=== PATIENT | female | born 1940 | race Caucasian/White ===

== ENCOUNTER 2018-01-30 12:04 | Emergency (ER) | payer MEDICARE, OTHER, SELFPAY ==
[2018-01-30 12:05] VITALS: BP 153/77; PULSE 90; RESP 16; TEMP 37.2; O2SAT 96; BMI 24.7
--- NOTE | 2018-01-30 12:26 | RAD_ITS ---
STUDY: X-RAY CHEST REASON FOR EXAM: Female, 77 years old. Several week history of shortness of breath. TECHNIQUE: PA and lateral views of the chest. COMPARISON: Comparison is made with prior study dated November 11, 2016. FINDINGS: Hyperinflation. Worsening of the pleural parenchymal changes at the left lung base suggestive of scarring and possible small left pleural effusion. There is mild cardiac enlargement. Normal mediastinum and chrystal. Normal visualized pulmonary arteries. There is atherosclerotic calcification of the aortic arch with tortuosity. There are diffuse degenerative changes of the visualized thoracic spine. Normal visualized ribs, clavicles, and shoulders. There is no demonstrated abnormality of the visualized soft tissue structures of the upper abdomen. RAD/Chest PA and Lateral IMPRESSION: Worsening of the pleural parenchymal changes at the left lung base. Blunting of the right costophrenic angle. Electronically Signed: Tim Solitario MD at 13:29 EDT Tel [phone], Service support ,
[2018-01-30] MEDS: Ipratropium/Albuterol Sulfate 3 ML AMPUL.NEB INHALATION (12:35)
[2018-01-30] MEDS: Albuterol 2.5 MG/3 ML VIAL.NEB. INHALATION ×2 (12:35)
[2018-01-30 12:36] VITALS: PULSE 91; RESP 20
--- NOTE | 2018-01-30 12:52 | ED.DCSUM_ITS ---
- ER Visit Summary Date of Service: 01/30/18 Chief Complaint: Shortness of breath History of Present Illness: The patient is a 77 F reports cough and chest congestion for the past 2-3 weeks. She had a low-grade fever initially in the illness, but none recently. She does report cough with green sputum. She does feel like she is wheezing. She used her nebulizer 4 times last night. Patient states her primary care physician had called her in prednisone. She is finished with this course but does not feel improved. Physical Examination: Blood pressure is 153/77, temperature 99.0, heart rate 90 , respiratory rate 16, pulse ox 96% on room air. Patient is in no acute distress and is speaking full sentences. Head neck examination reveals TMs to be clear bilaterally. She has mild posterior pharyngeal drainage. She has mild bilateral cervical lymphadenopathy. Heart is regular rate and rhythm. Lung sounds with expiratory wheezes and rales. Abdomen is soft nontender. Lower extremity examination reveals no significant calf tenderness or edema. Test Results: CBC reveals a white count of 11.1 with normal differential. Hemoglobin is 10.5. Chemistry studies are normal. Two-view chest x-ray shows worsening pleural parenchymal changes at the left lung base. There is blunting of the right costophrenic angle. Emergency Department Course and Treatment: Patient was given aerosols and IV Solu-Medrol. On repeat evaluation she still has some expiratory wheezes but they are improved. She is now bringing up some sputum. She will continue her Mucinex at home. She be placed back on a prednisone taper and given doxycycline. Treatment Plan: [] Disposition: Discharge Impression: 1. Bronchitis 2. Asthma exacerbation This note was generated with [employer] dictation software. It may contain incorrect words, spelling, and punctuation that were not noted in review of the chart prior to signing ED Disposition - Plan for ED Patient: Chief Complaint: Shortness of Breath Referrals: Umm Rehman MD [Primary Care Provider] -
[2018-01-30] MEDS: 0.9% Normal Saline 1,000 ML 150 ML IV (12:55)
[2018-01-30] MEDS: MethylPREDNISolone 125 MG/2 ML Vial IV (12:55)
[2018-01-30 13:02] LABS: Absolute Lymphocyte Count 1.46 X10^3/ul (0.83-4.51); Absolute Neutrophil Count 8.4 X10^3/uL (2.0-7.7); Basophil# 0.04 X10^3/uL; Basophil% 0.4 % (0-1); Eosinophil# 0.32 X10^3/uL; Eosinophils% 2.9 % (0-5); Hematocrit 35.6 % (37-47); Hemoglobin 10.5 g/dl (12.0-15.0); Lymphocyte # 1.46 X10^3/ul (4.0); Lymphocyte % 13.2 % (19-41); Mean Corp Hgb Conc 29.5 g/gl (32-36); Mean Corpuscular Hgb 22.7 pg (27.0-32.0); Mean Corpuscular Volume 77.1 fL (81-99); Monocyte# 0.85 X10^3/uL; Monocyte% 7.7 % (0-10); Neutrophil # 8.38 X10^3/uL (2.7-7.7); Neutrophil % 75.6 % (47-70); POSITIVE COUNT NO; POSITIVE DIFFERENTIAL NO; POSITIVE MORPHOLOGY NO; Platelet Count 328 K/mm3 (150-450); RBC Distribution Width CV 18.1 % (11.6-14.6); RBC Distribution Width SD 49.3 fl (35.1-43.9); Red Blood Count 4.62 M/mm3 (4.2-5.4); White Blood Count 11.1 K/mm3 (4.4-11.0)
[2018-01-30 13:17] LABS: Anion Gap 7 (5-15); BUN 10 mg/dL (7-18); BUN/Creat Ratio 16.4 RATIO (10-20); Calcium,Total 8.6 mg/dL (8.5-10.1); Chloride 107 mmol/L (98-107); Creatinine, Serum 0.61 mg/dL (0.55-1.02); EST Glomerular Filtration Rate 102 mL/min (>60); Est Glom Filt Rate - Afr Amer 123 mL/min (>60); Estimated Creatinine Clearance 40.21 ml/min; Glucose 78 mg/dL (74-106); Potassium 3.8 mmol/L (3.5-5.1); Sodium Level 142 mmol/L (136-145)
--- NOTE | 2018-01-30 14:18 | ED.DEP ---
ED Disposition - Plan for ED Patient: Disposition: Home or Assisted Living Chief Complaint: Shortness of Breath Instructions: ED Bronchitis Asthmatic Prescriptions: Prednisone 10 mg PO DAILY #63 tablet Doxycycline Monohydrate 100 mg PO BID #20 capsule Referrals: Umm Rehman MD [Primary Care Provider] - 1 Week
[2018-01-30 14:32] VITALS: BP 145/53; PULSE 78; RESP 16; O2SAT 97
[2018-01-30] MEDS: Doxycycline 100 MG CAPSULE PO (14:32)
== END 2018-01-30 14:34 | disposition home or self-care (01) ==
PROVIDERS: Emergency Provider Emergency Medicine; Family Provider Internal Medicine; PCP Internal Medicine
DX: J40 Bronchitis, not specified as acute or chronic (principal); J45.901 Unspecified asthma with (acute) exacerbation; M06.9 Rheumatoid arthritis, unspecified; Z79.899 Other long term (current) drug therapy
CPT/HCPCS: 71046; 80048; 85025; 94640; 96361; 96374; 99284; J7030

== ENCOUNTER → 2018-05-15 16:00 | Outpatient (CLI) | payer MEDICARE, OTHER, SELFPAY | PROVIDERS: Family Provider Internal Medicine; PCP Internal Medicine; Visit Provider Ophthalmology | DX: H10.42 Simple chronic conjunctivitis (principal) | CPT/HCPCS: 87070; 87077; 87186; 87205 ==

== ENCOUNTER → 2018-05-25 09:14 | Outpatient (CLI) | payer MEDICARE, OTHER, SELFPAY | PROVIDERS: Family Provider Internal Medicine; PCP Internal Medicine; Visit Provider Ophthalmology | DX: H10.42 Simple chronic conjunctivitis (principal) | CPT/HCPCS: 87070; 87075; 87077; 87186; 87205 ==

== ENCOUNTER 2018-06-25 15:37 | Emergency (ER) | payer MEDICARE, OTHER, SELFPAY ==
[2018-06-25 15:37] VITALS: BP 152/79; PULSE 95; RESP 20; TEMP 36.8; O2SAT 96; BMI 26.0
[2018-06-25 15:51] VITALS: PULSE 87; RESP 19; O2SAT 94; O2SAT 95
[2018-06-25 15:56] VITALS: PULSE 80; RESP 18
[2018-06-25] MEDS: Ipratropium/Albuterol Sulfate 3 ML AMPUL.NEB INHALATION (15:56)
[2018-06-25] MEDS: predniSONE 20 MG Tablet 40 MG PO (16:02)
--- NOTE | 2018-06-25 16:20 | RAD_ITS ---
STUDY: X-RAY CHEST REASON FOR EXAM: Female, 78 years old. Dyspnea. TECHNIQUE: 2 views COMPARISON: Prior chest radiograph of January 30, 2018. FINDINGS: Generalized hyperexpansion. Stable bilateral chronic apical and bibasilar changes without a substantial new area of consolidation, focal atelectasis or pleural effusion. Normal size heart. Calcified left hilar lymph nodes. Normal visualized pulmonary arteries. There is atherosclerotic calcification of the aortic arch with tortuosity. There are diffuse degenerative changes of the visualized thoracic spine with demineralized osseous structures. There is degenerative osteoarthritis of the bilateral shoulders. There is no demonstrated abnormality of the visualized soft tissue structures of the upper abdomen. RAD/Chest PA and Lateral IMPRESSION: No acute cardiopulmonary findings or changes. Hyperexpansion and stable lung changes. Stigmata of old granulomatous disease. Electronically Signed: Kori Corado MD at 17:15 EDT , Service support ,
[2018-06-25] MEDS: 0.9% Normal Saline 1,000 ML 150 ML IV (16:32)
[2018-06-25 16:38] LABS: Absolute Lymphocyte Count 0.63 X10^3/ul (0.83-4.51); Absolute Neutrophil Count 7.3 X10^3/uL (2.0-7.7); Basophil# 0.02 X10^3/uL; Basophil% 0.2 % (0-1); Eosinophil# 0.23 X10^3/uL; Eosinophils% 2.7 % (0-5); Hematocrit 36.9 % (37-47); Hemoglobin 10.7 g/dl (12.0-15.0); Lymphocyte # 0.63 X10^3/ul (4.0); Lymphocyte % 7.4 % (19-41); Mean Corpuscular Hgb 23.9 pg (27.0-32.0); Mean Corpuscular Volume 82.4 fL (81-99); Mean Platelet Vol. 9.2 fl (6.2-12.0); Monocyte# 0.27 X10^3/uL; Monocyte% 3.2 % (0-10); Neutrophil % 86.4 % (47-70); Platelet Count 348 K/mm3 (150-450); RBC Distribution Width CV 17.1 % (11.6-14.6); RBC Distribution Width SD 51.9 fl (35.1-43.9); Red Blood Count 4.48 M/mm3 (4.2-5.4); White Blood Count 8.5 K/mm3 (4.4-11.0)
[2018-06-25 16:42] LABS: POSITIVE COUNT NO; POSITIVE DIFFERENTIAL NO; POSITIVE MORPHOLOGY NO
[2018-06-25 16:56] LABS: Anion Gap 2 (5-15); BUN 7 mg/dL (7-18); BUN/Creat Ratio 10.2 RATIO (10-20); Calcium,Total 8.6 mg/dL (8.5-10.1); Chloride 108 mmol/L (98-107); Creatinine, Serum 0.68 mg/dL (0.55-1.02); EST Glomerular Filtration Rate 89 mL/min (>60); Est Glom Filt Rate - Afr Amer 107 mL/min (>60); Estimated Creatinine Clearance 39.59 ml/min; Glucose 112 mg/dL (74-106); Potassium 4.6 mmol/L (3.5-5.1); Sodium Level 140 mmol/L (136-145)
[2018-06-25 18:48] LABS: D-Dimer Quantitative (DVT/PE) 0.39 FEU/ug/m (0.27-0.49)
--- NOTE | 2018-06-25 19:14 | ED.DCSUM_ITS ---
- ER Visit Summary Date of Service: 06/25/18 Chief Complaint: [Shortness of breath] History of Present Illness: The patient is a 78 F [presents the emergency department complaint of shortness of breath since yesterday. Patient's had a cough with some yellowish sputum production. Patient complains of some pain in the right lung. Patient said she had to take a Percocet for the pain in her right lung. Patient was seen at urgent care and referred to the emergency department. Patient does have a history of asthma. Patient denies recent travel or surgery. Patient has not had a fever.] Physical Examination: [HEENT-PERRLA, EOMI. Cranial nerves II through XII grossly intact. TMs clear. Mucous membranes moist. No adenopathy. Cardiovascular-regular rate and rhythm without murmur or ectopy Lungs-aeration bilaterally with some faint expiratory wheezes noted bilaterally. No accessory muscle use or retractions. Abdomen-normoactive bowel sounds, soft, nontender, no rebound or rigidity, no peritoneal signs. Extremities-intact ?4, normal range of motion, normal pulses, atraumatic] Test Results: EKG obtained arrival showed a sinus rhythm with a ventricular rate of 85 bpm with no acute ST segment changes. CBC with differential was normal. Chemistries were normal. Troponin was less than 0.015. D-dimer was normal at 0.39. Chest x-ray showed hyperinflation otherwise nothing acute. [] Emergency Department Course and Treatment: [Patient was medicated with a DuoNeb aerosol and was started on prednisone. Patient was treated with doxycycline.] Treatment Plan: Patient to follow-up with her primary care physician in 3-5 days. Patient will be started on doxycycline and prednisone [] Disposition: [Discharged home in stable condition] Impression: [Asthmatic bronchitis] This note was generated with [employer] dictation software. It may contain incorrect words, spelling, and punctuation that were not noted in review of the chart prior to signing ED Disposition - Plan for ED Patient: Chief Complaint: Asthma Referrals: Umm Rehman MD [Primary Care Provider] -
--- NOTE | 2018-06-25 19:14 | ED.DEP ---
ED Disposition - Plan for ED Patient: Chief Complaint: Asthma Instructions: ED Bronchitis Asthmatic Prescriptions: Doxycycline Monohydrate 100 mg PO BID #20 cap Prednisone [Deltasone] 20 mg PO BID #10 tab Referrals: Umm Rehman MD [Primary Care Provider] - 3-5 Days
[2018-06-25 19:20] VITALS: BP 136/79; PULSE 70; RESP 16; O2SAT 96
--- NOTE | 2018-06-26 11:16 | CM.ED ---
ED CALLBACK: Follow-up call placed to patient with no answer. Voicemail left with return contact information.
== END 2018-06-25 19:51 | disposition home or self-care (01) ==
PROVIDERS: Emergency Provider Emergency Medicine; Family Provider Internal Medicine; PCP Internal Medicine
DX: J45.909 Unspecified asthma, uncomplicated (principal); M06.9 Rheumatoid arthritis, unspecified; F32.9 Major depressive disorder, single episode, unspecified; Z79.899 Other long term (current) drug therapy
CPT/HCPCS: 36415; 71046; 80048; 84484; 85025; 85379; 93005; 94640; 96360; 96361; 99284; J7030; A4216

== ENCOUNTER → 2018-12-14 07:16 | Outpatient (CLI) | payer MEDICARE, OTHER, SELFPAY ==
[2018-12-01 09:06] VITALS: BMI 25.8
--- NOTE | 2018-12-14 07:19 | CT_ITS ---
HISTORY: WHEEZING/PRIOR SMOKERHX-ASTHMA,REYNAUDSSURG-BREAST REDUCTION EXAM/TECHNIQUE: CT Chest W/O Contrast: COMPARISON: Chest radiographs 06/25/18. FINDINGS: # of images incl. paperwork: [id number] 3 right-sided pulmonary nodules are evident, images are from series 4: Right middle lobe, subpleural, 5 mm image 82 and 3 mm image 88. Right lower lobe, subpleural, 7 mm, image 71. Otherwise the lungs are significant for scarring in the apices, scarring/atelectasis in the left lung base. No evidence of acute pneumonia or pulmonary edema. No apparent lymphadenopathy. Calcified left hilar lymph nodes are noted. Normal caliber thoracic aorta, normal heart size. Calcified mitral annulus. Moderate hiatal hernia contains a portion of the gastric fundus. Surgical clips are seen in the region of the hiatal hernia compatible with previous surgery. Several incidental hepatic cysts and calcified splenic granulomas are noted. A large heterogenous mass is noted in the left lobe of the thyroid gland, 3.8 x 5.0 x 4.7 cm TRV X APX craniocaudad, heterogenous with small calcifications on the inferomedial aspect, as well as soft tissue and lower attenuation. This deviates the trachea to the right mildly. No acute osseous abnormality. Mild chronic wedging of the T12 vertebral body. CT/Chest without Contrast IMPRESSION: No acute findings. 3 right-sided pulmonary nodules described in detail above. Lung RADS category 3; six-month follow-up pulmonary nodule protocol CT suggested. Large mass in the left lobe of the thyroid gland. Dedicated thyroid workup including ultrasound suggested if not previously performed. Moderate hiatal hernia, other incidental findings as above. Individualized dose optimization techniques were used for this CT. at 0840 Reported and signed by: Darren Yanez MD Electronically Signed: Darren Yanez, at 8:38 EST Tel , Service support ,
--- NOTE | 2018-12-14 07:19 | ECHOCS_ITS ---
Reason For Study: Dyspnea/SOB Procedure This was a 2D Doppler, Color Flow transthoracic echocardiogram. The study was technically difficult. Exam performed in department. Left Ventricle Normal LV size. Left ventricular systolic function is normal. The estimated ejection fraction is 65 %. Stage 1 diastolic dysfunction. No regional wall motion abnormalities noted. Right Ventricle Normal RV size. Normal systolic function. Atria Normal left atrium. Normal right atrium. Mitral Valve There is mild mitral annular calcification. Mild (1+) eccentric mitral valve insufficiency. Tricuspid Valve Normal tricuspid valve. Aortic Valve Trisinus/trileaflet aortic valve. Pulmonic Valve The pulmonic valve is not well visualized. Great Vessels Normal aortic root. The pulmonary artery is normal size. Normal inferior vena cava. Pericardium/Pleural No pericardial effusion. MMode/2D Measurements & Calculations LVIDd: 4.2 cm IVSd: 1.1 cm Ao root diam: 3.9 cm LVIDs: 3.2 cm LVPWd: 1.3 cm LA dimension: 4.1 cm RVDd: 3.1 cm FS: 22.5 % LAV(MOD-bp): 59.4 ml LA A4 area: 19.7 cm2 RA A4 area: 20.5 cm2 LAV(MOD-bp) Indexed: 34.7 ml/m2 LAV(MOD-sp2): 63.4 ml LAV(MOD-sp4): 53.3 ml Time Measurements MV dec time: 0.27 sec Doppler Measurements & Calculations MV E max rajiv: 123.5 cm/sec Lat Peak E' Rajiv: 6.8 cm/sec Med Peak E' Rajiv: 6.1 cm/sec MV A max rajiv: 161.2 cm/sec E/E' lat: 18.2 E/E' med: 20.4 MV E/A: 0.77 MV V2 max: 173.0 cm/sec MV P1/2t max rajiv: 129.6 cm/sec Ao V2 max: 122.5 cm/sec MV max P.0 mmHg MV P1/2t: 105.4 msec Ao max P.0 mmHg MV V2 mean: 89.2 cm/sec MV dec slope: 360.2 cm/sec2 Ao V2 mean: 87.8 cm/sec MV mean P.8 mmHg MVA(P1/2t): 2.1 cm2 Ao mean P.4 mmHg MV V2 VTI: 46.1 cm Ao V2 VTI: 26.5 cm LV V1 max: 97.6 cm/sec PA V2 max: 61.9 cm/sec LV V1 max P.8 mmHg LV V1 mean P.9 mmHg LV V1 mean: 62.4 cm/sec LV V1 VTI: 23.2 cm Interpretation Summary Normal LV size. Left ventricular systolic function is normal. The estimated ejection fraction is 65 %. Stage 1 diastolic dysfunction. Contrast injection was performed. Ordering Physician: Chandu Denson Referring Physician: Chandu Denson Performed By: Jonathan Hyman RCS
== END ==
PROVIDERS: Family Provider Internal Medicine; PCP Internal Medicine; Referring Provider Internal Medicine Critical Care Medicine; Visit Provider Internal Medicine Critical Care Medicine
DX: R06.09 Other forms of dyspnea (principal); M06.9 Rheumatoid arthritis, unspecified
CPT/HCPCS: 71250; 93306; Q9957; A4216; C8929

== ENCOUNTER → 2019-01-08 17:24 | Outpatient (CLI) | payer MEDICARE, OTHER, SELFPAY ==
[2018-12-01 09:06] VITALS: BMI 25.8
--- NOTE | 2019-01-08 09:00 | THYROID_PTH ---
PATIENT: MIKA LUZ LOC: [facility] U#:[id number] AGE/SX: 85/F ROOM: RE01/08/[address]: Dr. Lyudmila Suarez MD : [id number] BED: DIS: SPEC #: [id number] RECD: 01/08/19 17:07 STATUS: NICOLE MAXIMO #: [id number] ETHAN: 01/08/19 09:[address]: Lyudmila Suarez DEPT: SURGICAL PATHOLOGY RECD BY: Jamie Navarro ENTERED: 01/11/19 14:42 SP TYPE: THYROID OTHR DR: Dr. 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 SJ:justice 01/12/19 COMMENT Correlation with clinical, radiologic findings and appropriate follow up are necessary. MICROSCOPIC DESCRIPTION Slides are reviewed. GROSS DESCRIPTION Received is one container labeled with the patient's name and not further designated. The specimen consists of multiple fragments of rush soft tissue that in aggregate measure 0.5 x 0.1 x <0.1 cm. The specimen is totally submitted in one cassette. Cytospin and cell block are also prepared from remaining fluid. / SJ:justice 01/11/19 TC:5 CPT: 19238, 58255
== END ==
PROVIDERS: Family Provider Internal Medicine; PCP Internal Medicine; Referring Provider Surgery; Visit Provider Surgery
DX: E04.2 Nontoxic multinodular goiter (principal)
CPT/HCPCS: 88108; 88305

== ENCOUNTER 2019-01-18 15:33 | Inpatient (IN) | payer MEDICARE, OTHER, SELFPAY ==
[2018-12-01 09:06] VITALS: BMI 25.8
[2019-01-18] VITALS (10 sets, daily range): BP systolic 112–176; BP diastolic 37–97; PULSE 52–158; RESP 13–26; TEMP 36.9–39; O2SAT 94–99; BMI 25.7; BMI 25.3
--- NOTE | 2019-01-18 16:00 | EKG12_ITS ---
Test Reason : SOB FEVER Blood Pressure : / mmHG Vent. Rate : 116 BPM Atrial Rate : 116 BPM P-R Int : 132 ms QRS Dur : 080 ms QT Int : 356 ms P-R-T Axes : -21 079 029 degrees QTc Int : 494 ms Sinus tachycardia with Premature atrial complexes Low voltage QRS ST & T wave abnormality, consider anterior ischemia Abnormal ECG Confirmed by JOSÉ LUIS MOY ([id number]), telegraph editor LEYLA RICHMOND ([id number]) on 01/22/2019 1:34:58 PM Referred By: Hansel Torres Confirmed By:JOSÉ LUIS MOY
--- NOTE | 2019-01-18 16:08 | RAD_ITS ---
STUDY: X-RAY CHEST REASON FOR EXAM: Female, 78 years old. Fever. Weakness. TECHNIQUE: Single AP portable view of the chest. COMPARISON: June 25, 2018. CT of the chest, December 14, 2018. FINDINGS: Telemetry wires overlie the chest. Lungs are mildly hyperexpanded. There is no new mass or infiltrate. There is mild chronic interstitial coarsening. There is no demonstrated pleural abnormality. Normal size heart. Normal mediastinum. There are calcifications in the left hilum. Normal visualized pulmonary arteries. There is atherosclerotic calcification of the aortic arch with tortuosity. The thoracic spine is obscured by the mediastinum. There is degenerative osteoarthritis of the bilateral shoulders. There is no demonstrated abnormality of the visualized soft tissue structures of the upper abdomen. RAD/Chest 1 View (Portable) IMPRESSION: No acute cardiopulmonary disease or interval change. Electronically Signed: Jr Douglass DO at 17:18 EST Tel [phone], Service support ,
[2019-01-18] MEDS: Acetaminophen 500 MG Tablet 1000 MG PO (16:11)
[2019-01-18] MEDS: 0.9% Normal Saline 1,000 ML 250 ML IV (16:12)
[2019-01-18 16:29] LABS: Mucous, Urine 0 SEEN /hpf (<or=2+)
[2019-01-18 16:39] LABS: Color, Urine Yellow (Yellow); Glucose, Dipstick Normal (Normal); Ketone-Dipstick 50 mg/dl (Negative); Leukocyte Esterase-Dipstick 500 /ul (Negative); Nitrite-Dipstick Positive (Negative); Occult Blood-Urine 150 /ul (Negative); Protein-Dipstick 100 mg/dl (Negative); Urine Bilirubin Dipstick Negative (Negative); Urine Clarity Cloudy (Clear); Urine Urobilinogen Normal (Normal)
[2019-01-18 16:42] LABS: International Normalized Ratio 1.2; Prothrombin Time (Protime)PT. 15.2 SECONDS (11.7-14.9)
[2019-01-18 16:43] LABS: Absolute Lymphocyte Count 0.51 X10^3/ul (0.83-4.51); Absolute Neutrophil Count 12.8 X10^3/uL (2.0-7.7); Basophil# 0.01 X10^3/uL; Basophil% 0.1 % (0-1); Eosinophil# 0.01 X10^3/uL; Eosinophils% 0.1 % (0-5); Hematocrit 37.6 % (37-47); Hemoglobin 10.9 g/dl (12.0-15.0); Lymphocyte # 0.51 X10^3/ul (4.0); Lymphocyte % 3.5 % (19-41); Mean Corpuscular Hgb 22.6 pg (27.0-32.0); Mean Corpuscular Volume 77.8 fL (81-99); Mean Platelet Vol. 8.8 fl (6.2-12.0); Monocyte# 1.08 X10^3/uL; Monocyte% 7.5 % (0-10); Neutrophil # 12.82 X10^3/uL (2.7-7.7); Neutrophil % 88.6 % (47-70); Partial Thromboplast Time 29.3 Seconds (24.1-36.2); Platelet Count 404 K/mm3 (150-450); RBC Distribution Width CV 16.8 % (11.6-14.6); RBC Distribution Width SD 47.9 fl (35.1-43.9); Red Blood Count 4.83 M/mm3 (4.2-5.4); White Blood Count 14.5 K/mm3 (4.4-11.0)
[2019-01-18 16:45] LABS: Differential Indicated SCAN CRITERIA MET; POSITIVE COUNT NO; POSITIVE DIFFERENTIAL YES; POSITIVE MORPHOLOGY NO
[2019-01-18 16:49] LABS: Lactic Acid 1.6 mmol/L (0.4-2.0)
[2019-01-18 16:52] LABS: ALB/GLOB Ratio 0.7 RATIO (0.9-2.4); AST(SGOT) 18 U/L (15-37); Alanine Aminotransfer ALT/SGPT 16 U/L (13-56); Albumin, Serum 3.1 g/dL (3.2-5.0); Alkaline Phosphatase 95 U/L (45-117); Anion Gap 13 (5-15); BUN 12 mg/dL (7-18); BUN/Creat Ratio 14.3 RATIO (10-20); Calcium,Total 8.4 mg/dL (8.5-10.1); Chloride 102 mmol/L (98-107); Creatinine, Serum 0.84 mg/dL (0.55-1.02); EST Glomerular Filtration Rate 70 mL/min (>60); Est Glom Filt Rate - Afr Amer 85 mL/min (>60); Estimated Creatinine Clearance 47.13 ml/min; Globulin 4.2 g/dL (2.2-4.2); Glucose 124 mg/dL (74-106); Protein, Total 7.3 g/dL (6.4-8.2); Sodium Level 138 mmol/L (136-145)
[2019-01-18 17:03] LABS: White Blood Cells >100 SEEN /hpf (0-5)
[2019-01-18] MEDS: levoFLOXacin IV 750 MG/150 ML BAG 100 MG IV (17:03)
[2019-01-18 17:04] LABS: Bacteria 4+ /hpf (None Seen); Red Blood Cells-Urine 10-25 SEEN /hpf (0-5); Squamous Epithelial Cells - UA 0-5 SEEN /hpf (5-10)
[2019-01-18 17:08] LABS: Differential Comment SCANNED
--- NOTE | 2019-01-18 18:27 | HP.PCM_ITS ---
Problem List (1) Sepsis Status: Acute Qualifiers: Sepsis type: sepsis due to unspecified organism Qualified Code(s): A41.9 - Sepsis, unspecified organism (2) Pyelonephritis Status: Acute History of Present Illness Date of Admission: 01/18/19 Chief Complaint: chills. malaise. The patient is a 78 year old F who has been having chills and since the third. Today, patient was getting into her bed, patient has an elevated bed so requires using stool but the stool went out from underneath her and patient fell on the ground. Patient was weak but denied any loss of consciousness nor hitting her head. Family is concerned and brought the patient to the emergency room. In the emergency room, patient was found to be septic, with a fever of 38.3, tachycardia with a heart rate of 104 and tachypnea with respiratory rate of 26. Additionally, patient was also found to have a white count of 14.5. Urinalysis was positive for urinary tract infection and patient did have CVA tenderness. It was reported to me by the emergency room physician that the patient was having chest pain but patient adamantly denies any chest pain today or yesterday to me. [] Past Medical History Past Medical History (Chronic Problems): Chronic Problems (Last Reviewed 12/01/18 @ 09:06 by Jyoti Flores) Dyspnea (Chronic) Rheumatoid arthritis (Chronic) Chronic pain (Chronic) Depression (Chronic) Asthma (Chronic) Medical History: Medical History (Last Updated 01/18/19 @ 18:26 by Hansel Torres DO) Rheumatoid arthritis (Chronic) M06.9 Chronic pain (Chronic) G89.29 Depression (Chronic) F32.9 Asthma (Chronic) J45.909 Thyroid nodule E04.1 Calculus of kidney N20.0 Diaphragmatic hernia K44.9 Lichen planus L43.9 Diverticulosis of colon (without mention of hemorrhage) K57.30 GERD (gastroesophageal reflux disease) K21.9 Osteopenia M85.80 Allergies aspirin Allergy (Verified 01/18/19 15:34) Shortness of breath cephalexin monohydrate [From Keflex] Allergy (Verified 01/18/19 15:34) Hives hydrocodone bitartrate [From Vicodin] Allergy (Verified 01/18/19 15:34) Rash NSAIDS (Non-Steroidal Anti-Inflamma Allergy (Verified 01/18/19 15:34) Shortness of breath Home Medications: Ambulatory Orders Medication Instructions Recorded Cyclobenzaprine [Flexeril] 10 mg PO BID PRN 11/24/13 Fluticasone/Salmeterol [Advair 1 puff IH DAILY 11/24/13 250/50 Mcg Diskus] Montelukast [Singulair] 10 mg PO DAILY 11/24/13 Albuterol Sulfate [Ventolin Hfa] 2 puff INHALATION 4X/DAY PRN PRN 01/30/18 Pregabalin [Lyrica] 75 mg PO QHS 01/30/18 Albuterol Aerosols [Ventolin 2.5 mg INHALATION Q6H PRN PRN 06/25/18 Aerosols] Hydroxyzine HCl 1 tab PO QHS 01/18/19 Surgical History: Surgical History (Last Reviewed 01/18/19 @ 18:25 by Hansel Torres DO) H/O bilateral breast reduction surgery Z98.890 H/O colonoscopy Z98.890 H/O laparoscopy Z98.890 esophagogast H/O: hysterectomy Z90.710 vaginal History of appendectomy Z90.49 History of incisional hernia repair Z98.890, Z87.19 History of partial colectomy Z90.49 excision large bowel P Ignacio Silvana Fundoplication Right ear drum surgery age 32 Psychiatric History: No pertinent psych hx Lives: With Family Smoking Status: Former smoker Tobacco Use: Non-smoker Alcohol: None Drugs: None - *Family History Maternal Family History: Family History (Last Reviewed 01/18/19 @ 18:26 by Hansel Torres DO) Mother Breast cancer Diabetes Osteoporosis Father CVA (cerebral vascular accident) Hypertension Review of Systems Constitutional: Reports: Chills, Fever, Malaise, Weakness. Denies: Anorexia Eyes: Denies: Blurred vision, Double vision HEENT: Denies: Head Aches, Sinus Congestion, Sinus Drainage Cardiovascular: Denies: Chest Pain, Edema Respiratory: Denies: Cough, Shortness of breath at rest, Sputum production Gastrointestinal: Denies: Abdominal Pain, Nausea, Vomiting Genitourinary: Reports: Dysuria. Denies: Incontinence Musculoskeletal: Reports: Joint Pain. Denies: Joint Tenderness Skin: Denies: Rash, Wounds Neurological: Denies: Balance problems, Blurred vision, Double vision, Change in Speech Psychiatric: Denies: Anxiety, Depression Endocrine: Denies: Change in Body Habitus, Heat/ Cold Intolerance Hematologic/ Lymphatic: Denies: Easy Bruising, Easy Bleeding, Hx of blood clot Comment: A 10 point review of systems were negative except as mentioned in the history of present illness and the other review of systems. VTE Information - Inpt Only VTE Present on Admission: No VTE Mechan Device Prophylaxis: None VTE Pharm Prophylaxis ordered?: Yes Patient Problems: Active and Suspected Problems (Last Reviewed 12/01/18 @ 09:06 by Jyoti Flores) Sepsis (Acute) Pyelonephritis (Acute) - Physical Exam General: Alert, Cooperative, No apparent distress HEENT: Atraumatic, Normocephalic Oral: Moist Mucosa, No Gingival or Mucosal Lesions/ Ulcerations Neck: No Nodes, - - Thyromegaly. Lungs: Clear to auscultation, Normal air movement, No rhonchi Cardiovascular: Regular rate, Regular Rhythm, Normal S1, Normal S2, No murmurs Abdomen: Bowel Sounds Present, Soft, Non Tender, Non-Distended, - - Right CVA tenderness Extremities: No edema, No Calf Tenderness Skin: No rashes, No breakdown Musculoskeletal: No Tenderness to Palpation of Joints or Extremities, No Muscle Wasting Neurological: Neuro grossly intact, Sensory exam intact to light touch and pain Psych/Mental Status: Normal Affect, Appropriate Vital Signs Temp Pulse Resp BP Pulse Ox 38.2 C H 104 H 18 131/97 H 99 01/18/19 18:00 01/18/19 18:00 01/18/19 18:00 01/18/19 17:00 01/18/19 18:00 Oxygen Flow Rate (L/min) 2 Oxygen Delivery Method Nasal Cannula Weight: 65.771 kg Body Mass Index (BMI) 25.7 Laboratory Tests Past 24 Hrs 01/18/19 01/18/19 01/18/19 15:45 15:45 15:45 WBC 14.5 H RBC 4.83 Hgb 10.9 L Hct 37.6 MCV 77.8 L MCH 22.6 L MCHC 29.0 L RDW 16.8 H RDW Differential 47.9 H Plt Count 404 MPV 8.8 Immature Gran % (Auto) 0.200 Neut % (Auto) 88.6 H Lymph % (Auto) 3.5 L [place] % (Auto) 7.5 Eos % (Auto) 0.1 Baso % (Auto) 0.1 Absolute Neuts (auto) 12.8 H Absolute Lymphs (auto) 0.51 L Total Counted Not Reportable Differential Comment SCANNED PT 15.2 H INR 1.2 APTT 29.3 Sodium 138 Potassium 4.0 Chloride 102 Carbon Dioxide 23.0 Anion Gap 13 BUN 12 Creatinine 0.84 Estim Creat Clear Calc 47.13 Est GFR (MDRD) Af Amer 85 Est GFR (MDRD) Non-Af 70 BUN/Creatinine Ratio 14.3 Glucose 124 H Lactic Acid Calcium 8.4 L Total Bilirubin 0.30 AST 18 ALT 16 Alkaline Phosphatase 95 Troponin I < 0.015 Total Protein 7.3 Albumin 3.1 L Globulin 4.2 Albumin/Globulin Ratio 0.7 L Urine Color Urine Clarity Urine pH Ur Specific [place] Urine Protein Urine Glucose (UA) Urine Ketones Urine Occult Blood Urine Nitrite Urine Bilirubin Urine Urobilinogen Ur Leukocyte Esterase Urine RBC Urine WBC Ur Squamous Epith Cells Urine Bacteria Urine Mucus 01/18/19 01/18/19 15:50 16:20 WBC RBC Hgb Hct MCV MCH MCHC RDW RDW Differential Plt Count MPV Immature Gran % (Auto) Neut % (Auto) Lymph % (Auto) [place] % (Auto) Eos % (Auto) Baso % (Auto) Absolute Neuts (auto) Absolute Lymphs (auto) Total Counted Differential Comment PT INR APTT Sodium Potassium Chloride Carbon Dioxide Anion Gap BUN Creatinine Estim Creat Clear Calc Est GFR (MDRD) Af Amer Est GFR (MDRD) Non-Af BUN/Creatinine Ratio Glucose Lactic Acid 1.6 Calcium Total Bilirubin AST ALT Alkaline Phosphatase Troponin I Total Protein Albumin Globulin Albumin/Globulin Ratio Urine Color Yellow Urine Clarity Cloudy Urine pH 6.0 Ur Specific [place] 1.020 Urine Protein 100 H Urine Glucose (UA) Normal Urine Ketones 50 H Urine Occult Blood 150 H Urine Nitrite Positive H Urine Bilirubin Negative Urine Urobilinogen Normal Ur Leukocyte Esterase 500 H Urine RBC 10-25 SEEN Urine WBC >100 SEEN Ur Squamous Epith Cells 0-5 SEEN Urine Bacteria 4+ Urine Mucus 0 SEEN EKG reviewed and shows sinus tachycardia with incomplete right bundle branch block and ST depressions in the lateral leads. Is essentially unchanged with exception of sinus tachycardia, from an EKG from June 25, 2018. Assessment/Plan All Active Problems (Last Reviewed 12/01/18 @ 09:06 by Jyoti Flores) Sepsis (Acute) Pyelonephritis (Acute) 1. Sepsis: Present on arrival. Secondary to suspected pyelonephritis. Met 4 of 4 SIRS criteria. Lactic acid was normal. Follow-up urine and blood cultures. 2. Suspected right-sided pyelonephritis: Received Levaquin in the emergency room. We will continue with Levaquin on the floor. Follow-up urine culture. Check an ultrasound to evaluate for any perinephric abscess. 3. Thyroid nodule. 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 Patient is to follow-up with the [facility] for possible partial thyroid resection. 4. DVT prophylaxis with low molecular weight heparin Case discussed with the patient's family at bedside. Code Visit Inpatient E&M: 26248 Init Hosp L2
--- NOTE | 2019-01-18 18:50 | US_ITS ---
STUDY: RENAL ULTRASOUND - COMPLETE REASON FOR EXAM: Female, 78 years old. Pyelonephritis and right flank pain. TECHNIQUE: Ultrasound evaluation of the kidneys was performed with real-time and static perla-scale imaging. COMPARISON: CTA of the chest, December 14, 2017. FINDINGS: RIGHT KIDNEY: Normal location of the right kidney, which is normal in size. The right kidney measures 10.7 cm. There is a normal cortex of the right kidney. The renal cortex measures 1. cm. There is a complicated cystic area in the lower pole with coarse peripheral calcifications measuring 2.8 x 2.4 x 3.2 cm. There are no right renal calculi. There is no right hydronephrosis. DISTAL RIGHT URETER: There is non-visualization of the distal right ureter. There is no demonstrated right ureterovesical junction calculus. There is no demonstrated right ureteral jet. LEFT KIDNEY: Normal location of the left kidney, which is normal in size. The left kidney measures 10.2 cm. There is a normal cortex of the left kidney. The renal cortex measures 1.5 cm. There are multiple echogenic foci within the cortex without shadowing which may be vascular or represent small calcifications. There are no left renal calculi. There is no left hydronephrosis. DISTAL LEFT URETER: There is non-visualization of the distal left ureter. There is no demonstrated left ureterovesical junction calculus. There is no demonstrated left ureteral jet. BLADDER: The distended urinary bladder has a volume of 90 ml. There is a normal wall thickness of the distended urinary bladder. There is no demonstrated mass within the urinary bladder. There are no demonstrated bladder calculi. US/Kidney and Bladder IMPRESSION: 1. Right appears to be a complex cystic area in the lower pole of the right kidney with associated calcifications. The lower pole of the right kidney is not included on the CTA. 2. Echogenic foci throughout the left kidney thought to be vascular. No renal calculi are seen in the visualized left kidney on the CTA of the chest. Electronically Signed: Jr Douglass DO at 22:04 EST Tel [phone], Service support ,
--- NOTE | 2019-01-18 19:17 | ED.DCSUM_ITS ---
- ER Visit Summary Date of Service: 01/18/19 Chief Complaint: Fever and dysuria History of Present Illness: The patient is a [address] Rehman. She reports that she has fever that began yesterday. She reports that she has dysuria and frequency that began approximately 10 days ago. She has been naus eated. Is not vomited. No abdominal pain. She does complain of generalized weakness. Patient reports that she had an episode of chest pain earlier today while she was at rest. It lasted approximately 1 hour. It is a substernal pressure/tightness. It was increased with movement of her torso. Is decreased with remaining still. She was nauseated with this. She did not vomit. She was short of breath and diaphoretic with it. States it was 6 out of 10 at worst and she is pain-free currently. Physical Examination: Vitals: 102.2, 152/77, 119, 19, 95% room air which is not hypoxic. General: Well-nourished and well-developed. Head: Normocephalic atraumatic. Neck: Supple, no lymphadenopathy. No JVD. Nontender. Cardiovascular: Tachycardic regular rhythm. No murmurs. Respiratory: No respiratory distress. Clear to auscultation bilaterally. Abdominal: Soft, nontender, nondistended, normal bowel sounds. No guarding, rebound, or peritoneal signs. Back: Mild CVA tenderness bilaterally. Extremities: Nontender, no edema. Skin: Normal color, no rash. Neurologic: Alert and oriented ?3. Cranial nerves II through XII are intact. Normal strength and sensation. Psych: Normal affect. Test Results: EKG is sinus tach at [address] changes. She has ST depression in leads V2 to V5 and T wave inversions in leads I and aVL. Troponin is negative. UA is infected. LFTs are marked for an albumin of 3.1. INR is 1.2. PTT is 29.3. Lactic acid is 1.6. CBC is more for a white count of 14.5 with a hemoglobin of 10.9. She has 89 segmented neutrophils and 4 lymphs lites. Chest x-ray shows chronic changes. Chem-7 is marked for a glucose of 124 and calcium 8.4. Emergency Department Course and Treatment: Patient was given a liter normal saline. She was given Tylenol for fever. She was given Levaquin IV as she is allergic to cephalosporins. Treatment Plan: Patient was discussed with Dr. Torres. She will be admitted the hospital for further relation and treatment. Disposition: Admitted in improved condition. Impression: 1. Sepsis. 2. Pyelonephritis. 3. Chest pain. 4. OUSMANE score of 2. This note was generated with [employer] dictation software. It may contain incorrect words, spelling, and punctuation that were not noted in review of the chart prior to signing ED Disposition - Plan for ED Patient: Disposition: Acute Care Hospital [facility] [facility]
[2019-01-18] MEDS: oxyCODONE 5 MG Tablet PO (20:02)
[2019-01-18] MEDS: 0.9% NaCl Peripheral Flush Adult/Peds IV (20:06)
[2019-01-18] MEDS: 0.9% Normal Saline 1,000 ML 150 ML IV (20:06)
[2019-01-18] MEDS: Pregabalin 75 MG Capsule PO (22:48)
[2019-01-18] MEDS: hydrOXYzine PAM 25 MG Capsule PO (22:48)
[2019-01-19] VITALS (17 sets, daily range): BP systolic 99–121; BP diastolic 44–52; PULSE 73–173; RESP 16–23; TEMP 37–39.2; O2SAT 94–98
[2019-01-19] MEDS: oxyCODONE 5 MG Tablet PO ×3 (04:47→17:25)
[2019-01-19] MEDS: Acetaminophen 325 MG Tablet 650 MG PO ×3 (04:47→17:56)
[2019-01-19 06:32] LABS: Anion Gap 9 (5-15); BUN 12 mg/dL (7-18); BUN/Creat Ratio 17.1 RATIO (10-20); Calcium,Total 7.6 mg/dL (8.5-10.1); Chloride 105 mmol/L (98-107); EST Glomerular Filtration Rate 86 mL/min (>60); Est Glom Filt Rate - Afr Amer 104 mL/min (>60); Estimated Creatinine Clearance 39.59 ml/min; Glucose 112 mg/dL (74-106); Potassium 3.7 mmol/L (3.5-5.1); Sodium Level 137 mmol/L (136-145)
[2019-01-19 06:33] LABS: Absolute Lymphocyte Count 0.68 X10^3/ul (0.83-4.51); Absolute Neutrophil Count 13.5 X10^3/uL (2.0-7.7); Basophil# 0.01 X10^3/uL; Basophil% 0.1 % (0-1); Eosinophil# 0.01 X10^3/uL; Eosinophils% 0.1 % (0-5); Hemoglobin 9.6 g/dl (12.0-15.0); Lymphocyte # 0.68 X10^3/ul (4.0); Lymphocyte % 4.2 % (19-41); Mean Corp Hgb Conc 29.1 g/gl (32-36); Mean Corpuscular Hgb 22.7 pg (27.0-32.0); Mean Corpuscular Volume 78.2 fL (81-99); Mean Platelet Vol. 8.7 fl (6.2-12.0); Monocyte# 2.03 X10^3/uL; Monocyte% 12.4 % (0-10); Neutrophil # 13.52 X10^3/uL (2.7-7.7); Neutrophil % 82.8 % (47-70); Platelet Count 351 K/mm3 (150-450); RBC Distribution Width CV 16.9 % (11.6-14.6); RBC Distribution Width SD 47.2 fl (35.1-43.9); Red Blood Count 4.22 M/mm3 (4.2-5.4); White Blood Count 16.3 K/mm3 (4.4-11.0)
[2019-01-19 06:39] LABS: Differential Indicated SCAN CRITERIA MET; POSITIVE COUNT NO; POSITIVE DIFFERENTIAL YES; POSITIVE MORPHOLOGY YES
[2019-01-19] MEDS: Albuterol 2.5 MG/3 ML VIAL.NEB. INHALATION ×3 (07:11→19:37)
[2019-01-19] MEDS: Budesonide Respules 0.5 MG/2 ML AMPUL.NEB. INHALATION ×2 (07:11→19:37)
[2019-01-19] MEDS: levoFLOXacin IV 750 MG/150 ML BAG 100 MG IV (10:01)
[2019-01-19] MEDS: Enoxaparin 40 MG/0.4 ML Syringe SC (10:01)
[2019-01-19] MEDS: 0.9% NaCl Peripheral Flush Adult/Peds IV (10:01)
[2019-01-19 10:33] LABS: Pathologist Review Reviewed
--- NOTE | 2019-01-19 13:44 | CASEMGMT ---
SANJAY GARCIA assessment: Face to Face with patient for initial transition planning/care coordination assessment. SANJAY GARCIA introduced self and role at [facility], pt voices understanding and consents to assessment at this time. Pt is lying in bed in no distress at this time. Pt is A/Ox4 at this time and answers all questions appropriately at this time. Care providers, pharmacy, and demographics verified. PCP: Ori Specialists: Erick, surg-pt states has been recently dx with a thyroid mass and is supposed to have appt with [facility] surgeon for possible resection. Preferred Pharmacy: [facility] Insurance: [facility] A/B, [employer] Prescription Benefit: Yes Living Will/HPOA: Pt states has LW/HPOA but they are not currently on file at [facility] and pt is aware at this time. LNOK: Jarett Ascencio, Living Arrangements: Pt states lives on main level of 2 story home with and states no concerns at home at this time. Transportation: Pt states drives self and states no transportation concerns at this time. DME/HHC: Pt states does not currently have any DME and states no need for any at this time. Pt states no hx of SNF or HHC in the past. Pt states no concerns with going home at time of discharge. Pt states is retired. Pt states does not smoke or drink ETOH. Pt states no further concerns/needs at this time. CM to follow for any further discharge planning/needs. Advised pt to ask for CM if any further questions/concerns/needs arise, voices understanding. Plan: [place] SANJAY GARCIA
--- NOTE | 2019-01-19 17:54 | PCM.PROGNOTE ---
Patient Problems: Active and Suspected Problems (Last Updated 01/18/19 @ 18:26 by Hansel Torres DO) Sepsis (Acute) Pyelonephritis (Acute) Subjective: Patient was seen and examined today, her white blood cell count nikolas a little bit this morning at 16.3, patient states she feels better, T-max today was 102.5 at fourth 20 5 AM this morning. Urine culture is positive for E. coli. - Physical Exam General: Alert, Oriented x3, Cooperative, No apparent distress, Well developed, Well nourished HEENT: Atraumatic, PERRLA, EOMI, Normocephalic Oral: Moist Mucosa Neck: Supple, No Nuchal Rigidity, Trachea Midline, Thyroid Normal Size and Texture Lungs: Clear to auscultation, Normal air movement, No rhonchi, No wheeze, No rales Cardiovascular: Regular rate, Regular Rhythm, Normal S1, Normal S2, No murmurs, No Ectopic Activity, PMI Normal, No rub noted, No Gallop Abdomen: Bowel Sounds Present, Soft, Non Tender, Non-Distended, No hernias noted Extremities: No clubbing, No cyanosis, No edema, Capillary Refill Less than 3 Seconds Skin: No rashes, No breakdown Musculoskeletal: No Tenderness to Palpation of Joints or Extremities Neurological: Cranial nerves II-XII grossly intact, Neuro grossly intact, Muscle tone normal, Sensory exam intact to light touch and pain Psych/Mental Status: Normal Affect, Appropriate, Alert and oriented to time, place, person, mood and affect Vital Signs Temp Pulse Resp BP Pulse Ox 98.6 F 73 16 102/47 L 98 01/19/19 14:34 01/19/19 14:59 01/19/19 14:34 01/19/19 14:34 01/19/19 14:34 Oxygen Flow Rate (L/min) 2 Oxygen Delivery Method Room Air Weight: 64.9 kg Body Mass Index (BMI) 25.3 Intake and Output for Last 24 Hours 01/17/19 01/18/19 01/19/19 23:59 23:59 23:59 Intake Total 743 / 743 1480 / 1480 Balance 743 / 743 1480 / 1480 Microbiology Past 72 Hours 01/18/19 16:20 Urine Culture - Preliminary Urine Catheter - Catheter Presumptive E. coli Laboratory Tests Past 24 Hrs 0301/19/19 01/19/19 05:45 05:45 05:45 WBC 16.3 H RBC 4.22 Hgb 9.6 L Hct 33.0 L MCV 78.2 L MCH 22.7 L MCHC 29.1 L RDW 16.9 H RDW Differential 47.2 H Plt Count 351 MPV 8.7 Immature Gran % (Auto) 0.400 Neut % (Auto) 82.8 H Lymph % (Auto) 4.2 L Centre % (Auto) 12.4 H Eos % (Auto) 0.1 Baso % (Auto) 0.1 Absolute Neuts (auto) 13.5 H Absolute Lymphs (auto) 0.68 L Total Counted Not Reportable Differential Comment Diff Path Review Reviewed Sodium 137 Potassium 3.7 Chloride 105 Carbon Dioxide 23.0 Anion Gap 9 BUN 12 Creatinine 0.70 Estim Creat Clear Calc 39.59 Est GFR (MDRD) Af Amer 104 Est GFR (MDRD) Non-Af 86 BUN/Creatinine Ratio 17.1 Glucose 112 H Calcium 7.6 L Magnesium 2.0 Medical Necessity - Tobacco Use Smoking Status: Former smoker Tobacco Use: Cigarettes Assessment/Plan All Active Problems (Last Updated 01/18/19 @ 18:26 by Hansel Torres DO) Sepsis (Acute) Pyelonephritis (Acute) 1 acute sepsis secondary to acute pyelonephritis from E. coli-continue current antibiotic coverage, await sensitivity, patient is in taking oral fluid and so I do not think there is a reason to place her on IV fluid. #2 acute pyelonephritis from E. coli-continue antibiotic coverage #3 chronic asthma Code Visit Inpatient E&M: 25014 Subs Hosp L2
[2019-01-19] MEDS: BENZOCAINE/MENTHOL 1 LOZENGE MUCOUS MEM (17:56)
[2019-01-19] MEDS: hydrOXYzine PAM 25 MG Capsule PO (22:41)
[2019-01-19] MEDS: Pregabalin 75 MG Capsule PO (22:43)
[2019-01-19] MEDS: Magnesium Hydroxide 30 ML UDC PO (22:54)
[2019-01-20] VITALS (15 sets, daily range): BP systolic 108–141; BP diastolic 50–57; PULSE 78–103; RESP 16–18; TEMP 37.1–39; O2SAT 91–98
[2019-01-20] MEDS: oxyCODONE 5 MG Tablet PO ×2 (03:03→13:43)
[2019-01-20] MEDS: Acetaminophen 325 MG Tablet 650 MG PO ×3 (03:04→21:40)
[2019-01-20] MEDS: Albuterol 2.5 MG/3 ML VIAL.NEB. INHALATION ×3 (07:12→18:47)
[2019-01-20] MEDS: Budesonide Respules 0.5 MG/2 ML AMPUL.NEB. INHALATION ×2 (07:12→18:47)
[2019-01-20] MEDS: Enoxaparin 40 MG/0.4 ML Syringe SC (09:11)
[2019-01-20] MEDS: Smz/Tmp Ds Tablet 1 TABLET PO (09:11)
[2019-01-20 09:17] LABS: Absolute Lymphocyte Count 0.78 X10^3/ul (0.83-4.51); Basophil# 0.01 X10^3/uL; Basophil% 0.1 % (0-1); Eosinophil# 0.04 X10^3/uL; Eosinophils% 0.3 % (0-5); Hematocrit 34.2 % (37-47); Lymphocyte # 0.78 X10^3/ul (4.0); Lymphocyte % 6.1 % (19-41); Mean Corp Hgb Conc 29.2 g/gl (32-36); Mean Corpuscular Hgb 22.8 pg (27.0-32.0); Mean Corpuscular Volume 77.9 fL (81-99); Mean Platelet Vol. 8.6 fl (6.2-12.0); Monocyte# 0.96 X10^3/uL; Monocyte% 7.5 % (0-10); Neutrophil # 10.96 X10^3/uL (2.7-7.7); Neutrophil % 85.8 % (47-70); Platelet Count 236 K/mm3 (150-450); RBC Distribution Width CV 16.8 % (11.6-14.6); RBC Distribution Width SD 47.7 fl (35.1-43.9); Red Blood Count 4.39 M/mm3 (4.2-5.4); White Blood Count 12.8 K/mm3 (4.4-11.0)
[2019-01-20 09:18] LABS: POSITIVE COUNT NO; POSITIVE DIFFERENTIAL NO; POSITIVE MORPHOLOGY NO
[2019-01-20] MEDS: AMOXICILLIN 500 MG CAPSULE PO (16:12)
--- NOTE | 2019-01-20 19:41 | PN_ITS ---
Patient Problems: Active and Suspected Problems (Last Updated 01/18/19 @ 18:26 by Hansel Torres DO) Sepsis (Acute) Pyelonephritis (Acute) Subjective: Patient was seen and examined today, sensitivities resulted on her urine culture revealed that the E. coli was not sensitive to Levaquin. Patient was placed on Bactrim this morning, I talked with her briefly about trying a dose of amoxicillin, she states she has been on amoxicillin before and had not had allergic reaction with it. This afternoon I placed her on an oral dose of amoxicillin, she had no reaction, I have elected to start her on Unasyn later on tonight. If she tolerates a Unasyn, I feel she could go home on Augmentin tomorrow. Patient's white blood cell count was still slightly elevated today, she spiked a temp early this morning of 102. - Physical Exam General: Alert, Oriented x3, Cooperative, No apparent distress, Well developed HEENT: Atraumatic, PERRLA, EOMI, Normocephalic Oral: Moist Mucosa Neck: Supple, No Nuchal Rigidity, Trachea Midline Lungs: Clear to auscultation, Normal air movement, No rhonchi, No wheeze, No rales Cardiovascular: Regular rate, Regular Rhythm, Normal S1, Normal S2, No murmurs, No Ectopic Activity, PMI Normal, No rub noted, No Gallop Abdomen: Bowel Sounds Present, Soft, Non Tender, Non-Distended Extremities: No clubbing, No cyanosis, No edema, Capillary Refill Less than 3 Seconds Skin: No rashes, No breakdown Musculoskeletal: No Tenderness to Palpation of Joints or Extremities Neurological: Cranial nerves II-XII grossly intact, Sensory exam intact to light touch and pain, Coordination normal Psych/Mental Status: Normal Affect, Appropriate, Alert and oriented to time, place, person, mood and affect Vital Signs Temp Pulse Resp BP Pulse Ox 98.8 F 99 16 110/50 L 97 01/20/19 16:12 01/20/19 15:00 01/20/19 14:30 01/20/19 14:30 01/20/19 14:30 Oxygen Flow Rate (L/min) 2 Oxygen Delivery Method Room Air Weight: 64.9 kg Body Mass Index (BMI) 25.3 Intake and Output for Last 24 Hours 01/18/19 01/19/19 01/20/19 23:59 23:59 23:59 Intake Total 743 / 743 1580 / 1580 740 / 740 Balance 743 / 743 1580 / 1580 740 / 740 Microbiology Past 72 Hours 01/18/19 16:20 Urine Culture - Final Urine Catheter - Catheter Presumptive E. coli Laboratory Tests Past 24 Hrs 01/20/19 09:05 WBC 12.8 H RBC 4.39 Hgb 10.0 L Hct 34.2 L MCV 77.9 L MCH 22.8 L MCHC 29.2 L RDW 16.8 H RDW Differential 47.7 H Plt Count 236 MPV 8.6 Immature Gran % (Auto) 0.200 Neut % (Auto) 85.8 H Lymph % (Auto) 6.1 L [place] % (Auto) 7.5 Eos % (Auto) 0.3 Baso % (Auto) 0.1 Absolute Neuts (auto) 11.0 H Absolute Lymphs (auto) 0.78 L Total Counted Not Reportable Medical Necessity - Tobacco Use Smoking Status: Former smoker Tobacco Use: Cigarettes Assessment/Plan All Active Problems (Last Updated 01/18/19 @ 18:26 by aHnsel Torres DO) Sepsis (Acute) Pyelonephritis (Acute) 1 acute sepsis secondary to acute pyelonephritis from E. coli-patient will be transitioned late tonight or early tomorrow morning to Unasyn, she did not have a reaction from oral amoxicillin today. Patient's Bactrim will be stopped #2 acute pyelonephritis from E. coli #3 chronic asthma Code Visit Inpatient E&M: 80574 Subs Hosp L2
[2019-01-20] MEDS: Pregabalin 75 MG Capsule PO (21:38)
[2019-01-20] MEDS: hydrOXYzine PAM 25 MG Capsule PO (21:39)
[2019-01-20] MEDS: Magnesium Hydroxide 30 ML UDC PO (21:51)
[2019-01-21] VITALS (9 sets, daily range): BP systolic 106–132; BP diastolic 39–65; PULSE 79–97; RESP 16–18; TEMP 37–37.8; O2SAT 94–98
[2019-01-21] MEDS: 0.9% NaCl Peripheral Flush Adult/Peds IV ×4 (00:04→05:45)
[2019-01-21] MEDS: Budesonide Respules 0.5 MG/2 ML AMPUL.NEB. INHALATION (07:11)
[2019-01-21] MEDS: Albuterol 2.5 MG/3 ML VIAL.NEB. INHALATION (07:11)
[2019-01-21] MEDS: Enoxaparin 40 MG/0.4 ML Syringe SC (08:38)
[2019-01-21] MEDS: oxyCODONE 5 MG Tablet PO (08:38)
--- NOTE | 2019-01-21 11:41 | PCM.DC ---
- Discharge Diagnoses Current Active Problems: Current Active and Chronic Problems (Last Updated 01/18/19 @ 18:26 by Hansel Torres DO) Sepsis (Acute) Pyelonephritis (Acute) You will use the following diet at home:: No restrictions Your food should be the consistency of: Regular Your liquids should be the consistency of: Regular/Thin Discharge Activity: Return to Normal Activity Weight Bearing Status: Full weight bearing Allergies/Adverse Reactions: Allergies aspirin Allergy (Verified 01/18/19 15:34) Shortness of breath cephalexin monohydrate [From Keflex] Allergy (Verified 01/18/19 15:34) Hives hydrocodone bitartrate [From Vicodin] Allergy (Verified 01/18/19 15:34) Rash NSAIDS (Non-Steroidal Anti-Inflamma Allergy (Verified 01/18/19 15:34) Shortness of breath Medications to take at Discharge Cyclobenzaprine [Flexeril] 10 mg PO TID PRN 11/24/13 Fluticasone/Salmeterol [Advair 250/50 Mcg Diskus] 1 puff IH DAILY 11/24/13 Albuterol Sulfate [Ventolin Hfa] 2 puff INHALATION 4X/DAY PRN PRN 01/30/18 Pregabalin [Lyrica] 75 mg PO QHS 01/30/18 Albuterol Aerosols [Ventolin Aerosols] 2.5 mg INHALATION Q6H PRN PRN 06/25/18 Ferrous Sulfate 325 mg PO DAILY 01/18/19 Hydroxyzine HCl 1 tab PO QHS PRN 01/18/19 Oxycodone HCl/Acetaminophen [Percocet 10-325 mg Tablet] 1 tablet PO Q8H PRN PRN 01/18/19 Amoxicillin/Potassium Clav [Augmentin 875-125 Tablet] 1 each PO BIDCM #11 tablet 01/21/19 The following prescriptions were given: Amoxicillin/Potassium Clav [Augmentin 875-125 Tablet] 1 each PO BIDCM #11 tablet Primary Care Physician: Umm Rehman MD [Primary Care Provider] - Test Results: Test results from this visit will be discussed in further detail at your follow-up appointment, if applicable.
--- NOTE | 2019-01-22 14:18 | CASEMGMT ---
RN RADHA DC Phone Call DC DATE: 01/21/2019 DC DISPOSITION: Home LACE/STRATA: 09/19 Intro role of CM to patient via phone. Pt states she is doing well and does not have questions re: dc instructions, prescriptions or her follow up. No care improvement suggestions given. Zana WALKERN RN ACM
--- NOTE | 2019-01-24 10:25 | PCM.DC.SUM ---
Discharge Date and Diagnosis Date of Admission: 01/18/19 Date of Discharge: 01/21/19 - Primary Discharge Diagnosis #1 acute sepsis secondary to acute pyelonephritis from E. coli #2 acute pyelonephritis from E. coli #3 chronic asthma - Secondary Discharge Diagnosis Chronic Problems (Last Updated 01/18/19 @ 18:26 by Hansel Torres DO) Dyspnea (Chronic) Rheumatoid arthritis (Chronic) Chronic pain (Chronic) Depression (Chronic) Asthma (Chronic) Hospital Course and Treatment Operations: None Procedures: None Summary of Care Provided: The patient is a 78 year old F seen in the emergency room at [facility] with chief complaint of chills and malaise. Workup in the ER indicated the patient to be septic, she had a white blood cell count of 14.5, urinalysis positive for UTI. Patient was admitted to PCU, she was placed on IV Levaquin, urine cultures revealed E. coli which was not sensitive to Levaquin, patient was changed briefly to oral Bactrim, she had an allergy to cephalexin and the patient consented to administration of penicillin, I gave her oral penicillin and there was no reaction so I briefly placed her on IV Unasyn which she had no reaction to. On 01/21/19, patient was seen and examined felt to be in stable condition for discharge home Physical exam: On examination she appeared in good health and spirits. Vital signs as documented. Skin warm and dry and without overt rashes. Neck without JVD. Lungs clear. Heart exam notable for regular rhythm, normal sounds and absence of murmurs, rubs or gallops. Abdomen unremarkable and without evidence of organomegaly, masses, or abdominal aortic enlargement. Extremities nonedematous. Neuro: Cranial nerves II through XII are grossly intact, no focal motor deficits were noted, sensation to light touch and pinprick is intact. Psych: Patient is alert and oriented x3, she does not appear anxious or depressed On 01/21/19, patient was seen and examined and discharged home in stable condition - Physical Exam Vital Signs Temp Pulse Resp BP Pulse Ox 98.6 F 97 16 107/39 L 97 01/21/19 13:21 01/21/19 13:21 01/21/19 13:21 01/21/19 13:21 01/21/19 13:21 Oxygen Flow Rate (L/min) 2 Oxygen Delivery Method Room Air Weight: 64.9 kg Body Mass Index (BMI) 25.3 Microbiology Past 72 Hours 01/18/19 15:45 Blood Culture - Final Blood Culture (Wb) - Anticubital Right No growth in 5 days. 01/18/19 15:50 Blood Culture - Final Blood Culture (Wb) - Anticubital Left No growth in 5 days. Discharge Activity: Return to Normal Activity Weight Bearing Status: Full weight bearing Home Medications: Medications to take at Discharge Cyclobenzaprine [Flexeril] 10 mg PO TID PRN 11/24/13 Fluticasone/Salmeterol [Advair 250/50 Mcg Diskus] 1 puff IH DAILY 11/24/13 Albuterol Sulfate [Ventolin Hfa] 2 puff INHALATION 4X/DAY PRN PRN 01/30/18 Pregabalin [Lyrica] 75 mg PO QHS 01/30/18 Albuterol Aerosols [Ventolin Aerosols] 2.5 mg INHALATION Q6H PRN PRN 06/25/18 Ferrous Sulfate 325 mg PO DAILY 01/18/19 Hydroxyzine HCl 1 tab PO QHS PRN 01/18/19 Oxycodone HCl/Acetaminophen [Percocet 10-325 mg Tablet] 1 tablet PO Q8H PRN PRN 01/18/19 Amoxicillin/Potassium Clav [Augmentin 875-125 Tablet] 1 each PO BIDCM #11 tablet 01/21/19 Following Prescrptions Were Given to Patient: Amoxicillin/Potassium Clav [Augmentin 875-125 Tablet] 1 each PO BIDCM #11 tablet Primary Care Physician: Umm Rehman MD [Primary Care Provider] - Disposition: Home Minutes spent on discharge:: 32 Patient Condition:: Stable Medical Necessity - Tobacco Use Smoking Status: Former smoker Tobacco Use: Cigarettes Meaningful Use Info Meaningful Use Diagnoses (Choose all that apply): None applicable Code Visit Inpatient E&M: 14820 Disch Hosp
== END 2019-01-21 13:26 | disposition home or self-care (01) | DRG 872 ==
LOC: ED 18:23 → PCU 01-19 06:32
PROVIDERS: Student in an Organized Health Care Education/Training Program; Emergency Provider Emergency Medicine; Family Provider Internal Medicine; PCP Internal Medicine; Visit Provider Internal Medicine
DX: A41.51 Sepsis due to Escherichia coli [E. coli] (principal); N10 Acute pyelonephritis; B96.20 Unspecified Escherichia coli [E. coli] as the cause of diseases classified elsewhere; J45.909 Unspecified asthma, uncomplicated; M06.9 Rheumatoid arthritis, unspecified; K21.9 Gastro-esophageal reflux disease without esophagitis; F32.9 Major depressive disorder, single episode, unspecified; D34 Benign neoplasm of thyroid gland; G89.29 Other chronic pain; Z79.899 Other long term (current) drug therapy; Z87.891 Personal history of nicotine dependence; Z79.891 Long term (current) use of opiate analgesic
CPT/HCPCS: 36415; 71045; 76770; 80048; 80053; 81001; 83605; 83735; 84484; 85025; 85610; 85730; 87040; 87086; 87088; 87186; 93005; 94640; 99285; J7030; J7040; A4216; J0295

== ENCOUNTER → 2019-05-12 | Outpatient (CLI) | payer MEDICARE, OTHER, SELFPAY ==
[2018-12-01 09:06] VITALS: BMI 25.8
[2019-02-11 11:09] VITALS: BMI 25.8
[2019-05-12 12:57] VITALS: PULSE 100; PULSE 102; PULSE 105; PULSE 82; PULSE 88; PULSE 93; PULSE 97; O2SAT 93; O2SAT 95; O2SAT 96; O2SAT 97; O2SAT 98; O2SAT 99
--- NOTE | 2019-05-12 14:38 | PCM.PSN.6M ---
PSN 6 Minute Walk Test - 6 Minute Walk Test 6 Minute Walk Test: 6 Minute Walk Test PSN:6-Minute Walk Test Start: 05/12/19 12:56 Freq: Status: Active Protocol: [id number].6MINW Document 05/12/19 12:57 CONNOR (Rec: 05/12/19 13:00 CONNOR [id number]) 6 Minute Walk Test Date Performed 05/12/19 Time Performed 12:30 Height 5 ft 3 in Weight: 67.261 kg Weight in Pounds 148.[address]: Chandu Denson Assistive device used: None Pre-test Oxygen Delivery Method Room Air Pulse Ox (%) 98 Pulse Rate (60-100 beats/min) 82 Dyspnea Crystal Scale (0-10) 0 Exertion Crystal Scale (6-20) 6 1st minute Oxygen Delivery Method Room Air Pulse Ox (%) 93 Pulse Rate (60-100 beats/min) 93 2nd minute Oxygen Delivery Method Room Air Pulse Ox (%) 99 Pulse Rate (60-100 beats/min) 100 3rd minute Oxygen Delivery Method Room Air Pulse Ox (%) 98 Pulse Rate (60-100 beats/min) 97 4th minute Oxygen Delivery Method Room Air Pulse Ox (%) 95 Pulse Rate (60-100 beats/min) 105 H 5th minute Oxygen Delivery Method Room Air Pulse Ox (%) 96 Pulse Rate (60-100 beats/min) 105 H 6th minute Oxygen Delivery Method Room Air Pulse Ox (%) 97 Pulse Rate (60-100 beats/min) 102 H Dyspnea Crystal Scale (0-10) 3 Exertion Crystal Scale (6-20) 13 Post-test Oxygen Delivery Method Room Air Pulse Ox (%) 96 Pulse Rate (60-100 beats/min) 88 Full Laps Walked 15 Partial Lap, Number of Tiles Walked 40 Total Distance Walked (ft) 925 - Interpretation Interpretation: The patient was able to ambulate 925 feet over the course of 6 minutes on room air with no assistive devices or breaks. The patient experienced no significant desaturation, but did have some tachycardia consistent with deconditioning. - Recommendations Recommendations: No supplemental oxygen is indicated at this time.
== END | disposition home or self-care (01) ==
LOC: PSN 12:16
PROVIDERS: Family Provider Internal Medicine; PCP Internal Medicine; Referring Provider Internal Medicine Critical Care Medicine; Visit Provider Internal Medicine Critical Care Medicine
DX: M06.9 Rheumatoid arthritis, unspecified (principal); R06.09 Other forms of dyspnea
CPT/HCPCS: 94618

== ENCOUNTER → 2019-06-10 | Outpatient (CLI) | payer MEDICARE, OTHER, SELFPAY ==
[2018-12-01 09:06] VITALS: BMI 25.8
[2019-02-11 11:09] VITALS: BMI 25.8
--- NOTE | 2019-06-10 15:06 | PFTCOMP ---
COMPLETE PULMONARY FUNCTION TEST INTERPRETATION Brief HPI: Patient is a 79 year old female, currently under the care of myself, who presents to [facility] for complete pulmonary function tests secondary to diagnosis of dyspnea. Respiratory therapist reports good effort and reproducible results. Interpretation: Forced expiration spirometry shows a moderate large airways obstructive ventilatory defect with an FEV1 of 61% predicted. There is a significant bronchodilator response in FVC by strict ATS criteria. Spirograms are of good quality and plateau slowly, indicating slowly emptying areas of the lungs. The respiratory flow volume loop shows decreased expiratory flow rates at all lung volumes consistent with airway obstruction. Lung volumes by body plethysmography show an elevated total lung capacity at 5.68 L, 125% predicted. FRC and RV are elevated out of proportion. Lung volume measurements are consistent with hyperinflation and air-trapping. Diffusion capacity by carbon monoxide is decreased at 52% predicted. The airway resistance is elevated. No previous pulmonary function tests were available for review. Impression: Partially reversible moderate large airways obstructive ventilatory defect with a symmetric reduction diffusing capacity, resulting in air trapping with hyperinflation, and a pattern consistent with COPD.
== END | disposition home or self-care (01) ==
LOC: PSN 07:43
PROVIDERS: Family Provider Internal Medicine; PCP Internal Medicine; Referring Provider Internal Medicine Critical Care Medicine; Visit Provider Internal Medicine Critical Care Medicine
DX: J45.909 Unspecified asthma, uncomplicated (principal)
CPT/HCPCS: 94060; 94726; 94729

== ENCOUNTER 2019-10-28 12:01 | Emergency (ER) | payer MEDICARE, OTHER, SELFPAY ==
[2019-07-13 13:00] VITALS: BMI 26.4
[2019-10-28 12:03] VITALS: BP 154/69; PULSE 70; RESP 18; TEMP 36.4; BMI 26.5
--- NOTE | 2019-10-28 12:34 | VDLE_ITS ---
Reason For Study: Pain Procedure LEFT Exam performed portable in ED. GSV is normal. A preliminary report was called and/or faxed CFV is compressible, spontaneous, phasic, to Susie. competent, and demonstrates normal augmentation. FV is compressible, spontaneous, phasic, competent and demonstrates normal augmentation. POP V is compressible, spontaneous, phasic, competent and demonstrates normal augmentation. T/P Trunk is compressible. PTV is compressible. LT PerV is compressible. Nonvascualrized structure noted in the left popliteal space measuring approximently 1.04 x 0.68 x 2.02 cm. Interpretation Summary Deep veins of the left lower extremity are patent and compressible segmentally. There is no evidence of left lower extremity deep vein thrombosis. Valvular competence appears intact within the proximal deep venous system on the left . The left great saphenous vein appears patent and compressible segmentally. A non-vascular, hypoechoic structure is noted in the left popliteal space, measuring 1.04 cm x 0.68 cm x 2.02 cm. This probably represents a popliteal cyst. Clinical correlation is advised. Ordering Physician: Sendy Rihcards Referring Physician: Umm Rehman Performed By: Minerva Combs RVT
--- NOTE | 2019-10-28 13:04 | ED.DCSUM_ITS ---
History of Present Illness Chief Complaint: Lower Extremity Injury Informant: Patient Onset: Days - 3 Context: Gradual Onset Timing: Continuous Quality of Pain: Aching Narrative: Patient is a 79-year-old female with history of chronic pain, on Percocet, secondary to arthritis presenting with atraumatic left knee pain. Patient states for the past 3 days she has had pain in her left knee. There is at the medial aspect of her knee as well as behind her knee. She notes has a history of a Ireland's cyst and states this feels slightly similar. She also has pain over her proximal calf. She denies any injuries or new activities. She denies any associated numbness or tingling. Denies any fever, rash or swelling of the knee. She denies any other complaints at this time. Past Medical History - Allergies and Home Meds Allergies/Adverse Reactions: Allergies aspirin Allergy (Verified 10/28/19 12:02) Shortness of breath cephalexin monohydrate [From Keflex] Allergy (Verified 10/28/19 12:02) Hives hydrocodone bitartrate [From Vicodin] Allergy (Verified 10/28/19 12:02) Rash NSAIDS (Non-Steroidal Anti-Inflamma Allergy (Verified 10/28/19 12:02) Shortness of breath Primary Care Physician: Umm Rehman MD [Primary Care Provider] - Past Medical History: - - Depression, rheumatoid arthritis, chronic pain, GERD Surgical History: noncontributory Smoking Status: Former smoker Review of Systems General: Denies: Chills, Fever, Sweats Eyes: Denies: Visual changes - bilaterally, Diplopia ENT: Denies: Rhinorrhea, Sore throat Cardiovascular: Denies: Chest pain, Palpitations Respiratory: Denies: Dyspnea, Cough, Dyspnea on exertion Gastrointestinal: Denies: Abdominal pain, Nausea, Vomiting, Diarrhea, Melena, Hematochezia Genitourinary: Denies: Dysuria, Hematuria, Frequency Musculoskeletal: Reports: Arthralgias, Extremity Pain - Left knee. Denies: Back pain Skin: Denies: Rash, Wounds Neurological: Denies: Headache, Weakness, Numbness Physical Exam Vital Signs/Narrative: Vital Signs Temp Pulse Resp BP 10/28/19 12:03 97.6 F L 70 18 154/69 H Inital Vital Signs reviewed: Yes - Extremity Exam Left Femur: Negative for: Deformity, Limited ROM Left Knee: Limited ROM - Mildly limited range of motion of flexion and extension secondary to pain, - - Extensor mechanism is intact, no associated joint effusion, tenderness palpation of the posterior knee. Negative for: Edema Left Tib Fib: - - Mild tenderness palpation of the proximal calf with no palpable cord. Negative for: Deformity, Edema General: Well nourished, Well developed Head: Normocephalic, Atraumatic Eyes: Perrl, EOMI ENT: No Trauma, Moist Mucous Membranes Neck: Nontender, Full ROM Cardiovascular: Regular rate, Regular rhythm, No murmurs, - - 2+ popliteal and DP pulses Respiratory: No distress, CTA bilaterally, Chest nontender Abdomen: Soft, Nontender, Nondistended, No masses Back: Nontender Skin: Normal color, No rash Neurological: Alert, Oriented x3, Cranial nerves II-XII grossly intact, Normal Strength, Normal Sensation Psychological: Normal affect Diagnostic/Tx/Re-eval Venous duplex of the left lower extremity shows no DVT but there is a small cystlike structure in the popliteal fossa consistent with a Ireland's cyst - Medical Decision Making Patient evaluated for atraumatic left knee pain. She has no obvious deformity. She does have some tenderness of the proximal calf with palpation with no associated edema or erythema. She does not have any warmth or effusion of the knee itself. Duplex is ordered to rule out DVT. This is negative. It does show a small Ireland's cyst. Likely this is the cause of her pain. It is possib le with patient history of rheumatoid arthritis she also has some arthritic pain. Patient cannot take NSAIDs because of allergies. She is already on Percocet. She is counseled that I cannot prescribe her any further pain medication. She is given an Damon wrap for comfort and as well is instructed to use ice and icy hot for her knee. Patient is counseled on signs and symptoms requiring return to the emergency room. Patient verbalizes agreement and understand this plan. Patient discharged home in stable and improved condition. ED Disposition - Plan for ED Patient: Disposition: Home or Assisted Living Diagnosis: Left knee pain, Ireland's cyst of knee Instructions: KNEE PAIN, Uncertain Cause, Ireland's Cyst Referrals: Umm Rehman MD [Primary Care Provider] - Additional Instructions: An Damon wrap was applied to your knee for comfort. You could also try [id number] creams such as icy hot or BenGay to see if this helps with your pain. Ultrasound did not show DVT but it did show a small Ireland's cyst. This might be causing her pain. It is also possible that you have arthritis in your knee that is causing her pain. Follow-up with your primary care doctor.
== END 2019-10-28 13:39 | disposition home or self-care (01) ==
PROVIDERS: Emergency Provider Emergency Medicine; Family Provider Internal Medicine; PCP Internal Medicine
DX: M71.22 Synovial cyst of popliteal space [Baker], left knee (principal); M25.562 Pain in left knee; M79.662 Pain in left lower leg; G89.29 Other chronic pain; M06.9 Rheumatoid arthritis, unspecified; K21.9 Gastro-esophageal reflux disease without esophagitis; Z79.899 Other long term (current) drug therapy; Z79.891 Long term (current) use of opiate analgesic; Z88.6 Allergy status to analgesic agent; Z88.5 Allergy status to narcotic agent; Z88.1 Allergy status to other antibiotic agents; Z87.891 Personal history of nicotine dependence
CPT/HCPCS: 93971; 99282

== ENCOUNTER → 2020-06-08 14:39 | Outpatient (CLI) | payer MEDICARE, OTHER, SELFPAY ==
--- NOTE | 2020-06-08 14:41 | US_ITS ---
STUDY: RENAL ULTRASOUND - COMPLETE REASON FOR EXAM: Female, 80 years old. Flank pain and fever TECHNIQUE: Ultrasound evaluation of the kidneys was performed with real-time and static perla-scale imaging. COMPARISON: 01/18/2019 FINDINGS: RIGHT KIDNEY: Normal location of the right kidney, which is normal in size. The right kidney measures 8.9 x 4.5 x 4.2 cm. There is a normal cortex of the right kidney. The renal cortex measures 1.0 cm. There is no right renal mass or cyst. There are no right renal calculi. There is no right hydronephrosis. DISTAL RIGHT URETER: There is non-visualization of the distal right ureter. There is no demonstrated right ureterovesical junction calculus. There is a visualized right ureteral jet. LEFT KIDNEY: Normal location of the left kidney, which is normal in size. The left kidney measures 10.4 x 5.2 x 5.0 cm. There is a normal cortex of the left kidney. The renal cortex measures 1.1 cm. There is no left renal mass or cyst. There are no left renal calculi. There is no left hydronephrosis. DISTAL LEFT URETER: There is non-visualization of the distal left ureter. There is no demonstrated left ureterovesical junction calculus. There is a visualized left ureteral jet. AORTA: There is no elongation or tortuosity of the abdominal aorta. I.V.C.: The IVC is patent. BLADDER: The bladder is incompletely distended. Incidental note is made of a hepatic cyst measuring 2.3 cm, and multiple gallstones US/Kidney and Bladder IMPRESSION: Sonographically normal kidneys Bladder is incompletely distended but sonographically unremarkable Simple hepatic cyst needs no specific follow-up Cholelithiasis Electronically Signed: Vicente Herman MD at 8:19 EDT , Service support ,
== END ==
PROVIDERS: PCP Internal Medicine; Referring Provider Urology; Visit Provider Urology
DX: N39.0 Urinary tract infection, site not specified (principal)
CPT/HCPCS: 76770

== ENCOUNTER → 2021-03-27 12:30 | Outpatient (CLI) | payer MEDICARE, OTHER, SELFPAY ==
[2021-03-08 13:48] VITALS: BMI 24.4
[2021-03-27 13:39] VITALS: PULSE 78; PULSE 84; PULSE 86; PULSE 92; PULSE 93; PULSE 96; O2SAT 86; O2SAT 90; O2SAT 91; O2SAT 92; O2SAT 93; O2SAT 94
--- NOTE | 2021-03-27 14:55 | PCM.PSN.6M ---
PSN 6 Minute Walk Test 6 Minute Walk Test 6 Minute Walk Test: 6 Minute Walk Test PSN:6-Minute Walk Test Start: 03/27/21 13:39 Freq: Status: Active Protocol: RESP.6MINW Document 03/27/21 13:39 [facility] (Rec: 03/27/21 13:59 [facility]LY [facility], [facility]1983 [id number]) 6 Minute Walk Test Date Performed 03/27/21 Time Performed 12:30 Height 5 ft 3.5 in Weight: 62.596 kg Weight in Pounds 138.[address]: Chandu Denson Assistive device used: None Pre-test Oxygen Delivery Method Room Air Pulse Ox (%) 91 Pulse Rate (60-100 beats/min) 78 Dyspnea Crystal Scale (0-10) 0 1st minute Oxygen Delivery Method Room Air Pulse Ox (%) 90 Pulse Rate (60-100 beats/min) 86 Dyspnea Crystal Scale (0-10) 0 Number of Rests Taken 0 2nd minute Oxygen Delivery Method Room Air Pulse Ox (%) 86 Pulse Rate (60-100 beats/min) 96 Dyspnea Crystal Scale (0-10) 0 Number of Rests Taken 1 3rd minute Oxygen Flow Rate (L/min) (L/min) 2 Oxygen Delivery Method Nasal Cannula Pulse Ox (%) 93 Pulse Rate (60-100 beats/min) 92 Dyspnea Crystal Scale (0-10) 0 Number of Rests Taken 0 4th minute Oxygen Flow Rate (L/min) (L/min) 2 Oxygen Delivery Method Nasal Cannula Pulse Ox (%) 94 Pulse Rate (60-100 beats/min) 93 Dyspnea Crystal Scale (0-10) 0 Number of Rests Taken 0 5th minute Oxygen Flow Rate (L/min) (L/min) 2 Oxygen Delivery Method Nasal Cannula Pulse Ox (%) 94 Pulse Rate (60-100 beats/min) 92 Dyspnea Crystal Scale (0-10) 0 Number of Rests Taken 0 6th minute Oxygen Flow Rate (L/min) (L/min) 2 Oxygen Delivery Method Nasal Cannula Pulse Ox (%) 93 Pulse Rate (60-100 beats/min) 93 Dyspnea Crystal Scale (0-10) 0 Number of Rests Taken 0 Post-test Oxygen Delivery Method Room Air Pulse Ox (%) 92 Pulse Rate (60-100 beats/min) 84 Dyspnea Crystal Scale (0-10) 0 Full Laps Walked 10 Partial Lap, Number of Tiles Walked 23 Total Distance Walked (ft) 613 Interpretation Interpretation: The patient was noted to be 91% on room air at rest. The patient did desaturate to 86% in the second minute and required 2 L nasal cannula to improve saturations of 93%. The patient was then able to finish ambulation. In total, the patient was able to travel 613 feet over the course of 6 minutes with the assistance of 1 break. These findings are consistent with a respiratory limitation exercise tolerance. Recommendations Recommendations: Patient requires no supplemental oxygen at rest, but should be using 2 L nasal cannula with any exertion.
== END ==
PROVIDERS: PCP Internal Medicine; Referring Provider Internal Medicine Critical Care Medicine; Visit Provider Internal Medicine Critical Care Medicine
DX: J44.9 Chronic obstructive pulmonary disease, unspecified (principal)
CPT/HCPCS: 94618

== ENCOUNTER → 2021-05-09 08:29 | Outpatient (CLI) | payer MEDICARE, OTHER, SELFPAY ==
[2021-03-08 13:48] VITALS: BMI 24.4
--- NOTE | 2021-05-09 10:05 | PFTCOMP ---
COMPLETE PULMONARY FUNCTION TEST INTERPRETATION Brief HPI: Patient is a 81 year old female, currently under the care of myself, who presents to [facility] for complete pulmonary function tests secondary to diagnosis of asthma. Respiratory therapist reports good effort and reproducible results. Interpretation: Forced expiration spirometry shows a mild large airways obstructive ventilatory defect with an FEV1 of 94% predicted. There is a significant bronchodilator response in FVC by strict ATS criteria. Spirograms are of good quality and plateau slowly, indicating slowly emptying areas of the lungs. The respiratory flow volume loop shows decreased expiratory flow rates at high lung volumes consistent with small airways obstruction. Lung volumes by body plethysmography show a normal total lung capacity at 4.73 L, 104% predicted. All other lung volumes are within normal limits. Diffusion capacity by carbon monoxide is normal at 79% predicted. The airway resistance is slightly elevated. Compared to previous pulmonary function tests from 06/10/2019, there is been a significant improvement in all measured values. Impression: Partially reversible mild large airways obstructive ventilatory defect with significant improvements compared to 2019.
== END ==
PROVIDERS: PCP Internal Medicine; Referring Provider Internal Medicine Critical Care Medicine; Visit Provider Internal Medicine Critical Care Medicine
DX: J44.9 Chronic obstructive pulmonary disease, unspecified (principal)
CPT/HCPCS: 94060; 94726; 94729

== ENCOUNTER 2021-07-20 14:06 | Emergency (ER) | payer MEDICARE, OTHER, SELFPAY ==
[2021-07-20 14:07] VITALS: BP 137/66; PULSE 81; RESP 20; TEMP 36.2; BMI 24.7
--- NOTE | 2021-07-20 14:56 | RAD_ITS ---
History: Pain Left wrist 3 views: Findings: No acute fracture or subluxation. Prominent osteoarthritic changes of the first CMC joint. Degenerative change also noted to involve the navicular multangular joint. Triangular cartilage calcification. IMPRESSION: No acute abnormality. Osteoarthritis. at 1548 Reported and signed by: Nathan Martines MD Electronically Signed: Nathan Martines MD at 15:47 EDT Tel , Service support , RAD/Wrist min 3 Views
--- NOTE | 2021-07-20 14:56 | EX.ED.UPPERE ---
HPI History of Present Illness Chief Complaint: Upper Extremity Injury Detail of Chief Complaint: Left wrist pain and swelling x3 days Narrative Narrative: Patient presents to the ER with complaint of pain and swelling in her left wrist. Patient denies any trauma. Patient has history of arthritis for which she takes Percocet half a tablet daily. She denies any fevers or recent illness. She does not have history of gout or pseudogout. Patient states that at times she will have some numbness and tingling in her fingers as well. Patient denies any chest pain or shortness of breath. [facility] Medical History (Updated 07/20/21 @ 16:[address] Bob Reynolds, DO) Asthma Calculus of kidney Chronic pain Depression Diaphragmatic hernia Diverticulosis of colon (without mention of hemorrhage) GERD (gastroesophageal reflux disease) History of thyroid cancer Lichen planus Osteopenia Rheumatoid arthritis Thyroid nodule Home Medications albuterol sulfate 2.5 mg INHALATION Q6H PRN PRN 06/25/18 [History Last Taken 01/08/19] oxycodone-acetaminophen 1 tab PO BID PRN 01/18/19 [History Last Taken 01/18/19] albuterol sulfate 90 mcg/actuation aerosol inhaler 2 puff INHALATION 4X/DAY PRN PRN #18 g 09/06/20 [Rx Last Taken Unknown] fluticasone furoate 200 mcg-vilanterol 25 mcg/dose inhalation powder 1 inh INHALATION DAILY #60 ea 09/06/20 [Rx Last Taken Unknown] cholecalciferol (vitamin D3) 50 mcg (2,000 unit) capsule 50 mcg PO DAILY 03/08/21 [History Last Taken Unknown] levothyroxine 112 mcg tablet 112 mcg PO DAILY 03/08/21 [History Last Taken Unknown] methocarbamol [Robaxin] 750 mg PO TID 07/20/21 [History Last Taken Unknown] oxycodone-acetaminophen 1 tab PO Q6H PRN PRN 3 Days #12 tablet 07/20/21 [Rx Last Taken Unknown] prednisone 20 mg PO BID #7 tab 07/20/21 [Rx Last Taken Unknown] pregabalin 25 mg PO BID 07/20/21 [History Last Taken Unknown] trimethoprim [Trimpex] 100 mg PO DAILY 07/20/21 [History Last Taken Unknown] Allergy/AdvReac Type Severity Reaction Status Date / Time aspirin Allergy Shortness Verified 07/20/21 15:25 of breath cephalexin monohydrate Allergy Hives Verified 07/20/21 15:25 [From Keflex] hydrocodone bitartrate Allergy Rash Verified 07/20/21 15:25 [From Vicodin] NSAIDS (Non-Steroidal Allergy Shortness Verified 07/20/21 15:25 Anti-Inflamma of breath Family History Mother Breast cancer Diabetes Osteoporosis Father CVA (cerebral vascular accident) Hypertension Surgical History H/O bilateral breast reduction surgery H/O colonoscopy H/O laparoscopy H/O: hysterectomy History of appendectomy History of incisional hernia repair History of partial colectomy History of thyroidectomy, total P Ignacio Silvana Fundoplication Right ear drum surgery Social History (Updated 03/08/21 @ 14:[address] Chandu Denson MD) Smoking Status: Former smoker quit date: 05/12/75 pack-years: 5 alcohol intake: current alcohol intake frequency: holidays/special occasions only substance use type: does not use ROS ROS ED Constitutional Constitutional ED: Reports systems reviewed and no addt'l complaints, except as documented; Denies body ache(s), change in weight or chills Eyes Eyes: Denies acute decrease in peripheral vision, change in vision, double vision or loss of vision ENT ENT ED: Reports none; Denies ear pain, lip swelling, loss taste/smell, neck pain, otalgia or sore throat Cardiovascular Cardiovascular: Reports none; Denies abdominal pain, chest pain with activity, leg edema, lightheadedness, palpitations, rapid heart rate or syncope Respiratory/Chest Respiratory/Chest: Reports none; Denies change in mental status, dry cough, dyspnea, hemoptysis, shortness of breath at rest or shortness of breath with exertion Gastrointestinal Gastrointestinal: Reports none; Denies abdominal pain, change in stool character, diarrhea, hematemesis, hematochezia, melena, rectal bleeding or vomiting Genitourinary Genitourinary ED: Reports none; Denies abdominal discomfort, anuria, dysuria, genital pain or polyuria Musculoskeletal Musculoskeletal: Reports none and other Details: Left wrist pain ; Denies arthralgias, back pain, difficulty walking, extremity pain, muscle weakness or myalgias Integumentary Reports none; Denies abscess or rash Neurologic Neurologic: Reports none; Denies abnormal gait, confusion, focal weakness, frequent falls, headache(s), loss of vision, numbness, paresthesias, radicular pain, vertigo or weakness Psychiatric Psychiatric: Reports systems reviewed and no addt'l complaints, except as documented and none; Denies behavioral changes, confusion, difficulty concentrating, hallucinations, suicidal ideation, tactile hallucinations or visual hallucinations Endocrine Endocrinology: Denies none, cold intolerance, excessive sweating, fatigue or heat intolerance Hematologic/Lymphatic Hematologic/Lymphatic: Reports none; Denies anemia, easy bleeding or easy bruising Allergic/Immunologic Allergic/Immunologic ED: Denies as per HPI, none, lip swelling, mouth swelling, throat swelling, tongue swelling or hives EXAM Physical Exam Const Vital Signs: 07/20/21 14:07 Temperature 97.1 F L Temperature Source Temporal Pulse Rate 81 Respiratory Rate 20 H Blood Pressure 137/66 H Blood Pressure Mean 89 Positive well nourished and well developed General Appearance ED: well developed and NAD HEENT Reports TM's clear and moist mucous membranes normocephalic and atraumatic; Negative for trauma or tenderness Tympanic Membrane ED: Yes TM's clear Eyes PERRL and EOMs intact bilaterally General Eye ED: Negative for pale conjunctiva or scleral icterus Neck no lymphadenopathy, supple and no JVD General: Negative for tenderness Chest Wall inspection of chest normal and palpation of chest normal Chest: Negative for tenderness Resp normal respiratory effort and clear to auscultation bilaterally Effort and Inspection: Negative for respiratory distress or pain with movement Auscultation: Negative for rhonchi, wheezes or diminished lung sounds Cardio regular rate, regular rhythm, S1 normal heart sound, S2 normal heart sound and no murmurs Peripheral Pulses: pulses 2+ throughout GI normal to inspection, nondistended, normoactive bowel sounds, soft to palpation, non-tender, non-distended and no masses Back/Spine no CVA tenderness and no thoracic nor lumbar tenderness Extremity Extremity Narrative: Evaluation of the left wrist reveals ulnar deviation of the digits as well as the wrist. There is no significant soft tissue swelling noted of the wrist. Patient has diffuse tenderness over the wrist. No erythema or warmth noted. She is neurovascular intact distally. No pain at the elbow. She has normal range of motion of all digits. General Extremety ED: Negative for edema General Extremity: Negative for edema Neuro oriented x3, CN's II-XII intact bilaterally, no sensory deficits noted and gait normal Sensorium / Orientation: awake, alert, oriented to person, oriented to place and oriented to time Motor Exam: strength 5/5 throughout and strength abnormal Psych mental status grossly normal Skin no rashes or lesions noted and no wounds MDM MDM MDM Narrative Medical decision making narrative: X-rays of the wrist showed osteoarthritis otherwise nothing significant. I suspect patient may be having a flareup of her arthritis. Patient will be treated with prednisone for 4 days. Patient will be given a prescription for few Percocet. She will be given a wrist plan. Patient to follow-up with her primary care physician within next 5 to 7 days. Discharge Plan Triage Chief Complaint: Upper Extremity Injury ED Provider: Bob Reynolds Dx/Rx/DC Orders Clinical Impression: Acute wrist pain, Arthritis Instructions: ED Pain, Acute, Uncertain Cause, Osteoarthritis Prescriptions: New oxycodone-acetaminophen [oxycodone-acetaminophen] 1 TABLET tablet 1 tab PO Q6H PRN PRN (Reason: Pain) 3 Days Qty: 12 RF: 0 prednisone 20 mg tablet 20 mg PO BID Qty: 7 RF: 0 No Action albuterol sulfate 90 mcg/actuation HFA aerosol inhaler 2 puff Inhalation 4X/DAY PRN PRN (Reason: Bronchodialation) Qty: 18 RF: 6 Breo Ellipta 200-25 mcg/dose blister with device 1 inh INHALATION DAILY Qty: 60 RF: 11 levothyroxine [Levoxyl] 112 mcg tablet 112 mcg PO DAILY RF: 0 cholecalciferol (vitamin D3) 50 mcg (2,000 unit) capsule 50 mcg PO DAILY RF: 0 albuterol sulfate 2.5 MG/3 ML solution for nebulization 2.5 mg Inhalation Q6H PRN PRN (Reason: COPD) RF: 0 oxycodone-acetaminophen 1 EACH tablet 1 tab PO BID PRN (Reason: Pain) RF: 0 trimethoprim [Trimpex] 100 mg Tablet 100 mg PO DAILY RF: 0 methocarbamol [Robaxin] 750 mg Tablet 750 mg PO TID RF: 0 pregabalin 25 mg capsule 25 mg PO BID RF: 0 Primary Care Provider: Umm Rehman Referrals: Umm Rehman MD [Primary Care Provider] - 3-5 Days Disposition Disposition: Home, Self Care
[2021-07-20] MEDS: predniSONE 20 MG Tablet 40 MG PO (16:36)
[2021-07-20 16:43] VITALS: BP 128/78; PULSE 80; RESP 16; O2SAT 95
== END 2021-07-20 16:43 | disposition home or self-care (01) ==
PROVIDERS: Emergency Provider Emergency Medicine; PCP Internal Medicine
DX: M19.032 Primary osteoarthritis, left wrist (principal); J45.909 Unspecified asthma, uncomplicated; F32.9 Major depressive disorder, single episode, unspecified; K21.9 Gastro-esophageal reflux disease without esophagitis; M06.9 Rheumatoid arthritis, unspecified; E04.1 Nontoxic single thyroid nodule; Z79.51 Long term (current) use of inhaled steroids; Z79.899 Other long term (current) drug therapy; Z87.891 Personal history of nicotine dependence
CPT/HCPCS: 73110; 99283

== ENCOUNTER → 2021-10-18 | Outpatient (CLI) | payer MEDICARE, OTHER, SELFPAY | END | disposition home or self-care (01) | LOC: LABSPEC 13:48 | PROVIDERS: PCP Internal Medicine; Referring Provider Urology; Visit Provider Urology | DX: R19.7 Diarrhea, unspecified (principal) | CPT/HCPCS: 87493 ==

== ENCOUNTER 2022-04-22 10:43 | Emergency (ER) | payer MEDICARE, SELFPAY ==
[2022-04-22 10:45] VITALS: BP 152/78; PULSE 91; RESP 18; TEMP 37.4; O2SAT 100; BMI 23.5
[2022-04-22 11:35] VITALS: BP 152/78; PULSE 91; RESP 18; TEMP 37.4; O2SAT 100
--- NOTE | 2022-04-22 11:42 | EKG12_ITS ---
Test Reason : Blood Pressure : / mmHG Vent. Rate : 067 BPM Atrial Rate : 067 BPM P-R Int : 160 ms QRS Dur : 118 ms QT Int : 452 ms P-R-T Axes : -20 027 011 degrees QTc Int : 477 ms Normal sinus rhythm Right bundle branch block Abnormal ECG Confirmed by ANTHONY SANCHEZ, YARITZA ([id number]), photo editor LEROY PERALTA ([id number]) on 04/23/2022 1:43:45 PM Referred By: MAGDALENA Confirmed By:YARITZA CRUZ MD
--- NOTE | 2022-04-22 11:43 | ED.VIS.GI ---
HPI HPI - GI History of Present Illness Chief Complaint: Abd Pain Informant: patient and family Abdominal Pain/Flank Pain Onset: Month(s) (1-2) Timing: Intermittent and Lasts (Several hours at a time) Quality: Burning Location: Epigastric (From top of sternum/manubrium down to her navel) Current Severity: Mild Maximum Severity: Moderate Worsened by: Nothing Relieved by: Antacids (Mylanta) Nausea/Vomiting/Emesis GI Symptom: Negative for Nausea and Vomiting Diarrhea/Melena/Hematochezia GI Symptom: Positive for Diarrhea; Negative for Melena and Hematochezia Onset: Weeks (2) Stool Quality: Positive for Loose; Negative for Black and BRB per rectum Narrative Narrative: Patient has been having upper abdominal and chest burning for 2 months. PCP prescribed Protonix which she has been taking for about 1 month. It is not making any difference. Family member brings her in here because she had blood work a month ago, they have been unable to get the results of it yet, have not followed up with PCP yet because it was not yet scheduled, and she is drinking too much Maalox/Mylanta. Patient states that every time she takes Mylanta the pain resolves and her chest and abdomen but it only last for about 3 hours. She has been able to eat and drink. She drinks no alcohol. The pain does not radiate into her back. She has had a remote hysterectomy and partial colectomy for diverticulitis, no other abdominal surgeries that he can think of. [facility] Medical History (Updated 04/22/22 @ 14:[address] Christofer Nieves MD) Asthma Calculus of kidney Chronic pain Depression Diaphragmatic hernia Diverticulosis of colon (without mention of hemorrhage) GERD (gastroesophageal reflux disease) History of thyroid cancer Lichen planus Osteopenia Rheumatoid arthritis Thyroid nodule Home Medications albuterol sulfate 2.5 mg INHALATION Q6H PRN PRN 06/25/18 [History Last Taken 01/08/19] oxycodone-acetaminophen 1 tab PO BID PRN 01/18/19 [History Last Taken 01/18/19] cholecalciferol (vitamin D3) 50 mcg (2,000 unit) capsule 50 mcg PO DAILY 03/08/21 [History Last Taken Unknown] levothyroxine 112 mcg tablet 112 mcg PO DAILY 03/08/21 [History Last Taken Unknown] methocarbamol [Robaxin] 750 mg PO TID 07/20/21 [History Last Taken Unknown] oxycodone-acetaminophen 1 tab PO Q6H PRN PRN 3 Days #12 tablet 07/20/21 [Rx Last Taken Unknown] prednisone 20 mg PO BID #7 tab 07/20/21 [Rx Last Taken Unknown] pregabalin 25 mg PO BID 07/20/21 [History Last Taken Unknown] trimethoprim [Trimpex] 100 mg PO DAILY 07/20/21 [History Last Taken Unknown] albuterol sulfate 90 mcg/actuation aerosol inhaler 2 puff INHALATION 4X/DAY PRN PRN #18 g 03/04/22 [Rx Last Taken Unknown] fluticasone furoate 200 mcg-vilanterol 25 mcg/dose inhalation powder 1 inh INHALATION DAILY #3 ea 03/04/22 [Rx Last Taken Unknown] dicyclomine 10 mg PO TID PRN #20 capsule 04/22/22 [Rx Last Taken Unknown] sucralfate [Carafate] 1 g PO .qid #40 tab 04/22/22 [Rx Last Taken Unknown] Allergy/AdvReac Type Severity Reaction Status Date / Time aspirin Allergy Shortness Verified 04/22/22 10:44 of breath cephalexin monohydrate Allergy Hives Verified 04/22/22 10:44 [From Keflex] hydrocodone bitartrate Allergy Rash Verified 04/22/22 10:44 [From Vicodin] NSAIDS (Non-Steroidal Allergy Shortness Verified 04/22/22 10:44 Anti-Inflamma of breath Family History Mother Breast cancer Diabetes Osteoporosis Father CVA (cerebral vascular accident) Hypertension Surgical History H/O bilateral breast reduction surgery H/O colonoscopy H/O laparoscopy H/O: hysterectomy History of appendectomy History of incisional hernia repair History of partial colectomy History of thyroidectomy, total P Ignacio Silvana Fundoplication Right ear drum surgery Social History Smoking Status: Former smoker quit date: 05/12/75 pack-years: 5 alcohol intake: current alcohol intake frequency: holidays/special occasions only substance use type: does not use ROS ROS ED Constitutional Constitutional ED: Denies chills or fever(s) Eyes Eyes: Denies change in vision or diplopia ENT ENT ED: Denies rhinorrhea or sore throat Cardiovascular Cardiovascular: Reports chest pain; Denies palpitations Respiratory/Chest Respiratory/Chest: Denies cough or dyspnea Gastrointestinal Gastrointestinal: Reports abdominal pain and diarrhea; Denies hematochezia, melena, nausea or vomiting Genitourinary Genitourinary ED: Denies dysuria or hematuria Musculoskeletal Musculoskeletal: Denies back pain or neck pain Integumentary Denies abscess or rash Neurologic Neurologic: Denies headache(s), paresthesias or weakness Psychiatric Psychiatric: Denies anxiety or suicidal thoughts EXAM Physical Exam Const Vital Signs: 04/22/22 10:45 04/22/22 11:35 04/22/22 12:10 Temperature 99.3 F H 99.3 F H 99.3 F H Temperature Source Temporal Temporal Temporal Pulse Rate 91 91 91 Respiratory Rate 18 18 18 Blood Pressure 152/78 H 152/78 H 152/78 H Blood Pressure Mean 102 102 102 Pulse Ox 100 100 100 Oxygen Delivery Method Room Air Room Air Room Air Positive well nourished and well developed General Appearance ED: well developed and NAD HEENT Reports moist mucous membranes normocephalic and atraumatic Eyes PERRL and EOMs intact bilaterally Neck full ROM and supple Resp normal respiratory effort and clear to auscultation bilaterally Cardio regular rate, regular rhythm and no murmurs GI non-distended GI Narrative: Tender epigastrium only. No guarding or rebound. Negative Mccarthy. Auscultation: normoactive bowel sounds Palpation: soft Back/Spine no CVA tenderness General Back: other FROM Extremity normal to inspection General Extremety ED: Negative for edema, pulses abnormal or tenderness General Extremity: Negative for edema or pulses abnormal Neuro oriented x3, CN's II-XII intact bilaterally and no sensory deficits noted Sensorium / Orientation: awake and alert Motor Exam: strength 5/5 throughout Skin no rashes or lesions noted and no wounds MDM MDM MDM Narrative Medical decision making narrative: Labs are all normal including liver enzymes and lipase. I did a gallbladder ultrasound given her age and recurrent pain, it actually shows multiple gallstones but no signs of acute cholecystitis, and actually I do not think she is having biliary colic or symptoms from these, but we discussed signs and symptoms of acute cholecystitis and reasons to return to the ER, and to follow-up with her doctor regarding this for monitoring. With regards to her symptoms, I gave her simethicone, Bentyl, and Carafate. Her symptoms resolved. Her cardiac work-up is negative. We will discharge her home on prn dicyclomine, Carafate 4 times a day, and to continue the Protonix that she follows up with her doctor soon as she can. My expectation is that she would be referred for EGD given that she has been on the Protonix for 1 month and has had no improvement; symptoms sound upper GI in nature. Lab Data Attestation: I reviewed the patient's lab results. Labs: Laboratory Results - last 24 hr 04/22/22 04/22/22 12:05 12:05 WBC 5.5 RBC 4.70 Hgb 10.4 L Hct 37.4 MCV 79.6 L MCH 22.1 L MCHC 27.8 L RDW Std Deviation 50.7 H RDW Coeff of Alex 17.4 H Plt Count 385 MPV 9.2 Immature Gran % (Auto) 0.400 Neut % (Auto) 78.8 H Lymph % (Auto) 10.6 L Bureau % (Auto) 7.9 Eos % (Auto) 1.8 Baso % (Auto) 0.5 Absolute Neuts (auto) 4.3 Absolute Lymphs (auto) 0.58 L Nucleated RBC % 0 Differential Comment Platelet Estimate ADEQUATE RBC Morphology NORM C+C Sodium 140 Potassium 3.8 Chloride 108 H Carbon Dioxide 27.0 Anion Gap 5 BUN 11 Creatinine 0.58 Estim Creat Clear Calc 37.12 Est GFR (MDRD) Af Amer 127 Est GFR (MDRD) Non-Af 105 BUN/Creatinine Ratio 18.8 Glucose 104 Calcium 8.9 Total Bilirubin 0.30 AST 11 L ALT 14 Alkaline Phosphatase 58 Troponin I High Sens < 3 L Total Protein 6.9 Albumin 3.6 Globulin 3.3 Albumin/Globulin Ratio 1.1 Lipase 50 L Radiography Diagnostic Testing: Clinical Impression(s) from Imaging Studies Gallbladder Ultrasound 04/22/22 11:46 IMPRESSION: Multiple gallstones. Hepatic cysts. Small cysts seen in the right kidney. Electronically Signed: Tim Solitario MD at 13:29 EDT , Discharge Plan Triage Chief Complaint: Abd Pain Other Complaint: Nausea/Vomiting/Diarrhea ED Provider: Christofer Nieves Dx/Rx/DC Orders Clinical Impression: Chest pain due to GERD, Epigastric abdominal pain, Cholelithiasis Instructions: Treating Gallstones, ED Epigastric Pain Uncertain Cause Prescriptions: New dicyclomine 10 MG capsule 10 mg PO TID PRN (Reason: abdominal discomfort) Qty: 20 RF: 0 sucralfate [Carafate] 1 gram tablet 1 g PO .qid Qty: 40 RF: 0 No Action levothyroxine [Levoxyl] 112 mcg tablet 112 mcg PO DAILY RF: 0 cholecalciferol (vitamin D3) 50 mcg (2,000 unit) capsule 50 mcg PO DAILY RF: 0 Breo Ellipta 200-25 mcg/dose blister with device 1 inh INHALATION DAILY Qty: 3 RF: 3 albuterol sulfate 90 mcg/actuation HFA aerosol inhaler 2 puff Inhalation 4X/DAY PRN PRN (Reason: Bronchodialation) Qty: 18 RF: 6 albuterol sulfate 2.5 MG/3 ML solution for nebulization 2.5 mg Inhalation Q6H PRN PRN (Reason: COPD) RF: 0 oxycodone-acetaminophen 1 EACH tablet 1 tab PO BID PRN (Reason: Pain) RF: 0 trimethoprim [Trimpex] 100 mg Tablet 100 mg PO DAILY RF: 0 methocarbamol [Robaxin] 750 mg Tablet 750 mg PO TID RF: 0 pregabalin 25 mg capsule 25 mg PO BID RF: 0 oxycodone-acetaminophen [oxycodone-acetaminophen] 1 TABLET tablet 1 tab PO Q6H PRN PRN (Reason: Pain) 3 Days Qty: 12 RF: 0 prednisone 20 mg tablet 20 mg PO BID Qty: 7 RF: 0 Primary Care Provider: Umm Rehman Referrals: Umm Rehman MD [Primary Care Provider] - 5-7 Days Disposition Disposition: Home, Self Care
--- NOTE | 2022-04-22 11:46 | US_ITS ---
STUDY: ABDOMINAL ULTRASOUND - RIGHT UPPER QUADRANT REASON FOR VISIT: Female, 82 years old MIDLINE/UMBILICUS ABDOMEN PAIN TECHNIQUE: Ultrasound evaluation of the right upper quadrant was performed with real-time and static artis-scale imaging. TECHNICAL QUALITY: Limited. Examination limited by bowel gas. COMPARISON: None. FINDINGS: Liver: The liver measures 14.6 cm. There is normal echogenicity of the liver. The bile ducts are within normal limits. There is hepatic color flow. The direction of portal flow is hepatopetal. 2 cysts are seen in the right lobe of the liver. The largest cyst measures 2.5 cm x 3 cm x 2.3 cm. There is evidence of a 0.9 cm x 0.8 cm x 0.7 cm cyst in the left lobe. Gallbladder: Normal distended gallbladder. The gallbladder wall measures 2.2 mm. There is a negative sonographic Mccarthy''s sign. There is no pericholecystic fluid. There are multiple echogenic structures within the gallbladder, consistent with multiple gallstones. Common Bile Duct (C.B.D.): The common bile duct measures 6.7 mm. Pancreas: Normal size of the head, body and tail of the pancreas. There is normal echogenicity of the pancreas. There is no demonstrated pancreatic mass or cyst. Right Kidney: Normal size of the right kidney. The right kidney measures 9.9 cm x 5.1 cm x 4.1 cm. Normal renal cortex. The right cortex measures 1.1 cm. Subcentimeter cysts are seen in the lower pole. There is no right hydronephrosis. US/Gallbladder IMPRESSION: Multiple gallstones. Hepatic cysts. Small cysts seen in the right kidney. Electronically Signed: Tim Solitario MD at 13:29 EDT ,
[2022-04-22] MEDS: Dicyclomine 10 MG Capsule PO (12:00)
[2022-04-22 12:10] VITALS: BP 152/78; PULSE 91; RESP 18; TEMP 37.4; O2SAT 100
[2022-04-22 12:29] LABS: Absolute Lymphocyte Count 0.58 X10^3/uL (0.83-4.51); Absolute Neutrophil Count 4.3 X10^3/uL (2.0-7.7); Basophil# 0.03 X10^3/uL; Basophil% 0.5 % (0-1); Eosinophils% 1.8 % (0-5); Hematocrit 37.4 % (37-47); Hemoglobin 10.4 g/dL (12.0-15.0); Lymphocyte # 0.58 X10^3/ul (0.83-4.51); Lymphocyte % 10.6 % (19-41); Mean Corp Hgb Conc 27.8 g/dL (32-36); Mean Corpuscular Hgb 22.1 pg (27.0-32.0); Mean Corpuscular Volume 79.6 fL (81-99); Mean Platelet Vol. 9.2 fl (6.2-12.0); Monocyte# 0.43 X10^3/uL; Monocyte% 7.9 % (0-10); NRBC Flagged by Analyzer 0 % (0-5); Neutrophil # 4.31 X10^3/uL (2.7-7.7); Neutrophil % 78.8 % (47-70); POSITIVE DIFFERENTIAL YES; Platelet Count 385 K/mm3 (150-450); RBC Distribution Width CV 17.4 % (11.6-14.6); RBC Distribution Width SD 50.7 fl (35.1-43.9); White Blood Count 5.5 K/mm3 (4.4-11.0)
[2022-04-22 12:33] LABS: Differential Indicated SCAN CRITERIA MET
[2022-04-22 12:48] LABS: ALB/GLOB Ratio 1.1 RATIO (0.9-2.4); AST(SGOT) 11 U/L (15-37); Alanine Aminotransfer ALT/SGPT 14 U/L (13-56); Albumin, Serum 3.6 g/dL (3.2-5.0); Alkaline Phosphatase 58 U/L (45-117); Anion Gap 5 (5-15); BUN 11 mg/dL (7-18); BUN/Creat Ratio 18.8 RATIO (10-20); Calcium,Total 8.9 mg/dL (8.5-10.1); Chloride 108 mmol/L (98-107); Creatinine, Serum 0.58 mg/dL (0.55-1.02); EST Glomerular Filtration Rate 105 mL/min (>60); Est Glom Filt Rate - Afr Amer 127 mL/min (>60); Estimated Creatinine Clearance 37.12 ml/min; Globulin 3.3 g/dL (2.2-4.2); Glucose 104 mg/dL (74-106); Lipase 50 U/L (73-393); Potassium 3.8 mmol/L (3.5-5.1); Protein, Total 6.9 g/dL (6.4-8.2); Sodium Level 140 mmol/L (136-145); Troponin-I HS < 3 pg/mL (3.0-54.0)
[2022-04-22] MEDS: Sucralfate 1 GM Tablet PO (12:59)
[2022-04-22 13:06] LABS: Platelet Estimate ADEQUATE (ADEQ); Red Cell Morphology NORM C+C NORMAL (NORM C&C)
== END 2022-04-22 14:36 | disposition home or self-care (01) ==
PROVIDERS: Emergency Provider Emergency Medicine; PCP Internal Medicine; Visit Provider Emergency Medicine
DX: K21.9 Gastro-esophageal reflux disease without esophagitis (principal); R07.9 Chest pain, unspecified; K80.20 Calculus of gallbladder without cholecystitis without obstruction; R19.7 Diarrhea, unspecified; Z87.19 Personal history of other diseases of the digestive system; Z87.891 Personal history of nicotine dependence
CPT/HCPCS: 76705; 80053; 83690; 84484; 85025; 93005; 99284; A4216

== ENCOUNTER 2023-06-02 10:57 | Outpatient (CLI) | payer MEDICARE, SELFPAY | END 2023-06-02 23:59 | disposition home or self-care (01) | LOC: MTLAB 10:59 → LAB 11:16 | PROVIDERS: PCP Internal Medicine; Referring Provider Ophthalmology; Visit Provider Ophthalmology | DX: M35.00 Sjogren syndrome, unspecified (principal) | CPT/HCPCS: 36415 ==

== ENCOUNTER 2023-12-26 19:48 | Emergency (ER) | payer MEDICARE, SELFPAY ==
[2023-12-26 19:49] VITALS: BP 169/75; PULSE 72; RESP 18; TEMP 36.7; O2SAT 98; BMI 23.7
[2023-12-26 20:19] LABS: Bacteria 0 SEEN /hpf (None Seen); Mucous, Urine 0 SEEN /hpf (<or=2+); Red Blood Cells-Urine 0 SEEN /hpf (0-5)
[2023-12-26 20:30] LABS: Color, Urine Yellow (Yellow); Glucose, Dipstick Normal (Normal); Ketone-Dipstick Negative (Negative); Leukocyte Esterase-Dipstick 100 /ul (Negative); Nitrite-Dipstick Negative (Negative); Occult Blood-Urine 25 /ul (Negative); Protein-Dipstick 15 mg/dl (Negative); Urine Bilirubin Dipstick Negative (Negative); Urine Clarity Clear (Clear); Urine Urobilinogen Normal (Normal)
[2023-12-26 20:41] LABS: Squamous Epithelial Cells - UA 5-10 SEEN /hpf (5-10); White Blood Cells 5-10 SEEN /hpf (0-5)
--- NOTE | 2023-12-26 20:41 | EDS_ITS ---
<Statement entered by Apurva Monk MD - 12/26/23 23:57> I have personally performed a face to face assessment of the patient and have reviewed the SAI Note. Patient presents with family secondary to increased confusion. She reported has history of frequent UTIs and takes a dose of Keflex nightly for prophylaxis. Given her recent increased confusion a urine was dropped at Dr. Addison's office earlier this week, but family states they have not gotten results. Patient also presents with right eye injury. It is believed that she scratched her eye while placing eyedrops in her eye. Patient lying in bed no acute distress. Nontoxic-appearing. Head and neck examination reveals mild right eye injection. Pupils equal and reactive. Extraocular movements intact. No periorbital swelling or edema. Heart is regular rate and rhythm. Lung sounds are clear. Abdomen is soft and nontender. Neuro exam reveals no focal deficits. Lab work is largely unremarkable. Urinalysis does show 100 leukocyte esterase with 5-10 white cells. She does, however, have 5-10 epithelial cells. Given her history of frequent UTIs, this to be sent for culture and she will be treated with 3 days of Bactrim. Eye pain improved with tetracaine drops. She is given ophthalmic ointment to help with corneal abrasion. Family at bedside is comfortable with discharge to home and they will follow her closely. Return instructions are given. HPI History of Present Illness Chief Complaint: Complaint Narrative Narrative: 83-year-old female was brought in by her [id number] for a week of increased confusion. She gets frequent UTIs and is on 1 Keflex pill at night pro phylactically. She gave a urine sample to Dr. Yumiko Rivera's office earlier this week but never got the results. She has baseline memory issues but has been trying to wander out of the house at night and today after putting drops in her eye it was red and irritated and she said it was caused by someone smearing feces on her face which the [id number] knows is not true. She has some type of eye condition where sh puts drops in 3 times a day and always squints. She lives at home with her elderly but family is close by and helps with her medications. She ambulates without assistance. She has had no recent fever or illness. No falls. PFSH PFSH Medical History (Updated 12/26/23 @ 21:42 by OLE Song) Asthma Calculus of kidney Chronic pain Depression Diaphragmatic hernia Diverticulosis of colon (without mention of hemorrhage) GERD (gastroesophageal reflux disease) History of thyroid cancer Lichen planus Osteopenia Rheumatoid arthritis Thyroid nodule Home Medications albuterol sulfate 2.5 mg/3 mL (0.083 %) solution for nebulization 2.5 mg inhalation Q6H PRN PRN COPD 06/25/18 [History Last Taken 01/08/19] cholecalciferol (vitamin D3) 50 mcg (2,000 unit) capsule 50 mcg PO DAILY 03/08/21 [History Last Taken Unknown] levothyroxine 112 mcg tablet (Levoxyl) 112 mcg PO DAILY 03/08/21 [History Last Taken Unknown] methocarbamol 750 mg tablet 750 mg PO TID 07/20/21 [History Last Taken Unknown] dicyclomine 10 mg capsule 10 mg PO TID PRN abdominal discomfort #20 CAPSULES 04/22/22 [Rx Last Taken Unknown] sucralfate 1 gram tablet (Carafate) 1 g PO .qid #40 tabs 04/22/22 [Rx Last Taken Unknown] nitrofurantoin monohydrate/macrocrystals 100 mg capsule 100 mg PO BID 06/13/22 [History Last Taken Unknown] sulfamethoxazole 800 mg-trimethoprim 160 mg tablet 1 tab PO DAILY 06/13/22 [History Last Taken Unknown] albuterol sulfate 90 mcg/actuation aerosol inhaler 2 puff inhalation 4X/DAY PRN PRN Bronchodialation #18 grams 07/01/23 [Rx Last Taken Unknown] fluticasone furoate 200 mcg-vilanterol 25 mcg/dose inhalation powder (Breo Ellipta) 1 inh inhalation DAILY #3 ea 07/01/23 [Rx Last Taken Unknown] erythromycin 5 mg/gram (0.5 %) eye ointment 1 applic RIGHT EYE Q6H 5 days #3.5 grams 12/26/23 [Rx Last Taken Unknown] sulfamethoxazole 800 mg-trimethoprim 160 mg tablet (Bactrim DS) 1 tab PO BID 7 days #14 tabs 12/26/23 [Rx Last Taken Unknown] Allergy/AdvReac Type Severity Reaction Status Date / Time aspirin Allergy Shortness Verified 12/26/23 19:52 of breath cephalexin monohydrate Allergy Hives Verified 12/26/23 19:52 [From Keflex] hydrocodone bitartrate Allergy Rash Verified 12/26/23 19:52 [From Vicodin] NSAIDS (Non-Steroidal Allergy Shortness Verified 12/26/23 19:52 Anti-Inflamma of breath Family History Mother Breast cancer Diabetes Osteoporosis Father CVA (cerebral vascular accident) Hypertension Surgical History H/O bilateral breast reduction surgery H/O colonoscopy H/O laparoscopy H/O: hysterectomy History of appendectomy History of incisional hernia repair History of partial colectomy History of thyroidectomy, total P Ignacio Silvana Fundoplication Right ear drum surgery Social History Smoking Status: Former smoker quit date: 05/12/75 pack-years: 5 alcohol intake: current alcohol intake frequency: holidays/special occasions only substance use type: does not use ROS ROS ED ROS Narrative Constitutional: Negative for fever, chills, malaise. CVS: Negative for chest pain, syncope. Respiratory: Negative for shortness of breath, cough. GI: Negative for abdominal pain, nausea, vomiting. : Negative for dysuria. Neuro: Negative for headache. EXAM Physical Exam Narrative Exam Narrative: CONST: Patient sitting in no acute distress. EYES: Squinting both eyes. After tetracaine drops open slightly more. PERRL, E TOREY without pain. Right eye very mildly injected. Normal lids lashes and lacrimal apparatus. NECK: Normal inspection. RESP: No respiratory distress, CTAB. CVS: Regular rate and rhythm, no murmur, no gallop. ABD: Soft and nontender, no guarding or rebound, nondistended. SKIN: Color normal, no rash, warm, dry, intact. EXTREMITIES: Normal appearance, no pedal edema. NEURO: Alert to self, place, and age. States year is 1922. Follows commands, face symmetric, moving all extremities. PSYCH: Normal affect. Const Vital Signs: 12/26/23 19:49 Temperature 98.0 F Temperature Source Temporal Pulse Rate 72 Respiratory Rate 18 Blood Pressure 169/75 H Blood Pressure Mean 106 Pulse Ox 98 Oxygen Delivery Method Room Air MDM MDM MDM Narrative Medical decision making narrative: History gathered from: Patient and daughter in law Patient has baseline memory issues but has been more confused this week. History of frequent UTIs on prophylactic Keflex once at night. She appears well and nontoxic. Vital signs stable. She is alert and oriented x 3 which is baseline and has no focal or logical deficits. She does states she injured her right eye by someone smearing feces on it. . [id number] indicates she was putting her eyes drops and jabbed her eye. She is squinting which her veerdjar-jn-lvg states she always does. After tetracaine drops she would slightly open her eyes more. Right eye is very mildly injected. Pupils equal and reactive, EOMI, no pain with movement. I will prescribe erythromycin ointment for her eye. Regarding the rest of her workup, CBC and BMP are unremarkable. UA shows leukocyte Estrace and 5-10 WBCs but is contaminated and nitrate and bacteria negative. It was sent for culture. Since she has history of frequent UTIs I elected to treat with Bactrim with first dose given here. I offered admission due to concern for altered mental status but patient wants to go home and her [id number] is comfortable with this. She lives nearby and helps administer her medications. She will return if any symptoms worsen and was discharged in stable condition. Differential: UTI, sepsis, electrolyte abnormality Lab Data Labs: Laboratory Results - last 24 hr 12/26/23 12/26/23 20:03 20:50 WBC 6.9 RBC 4.52 Hgb 12.8 Hct 41.5 MCV 91.8 MCH 28.3 MCHC 30.8 L RDW Std Deviation 54.5 H RDW Coeff of Alex 15.9 H Plt Count 290 MPV 9.4 Immature Gran % (Auto) 0.100 Neut % (Auto) 71.6 H Lymph % (Auto) 14.0 L Spink % (Auto) 8.3 Eos % (Auto) 5.3 H Baso % (Auto) 0.7 Absolute Neuts (auto) 4.9 Absolute Lymphs (auto) 0.96 Nucleated RBC % 0 Sodium 143 Potassium 3.7 Chloride 108 H Carbon Dioxide 30.0 Anion Gap 5 BUN 13 Creatinine 0.71 Estim Creat Clear Calc 47.63 Est GFR (MDRD) Af Amer 101 Est GFR (MDRD) Non-Af 83 BUN/Creatinine Ratio 18.2 Glucose 110 H Calcium 8.6 Urine Color Yellow Urine Clarity Clear Urine pH 6.0 Ur Specific Fults 1.020 Urine Protein 15 H Urine Glucose (UA) Normal Urine Ketones Negative Urine Occult Blood 25 H Urine Nitrite Negative Urine Bilirubin Negative Urine Urobilinogen Normal Ur Leukocyte Esterase 100 H Urine RBC 0 SEEN Urine WBC 5-10 SEEN Ur Squamous Epith Cells 5-10 SEEN Urine Bacteria 0 SEEN Urine Mucus 0 SEEN Discharge Plan Triage Chief Complaint: Complaint ED Midlevel Provider: Blanca Hardy ED Provider: Apurva Monk Dx/Rx/DC Orders Clinical Impression: Acute UTI, Acute alteration in mental status, Abrasion of right eye Instructions: UTIs Understanding Prescriptions: New sulfamethoxazole-trimethoprim [Bactrim DS] 800-160 mg tablet 1 tab PO BID 7 Days Qty: 14 0RF erythromycin 5 mg/gram (0.5 %) ointment 1 applic RIGHT EYE Q6H 5 Days Qty: 3.5 0RF No Action levothyroxine [Levoxyl] 112 mcg tablet 112 mcg PO DAILY cholecalciferol (vitamin D3) 50 mcg (2,000 unit) capsule 50 mcg PO DAILY nitrofurantoin monohyd/m-cryst 100 mg capsule 100 mg PO BID sulfamethoxazole-trimethoprim 800-160 mg tablet 1 tab PO DAILY albuterol sulfate 2.5 MG/3 ML solution for nebulization 2.5 mg Inhalation Q6H PRN PRN (Reason: COPD) methocarbamol [Robaxin] 750 mg Tablet 750 mg PO TID dicyclomine 10 MG capsule 10 mg PO TID PRN (Reason: abdominal discomfort) Qty: 20 0RF sucralfate [Carafate] 1 gram tablet 1 g PO .qid Qty: 40 0RF albuterol sulfate 90 mcg/actuation HFA aerosol inhaler 2 puff Inhalation 4X/DAY PRN PRN (Reason: Bronchodialation) Qty: 18 6RF Breo Ellipta 200-25 mcg/dose blister with device 1 inh INHALATION DAILY Qty: 3 3RF Primary Care Provider: Umm Rehman Referrals: Umm Rehman MD [Primary Care Provider] - Activity Restrictions/Additional Instructions: She was prescribed Bactrim for UTI. Please follow-up with her urologist. If symptoms worsen return to the ER. Disposition Disposition: Home, Self Care
[2023-12-26 20:59] LABS: Absolute Lymphocyte Count 0.96 X10^3/uL (0.83-4.51); Absolute Neutrophil Count 4.9 X10^3/uL (2.0-7.7); Basophil# 0.05 X10^3/uL; Basophil% 0.7 % (0-1); Eosinophil# 0.36 X10^3/uL; Eosinophils% 5.3 % (0-5); Hematocrit 41.5 % (37-47); Hemoglobin 12.8 g/dL (12.0-15.0); Lymphocyte # 0.96 X10^3/ul (0.83-4.51); Mean Corp Hgb Conc 30.8 g/dL (32-36); Mean Corpuscular Hgb 28.3 pg (27.0-32.0); Mean Corpuscular Volume 91.8 fL (81-99); Mean Platelet Vol. 9.4 fl (6.2-12.0); Monocyte# 0.57 X10^3/uL; Monocyte% 8.3 % (0-10); NRBC Flagged by Analyzer 0 % (0-5); Neutrophil % 71.6 % (47-70); Platelet Count 290 K/mm3 (150-450); RBC Distribution Width CV 15.9 % (11.6-14.6); RBC Distribution Width SD 54.5 fl (35.1-43.9); Red Blood Count 4.52 M/mm3 (4.2-5.4); White Blood Count 6.9 K/mm3 (4.4-11.0)
--- NOTE | 2023-12-26 21:03 | RAD_ITS ---
INDICATION: weakness EXAMINATION/TECHNIQUE: X-RAY - portable upright AP chest x-ray COMPARISON: 01/18/2019 FINDINGS: LINES/DEVICES: None. LUNGS: No consolidation or vascular congestion. Decreased blunting left costophrenic angle. MEDIASTINUM AND CARDIOVASCULAR STRUCTURES: Cardiac silhouette stable within upper normal limits. BONES AND SOFT TISSUES: No acute changes. RAD/Chest 1 View (Portable) IMPRESSION: No acute consolidative process. Decreasing chronic blunting left costophrenic angle. Electronically Signed: Antione Amaya MD at 21:56 EST ,
[2023-12-26 21:14] LABS: Anion Gap 5 (5-15); BUN 13 mg/dL (7-18); BUN/Creat Ratio 18.2 RATIO (10-20); Calcium,Total 8.6 mg/dL (8.5-10.1); Chloride 108 mmol/L (98-107); Creatinine, Serum 0.71 mg/dL (0.55-1.02); EST Glomerular Filtration Rate 83 mL/min (>60); Est Glom Filt Rate - Afr Amer 101 mL/min (>60); Estimated Creatinine Clearance 47.63 ml/min; Glucose 110 mg/dL (74-106); Potassium 3.7 mmol/L (3.5-5.1); Sodium Level 143 mmol/L (136-145)
[2023-12-26] MEDS: Tetracaine 0.5% Ophthalmic Bottle 1 DRP RIGHT EYE (21:15)
--- OUTSIDE RECORDS SUMMARY | 2023-12-26 21:42 | XMS RPT_ITS | CCD ---
Author Name Unknown Address [address] [place] [address] Organization [facility] Care Team Providers Care Oyster Unloader Name Role Phone Ori SANCHEZ, Nell Primary Care Provider Erick SANCHEZ, Lyudmila Gordon Unavailable Vanessa Garza MD Unavailable Ebonie Addison Unavailable GANTA, NELL Primary Care Unavailable DENZEL, DORINA Attending Unavailable GANTA, NELL Primary Care Unavailable GANTA, NELL Referring Unavailable GANTA, NELL Primary Care Unavailable AMINTA LUNA Referring Unavailable GANTA, NELL Primary Care Unavailable GANTA, NELL Primary Care Unavailable UVALDO RIVERO Attending Unavailable GANTA, NELL Primary Care Unavailable MARISSA LYNN Attending Unavailable GANTA, NELL Primary Care Unavailable Ori SANCHEZ, Nell Primary Care Provider Erick SANCHEZ, Lyudmila Gordon Unavailable Vanessa Garza MD Unavailable Ebonie Addison Unavailable Allergies Allergy Classification Reported Allergen(s) Allergy Type Date of Onset Reaction(s) Facility (20 sources) Aspirin; Translations: [ASPIRIN] Drug Allergy 9 Shortness of Breath [facility] (20 sources) Cephalexin; Translations: [CEPHALEXIN] Drug Allergy 5 [facility] Work Phone: (20 sources) Ciprofloxacin; Translations: [CIPROFLOXACIN] Drug Allergy 7 GI Upset [facility] Work Phone: (20 sources) HYDROcodone; Translations: [HYDROCODONE BITARTRATE] Drug Allergy 9 [facility] (20 sources) Ibuprofen; Translations: [IBUPROFEN] Drug Allergy 5 [facility] Work Phone: (20 sources) Latex; Translations: [LATEX] Drug Allergy 9 [facility] (20 sources) Naproxen; Translations: [NAPROXEN] Drug Allergy 4 [facility] (20 sources) Pneumococcal vaccine; Translations: [PNEUMOCOCCAL VACCINE] Drug Allergy 3 Swelling [facility] (13 sources) Salicylic Acid; Translations: [SALICYLATES] Drug Allergy 5 Shortness of Breath [facility] Work Phone: (20 sources) Rubber; Translations: [RUBBER] Propensity to adverse reactions 7 [facility] (7 sources) Non-steroidal anti-inflammator y agent; Translations: [NSAIDS (NON-STEROIDAL ANTI-INFLAMMATOR Y DRUG)] Drug Allergy 9 Shortness of Breath [facility] (20 sources) Non-steroidal anti-inflammator y agent Drug Allergy 9 Shortness of Breath [facility] (20 sources) Salicylate product Propensity to adverse reactions 5 Shortness of Breath [facility] Work Phone: (20 sources) Salicylic Acid; Translations: [SALICYLIC ACID] Drug Allergy 5 Unknown [facility] Medications Current Medications Medication Drug Class(es) Dates Sig (Normalized) Sig (Original) acetaminophen 325 mg / oxyCODONE hydrochloride 10 mg oral tablet (20 sources) Opioid Agonist Start: 12-04-2023 End: 12-31-2023 take 1 tablet by mouth twice daily as needed for pain oxyCODONE-acetami nophen (PERCOCET 10) 10-325 mg tablet Indications: Chronic pain syndrome Take 1 tablet by mouth two times a day as needed for pain for up to 7 days. 14 tablet 0 12/24/2023 12/31/2023 Active Completed/Discontinued Medications Medication Drug Class(es) Dates Sig (Normalized) Sig (Original) [id number] 200 actuat albuterol 0.09 mg/actuat metered dose inhaler (20 sources) beta2-Adrenergic Agonist Start: 02-26-2021 take 2 puff(s) by inhalation every four hours as needed for wheezing albuterol HFA (VENTOLIN HFA) 90 mcg/actuation inhaler Indications: Moderate persistent asthma without complication Inhale 2 Puffs as instructed every 4 hours as needed for Wheezing/Shortness of Breath. 18 g 1 02/26/2021 Active Problems Active Problems Problem Classification Problem Date Documented Date Episodic/Chronic Asthma (20 sources) Asthma; Translations: [Unspecified asthma, uncomplicated] Onset: 05-12-2006 08-22-2016 Chronic Calculus of urinary tract (20 sources) Kidney stone; Translations: [Calculus of kidney] 10-20-2007 Episodic Cancer of thyroid (20 sources) Malignant tumor of thyroid gland; Translations: [Malignant neoplasm of thyroid gland] Onset: 04-08-2019 06-25-2019 Chronic Chronic obstructive pulmonary disease and bronchiectasis (20 sources) Asthma-chronic obstructive pulmonary disease overlap syndrome; Translations: [Chronic obstructive pulmonary disease, unspecified] Onset: 11-26-2022 11-26-2022 Chronic Complications of surgical procedures or medical care (20 sources) Menopausal symptom; Translations: [Symptomatic postprocedural ovarian failure] Onset: 04-19-2019 10-18-2007 Chronic Deficiency and other anemia (3 sources) Anemia; Translations: [Anemia, unspecified] Episodic Deficiency and other anemia (1 source) Iron deficiency anemia; Translations: [Iron deficiency anemia, unspecified] Episodic Deficiency and other anemia (1 source) Iron deficiency anemia, unspecified; Translations: [Iron deficiency anemia, unspecified iron deficiency anemia type] Onset: 11-27-2023 Episodic Diabetes mellitus without complication (1 source) Increased glucose level; Translations: [Other abnormal glucose] Episodic Disorders of lipid metabolism (20 sources) Hyperlipidemia; Translations: [Hyperlipidemia, unspecified] Onset: 11-27-2023 10-20-2007 Chronic Diverticulosis and diverticulitis (20 sources) Diverticulosis of colon; Translations: [Diverticulosis of large intestine without perforation or abscess without bleeding] 10-20-2007 Chronic Esophageal disorders (20 sources) Gastroesophageal reflux disease; Translations: [Gastro-esophageal reflux disease without esophagitis] 01-29-2008 Chronic Genitourinary symptoms and ill-defined conditions (2 sources) Increased frequency of urination; Translations: [Frequency of micturition] Episodic Impulse control disorders, NEC (1 source) Carphologia; 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 Mood disorders (20 sources) Depressive disorder; Translations: [Depressive disorder] Onset: 11-26-2022 11-26-2022 Chronic Nutritional deficiencies (20 sources) Vitamin D deficiency; Translations: [Vitamin D deficiency, unspecified] 10-23-2007 Chronic Nutritional deficiencies (1 source) Cobalamin deficiency; Translations: [Deficiency of other specified B group vitamins] Episodic Osteoarthritis (20 sources) Degenerative joint disease of shoulder region; Translations: [Primary osteoarthritis, unspecified shoulder] Onset: 11-21-2015 11-26-2022 Chronic Other bone disease and musculoskeletal deformities (6 sources) Disorder of skeletal system; Translations: [Disorder of bone, unspecified] 07-25-2017 Episodic Other circulatory disease (20 sources) Raynaud's disease; Translations: [Raynaud's syndrome without gangrene] Onset: 03-26-2016 11-26-2022 Chronic Other eye disorders (1 source) Other specified disorders of eye and adnexa; Translations: [Eye irritation] Onset: 11-27-2023 Episodic Other inflammatory condition of skin (20 sources) Parapsoriasis; Translations: [Parapsoriasis, unspecified] Onset: 10-10-2008 10-10-2008 Chronic Other inflammatory condition of skin (20 sources) Psoriasis; Translations: [Psoriasis, unspecified] Onset: 12-27-2015 11-26-2022 Chronic Other inflammatory condition of skin (20 sources) Lichen planus; Translations: [Lichen planus, unspecified] 10-20-2007 Episodic Other nervous system disorders (20 sources) Chronic pain syndrome; Translations: [Chronic pain syndrome] Onset: 03-26-2016 Chronic Other nervous system disorders (20 sources) Chronic pain; Translations: [Other chronic pain] Onset: 11-26-2022 11-26-2022 Chronic Other nervous system disorders (1 source) Other chronic pain; Translations: [Other chronic pain] Onset: 11-26-2022 Chronic Other nervous system disorders (1 source) Chronic pain syndrome; Translations: [Chronic pain syndrome] Onset: 10-02-2022 Chronic Other skin disorders (20 sources) Localized scleroderma; Translations: [Localized scleroderma [morphea]] Onset: 03-23-2007 03-23-2007 Chronic Residual codes; unclassified (6 sources) Family history of breast cancer; Translations: [Family history of malignant neoplasm of breast] 10-18-2007 Episodic Residual codes; unclassified (1 source) Memory impairment; Translations: [Other amnesia] Episodic Residual codes; unclassified (1 source) Hallucinations; Translations: [Hallucinations, unspecified] Episodic Residual codes; unclassified (1 source) Hallucinations, unspecified; Translations: [Hallucinations] Onset: 11-27-2023 Episodic Residual codes; unclassified (1 source) Other amnesia; Translations: [Memory change] Onset: 11-27-2023 Episodic Respiratory failure; insufficiency; arrest (adult) (20 sources) Chronic hypoxemic respiratory failure; Translations: [Chronic respiratory failure with hypoxia] Onset: 11-26-2022 11-26-2022 Chronic Rheumatoid arthritis and related disease (20 sources) Bilateral rheumatoid arthritis of hands; Translations: [Rheumatoid arthritis, unspecified] Onset: 03-21-2016 03-21-2016 Chronic Schizophrenia and other psychotic disorders (1 source) Psychotic disorder; Translations: [Unspecified psychosis not due to a substance or known physiological condition] Chronic Screening and history of mental health and substance abuse codes (20 sources) Tobacco use and exposure - finding; Translations: [Personal history of nicotine dependence] 10-18-2007 Episodic Spondylosis; intervertebral disc disorders; other back problems (20 sources) Degeneration of cervical intervertebral disc; Translations: [Other cervical disc degeneration, unspecified cervical region] Onset: 10-27-2014 Chronic Thyroid disorders (20 sources) Hypothyroidism; Translations: [Hypothyroidism, unspecified] Onset: 04-19-2022 04-19-2022 Chronic Unclassified (1 source) Dementia with other behavioral disturbance, unspecified dementia severity, unspecified dementia type (HCC); Translations: [Dementia with other behavioral disturbance, unspecified dementia severity, unspecified dementia type (HCC)] Onset: 11-27-2023 Unclassified (1 source) Asthma-chronic obstructive pulmonary disease overlap syndrome; Translations: [Asthma-chronic obstructive pulmonary disease overlap syndrome] Onset: 11-26-2022 Past or Other Problems Problem Classification Problem Date Documented Date Episodic/Chronic Abdominal hernia (20 sources) Hiatal hernia; Translations: [Diaphragmatic hernia without obstruction or gangrene] Onset: 01-15-2010 01-15-2010 Episodic Abdominal pain (20 sources) Epigastric pain; Translations: [Epigastric pain] Onset: 11-26-2022 11-26-2022 Episodic Allergic reactions (6 sources) Contact dermatitis; Translations: [Unspecified contact dermatitis due to other agents] Onset: 03-23-2007 03-23-2007 Episodic Biliary tract disease (20 sources) Biliary calculus; Translations: [Calculus of gallbladder without cholecystitis without obstruction] Onset: 11-26-2022 11-26-2022 Episodic Esophageal disorders (6 sources) Esophagitis; Translations: [Esophagitis] Onset: 01-15-2010 01-15-2010 Episodic Gastritis and duodenitis (12 sources) Gastritis; Translations: [Gastritis, unspecified, without bleeding] Onset: 01-15-2010 01-15-2010 Episodic Malaise and fatigue (20 sources) Malaise and fatigue; Translations: [Other malaise] Onset: 04-19-2022 Episodic Neoplasms of unspecified nature or uncertain behavior (20 sources) Neoplasm of uncertain behavior of skin; Translations: [Neoplasm of uncertain behavior of skin] Onset: 12-12-2008 12-12-2008 Episodic Nonmalignant breast conditions (20 sources) Hypertrophy of breast; Translations: [Hypertrophy of breast] Onset: 12-14-2007 12-14-2007 Episodic Nonspecific chest pain (20 sources) Chest pain; Translations: [Chest pain, unspecified] Onset: 11-26-2022 11-26-2022 Episodic Other acquired deformities (20 sources) Spondylolysis of cervical spine; Translations: [Spondylolysis, cervical region] Onset: 10-02-2022 Episodic Other aftercare (20 sources) Patient encounter status; Translations: [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] Onset: 11-27-2016 Episodic Other aftercare (15 sources) Long-term current use of opiate analgesic drug; Translations: [correction (current) use of opiate analgesic] Onset: 11-27-2016 08-29-2023 Episodic Other aftercare (1 source) correction (current) use of opiate analgesic; Translations: [correction (current) use of opiate analgesic] Onset: 09-04-2023 Episodic Other aftercare (1 source) Other residential (current) drug therapy; Translations: [High risk medication use] Onset: 04-28-2023 Episodic Other connective tissue disease (20 sources) Myofascial pain syndrome; Translations: [Myalgia, other site] Onset: 10-02-2022 Episodic Other connective tissue disease (20 sources) Synovial cyst of knee; Translations: [Synovial cyst of popliteal space [[place]], unspecified knee] Onset: 11-26-2022 11-26-2022 Episodic Other connective tissue disease (20 sources) Fibromyositis; Translations: [Fibromyalgia] Onset: 11-21-2015 11-26-2022 Episodic Other connective tissue disease (1 source) Myalgia, other site; Translations: [Myofascial pain syndrome] Onset: 10-02-2022 Episodic Other inflammatory condition of skin (20 sources) Lichen; Translations: [Lichen simplex chronicus] Onset: 06-17-2007 10-18-2007 Episodic Other inflammatory condition of skin (6 sources) Erythema; Translations: [Erythematous condition, unspecified] Onset: 12-12-2008 12-12-2008 Episodic Other injuries and conditions due to external causes (1 source) Unspecified injury of left wrist, hand and finger(s), initial encounter; Translations: [Wrist injury, left, initial encounter] Onset: 02-10-2023 Episodic Other lower respiratory disease (20 sources) Dyspnea; Translations: [Shortness of breath] Onset: 02-11-2019 11-26-2022 Episodic Other non-traumatic joint disorders (20 sources) Pain in unspecified knee; Translations: [Pain in joint, lower leg] Onset: 11-26-2022 11-26-2022 Episodic Other non-traumatic joint disorders (20 sources) Pain in right hip joint; Translations: [Pain in right hip] Onset: 08-08-2020 11-26-2022 Episodic Other non-traumatic joint disorders (20 sources) Pain in wrist; Translations: [Pain in unspecified wrist] Onset: 11-26-2022 11-26-2022 Episodic Other non-traumatic joint disorders (1 source) Pain in left wrist; Translations: [Pain in left wrist] Onset: 04-28-2023 Episodic Other skin disorders (20 sources) Disorder of sebaceous gland; Translations: [Other specified follicular disorders] Onset: 03-23-2007 03-23-2007 Episodic Other skin disorders (20 sources) Scar conditions and fibrosis of skin; Translations: [Scar conditions and fibrosis of skin] Onset: 07-22-2008 07-22-2008 Episodic Other skin disorders (6 sources) Eruption; Translations: [Rash and other nonspecific skin eruption] Onset: 10-10-2008 10-10-2008 Episodic Septicemia (except in labor) (11 sources) Sepsis; Translations: [Sepsis, unspecified organism] Onset: 11-26-2022 11-26-2022 Episodic Spondylosis; intervertebral disc disorders; other back problems (20 sources) Neck pain; Translations: [Cervicalgia] Onset: 10-27-2014 Episodic Thyroid disorders (20 sources) Mass of thyroid gland; Translations: [Other specified disorders of thyroid] Onset: 01-28-2019 11-26-2022 Episodic Urinary tract infections (20 sources) Pyelonephritis; Translations: [Tubulo-interstitial nephritis, not specified as acute or chronic] Onset: 11-26-2022 11-26-2022 Episodic Viral infection (20 sources) Postherpetic neuralgia; Translations: [Other postherpetic nervous system involvement] Onset: 11-21-2015 11-26-2022 Episodic Results Test Name Value Interpretation Reference Range Facil ity Vital Signs Date Time Vital Sign Value Performing Clinician Johnny jain 12-15-2022 11:43-0500 Body temperature 98.49 [degF] Brendan Urena APRN.EMPLOYEE HEALTH NURSE Work Phone: [facility] 12-15-2022 11:43-0500 Body weight 62.78 kg Brendan Urena APRN.EMPLOYEE HEALTH NURSE Work Phone: [facility] 12-15-2022 11:43-0500 Diastolic blood pressure 80 mm[Hg] Brendan Urena APRN.EMPLOYEE HEALTH NURSE Work Phone: [facility] 12-15-2022 11:43-0500 Heart rate 75 /min Brendan Urena APRN.EMPLOYEE HEALTH NURSE Work Phone: [facility] 12-15-2022 11:43-0500 Respiratory rate 21 /min Brendan Urena APRN.EMPLOYEE HEALTH NURSE Work Phone: [facility] 12-15-2022 11:43-0500 SaO2% (BldA) [Mass fraction] 98 % Brendan Ayanna COMMUNITY MENTAL HEALTH WORKER.EMPLOYEE HEALTH NURSE Work Phone: [facility] 12-15-2022 11:43-0500 Systolic blood pressure 132 mm[Hg] Brendan Urena COMMUNITY MENTAL HEALTH WORKER.EMPLOYEE HEALTH NURSE Work Phone: [facility] 11-26-2022 10:26-0500 Body height 161.5 cm Sandor Haley DO Work Phone: [facility] 11-26-2022 10:26-0500 Body weight 60.33 kg Sandor Haley DO Work Phone: [facility] 11-26-2022 10:26-0500 Diastolic blood pressure 65 mm[Hg] Sandor Haley DO Work Phone: [facility] 11-26-2022 10:26-0500 Heart rate 78 /min Sandor Haley DO Work Phone: [facility] 11-26-2022 10:26-0500 Respiratory rate 19 /min Sandor Haley DO Work Phone: [facility] 11-26-2022 10:26-0500 SaO2% (BldA) [Mass fraction] 97 % Sandor Haley DO Work Phone: [facility] 11-26-2022 10:26-0500 Systolic blood pressure 126 mm[Hg] Darrylbrennon Haley DO Work Phone: [facility] 10-29-2022 12:03-0500 Body height 157.5 cm Nell Sims MD Work Phone: [facility] 10-29-2022 12:03-0500 Body temperature 98.71 [degF] Nell Sims MD Work Phone: [facility] 10-29-2022 12:03-0500 Body weight 60.78 kg Nell Sims MD Work Phone: [facility] 10-29-2022 12:03-0500 Diastolic blood pressure 52 mm[Hg] Nell Sims MD Work Phone: [facility] 10-29-2022 12:03-0500 Heart rate 74 /min Nell Sims MD Work Phone: [facility] 10-29-2022 12:03-0500 Respiratory rate 12 /min Nell Sims MD Work Phone: [facility] 10-29-2022 12:03-0500 SaO2% (BldA) [Mass fraction] 99 % Nell Sims MD Work Phone: [facility] 10-29-2022 12:03-0500 Systolic blood pressure 104 mm[Hg] Nell Sims MD Work Phone: [facility] 08-02-2022 12:18-0400 Body height 157.5 cm Nell Sims MD Work Phone: [facility] 08-02-2022 12:18-0400 Body temperature 99.1 [degF] Nell Sims MD Work Phone: [facility] 08-02-2022 12:18-0400 Body weight 60.78 kg Nell Sims MD Work Phone: [facility] 08-02-2022 12:18-0400 Diastolic blood pressure 60 mm[Hg] Nell Sims MD Work Phone: [facility] 08-02-2022 12:18-0400 Heart rate 68 /min Nell Sims MD Work Phone: [facility] 08-02-2022 12:18-0400 Respiratory rate 12 /min Nell Sims MD Work Phone: [facility] 08-02-2022 12:18-0400 SaO2% (BldA) [Mass fraction] 97 % Nell Sims MD Work Phone: [facility] 08-02-2022 12:18-0400 Systolic blood pressure 128 mm[Hg] Nell Sims MD Work Phone: [facility] 05-12-2022 13:47-0400 Body temperature 97 [degF] Dasha Athy PA-C Work Phone: [facility] 05-12-2022 13:47-0400 Body weight 59.88 kg Dasha Athy PA-C Work Phone: [facility] 05-12-2022 13:47-0400 Diastolic blood pressure 72 mm[Hg] Dasha Athy PA-C Work Phone: [facility] 05-12-2022 13:47-0400 Heart rate 84 /min Dasha Athy PA-C Work Phone: [facility] 05-12-2022 13:47-0400 Respiratory rate 16 /min Dasha Athy PA-C Work Phone: [facility] 05-12-2022 13:47-0400 SaO2% (BldA) [Mass fraction] 97 % Dasha Athy PA-C Work Phone: [facility] 05-12-2022 13:47-0400 Systolic blood pressure 124 mm[Hg] Dasha Athy PA-C Work Phone: [facility] 04-29-2022 16:01-0400 Body height 157.5 cm Nell Sims MD Work Phone: [facility] 04-29-2022 16:01-0400 Body temperature 98.1 [degF] Nell Sims MD Work Phone: [facility] 04-29-2022 16:01-0400 Body weight 58.06 kg Nell Sims MD Work Phone: [facility] 04-29-2022 16:01-0400 Diastolic blood pressure 56 mm[Hg] Nell Sims MD Work Phone: [facility] 04-29-2022 16:01-0400 Heart rate 82 /min Nell Sims MD Work Phone: [facility] 04-29-2022 16:01-0400 Respiratory rate 12 /min Nell Sims MD Work Phone: [facility] 04-29-2022 16:01-0400 SaO2% (BldA) [Mass fraction] 98 % Nell Sims MD Work Phone: [facility] 04-29-2022 16:01-0400 Systolic blood pressure 110 mm[Hg] Nell Sims MD Work Phone: [facility] 04-19-2022 09:30-0400 Body height 157.5 cm Vanessa Garza MD Work Phone: [facility] 04-19-2022 09:30-0400 Body weight 60.06 kg Vanessa Garza MD Work Phone: [facility] 04-19-2022 09:30-0400 Diastolic blood pressure 80 mm[Hg] Vanessa Garza MD Work Phone: [facility] 04-19-2022 09:30-0400 Heart rate 63 /min Vanessa Garza MD Work Phone: [facility] 04-19-2022 09:30-0400 SaO2% (BldA) [Mass fraction] 99 % Vanessa Garza MD Work Phone: [facility] 04-19-2022 09:30-0400 Systolic blood pressure 150 mm[Hg] Vanessa Garza MD Work Phone: [facility] 03-28-2022 14:34-0400 Body height 156.8 cm Respiratory Wstr Work Phone: [facility] 03-28-2022 14:34-0400 Body weight 61.24 kg Respiratory Wstr Work Phone: [facility] 03-28-2022 14:34-0400 Heart rate 85 /min Respiratory Wstr Work Phone: [facility] 03-28-2022 14:34-0400 Respiratory rate 10 /min Respiratory Wstr Work Phone: [facility] 03-28-2022 14:34-0400 SaO2% (BldA) [Mass fraction] 99 % Respiratory Wstr Work Phone: [facility] 03-07-2022 12:56-0400 Body temperature 97.39 [degF] Dorina Older COMMUNITY MENTAL HEALTH WORKER.EMPLOYEE HEALTH NURSE Work Phone: [facility] 03-07-2022 12:56-0400 Body weight 62.14 kg COMMUNITY MENTAL HEALTH WORKER.EMPLOYEE HEALTH NURSE Work Phone: [facility] 03-07-2022 12:56-0400 Diastolic blood pressure 68 mm[Hg] COMMUNITY MENTAL HEALTH WORKER.EMPLOYEE HEALTH NURSE Work Phone: [facility] 03-07-2022 12:56-0400 Heart rate 68 /min COMMUNITY MENTAL HEALTH WORKER.EMPLOYEE HEALTH NURSE Work Phone: [facility] 03-07-2022 12:56-0400 Respiratory rate 12 /min COMMUNITY MENTAL HEALTH WORKER.EMPLOYEE HEALTH NURSE Work Phone: [facility] 03-07-2022 12:56-0400 SaO2% (BldA) [Mass fraction] 98 % COMMUNITY MENTAL HEALTH WORKER.EMPLOYEE HEALTH NURSE Work Phone: [facility] 03-07-2022 12:56-0400 Systolic blood pressure 108 mm[Hg] COMMUNITY MENTAL HEALTH WORKER.EMPLOYEE HEALTH NURSE Work Phone: [facility] Encounters Encounter Date Encounter Type Care Provider Facility Start: 12-24-2023 Refill Uvaldo Rivero COMMUNITY MENTAL HEALTH WORKER.EMPLOYEE HEALTH NURSE Work Phone: Pain Management Procedures Date Procedure Procedure Detail Performing Clinician Start: 12-15-2022 Urnls dip stick/tabl et rgnt auto w/o microscopy Ana Zaman COMMUNITY MENTAL HEALTH WORKER.EMPLOYEE HEALTH NURSE Work Phone: Start: 05-12-2022 Urnls dip stick/tabl et rgnt auto w/o microscopy Dasha Aragon PA-C Work Phone: Start: 04-29-2022 Adult depression scr eening assessment Nell Sims MD Work Phone: Start: 03-28-2022 Plethysmography lung volumes w/wo airway resist Nell Sims MD Work Phone: Start: 03-07-2022 Urnls dip stick/tabl et rgnt auto w/o microscopy Dorina Older COMMUNITY MENTAL HEALTH WORKER.EMPLOYEE HEALTH NURSE Work Phone: Start: 08-19-2019 Adult depression scr eening assessment Dorina Older COMMUNITY MENTAL HEALTH WORKER.EMPLOYEE HEALTH NURSE Work Phone: Start: 04-19-2019 History of thyroidectomy S/P thyroid ectomy Dorina Older COMMUNITY MENTAL HEALTH WORKER.EMPLOYEE HEALTH NURSE Work Phone: History of thyroidectomy S/P thyroidectom y Vanessa Garza MD Work Phone: History of thyroidectomy S/P thyroidectom y Dorina Older COMMUNITY MENTAL HEALTH WORKER.EMPLOYEE HEALTH NURSE Work Phone: Plan of Treatment Date Care Activity Detail Author Start: 08-02-2025 DIABETES SCREEN DIABETES SCREEN [facility] Start: 08-02-2025 Diabetes Screening Diabetes Screenin g [facility] Start: 03-25-2025 DIABETES SCREEN DIABETES SCREEN [facility] Start: 11-27-2024 Covid-19 Vaccine ( season) Covid-19 Vaccine () [facility] Immunizations Immunization Date Immunization Notes Care Provider Gary alvarez 08-26-2018 influenza virus vacc ine, unspecified formulation Marissa Aguilarfield COMMUNITY MENTAL HEALTH WORKER.CASINO CASHIER Work Phone: [facility] 09-17-2016 influenza, high dose seasonal, preservative-free Dorina Older COMMUNITY MENTAL HEALTH WORKER.[facility] Work Phone: [facility] Work Phone: 10-05-2013 pneumococcal polysaccharide vaccine, 23 valent Dorina Older COMMUNITY MENTAL HEALTH WORKER.[facility] Work Phone: [facility] 08-09-2013 influenza virus vacc ine, unspecified formulation Dorina Older COMMUNITY MENTAL HEALTH WORKER.EMPLOYEE HEALTH NURSE Work Phone: [facility] Work Phone: 09-13-2011 influenza virus vacc ine, unspecified formulation Dorina Older COMMUNITY MENTAL HEALTH WORKER.EMPLOYEE HEALTH NURSE Work Phone: [facility] Work Phone: 08-24-2008 influenza virus vacc ine, unspecified formulation Dorina Older COMMUNITY MENTAL HEALTH WORKER.EMPLOYEE HEALTH NURSE Work Phone: [facility] Work Phone: 10-20-2007 tetanus and diphther ia toxoids, adsorbed, preservative free, for adult use (2 Lf of tetanus toxoid and 2 Lf of diphtheria toxoid) Dorina Older COMMUNITY MENTAL HEALTH WORKER.EMPLOYEE HEALTH NURSE Work Phone: [facility] Work Phone: 09-21-2007 pneumococcal polysaccharide vaccine, 23 valent Dorina Older COMMUNITY MENTAL HEALTH WORKER.EMPLOYEE HEALTH NURSE Work Phone: [facility] Work Phone: 08-28-2006 influenza virus vacc ine, unspecified formulation Dorina Older COMMUNITY MENTAL HEALTH WORKER.EMPLOYEE HEALTH NURSE Work Phone: [facility] 10-01-2005 influenza virus vacc ine, unspecified formulation Dorina Older COMMUNITY MENTAL HEALTH WORKER.EMPLOYEE HEALTH NURSE Work Phone: [facility] Work Phone: 09-17-2002 pneumococcal polysaccharide vaccine, 23 valent Dorina Older COMMUNITY MENTAL HEALTH WORKER.EMPLOYEE HEALTH NURSE Work Phone: [facility] Work Phone: 09-17-1997 pneumococcal polysaccharide vaccine, 23 valent Dorina Older COMMUNITY MENTAL HEALTH WORKER.EMPLOYEE HEALTH NURSE Work Phone: [facility] Work Phone: Payers Date Payer Category Payer Medicare HUMANA MEDICARE HUMANA GOLD PLUS [id number] 2023-Present [phone] [address] [address] [place] [address] O [id number] 2023 Private Health Insurance [id number] 2022 Unknown ANTHEM BLUE CROS S AND BLUE SHIELD ANTHEM MEDIBLUE O [id number] 2022-Present [phone] [id number] [place] [address] O [id number] 2022 Unknown ANTHEM BLUE CROS S AND BLUE SHIELD ANTHEM MEDIBLUE HMO [id number] 2022-Present [phone] [address] [place] [address] O [id number] 2022 Unknown [id number] 2021 Medicare [id number] Social History Date Type Detail Facility Start: 08-02-2022 End: 11-26-2022 Tobacco smoking status NHIS Ex-smoker [facility] Work Phone: End: 05-12-1975 History of tobacco use Current smoker [facility] End: 05-12-1975 History of tobacco use Cigarette Smoker [facility] Start: 03-07-2022 End: 11-29-2023 Alcohol intake Current non-drinker of alcohol (finding) [facility] Start: 1940 Sex Assigned At Not on file C [facility] Start: 02-25-2022 End: 08-01-2022 Exposure to SARS-CoV-2 (event) Not sure [facility] Start: 08-02-2022 End: 11-30-2022 Cigarettes smoked current (pack per day) - Reported 0.5 [facility] Work Phone: Start: 08-02-2022 End: 11-26-2022 Tobacco use and exposure Smokeless tobacco non-user [facility] Work Phone: Start: 08-02-2022 Tobacco Comment 1972 [facility] Start: 11-30-2022 End: 04-28-2023 Tobacco use panel [facility] Work Phone: Adult Depression Screening Assessment 0 [facility] Work Phone: NEGATED: Highlighted rowStart: NINF History of tobacco use Passive smoker [facility] Medical Equipment Procedure Code Equipment Code Equipment Origin al Text Equipment Identifier Dates [employer] - [id number] Start: 03-19-2010 Clinical Notes 03-26-2019 to 12-24-2023 Telephone Encounter - Pratima Morin RN - 12/24/2023 3:10 PM ESTTelephone Encounter - Reyna Weber MA - 10/31/2023 4:51 PM ESTTelephone Encounter - Blanca Forrester RN - 10/22/2023 9:55 AM EST Note Date & Type Note Facility 12-24-2023 Miscellaneous Notes Patient Comment: I am scheduled next December 30 for a video visit. My daughter is going to be here to make sure I am connected. Could you possibly phone in a five day supply until then. Thanks documented in this encounter [facility] 11-27-2023 Note HNO ID: [id number] Author: DORINA LEW APRN.EMPLOYEE HEALTH NURSE Service: ? Author Type: Nurse Practitioner Type: Progress Notes Filed: 11/27/2023 15:57 Note Text: CC: Patient presents with: Medicare Wellness Exam: Annual medicare wellness HPI Mika Ascencio is a 83 year old female who presents today for routine follow up. Patient lives with . With eye issues is unable to clean, cook, or do other house work. Is able to dress herself and perform self care. No safety concerns at this time. Reports having a decreased appetite with all the eye concerns. Does eat 3 meals a day but has lost 5 pounds in the last year without trying. Daughter confirms patient has dementia with regular confusion. Has noticed she will sometimes see things that aren't there. Symptoms get much worse with UTIs. No previous brain or carotid imaging. Hypothyroidism: Has not been taking her 1/2 tablet on Sundays but does take on an empty stomach. Denies any abnormal change in energy Recurrent UTIs: Sees Dr. Addison. Just finished an antibiotic. No concerns at this time. Has been has seeing [facility] for red puffy light sensitive eyes for the past year. Needs to make a follow up appointment. Asthma: Using Breo as ordered. Rarely needs albuterol. Denies cough wheezing, shortness of breath, or night time symptoms. Has switched from liquid iron to over the counter option. REVIEW OF SYSTEMS General: no fevers, no chills, no night sweats, no recurrent infections, no change in appetite, no change in energy, and no significant changes in weight Respiratory: no cough, no wheezing, no shortness of breath, no hemoptysis Cardiovascular: no chest pain, no chest pressure, no palpitations, and no swelling Neurologic: No headache, weakness, syncope. PAST MEDICAL HISTORY Diagnosis Date Asthma Backache, unspecified Calculus of kidney on T Diaphragmatic hernia 03/19/2010 Vianey Fundoplication Diverticulosis of colon (without mention of hemorrhage) Esophageal reflux Esophageal reflux remote EGD Family history of malignant neoplasm of breast mother Grade I diastolic dysfunction 12/14/2018 noted on Echo Hypothyroidism Lichen planus sees dermatology in [place] et A 06/2007 RIGHT LABIA, BIOPSY - LICHEN SCLEROSIS first bx in 05/22. OSTEOPENIA 10/2007 [facility] T-SCORE -1.8 Other and unspecified hyperlipidemia 10/2007 292 Personal history of tobacco use, presenting hazards to health Personal history of urinary (tract) infection 08/2007 PMH - PAST MEDICAL HISTORY OF . Solid hepatic masses consistent with a hemangioma. Rheumatoid arthritis(714.0) Symptomatic states associated with artificial menopause Thyroid cancer (HCC) Unspecified asthma, with exacerbation occ prednisone use Unspecified vitamin D deficiency 10/2007 25.5 PAST SURGICAL HISTORY Procedure Laterality Date APPENDECTOMY COLECTOMY PARTIAL W/ANASTOMOSIS Excision, large bowel COLONOSCOPY FLX DX W/COLLJ SPEC WHEN PFRMD 1996 Colonoscopy COLONOSCOPY FLX DX W/COLLJ SPEC WHEN PFRMD 05/22/11 ESOPHAGOGASTRODUODENOSCOPY TRANSORAL DIAGNOSTIC 01/15/2010 EGD LAPS SURG ESOPG/GSTR FUNDOPLASTY 5-3-10 P Ignacio Vianey FUndoplication PAST SURGICAL HISTORY OF right ear drum surgery age 32 REDUCTION OF LARGE BREAST 01/2008 bilaterally RPR 1ST INCAL/VNT HERNIA INCARCERATED 05/23/11 [address] [facility] [address] Reynolds TOTAL THYROID LOBECTOMY UNI W/WO ISTHMUSECTOMY Left 03/26/2019 Dr. Rodriguez UNLIS LAPS PX HRNAP HERNIORRHAPHY HERNIOTOMY VAGINAL HYSTERECTOMY UTERUS 250 GM/< mid ovaries are intact ALLERGIES Asa [Salicylates], Aspirin, Cipro [Ciprofloxacin], Hydrocodone Bitartrate, Keflex [Cephalexin], Latex, Motrin [Ibuprofen], Naproxen, Nsaids (Non-Steroidal Anti-Inflammatory Drug), Pneumococcal Vaccine, Rubber, and Salicylic Acid MEDICATIONS oxyCODONE-acetaminophen (PERCOCET 10) 10-325 mg tablet Take 1 tablet by mouth two times a day as needed for pain for up to 30 days. Do not start before October 31, 2023. methocarbamol (ROBAXIN-750) 750 mg tablet Take 1 tablet by mouth three times a day as needed. levothyroxine (LEVOXYL) 112 mcg tablet Take 1 tablet daily except take 1/2 tablet on Friday and Friday. pantoprazole DR (PROTONIX) 40 mg tablet Take 1 tablet by mouth daily before breakfast. Take on empty stomach, 1/2 hr before meal. erythromycin (ROMYCIN) 5 mg/gram (0.5 %) ophthalmic ointment instill in both eyes DIRECTED twice a day BREO ELLIPTA 200-25 mcg/dose inhaler 1 Inhalation once daily. ferrous sulfate 220 mg (44 mg iron)/5 mL elixir Take 5 mL by mouth once daily. albuterol HFA (VENTOLIN HFA) 90 mcg/actuation inhaler Inhale 2 Puffs as instructed every 4 hours as needed for Wheezing/Shortness of Breath. MAGNESIUM GLUCONATE ORAL Take 1 tablet by mouth once daily. OTC PRODUCT PROBIOTIC Take one(1) tablet daily. UNSURE OF DOSE cholecalciferol(VITAMIN D 1,000 UNIT CAP) Take 2 po daily = 2,000 FAMILY H (more content not included)... [facility] 10-31-2023 Miscellaneous Notes Items addressed in this encounter: Health Maintenance Review Able to close encounter. Reyna Weber MA October 31, 2023 4:51 PM 4:51 PM documented in this encounter [facility] 10-27-2023 Miscellaneous Notes Patient phones requesting refills as follows: Requested Prescriptions Pending Prescriptions Disp Refills methocarbamol (ROBAXIN-750) 750 mg tablet 90 tablet 1 Sig: Take 1 tablet by mouth three times a day as needed. Last UDS: last uds 11/26/22----consistent ernst Summary Report Date Value Ref Range Status 10/21/2023 FINAL Final Comment: ==== Opiate Class, MS, Ur RFX Oxycodone Class, MS, Ur RFX Acetaminophen, MS, Ur RFX ToxAssure Flex 23, Ur ==== Test Result Flag Units Drug Present Oxycodone 1767 ng/mg creat Oxymorphone 2295 ng/mg creat Noroxycodone 2471 ng/mg creat Noroxymorphone 766 ng/mg creat Sources of oxycodone are scheduled prescription medications. Oxymorphone, noroxycodone, and noroxymorphone are expected metabolites of oxycodone. Oxymorphone is also available as a scheduled prescription medication. Acetaminophen PRESENT ==== Test Result Flag Units Ref Range Creatinine 83 mg/dL >=20 ==== Declared Medications: Medication list was not provided. ==== For clinical consultation, please call . ==== @FLOW([id number])@ Lab Results Component Value Date SUMM FINAL 10/21/2023 Summary Report (Summary) Date Value Ref Range Status 11/26/2022 FINAL Final Comment: ==== TOXASSURE COMP DRUG ANALYSIS,UR ==== Test Result Flag Units Drug Present Oxymorphone 685 ng/mg creat Noroxycodone 521 ng/mg creat Noroxymorphone 282 ng/mg creat Oxymorphone, noroxycodone and noroxymorphone are expected metabolites of oxycodone. Noroxymorphone is an expected metabolite of oxymorphone. Sources of oxycodone and/or oxymorphone include scheduled prescription medications. Methocarbamol PRESENT Acetaminophen PRESENT ==== Test Result Flag Units Ref Range Creatinine 39 mg/dL >=20 ==== Declared Medications: Medication list was not provided. ==== For clinical consultation, please call . ==== Last Opioid agreement effective date: 11/26/2022 Please review and advise. Apurva Pike RN documented in this encounter [facility] 10-22-2023 Miscellaneous Notes 10/21 pt submitted uds Blanca Forrester RN October 22, 2023 9:55 AM Please try again. Thanks Pt called back and notified of the UDS, pt states that she will be here tomorrow. Please advise. Iza Patrick RN October 16, 2023 1:08 PM Attempted to call the pt for UDS, message left to call the office back to discuss. Please advise. Iza Patrick RN October 16, 2023 10:59 AM Please try again. Thanks LMOM for pt to call the office back. My Chart message also sent. Pratima Morin RN October 14, 2023 9:02 AM Please call the patient for a UDS. Order entered. Thanks documented in this encounter [facility] 10-17-2023 Miscellaneous Notes Summary: LVM about appt cancellation Items addressed in this encounter: MyChart Encounter Able to close encounter. Ting Gusman MA October 17, 2023 10:18 AM 10:18 AM documented in this encounter [facility] 10-14-2023 Note Patient Outreach (IN TMMN) MIKA ASCENCIO ([id number]) 1940 F CHT Date Time Provider Department 10/14/23 NELL SIMS During your visit today, we recorded the following information about you: Allergies As of Date: 10/14/2023 Noted Allergy Reaction ASA (SALICYLATES) 08/24/2005 12 - Shortness of Breath Comments: Gets very wheezey, like asthma attack. ASPIRIN 01/18/2019 12 - Shortness of Breath Comments: wheezing CIPRO (CIPROFLOXACIN) 06/17/2007 8 - GI Upset Comments: levaquin tolerated 12/2011 HYDROCODONE BITARTRATE 01/18/2019 2 - Rash KEFLEX (CEPHALEXIN) 08/24/2005 LATEX 03/25/2019 2 - Rash MOTRIN (IBUPROFEN) 08/24/2005 NAPROXEN 10/19/2014 16 - Unknown NSAIDS (NON-STEROIDAL ANTI-INFLAM*10/28/2019 12 - Shortness of Breath PNEUMOCOCCAL VACCINE 10/06/2013 7 - Swelling Comments: Redness/inflammation at injection site RUBBER 06/08/2007 Comments: Discoloration of skin SALICYLIC ACID 08/24/2005 16 - Unknown Date Reviewed: 09/30/2023 Reviewed by: Uvaldo Rivero APRN.EMPLOYEE HEALTH NURSE - Fully Assessed Visit Diagnosis:Hypothyroidism [E03.9] Order(s):TSH BLD [SQTS] Order #: [id number] FUTURE Prescriptions as of 10/17/2023 - levothyroxine (LEVOXYL) 112 mcg tablet Take 1 tablet daily except take 1/2 tablet on Friday and Friday. - oxyCODONE-acetaminophen (PERCOCET 10) 10-325 mg tablet Take 1 tablet by mouth two times a day as needed for pain for up to 30 days. Do not start before October 01, 2023. - methocarbamol (ROBAXIN-750) 750 mg tablet Take 1 tablet by mouth three times daily as needed. - pantoprazole DR (PROTONIX) 40 mg tablet Take 1 tablet by mouth daily before breakfast. Take on empty stomach, 1/2 hr before meal. - erythromycin (ROMYCIN) 5 mg/gram (0.5 %) ophthalmic ointment instill in both eyes DIRECTED twice a day - BREO ELLIPTA 200-25 mcg/dose inhaler 1 Inhalation once daily. - ferrous sulfate 220 mg (44 mg iron)/5 mL elixir Take 5 mL by mouth once daily. - albuterol HFA (VENTOLIN HFA) 90 mcg/actuation inhaler Inhale 2 Puffs as instructed every 4 hours as needed for Wheezing/Shortness of Breath. - MAGNESIUM GLUCONATE ORAL Take 1 tablet by mouth once daily. - OTC PRODUCT PROBIOTIC Take one(1) tablet daily. UNSURE OF DOSE - cholecalciferol(VITAMIN D 1,000 UNIT CAP) Take 2 po daily = 2,000 Problem List As Of Date 10/14/2023 Noted Resolved Asthma [J45.909] 05/12/2006 04/04/2022 OPEN WOUND SITE NOS [T14.8XXA] 06/06/2006 10/20/2007 Acute Bronchitis [J20.9] 09/17/2006 07/25/2010 DERMATITIS NOS [L25.9] 03/23/2007 10/20/2007 Unspecified Pruritic Disorder [L29.9] 03/23/2007 07/25/2010 Contact dermatitis and other eczema due to othe*03/23/2007 04/04/2022 Superficial Injury NEC [T07.XXXA] 03/23/2007 07/25/2010 LICHEN SCLEROSIS///CIRCUMSCRIBE SCLERODERMA [L9*03/23/2007 XEROSIS///SEBACEOUS GLAND DIS NEC [L73.8] 03/23/2007 SYMPTOMATIC ARTIFIC MENOPAUSE STATES [E89.41] Family history of malignant neoplasm of breast * 04/04/2022 PERS HX TOBACCO USE [Z87.891] LS et A [L28.0] 06/17/2007 CALCULUS OF KIDNEY [N20.0] Disorder of bone and cartilage [M89.9, M94.9] 04/04/2022 DIVERTICULOSIS OF COLON W/O BLEED [K57.30] LICHEN PLANUS [L43.9] HYPERLIPIDEMIA NEC/NOS [E78.5] Vitamin D deficiency [E55.9] HYPERTROPHY OF BREAST [N62] 12/14/2007 ESOPHAGEAL REFLUX [K21.9] SCAR AND FIBROSIS OF SKIN [L90.5] 07/22/2008 Contact Dermatitis and Other Eczema, due to Uns*07/22/2008 07/25/2010 RASH///NONSPECIF SKIN ERUPT NEC [R21] 10/10/2008 04/04/2022 PARAPSORIASIS [L41.9] 10/10/2008 UNCERTAIN BEHAV NEOPL SKIN [D48.5] 12/12/2008 Unspecified erythematous condition [L53.9] 12/12/2008 04/04/2022 Painful Respiration [R07.1] 01/27/2009 07/25/2010 Esophagitis [K20.90] 01/15/2010 04/04/2022 Unspecified gastritis and gastroduodenitis with*01/15/2010 04/04/2022 Hiatal Hernia [K44.9] 01/15/2010 Acute gastritis without mention of hemorrhage [*01/15/2010 04/04/2022 Rheumatoid arthritis(714.0) ([facility]) [M06.9] 03/21/2016 Incisional hernia [K43.2] 05/17/2011 Degeneration of cervical intervertebral disc [M*10/27/2014 Cervicalgia [M54.2] 10/27/2014 Rheumatoid arthritis involving both hands ([facility])*03/21/2016 Moderate persistent asthma without complication*03/21/2016 Thyroid mass [E07.9] 03/26/2019 03/27/2019 Thyroid cancer (HCC) [C73] 04/08/2019 S/P thyroidectomy [E89.0] 04/19/2019 Hypothyroidism [E03.9] 04/19/2022 Malaise and fatigue [R53.81, R53.83] 04/19/2022 Chronic pain syndrome [G89.4] 10/02/2022 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 [facility] 10-08-2023 Miscellaneous Notes Spoke with pt and yearly physical scheduled. Adriana Lee LPN Needs yearly appointment prior to further refills. Thank you Dorina Lew APRN.ALEXX Patient has been identified by name and date of : No Patient phones for refill(s): Requested Prescriptions Pending Prescriptions Disp Refills levothyroxine (LEVOXYL) 112 mcg tablet 90 tablet 3 Sig: Take 1 tablet daily except take 1/2 tablet on Friday and Friday. Date of last office visit in primary care: 10/29/2022 Date of next office visit in primary care: Visit date not found Last 2 Encounter Wt Readings: Date: Wt: 02/10/2023 63.2 kg (139 lb 6.4 oz) 12/15/2022 62.8 kg (138 lb 6.4 oz) Previous labs/tests for medication: Thyroid: TSH Date Value 10/29/2022 0.503 mIU/L 07/10/2021 0.615 uU/mL Please advise. Thank you. Lilo Bautista. documented in this encounter [facility] 10-08-2023 Miscellaneous Notes Patient last visit with PCP 10/29/22 Follow up appointment scheduled none Willa Holguin Ma documented in this encounter [facility] 09-30-2023 Note HNO ID: [id number] Author: Uvaldo Rivero APRN.EMPLOYEE HEALTH NURSE Service: ? Author Type: Nurse Practitioner Type: Progress Notes Filed: 09/30/2023 3:01 PM Note Text: This video visit was performed via [employer] Video Visit. Patient consented to receive health care services via virtual visit for this encounter Provider Location: Non[facility] Facility Patient Location: Patient Home or Place of Residence Risks, benefits, and limitations of receiving care virtually were discussed with the patient. The patient expressed understanding and is willing to proceed. Chief Complaint: Pain ___ History of Present Illness: Mika Ascencio is a 83 year old year old female being seen at [facility] for a evaluation and/or management of her chronic pain. The patient was last seen on 04/28/23. She states that since the last visit symptoms have been stable. Her medical history has not changed and she denies any hospital stays or ER visits. Pain level:3/10 Describes pain in left wrist as constant ache without radiation of pain Denies numbness in hands Describes pain in lower back as intermittent to constant ache Denies radiation of pain or numbness/tingling in feet Reports pain worse with using hands, walking, standing Reports pain better with medication, heat The patient is currently prescribed percocet and robaxin from our office. The last dose was taken today. The medications are partially effective. PDMP website checked and validated. OAR[place] report reviewed and is consistent with the patients medical history and medication intake. Last Opioid agreement effective date: 11/26/2022 Last UDS: Reviewed - No inconsistencies noted. last uds 11/26/22----consistent ernst No results found for: SUMM Summary Report (Summary) Date Value Ref Range Status 11/26/2022 FINAL Final Comment: ==== TOXASSURE COMP DRUG ANALYSIS,UR ==== Test Result Flag Units Drug Present Oxymorphone 685 ng/mg creat Noroxycodone 521 ng/mg creat Noroxymorphone 282 ng/mg creat Oxymorphone, noroxycodone and noroxymorphone are expected metabolites of oxycodone. Noroxymorphone is an expected metabolite of oxymorphone. Sources of oxycodone and/or oxymorphone include scheduled prescription medications. Methocarbamol PRESENT Acetaminophen PRESENT ==== Test Result Flag Units Ref Range Creatinine 39 mg/dL >=20 ==== Declared Medications: Medication list was not provided. ==== For clinical consultation, please call . ==== Chronic Pain Functional Assessment Tools Pain Disability Index: Pain Disability Index 11/26/2022 09/25/2023 Family/Home Responsibilities 9 7 Recreation 9 8 Social Activity 9 6 Occupation 9 6 Sexual Behavior 9 0 No disability Self Care 9 6 Life Support Activity 9 0 No disability PDI Score 63 33 Pain Enjoyment of Life and General Activity Scale (0-10): PEG: A Three-Item Scale Assessing Pain Intensity and Interference What number best describes your pain on average in the past week?: 5 (09/25/2023 8:51 PM) What number best describes how, during the past week, pain has interfered with your enjoyment of life?: 5 (09/25/2023 8:51 PM) What number best describes how, during the past week, pain has interfered with your general activity?: 5 (09/25/2023 8:51 PM) REVIEW OF SYSTEMS: GENERAL: No weight loss or fevers RESPIRATORY: Negative for cough CARDIOVASCULAR: Negative for chest pain GI: No nausea, vomiting, or diarrhea. MUSCULOSKELETAL: joint pain or swelling, back pain, and muscle pain PAST MEDICAL HISTORY Diagnosis Date Asthma Backache, unspecified Calculus of kidney on T Diaphragmatic hernia 03/19/2010 Vianey Fundoplication Diverticulosis of colon (without mention of hemorrhage) Esophageal reflux Esophageal reflux remote EGD Family history of malignant neoplasm of breast mother Grade I diastolic dysfunction 12/14/2018 noted on Echo Hypothyroidism Lichen planus sees dermatology in [place] LS et A 06/2007 RIGHT LABIA, BIOPSY - LICHEN SCLEROSIS first bx in 05/22. OSTEOPENIA 10/2007 [facility] T-SCORE -1.8 Other and unspecified hyperlipidemia 10/2007 292 Personal history of tobacco use, presenting hazards to health Personal history of urinary (tract) infection 08/2007 PMH - PAST MEDICAL HISTORY OF . Solid hepatic masses consistent with a hemangioma. Rheumatoid arthritis(714.0) Symptomat (more content not included)... [facility] 09-30-2023 Miscellaneous Notes Summary: Follow up appt Items addressed in this encounter: Health Maintenance Review Able to close encounter. Ting Gusman MA September 30, 2023 3:09 PM 3:09 PM documented in this encounter [facility] 09-30-2023 History of Presen t illness Narrative This video visit was performed via [employer] Video Visit. Patient consented to receive health care services via virtual visit for this encounter Provider Location: Non-[facility] Patient Location: Patient Home or Place of Residence Risks, benefits, and limitations of receiving care virtually were discussed with the patient. The patient expressed understanding and is willing to proceed. Chief Complaint: Pain ___ History of Present Illness: Mika Ascencio is a 83 year old year old female being seen at [facility] for a evaluation and/or management of her chronic pain. The patient was last seen on 04/28/23. She states that since the last visit symptoms have been stable. Her medical history has not changed and she denies any hospital stays or ER visits. Pain level:10 Describes pain in left wrist as constant ache without radiation of pain Denies numbness in hands Describes pain in lower back as intermittent to constant ache Denies radiation of pain or numbness/tingling in feet Reports pain worse with using hands, walking, standing Reports pain better with medication, heat The patient is currently prescribed percocet and robaxin from our office. The last dose was taken today. The medications are partially effective. PDMP website checked and validated. OARRS report reviewed and is consistent with the patients medical history and medication intake. Last Opioid agreement effective date: 11/26/2022 Last UDS: Reviewed - No inconsistencies noted. last uds 11/26/22----consistent ernst No results found for: SUMM Summary Report (Summary) Date Value Ref Range Status 11/26/2022 FINAL Final Comment: ==== TOXASSURE COMP DRUG ANALYSIS,UR ==== Test Result Flag Units Drug Present Oxymorphone 685 ng/mg creat Noroxycodone 521 ng/mg creat Noroxymorphone 282 ng/mg creat Oxymorphone, noroxycodone and noroxymorphone are expected metabolites of oxycodone. Noroxymorphone is an expected metabolite of oxymorphone. Sources of oxycodone and/or oxymorphone include scheduled prescription medications. Methocarbamol PRESENT Acetaminophen PRESENT ==== Test Result Flag Units Ref Range Creatinine 39 mg/dL >=20 ==== Declared Medications: Medication list was not provided. ==== For clinical consultation, please call . ==== Chronic Pain Functional Assessment Tools Pain Disability Index: Pain Disability Index 11/26/2022 09/25/2023 Family/Home Responsibilities 9 7 Recreation 9 8 Social Activity 9 6 Occupation 9 6 Sexual Behavior 9 0 No disability Self Care 9 6 Life Support Activity 9 0 No disability PDI Score 63 33 Pain Enjoyment of Life and General Activity Scale (0-10): PEG: A Three-Item Scale Assessing Pain Intensity and Interference What number best describes your pain on average in the past week?: 5 (09/25/2023 8:51 PM) What number best describes how, during the past week, pain has interfered with your enjoyment of life?: 5 (09/25/2023 8:51 PM) What number best describes how, during the past week, pain has interfered with your general activity?: 5 (09/25/2023 8:51 PM) REVIEW OF SYSTEMS: GENERAL: No weight loss or fevers RESPIRATORY: Negative for cough CARDIOVASCULAR: Negative for chest pain GI: No nausea, vomiting, or diarrhea. MUSCULOSKELETAL: joint pain or swelling, back pain, and muscle pain PAST MEDICAL HISTORY Diagnosis Date Asthma Backache, unspecified Calculus of kidney on T Diaphragmatic hernia 03/19/2010 Vianey Fundoplication Diverticulosis of colon (without mention of hemorrhage) Esophageal reflux Esophageal reflux remote EGD Family history of malignant neoplasm of breast mother Grade I diastolic dysfunction 12/14/2018 noted on Echo Hypothyroidism Lichen planus sees dermatology in [place] LS et A 06/2007 RIGHT LABIA, BIOPSY - LICHEN SCLEROSIS first bx in 05/22. OSTEOPENIA 10/2007 [facility] T-SCORE -1.8 Other and unspecified hyperlipidemia 10/2007 292 Personal history of tobacco use, presenting hazards to health Personal history of urinary (tract) infection 08/2007 PMH - PAST MEDICAL HISTORY OF . Solid hepatic masses consistent with a hemangioma. Rheumatoid arthritis(714.0) Symptomatic states associated with artificial menopause Thyroid cancer (HCC) Unspecified asthma, with exacerbation occ prednisone use Unspecified vitamin D deficiency 10/2007 25.5 PAST SURGICAL HISTORY Procedure Laterality Date APPENDECTOMY COLECTOMY PARTIAL W/ANASTOMOSIS Excision, large bowel COLONOSCOPY FLX DX W/COLLJ SPEC WHEN PFRMD 1996 Colonoscopy COLONOSCOPY FLX DX W/COLLJ SPEC WHEN PFRMD 05/22/11 ESOPHAGOGASTRODUODENOSCOPY TRANSORAL DIAGNOSTIC 01/15/2010 EGD LAPS SURG ESOPG/GSTR FUNDOPLASTY 5-3-10 P Ignacio Vianey FUndoplication PAST SURGICAL HISTORY OF right ear drum surgery age 32 REDUCTION OF LARGE BREAST 01/2008 bilaterally RPR 1ST INCAL/VNT HERNIA INCARCERATED 05/23/11 2 defects WCAniket Reynolds TOTAL THYROID LOBECTOMY UNI W/WO ISTHMUSECTOMY Left 03/26/2019 Dr. Rodriguez UNLIS LAPS PX HRNAP HERNIORRHAPHY HERNIOTOMY VAGINAL HYSTERECTOMY UTERUS 250 GM/< mid 1989' ovaries are intact FAMILY HISTORY Problem Relation Age of Onset Breast Cancer Mother diagnosed at age 55 still living Diabetes Mother Osteoporosis Mother Stroke Father AT AGE 59 Hypertension Father Cancer Sister lung No Known Problems Brother No Known Problems Maternal Grandmother No Known Problems Maternal Grandfather No Known Problems Paternal Grandmother No Known Problems Paternal Grandfather No Known Problems Son COPD Son other (overdose) Son at age 50 Social History Tobacco Use Smoking status: Former Packs/day: 0.50 Years: 10.00 Additional pack years: 0.00 Total pack years: 5.00 Types: Cigarettes Quit date: 05/12/1975 Years since quittin.4 Passive exposure: Never Smokeless tobacco: Never Tobacco comments: 1974 Vaping Use Vaping Use: Never used Substance Use Topics Alcohol use: No Drug use: No Allergies: Asa [Salicylates] Shortness of Breath Comment:Gets very wheezey, like asthma attack. Aspirin Shortness of Breath Comment:wheezing Cipro [Ciprofloxaci* GI Upset Comment:levaquin tolerated 12/2011 Hydrocodone Bitartr* Rash Keflex [Cephalexin] Latex Rash Motrin [Ibuprofen] Naproxen Unknown Nsaids (Non-Steroid* Shortness of Breath Pneumococcal Vaccine Swelling Comment:Redness/inflammation at injection site Rubber Comment:Discoloration of skin Salicylic Acid Unknown Current Outpatient Medications Medication Sig oxyCODONE-acetaminophen (PERCOCET 10) 10-325 mg tablet Take 1 tablet by mouth two times a day as needed for pain for up to 30 days. methocarbamol (ROBAXIN-750) 750 mg tablet Take 1 tablet by mouth three times daily as needed. pantoprazole DR (PROTONIX) 40 mg tablet Take 1 tablet by mouth daily before breakfast. Take on empty stomach, 1/2 hr before meal. levothyroxine (LEVOXYL) 112 mcg tablet Take 1 tablet daily except take 1/2 tablet on Friday and Friday. erythromycin (ROMYCIN) 5 mg/gram (0.5 %) ophthalmic ointment instill in both eyes DIRECTED twice a day BREO ELLIPTA 200-25 mcg/dose inhaler 1 Inhalation once daily. ferrous sulfate 220 mg (44 mg iron)/5 mL elixir Take 5 mL by mouth once daily. albuterol HFA (VENTOLIN HFA) 90 mcg/actuation inhaler Inhale 2 Puffs as instructed every 4 hours as needed for Wheezing/Shortness of Breath. MAGNESIUM GLUCONATE ORAL Take 1 tablet by mouth once daily. OTC PRODUCT PROBIOTIC Take one(1) tablet daily. UNSURE OF DOSE cholecalciferol(VITAMIN D 1,000 UNIT CAP) Take 2 po daily = 2,000 No current facility-administered medications for this visit. PHYSICAL EXAMINATION: VIDEO EXAM: (performed via video enabled technology) GENERAL: alert and appropriate, in no distress and well-hydrated, well nourished HEAD: normocephalic, no abnormality or lesion noted RESPIRATORY: breathing non-labored NEUROLOGIC: no obvious deficit ASSESSMENT: Patient is stable. Chronic pain is persistent. Medications are helping Mika Ascencio to have an improved quality of life. Patient compliance with Opioid Contract: patient is compliant Encounter Diagnosis ICD-10-CM 1. Other chronic pain G89.29 2. intermediate frame tender (current) use of opiate analgesic Z79.891 3. Degeneration of cervical intervertebral disc M50.30 4. DDD (degenerative disc disease), lumbar M51.36 5. Myofascial pain syndrome [M79.18 (ICD-10-CM)] M79.18 PLAN: The patient understands the goal of our treatment is a reduction in pain and/or an improved level of functioning with activities of daily living. If at any time the patient does not feel the medications are helping them to achieve these goals, the medications may be discontinued. The patient reports a reduction in pain and/or an improved level of functioning with activities of daily living, denies any significant adverse effects, is compliant with the pain management agreement and there are no signs of medication misuse, abuse or diversion; therefore, the medications will be continued. Continue robaxin Continue percocet one tab po two times a day as needed. Keep active as possible Encouraged to trial using a walker to stand more erect Patient declined having mental health assessment from Teresa Mark CNP psych Keep active as possible Encouraged to call office if desires to have PT to help with use of walker Follow up in 1 month Uvaldo Rivero APRN.CNP documented in this encounter [facility] 09-30-2023 Instructions Uvaldo Rivero APRN.ALEXX - 09/30/2023 1:10 PM EST Continue robaxin Continue percocet one tab po two times a day as needed. Keep active as possible Encouraged to trial using a walker to stand more erect Patient declined having mental health assessment from Teresa Mark CNP psych Keep active as possible Encouraged to call office if desires to have PT to help with use of walker Follow up in 1 month documented in this encounter [facility] 09-24-2023 Miscellaneous Notes Summary: UDS update Items addressed in this encounter: Health Maintenance Review Able to close encounter. Ting Gusman MA September 24, 2023 7:34 AM 7:34 AM documented in this encounter [facility] 09-04-2023 Miscellaneous Notes Summary: no show letter sent Items addressed in this encounter: MyChart Encounter Able to close encounter. Ting Gusman MA September 04, 2023 3:46 PM 3:46 PM documented in this encounter [facility] 09-04-2023 Miscellaneous Notes Summary: Virtual Visit Pre Check In Items addressed in this encounter: Virtual Visit Pre Check In Able to close encounter.Items addressed in this encounter: MyChart Encounter Able to close encounter. Ting Gusman MA September 04, 2023 6:24 AM 6:24 AM Ting Gusman MA September 04, 2023 6:24 AM 6:24 AM documented in this encounter [facility] 08-31-2023 Miscellaneous Notes The following approved medication requests have been transmitted electronically. Requested Prescriptions Pending Prescriptions Disp Refills oxyCODONE-acetaminophen (PERCOCET 10) 10-325 mg tablet 60 tablet 0 Sig: Take 1 tablet by mouth two times a day as needed for pain for up to 30 days. Sandor Haley DO LM with both numbers listed for pt to call the office back. Pratima Morin RN August 29, 2023 3:15 PM UDS is needed before a refill will be given Patient phones requesting refills as follows: Requested Prescriptions Pending Prescriptions Disp Refills oxyCODONE-acetaminophen (PERCOCET 10) 10-325 mg tablet 60 tablet 0 Sig: Take 1 tablet by mouth two times a day as needed for pain for up to 30 days. Last UDS: No results found for: SUMM @FLOW([id number])@ No results found for: SUMM Summary Report (Summary) Date Value Ref Range Status 11/26/2022 FINAL Final Comment: ==== TOXASSURE COMP DRUG ANALYSIS,UR ==== Test Result Flag Units Drug Present Oxymorphone 685 ng/mg creat Noroxycodone 521 ng/mg creat Noroxymorphone 282 ng/mg creat Oxymorphone, noroxycodone and noroxymorphone are expected metabolites of oxycodone. Noroxymorphone is an expected metabolite of oxymorphone. Sources of oxycodone and/or oxymorphone include scheduled prescription medications. Methocarbamol PRESENT Acetaminophen PRESENT ==== Test Result Flag Units Ref Range Creatinine 39 mg/dL >=20 ==== Declared Medications: Medication list was not provided. ==== For clinical consultation, please call . ==== Please review and advise. Pratima Morin RN documented in this encounter [facility] 07-29-2023 Miscellaneous Notes Left a message, returning call to reschedule appt. documented in this encounter [facility] 07-29-2023 Miscellaneous Notes Patient phones requesting refills as follows: Requested Prescriptions Pending Prescriptions Disp Refills oxyCODONE-acetaminophen (PERCOCET 10) 10-325 mg tablet 60 tablet 0 Sig: Take 1 tablet by mouth twice daily as needed for pain for up to 30 days. methocarbamol (ROBAXIN-750) 750 mg tablet 90 tablet 1 Sig: Take 1 tablet by mouth three times daily as needed. Last UDS: No results found for: SUMM @FLOW([id number])@ No results found for: SUMM Summary Report (Summary) Date Value Ref Range Status 11/26/2022 FINAL Final Comment: ==== TOXASSURE COMP DRUG ANALYSIS,UR ==== Test Result Flag Units Drug Present Oxymorphone 685 ng/mg creat Noroxycodone 521 ng/mg creat Noroxymorphone 282 ng/mg creat Oxymorphone, noroxycodone and noroxymorphone are expected metabolites of oxycodone. Noroxymorphone is an expected metabolite of oxymorphone. Sources of oxycodone and/or oxymorphone include scheduled prescription medications. Methocarbamol PRESENT Acetaminophen PRESENT ==== Test Result Flag Units Ref Range Creatinine 39 mg/dL >=20 ==== Declared Medications: Medication list was not provided. ==== For clinical consultation, please call . ==== Please review and advise. 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 N/A Reason for Outreach HCC or suspected condition Payer: Payor: [employer] / Plan: DARRYL [employer] HMO / Product Type: HMO / Care Gap Reviewed:: Annual Wellness visit Reminder: Reminder note to check Health Maintenance for items below Health Maintenance items due: SPIROMETRY Never done SHINGRIX VACCINE(1 of 2) Never done DTAP,TDAP,TD(1 - Tdap) due on 10/21/2007 PNEUMOCOCCAL: 65+(2 - PCV) due on 10/05/2014 COVID-19 VACCINE(3 - Pfizer series) due on 05/03/2021 ADVANCE DIRECTIVE DISCUSSION Never done Navigation Signature: Kristy Ruiz MA July 10, 2023 10:51 AM Allergies As of Date: 07/10/2023 Noted Allergy Reaction ASA (SALICYLATES) 08/24/2005 12 - Shortness of Breath Comments: Gets very wheezey, like asthma attack. ASPIRIN 01/18/2019 12 - Shortness of Breath Comments: wheezing CIPRO (CIPROFLOXACIN) 06/17/2007 8 - GI Upset Comments: levaquin tolerated 12/2011 HYDROCODONE BITARTRATE 01/18/2019 2 - Rash KEFLEX (CEPHALEXIN) 08/24/2005 LATEX 03/25/2019 2 - Rash MOTRIN (IBUPROFEN) 08/24/2005 NAPROXEN 10/19/2014 16 - Unknown NSAIDS (NON-STEROIDAL ANTI-INFLAM*10/28/2019 12 - Shortness of Breath PNEUMOCOCCAL VACCINE 10/06/2013 7 - Swelling Comments: Redness/inflammation at injection site RUBBER 06/08/2007 Comments: Discoloration of skin SALICYLIC ACID 08/24/2005 16 - Unknown Date Reviewed: 04/28/2023 Reviewed by: Marissa Lynn APRN.CASINO CASHIER - Fully Assessed Reason for Visit: Population Health Navigation Outreach [3910] Cmt: Darryl [facility] Prescriptions as of 07/10/2023 - oxyCODONE-acetaminophen (PERCOCET 10) 10-325 mg tablet Take 1 tablet by mouth twice daily as needed for pain for up to 30 days. Do not start before June 27, 2023. - methocarbamol (ROBAXIN-750) 750 mg tablet Take 1 tablet by mouth three times daily as needed. - pantoprazole DR (PROTONIX) 40 mg tablet Take 1 tablet by mouth daily before breakfast. Take on empty stomach, 1/2 hr before meal. - ciprofloxacin-dexAMETHasone (CIPRODEX) 0.3-0.1 % otic suspension PLACE 5 (FIVE) DROPS INTO AFFECTED EAR TWICE DAILY - levothyroxine (LEVOXYL) 112 mcg tablet Take 1 tablet daily except take 1/2 tablet on Friday and Friday. - erythromycin (ROMYCIN) 5 mg/gram (0.5 %) ophthalmic ointment instill in both eyes DIRECTED twice a day - BREO ELLIPTA 200-25 mcg/dose inhaler 1 Inhalation once daily. - ferrous sulfate 220 mg (44 mg iron)/5 mL elixir Take 5 mL by mouth once daily. - albuterol HFA (VENTOLIN HFA) 90 mcg/actuation inhaler Inhale 2 Puffs as instructed every 4 hours as needed for Wheezing/Shortness of Breath. - MAGNESIUM GLUCONATE ORAL Take 1 tablet by mouth once daily. - OTC PRODUCT PROBIOTIC Take one(1) tablet daily. UNSURE OF DOSE - cholecalciferol(VITAMIN D 1,000 UNIT CAP) Take 2 po daily = 2,000 Problem List As Of Date 07/10/2023 Noted Resolved Asthma [J45.909] 05/12/2006 04/04/2022 OPEN WOUND SITE NOS [T14.8XXA] 06/06/2006 10/20/2007 Acute Bronchitis [J20.9] 09/17/2006 07/25/2010 DERMATITIS NOS [L25.9] 03/23/2007 10/20/2007 Unspecified Pruritic Disorder [L29.9] 03/23/2007 07/25/2010 Contact dermatitis and other eczema due to othe*03/23/2007 04/04/2022 Superficial Injury NEC [T07.XXXA] 03/23/2007 07/25/2010 LICHEN SCLEROSIS///CIRCUMSCRIBE SCLERODERMA [L9*03/23/2007 XEROSIS///SEBACEOUS GLAND DIS NEC [L73.8] 03/23/2007 SYMPTOMATIC ARTIFIC MENOPAUSE STATES [E89.41] Family history of malignant neoplasm of breast * 04/04/2022 PERS HX TOBACCO USE [Z87.891] LS et A [L28.0] 06/17/2007 CALCULUS OF KIDNEY [N20.0] Disorder of bone and cartilage [M89.9, M94.9] 04/04/2022 DIVERTICULOSIS OF COLON W/O BLEED [K57.30] LICHEN PLANUS [L43.9] HYPERLIPIDEMIA NEC/NOS [E78.5] Vitamin D deficiency [E55.9] HYPERTROPHY OF BREAST [N62] 12/14/2007 ESOPHAGEAL REFLUX [K21.9] SCAR AND FIBROSIS OF SKIN [L90.5] 07/22/2008 Contact Dermatitis and Other Eczema, due to Uns*07/22/2008 07/25/2010 RASH///NONSPECIF SKIN ERUPT NEC [R21] 10/10/2008 04/04/2022 PARAPSORIAS (more content not included)... [facility] 07-10-2023 Note HNO ID: [id number] Author: Kristy Ruiz MA Service: ? 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 N/A Reason for Outreach HCC or suspected condition Payer: Payor: D[employer]YL [employer] / Plan: [employer]YL [employer] HMO / Product Type: HMO / Care Gap Reviewed:: Annual Wellness visit Reminder: Reminder note to check Health Maintenance for items below Health Maintenance items due: SPIROMETRY Never done SHINGRIX VACCINE(1 of 2) Never done DTAP,TDAP,TD(1 - Tdap) due on 10/21/2007 PNEUMOCOCCAL: 65+(2 - PCV) due on 10/05/2014 COVID-19 VACCINE(3 - Pfizer series) due on 05/03/2021 ADVANCE DIRECTIVE DISCUSSION Never done Navigation Signature: Kristy Ruiz MA July 10, 2023 10:51 AM [facility] 07-10-2023 History of Presen t illness Narrative POPULATION HEALTH NAVIGATION OUTREACH Action/FYI July 10, 2023 [place] [facility] Diagnosis with HCC gap left: 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 N/A Reason for Outreach HCC or suspected condition Payer: Payor: [employer] / Plan: [employer] HMO / Product Type: HMO / Care Gap Reviewed:: Annual Wellness visit Reminder: Reminder note to check Health Maintenance for items below Health Maintenance items due: SPIROMETRY Never done SHINGRIX VACCINE(1 of 2) Never done DTAP,TDAP,TD(1 - Tdap) due on 10/21/2007 PNEUMOCOCCAL: 65+(2 - PCV) due on 10/05/2014 COVID-19 VACCINE(3 - Pfizer series) due on 05/03/2021 ADVANCE DIRECTIVE DISCUSSION Never done Navigation Signature: Kristy Ruiz MA July 10, 2023 10:51 AM documented in this encounter [facility] 07-01-2023 Miscellaneous Notes Items addressed in this encounter: Prior Authorization Per insurance on Pa hub , Percocet does not require Pa at this time. Able to close encounter. Nirmala Baron MA July 01, 2023 6:55 AM 6:55 AM documented in this encounter [facility] 06-26-2023 Miscellaneous Notes The following approved medication requests have been transmitted electronically. Requested Prescriptions Signed Prescriptions Disp Refills oxyCODONE-acetaminophen (PERCOCET 10) 10-325 mg tablet 60 tablet 0 Sig: Take 1 tablet by mouth twice daily as needed for pain for up to 30 days. Do not start before June 27, 2023. Authorizing Provider: MARISSA LYNN APRN.CASINO CASHIER Patient phones requesting refills as follows: Requested Prescriptions Pending Prescriptions Disp Refills oxyCODONE-acetaminophen (PERCOCET 10) 10-325 mg tablet 60 tablet 0 Sig: Take 1 tablet by mouth twice daily as needed for pain for up to 30 days. Last UDS: No results found for: SUMM @FLOW([id number])@ No results found for: SUMM Summary Report (Summary) Date Value Ref Range Status 11/26/2022 FINAL Final Comment: ==== TOXASSURE COMP DRUG ANALYSIS,UR ==== Test Result Flag Units Drug Present Oxymorphone 685 ng/mg creat Noroxycodone 521 ng/mg creat Noroxymorphone 282 ng/mg creat Oxymorphone, noroxycodone and noroxymorphone are expected metabolites of oxycodone. Noroxymorphone is an expected metabolite of oxymorphone. Sources of oxycodone and/or oxymorphone include scheduled prescription medications. Methocarbamol PRESENT Acetaminophen PRESENT ==== Test Result Flag Units Ref Range Creatinine 39 mg/dL >=20 ==== Declared Medications: Medication list was not provided. ==== For clinical consultation, please call . ==== Please review and advise. 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 N/A Reason for Outreach HCC or suspected condition Payer: Payor: [employer]YL [employer] / Plan: [employer] HMO / Product Type: HMO / Care Gap Reviewed:: Annual Wellness visit Reminder: Reminder note to check Health Maintenance for items below Health Maintenance items due: SPIROMETRY Never done SHINGRIX VACCINE(1 of 2) Never done DTAP,TDAP,TD(1 - Tdap) due on 10/21/2007 PNEUMOCOCCAL: 65+(2 - PCV) due on 10/05/2014 COVID-19 VACCINE(3 - Booster for Pfizer series) due on 05/03/2021 ADVANCE DIRECTIVE DISCUSSION Never done Navigation Signature: Kristy Ruiz MA May 06, 2023 8:11 AM Allergies As of Date: 05/06/2023 Noted Allergy Reaction ASA (SALICYLATES) 08/24/2005 12 - Shortness of Breath Comments: Gets very wheezey, like asthma attack. ASPIRIN 01/18/2019 12 - Shortness of Breath Comments: wheezing CIPRO (CIPROFLOXACIN) 06/17/2007 8 - GI Upset Comments: levaquin tolerated 12/2011 HYDROCODONE BITARTRATE 01/18/2019 2 - Rash KEFLEX (CEPHALEXIN) 08/24/2005 LATEX 03/25/2019 2 - Rash MOTRIN (IBUPROFEN) 08/24/2005 NAPROXEN 10/19/2014 16 - Unknown NSAIDS (NON-STEROIDAL ANTI-INFLAM*10/28/2019 12 - Shortness of Breath PNEUMOCOCCAL VACCINE 10/06/2013 7 - Swelling Comments: Redness/inflammation at injection site RUBBER 06/08/2007 Comments: Discoloration of skin SALICYLIC ACID 08/24/2005 16 - Unknown Date Reviewed: 04/28/2023 Reviewed by: Marissa Lynn APRN.CASINO CASHIER - Fully Assessed Reason for Visit: Population Health Navigation Outreach [3910] Cmt: Darryl [facility] Prescriptions as of 05/06/2023 - oxyCODONE-acetaminophen (PERCOCET 10) 10-325 mg tablet Take 1 tablet by mouth twice daily as needed for pain for up to 30 days. - methocarbamol (ROBAXIN-750) 750 mg tablet Take 1 tablet by mouth three times daily as needed. - pantoprazole DR (PROTONIX) 40 mg tablet Take 1 tablet by mouth daily before breakfast. Take on empty stomach, 1/2 hr before meal. - ciprofloxacin-dexAMETHasone (CIPRODEX) 0.3-0.1 % otic suspension PLACE 5 (FIVE) DROPS INTO AFFECTED EAR TWICE DAILY - levothyroxine (LEVOXYL) 112 mcg tablet Take 1 tablet daily except take 1/2 tablet on Friday and Friday. - erythromycin (ROMYCIN) 5 mg/gram (0.5 %) ophthalmic ointment instill in both eyes DIRECTED twice a day - BREO ELLIPTA 200-25 mcg/dose inhaler 1 Inhalation once daily. - ferrous sulfate 220 mg (44 mg iron)/5 mL elixir Take 5 mL by mouth once daily. - albuterol HFA (VENTOLIN HFA) 90 mcg/actuation inhaler Inhale 2 Puffs as instructed every 4 hours as needed for Wheezing/Shortness of Breath. - MAGNESIUM GLUCONATE ORAL Take 1 tablet by mouth once daily. - OTC PRODUCT PROBIOTIC Take one(1) tablet daily. UNSURE OF DOSE - cholecalciferol(VITAMIN D 1,000 UNIT CAP) Take 2 po daily = 2,000 Problem List As Of Date 05/06/2023 Noted Resolved Asthma [J45.909] 05/12/2006 04/04/2022 OPEN WOUND SITE NOS [T14.8XXA] 06/06/2006 10/20/2007 Acute Bronchitis [J20.9] 09/17/2006 07/25/2010 DERMATITIS NOS [L25.9] 03/23/2007 10/20/2007 Unspecified Pruritic Disorder [L29.9] 03/23/2007 07/25/2010 Contact dermatitis and other eczema due to othe*03/23/2007 04/04/2022 Superficial Injury NEC [T07.XXXA] 03/23/2007 07/25/2010 LICHEN SCLEROSIS///CIRCUMSCRIBE SCLERODERMA [L9*03/23/2007 XEROSIS///SEBACEOUS GLAND DIS NEC [L73.8] 03/23/2007 SYMPTOMATIC ARTIFIC MENOPAUSE STATES [E89.41] Family history of malignant neoplasm of breast * 04/04/2022 PERS HX TOBACCO USE [Z87.891] LS et A [L28.0] 06/17/2007 CALCULUS OF KIDNEY [N20.0] Disorder of bone and cartilage [M89.9, M94.9] 04/04/2022 DIVERTICULOSIS OF COLON W/O BLEED [K57.30] LICHEN PLANUS [L43.9] HYPERLIPIDEMIA NEC/NOS [E78.5] Vitamin D deficiency [E55.9] HYPERTROPHY OF BREAST [N62] 12/14/2007 ESOPHAGEAL REFLUX [K21.9] SCAR AND FIBROSIS OF SKIN [L90.5] 07/22/2008 Contact Dermatitis and Other Eczema, due to Uns*07/22/2008 07/25/2010 RASH///NONSPECIF SKIN ERUPT NEC [R21] 10/10/2008 04/04/2022 PARAPSORIASIS [L41.9] (more content not included)... [facility] 05-06-2023 Note HNO ID: [id number] Author: Kristy Ruiz MA Service: ? 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 N/A Reason for Outreach HCC or suspected condition Payer: Payor: DARRYL BLUE CROSS AND BLUE SHIELD / Plan: DARRYL VALENZUELA HMO / Product Type: HMO / Care Gap Reviewed:: Annual Wellness visit Reminder: Reminder note to check Health Maintenance for items below Health Maintenance items due: SPIROMETRY Never done SHINGRIX VACCINE(1 of 2) Never done DTAP,TDAP,TD(1 - Tdap) due on 10/21/2007 PNEUMOCOCCAL: 65+(2 - PCV) due on 10/05/2014 COVID-19 VACCINE(3 - Booster for Pfizer series) due on 05/03/2021 ADVANCE DIRECTIVE DISCUSSION Never done Navigation Signature: Kristy Ruiz MA May 06, 2023 8:11 AM [facility] 05-06-2023 History of Presen t illness Narrative POPULATION HEALTH NAVIGATION OUTREACH Action/I May 06, 2023 [place] HCC Diagnosis with HCC gap left: J44.9 - 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 N/A Reason for Outreach HCC or suspected condition Payer: Payor: DARRYL Gr[employer]per [facility] [employer] [facility] / Plan: DARRYL VALENZUELA HMO / Product Type: HMO / Care Gap Reviewed:: Annual Wellness visit Reminder: Reminder note to check Health Maintenance for items below Health Maintenance items due: SPIROMETRY Never done SHINGRIX VACCINE(1 of 2) Never done DTAP,TDAP,TD(1 - Tdap) due on 10/21/2007 PNEUMOCOCCAL: 65+(2 - PCV) due on 10/05/2014 COVID-19 VACCINE(3 - Booster for Pfizer series) due on 05/03/2021 ADVANCE DIRECTIVE DISCUSSION Never done Navigation Signature: Kristy Ruiz MA May 06, 2023 8:11 AM documented in this encounter [facility] 04-28-2023 Note HNO ID: [id number] Author: Marissa Lynn APRN.CASINO CASHIER Service: ? Author Type: Clinical Nurse Specialist Type: Progress Notes Filed: 04/28/2023 4:00 PM Note Text: SUBJECTIVE: Mika Ascencio presents to [facility] for a follow-up appointment for left wrist and back pain Last seen by Dr Haley on 11/26/22 with following plan of care: Continue Percocet. (mmeq=45.00) Continue robaxin Continue Dulcolax, stool softeners, and probiotics for OIC symptoms. Obtain UDS Referral to [facility] For mental health assessment and treatment for depression. Follow-up in 1 month with READING PROFESSOR Patient was encouraged to participate in more social activities. Pain level:3-04/26 Daughter states patient was seen at [place] [facility] after she fell and fractured left wrist Denies hospitalizations since last office visit Reports pain worse with using hands, walking, standing Reports pain better with medication, heat Describes pain in left wrist as constant ache without radiation of pain Denies numbness in hands Describes pain in lower back as intermittent to constant ache Denies radiation of pain or numbness/tingling in feet Denies DM REVIEW OF SYSTEMS: GENERAL: No weight loss, malaise or fevers. HEENT: Negative for frequent or significant headaches. RESPIRATORY: Negative for cough Positive for shortness of breath.at times. Hx asthma CARDIOVASCULAR: Negative for chest pain, leg swelling or palpitations. GI: Negative for abdominal discomfort, blood in stools or black stools or change in bowel habits. :denies issues Past Medical History: PAST MEDICAL HISTORY Diagnosis Date Asthma Backache, unspecified Calculus of kidney on T Diaphragmatic hernia 03/19/2010 Vianey Fundoplication Diverticulosis of colon (without mention of hemorrhage) Esophageal reflux Esophageal reflux remote EGD Family history of malignant neoplasm of breast mother Grade I diastolic dysfunction 12/14/2018 noted on Echo Hypothyroidism Lichen planus sees dermatology in [place] LS et A 06/2007 RIGHT LABIA, BIOPSY - LICHEN SCLEROSIS first bx in 05/22. OSTEOPENIA 10/2007 [facility] T-SCORE -1.8 Other and unspecified hyperlipidemia 10/2007 292 Personal history of tobacco use, presenting hazards to health Personal history of urinary (tract) infection 08/2007 PMH - PAST MEDICAL HISTORY OF . Solid hepatic masses consistent with a hemangioma. Rheumatoid arthritis(714.0) Symptomatic states associated with artificial menopause Thyroid cancer (HCC) Unspecified asthma, with exacerbation occ prednisone use Unspecified vitamin D deficiency 10/2007 25.5 Past Surgical History: PAST SURGICAL HISTORY Procedure Laterality Date APPENDECTOMY COLECTOMY PARTIAL W/ANASTOMOSIS Excision, large bowel COLONOSCOPY FLX DX W/COLLJ SPEC WHEN PFRMD 1996 Colonoscopy COLONOSCOPY FLX DX W/COLLJ SPEC WHEN PFRMD 05/22/11 ESOPHAGOGASTRODUODENOSCOPY TRANSORAL DIAGNOSTIC 01/15/2010 EGD LAPS SURG ESOPG/GSTR FUNDOPLASTY -3-10 P Ignacio Vianey FUndoplication PAST SURGICAL HISTORY OF right ear drum surgery age 32 REDUCTION OF LARGE BREAST 01/2008 bilaterally RPR 1ST INCAL/VNT HERNIA INCARCERATED 05/23/11 [address] defects [facility] [address] Reynolds TOTAL THYROID LOBECTOMY UNI W/WO ISTHMUSECTOMY Left 03/26/2019 Dr. Rodriguez UNLIS LAPS PX HRNAP HERNIORRHAPHY HERNIOTOMY VAGINAL HYSTERECTOMY UTERUS 250 GM/< mid 1989' ovaries are intact Family History: FAMILY HISTORY Problem Relation Age of Onset Breast Cancer Mother diagnosed at age 55 still living Diabetes Mother Osteoporosis Mother Stroke Father AT AGE 59 Hypertension Father Cancer Sister lung No Known Problems Brother No Known Problems Maternal Grandmother No Known Problems Maternal Grandfather No Known Problems Paternal Grandmother No Known Problems Paternal Grandfather No Known Problems Son COPD Son other (overdose) Son at age 50 Social History: Social History Tobacco Use Smoking status: Former Packs/day: 0.50 Years: 10.00 Pack years: 5.00 Types: Cigarettes Quit date: 05/12/1975 Years since quittin.9 Passive exposure: Never Smokeless tobacco: Never Tobacco comments: 1974 Vaping Use Vaping Use: Never used Substance Use Topics Alcohol use: No Drug use: No OBJECTIVE: BP 128/59 Pulse 78 PHYSICAL EXAMINATION: General appearance: Well appearing, in no acute distress, alert. Psych: Mood and affect appropriate. Skin: Skin color, texture, turgor normal, no rashes or lesions. Pulm: no conversational shortness of breath or cough GI: Abdomen soft and non-tender. Musculoskeletal: Cervical range of motion is mildly restricted in all planes There is mild tenderness upon palpation of the cervical spine. Spurling's sign positive on left. Negative on right. There are muscle spasms or trigger points noted in the paraspinal musculature/trapezius. Muscle strength of the upper e (more content not included)... [facility] 03-19-2023 Miscellaneous Notes I called patient to remind of appointment,no answer so I left message and advised patient to call [place] office. Reyna Weber MA March 19, 2023 9:38 AM documented in this encounter [facility] 03-15-2023 Miscellaneous Notes The following approved medication requests have been transmitted electronically. Requested Prescriptions Pending Prescriptions Disp Refills oxyCODONE-acetaminophen (PERCOCET 10) 10-325 mg tablet 90 tablet 0 Sig: Take 1 tablet by mouth every 8 hours as needed for pain for up to 30 days. Sandor Haley DO Patient phones requesting refills as follows: Requested Prescriptions Pending Prescriptions Disp Refills oxyCODONE-acetaminophen (PERCOCET 10) 10-325 mg tablet 90 tablet 0 Sig: Take 1 tablet by mouth every 8 hours as needed for pain for up to 30 days. Last UDS: No results found for: SUMM @FLOW([id number])@ No results found for: SUMM Summary Report (Summary) Date Value Ref Range Status 11/26/2022 FINAL Final Comment: ==== TOXASSURE COMP DRUG ANALYSIS,UR ==== Test Result Flag Units Drug Present Oxymorphone 685 ng/mg creat Noroxycodone 521 ng/mg creat Noroxymorphone 282 ng/mg creat Oxymorphone, noroxycodone and noroxymorphone are expected metabolites of oxycodone. Noroxymorphone is an expected metabolite of oxymorphone. Sources of oxycodone and/or oxymorphone include scheduled prescription medications. Methocarbamol PRESENT Acetaminophen PRESENT ==== Test Result Flag Units Ref Range Creatinine 39 mg/dL >=20 ==== Declared Medications: Medication list was not provided. ==== For clinical consultation, please call . ==== Please review and advise. Blanca Forrester RN documented in this encounter [facility] 03-10-2023 Miscellaneous Notes POPULATION HEALTH NAVIGATION OUTREACH Action/FYI 1st call-LVM and Mychart message for patient regarding ORTHO consult. Patient Identified by Name and : NO Outreach Outcome/Action Unable to reach patient: Left message MyChart message sent Did you use a PCP flex slot to schedule this appointment? N/A Reason for Outreach Care Gap or Scheduling/Wellness visits Payer: Payor: DARRYL BLUE CROSS AND BLUE SHIELD / Plan: DARRYL IDAKELLIE HMO / Product Type: HMO / Care Gap Reviewed:: Specialty Scheduling Reminder: Reminder note to check Health Maintenance for items below Health Maintenance items due: SPIROMETRY Never done SHINGRIX VACCINE(1 of 2) Never done DTAP,TDAP,TD(1 - Tdap) due on 10/21/2007 PNEUMOCOCCAL: 65+(2 - PCV) due on 10/05/2014 COVID-19 VACCINE(3 - Booster for Pfizer series) due on 05/03/2021 ADVANCE DIRECTIVE DISCUSSION Never done Navigation Signature: Renee Barton March 10, 2023 3:38 PM documented in this encounter [facility] 02-11-2023 Miscellaneous Notes Spoke with patient. Reports wrist is sore, but improved with splint. Denies numbness/tingling, coldness, color changes in fingers. Has an appointment scheduled with [facility] on Friday02/14/23. Reviewed red flags and when to seek care sooner. Aminta Luna PA-C documented in this encounter [facility] 02-10-2023 Note HNO ID: [id number] Author: RT Alexis(R) Service: Nuclear Medicine Author Type: Technologist Type: Progress Notes Filed: 02/10/2023 12:45 PM Note Text: Radiology Service Progress Note PATIENT NAME: Mika Ascencio DATE OF SERVICE: February 10, 2023 TIME: 12:30 PM PATIENT IDENTITY VERIFICATION COMPLETED USING TWO (2) IDENTIFIERS: Name and Date of confirmed by patient verbally. FALL SCREENING: Has the patient had 2 falls in the last year or 1 fall with injury or currently using an Ambulatory Assistive Device (Walker, Cane, Wheelchair, Crutches, etc.)? Yes, Patient High Risk for Falls What interventions were put in place to prevent falls during this visit? Offered Assistance with Transfers/Clothing and Instructed Patient to Remain Seated (Not on Exam Table) Until Exam PATIENT GENDER DATA: Female. status: : No status: NO. PATIENT RELEVANT IMPLANT DATA REVIEWED: Not Applicable RADIOLOGY DEPARTMENT: General X-ray: Exam(s) Completed: Upper Extremity X-Ray(s): Wrist, left PERIPHERAL IV DATA: Not applicable SIGNED BY: RT Alexis(R) February 10, 2023 12:30 PM [facility] 02-10-2023 Note HNO ID: [id number] Author: Aminta Luna PA-C Service: ? Author Type: Physician Clinical Specialist Type: Progress Notes Filed: 02/10/2023 2:30 PM Note Text: 02/10/2023 Patient presents with: Wrist/forearm Injury: Left wrist pain from fall x 1 day SUBJECTIVE: This is a 83 year old that is here today for Complaint(s) of left wrist injury x last night. Tripped on a step on the pathway into the house and landed on her wrist. No significant swelling or bruising. Wrist pain was keeping her awake last night. She reports fingers feel slightly numb, no tingling. She does have sensation in fingers. Tried icing last evening. Took 1 of her prescribed percocet which seem to help with pain. PAST MEDICAL HISTORY Diagnosis Date Asthma Backache, unspecified Calculus of kidney on T Diaphragmatic hernia 03/19/2010 Vianey Fundoplication Diverticulosis of colon (without mention of hemorrhage) Esophageal reflux Esophageal reflux remote EGD Family history of malignant neoplasm of breast mother Grade I diastolic dysfunction 12/14/2018 noted on Echo Hypothyroidism Lichen planus sees dermatology in [place] et A 06/2007 RIGHT LABIA, BIOPSY - LICHEN SCLEROSIS first bx in 05/22. OSTEOPENIA 10/2007 [facility] T-SCORE -1.8 Other and unspecified hyperlipidemia 10/2007 292 Personal history of tobacco use, presenting hazards to health Personal history of urinary (tract) infection 08/2007 PMH - PAST MEDICAL HISTORY OF . Solid hepatic masses consistent with a hemangioma. Rheumatoid arthritis(714.0) Symptomatic states associated with artificial menopause Thyroid cancer (HCC) Unspecified asthma, with exacerbation occ prednisone use Unspecified vitamin D deficiency 10/2007 25.5 ALLERGIES Asa [Salicylates], Aspirin, Cipro [Ciprofloxacin], Hydrocodone Bitartrate, Keflex [Cephalexin], Latex, Motrin [Ibuprofen], Naproxen, Nsaids (Non-Steroidal Anti-Inflammatory Drug), Pneumococcal Vaccine, Rubber, and Salicylic Acid MEDICATIONS Current Outpatient Medications Medication Sig pantoprazole DR (PROTONIX) 40 mg tablet Take 1 tablet by mouth daily before breakfast. Take on empty stomach, 1/2 hr before meal. levothyroxine (LEVOXYL) 112 mcg tablet Take 1 tablet daily except take 1/2 tablet on Friday and Friday. erythromycin (ROMYCIN) 5 mg/gram (0.5 %) ophthalmic ointment instill in both eyes DIRECTED twice a day BREO ELLIPTA 200-25 mcg/dose inhaler 1 Inhalation once daily. ferrous sulfate 220 mg (44 mg iron)/5 mL elixir Take 5 mL by mouth once daily. albuterol HFA (VENTOLIN HFA) 90 mcg/actuation inhaler Inhale 2 Puffs as instructed every 4 hours as needed for Wheezing/Shortness of Breath. MAGNESIUM GLUCONATE ORAL Take 1 tablet by mouth once daily. OTC PRODUCT PROBIOTIC Take one(1) tablet daily. UNSURE OF DOSE cholecalciferol(VITAMIN D 1,000 UNIT CAP) Take 2 po daily = 2,000 oxyCODONE-acetaminophen (PERCOCET 10) 10-325 mg tablet Take 1 tablet by mouth every 8 hours as needed for pain for up to 30 days. (Patient not taking: Reported on 02/10/2023) ciprofloxacin-dexAMETHasone (CIPRODEX) 0.3-0.1 % otic suspension PLACE 5 (FIVE) DROPS INTO AFFECTED EAR TWICE DAILY (Patient not taking: Reported on 02/10/2023) No current facility-administered medications for this visit. SOCIAL HISTORY Social History Tobacco Use Smoking status: Former Packs/day: 0.50 Years: 10.00 Pack years: 5.00 Types: Cigarettes Quit date: 05/12/1975 Years since quittin.7 Passive exposure: Never Smokeless tobacco: Never Tobacco comments: 1974 Vaping Use Vaping Use: Never used Substance Use Topics Alcohol use: No Drug use: No REVIEW OF SYSTEMS See HPI OBJECTIVE: BP 124/74 Pulse 74 Temp 36.9 ?C (98.4 ?F) Resp 20 Wt 63.2 kg (139 lb 6.4 oz) SpO2 98% BMI 24.23 kg/m? APPEARANCE Well appearing, alert, in no acute distress, well-hydrated, well nourished. EXTREMITIES right wrist normal, No deformities, No skin discoloration, No edema, and Normal pulses bilaterally. Left wrist with limited ROM, normal passive with pain elicited. + TTP over distal radius and ulna. + mild snuffbox TTP. No TTP over metacarpals, phalanges. + mild edema noted over left wrist. No erythema or warmth. Good capillary refill. Sensation grossly intact RUPESH and distal to injury. Normal ROM of elbow without pain, no TTP. No edema, erythema. Normal radial pulses RUPESH. Sugar tong splint applied with sling, neurovascular status intact post splint placement. ASSESSMENT/PLAN: 1. Wrist injury, left, initial encounter - ICD9: 959.3, ICD10: S69.92XA (primary diagnosis) Distal radius fracture with questionable distal ulnar fracture. Patient prefers to stay in [place]-contacted [facility] as no appointment available through [facility] [place]. Face sheet and order faxed to office. They will contact patient to schedule. Advised patient to contact our office if they have not scheduled with t (more content not included)... [facility] 02-02-2023 Miscellaneous Notes The following approved medication requests have been transmitted electronically. Requested Prescriptions Pending Prescriptions Disp Refills oxyCODONE-acetaminophen (PERCOCET 10) 10-325 mg tablet 90 tablet 0 Sig: Take 1 tablet by mouth every 8 hours as needed for pain for up to 30 days. Sandor Haley DO Pt called the office back and notified. Call transferred to soa engineer. Please advise on RF. Pratima Morin RN January 31, 2023 3:12 PM Pt lm for refill of percocet, last ov was Nov 2022, she was to be seen 12/25 rescheduled d/t conflict and rescheduled for 01/01 then no showed, I called pt to get her to scheduling to reschedule, pt did not answer the phone, please advise refill Blanca Forrester RN January 31, 2023 2:51 PM documented in this encounter [facility] 01-06-2023 Miscellaneous Notes Patient has been identified by name and date of : No Patient phones for refill(s): Requested Prescriptions Pending Prescriptions Disp Refills pantoprazole DR (PROTONIX) 40 mg tablet 30 tablet 5 Sig: Take 1 tablet by mouth daily before breakfast. Take on empty stomach, 1/2 hr before meal. Date of last office visit in primary care: 10/29/2022 Last 2 Encounter Wt Readings: Date: Wt: 12/15/2022 62.8 kg (138 lb 6.4 oz) 11/26/2022 60.3 kg (133 lb) Previous labs/tests for medication: Not applicable Please advise. Thank you. Lilo Mcleod LPN Patient has been identified by name and date of : Yes Requested Prescriptions Pending Prescriptions Disp Refills pantoprazole DR (PROTONIX) 40 mg tablet 30 tablet 5 Sig: Take 1 tablet by mouth daily before breakfast. Take on empty stomach, 1/2 hr before meal. RX INSTRUCTIONS: Patient aware RX will be sent to pharmacy. No need to notify patient. 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 [facility] with any questions or concerns. Leelee Lau RN December 26, 2022 3:53 PM The following approved medication requests have been transmitted electronically. Requested Prescriptions Pending Prescriptions Disp Refills oxyCODONE-acetaminophen (PERCOCET 10) 10-325 mg tablet 90 tablet 0 Sig: Take 1 tablet by mouth every 8 hours as needed for pain for up to 30 days. Do not start before December 31, 2022. Sandor Haley DO Patient phones requesting refills as follows: Requested Prescriptions Pending Prescriptions Disp Refills oxyCODONE-acetaminophen (PERCOCET 10) 10-325 mg tablet 90 tablet 0 Sig: Take 1 tablet by mouth every 8 hours as needed for pain for up to 30 days. Last UDS: No results found for: SUMM @FLOW([id number])@ No results found for: SUMM Summary Report (Summary) Date Value Ref Range Status 11/26/2022 FINAL Final Comment: ==== TOXASSURE COMP DRUG ANALYSIS,UR ==== Test Result Flag Units Drug Present Oxymorphone 685 ng/mg creat Noroxycodone 521 ng/mg creat Noroxymorphone 282 ng/mg creat Oxymorphone, noroxycodone and noroxymorphone are expected metabolites of oxycodone. Noroxymorphone is an expected metabolite of oxymorphone. Sources of oxycodone and/or oxymorphone include scheduled prescription medications. Methocarbamol PRESENT Acetaminophen PRESENT ==== Test Result Flag Units Ref Range Creatinine 39 mg/dL >=20 ==== Declared Medications: Medication list was not provided. ==== For clinical consultation, please call . ==== Please review and advise. Leelee Lau RN documented in this encounter [facility] 12-17-2022 Miscellaneous Notes Patient notified and verbalized understanding of instructions given.Lolita Kerns LPN Phone call to patient, no answer, left message. Urine culture shows bacterial growth that will not likely respond to the antibiotic she was prescribed. I sent a new prescription to her pharmacy. She can stop the macrobid and start the Bactrim. Nataly De Jesus APRN.EMPLOYEE HEALTH NURSE documented in this encounter [facility] 12-15-2022 Note HNO ID: [id number] Author: Brendan Urena APRN.EMPLOYEE HEALTH NURSE Service: ? Author Type: Nurse Practitioner Type: Progress Notes Filed: 12/15/2022 12:19 PM Note Text: Subjective HPI Nontoxic-appearing female presents urgent care accompanied by significant other. Chief complaint possible UTI. Patient states having lower back pain dysuria and frequency and urgency. History of UTIs in the past this feels similar. Has not used any OTC medications. Denies any significant pain currently. Denies any fever body aches chills nausea vomiting abdominal pain. Denies any urological abnormalities vaginal discharge or itching. Past medical history prescription medication use allergies reviewed .Patient presents with: Urinary Problem: Painful urination, lower back pain x 2 days PAST MEDICAL HISTORY Diagnosis Date Asthma Backache, unspecified Calculus of kidney on T Diaphragmatic hernia 03/19/2010 Vianey Fundoplication Diverticulosis of colon (without mention of hemorrhage) Esophageal reflux Esophageal reflux remote EGD Family history of malignant neoplasm of breast mother Grade I diastolic dysfunction 12/14/2018 noted on Echo Hypothyroidism Lichen planus sees dermatology in [place] et A 06/2007 RIGHT LABIA, BIOPSY - LICHEN SCLEROSIS first bx in 05/22. OSTEOPENIA 10/2007 [facility] T-SCORE -1.8 Other and unspecified hyperlipidemia 10/2007 292 Personal history of tobacco use, presenting hazards to health Personal history of urinary (tract) infection 08/2007 PMH - PAST MEDICAL HISTORY OF . Solid hepatic masses consistent with a hemangioma. Rheumatoid arthritis(714.0) Symptomatic states associated with artificial menopause Thyroid cancer (HCC) Unspecified asthma, with exacerbation occ prednisone use Unspecified vitamin D deficiency 10/2007 25.5 PAST SURGICAL HISTORY Procedure Laterality Date APPENDECTOMY COLECTOMY PARTIAL W/ANASTOMOSIS Excision, large bowel COLONOSCOPY FLX DX W/COLLJ SPEC WHEN PFRMD 1996 Colonoscopy COLONOSCOPY FLX DX W/COLLJ SPEC WHEN PFRMD 05/22/11 ESOPHAGOGASTRODUODENOSCOPY TRANSORAL DIAGNOSTIC 01/15/2010 EGD LAPS SURG ESOPG/GSTR FUNDOPLASTY 5-3-10 P Ignacio Vianey FUndoplication PAST SURGICAL HISTORY OF right ear drum surgery age 32 REDUCTION OF LARGE BREAST 01/2008 bilaterally RPR 1ST INCAL/VNT HERNIA INCARCERATED 05/23/11 2 defects [facility] [address]. Reynolds TOTAL THYROID LOBECTOMY UNI W/WO ISTHMUSECTOMY Left 03/26/2019 Dr. Michael LEHMAN LAPS PX HRNAP HERNIORRHAPHY HERNIOTOMY VAGINAL HYSTERECTOMY UTERUS 250 GM/< mid 1989's ovaries are intact ALLERGIES Asa [Salicylates], Aspirin, Cipro [Ciprofloxacin], Hydrocodone Bitartrate, Keflex [Cephalexin], Latex, Motrin [Ibuprofen], Naproxen, Nsaids (Non-Steroidal Anti-Inflammatory Drug), Pneumococcal Vaccine, Rubber, and Salicylic Acid MEDICATIONS oxyCODONE-acetaminophen (PERCOCET 10) 10-325 mg tablet Take 1 tablet by mouth every 8 hours as needed for pain for up to 30 days. Do not start before December 01, 2022. methocarbamol (ROBAXIN) 750 mg tablet Take 1 tablet by mouth three times daily as needed. ciprofloxacin-dexAMETHasone (CIPRODEX) 0.3-0.1 % otic suspension PLACE 5 (FIVE) DROPS INTO AFFECTED EAR TWICE DAILY levothyroxine (LEVOXYL) 112 mcg tablet Take 1 tablet daily except take 1/2 tablet on Friday and Friday. erythromycin (ROMYCIN) 5 mg/gram (0.5 %) ophthalmic ointment instill in both eyes DIRECTED twice a day BREO ELLIPTA 200-25 mcg/dose inhaler 1 Inhalation once daily. pantoprazole DR (PROTONIX) 40 mg tablet Take 1 tablet by mouth daily before breakfast. Take on empty stomach, 1/2 hr before meal. ferrous sulfate 220 mg (44 mg iron)/5 mL elixir Take 5 mL by mouth once daily. albuterol HFA (VENTOLIN HFA) 90 mcg/actuation inhaler Inhale 2 Puffs as instructed every 4 hours as needed for Wheezing/Shortness of Breath. MAGNESIUM GLUCONATE ORAL Take 1 tablet by mouth once daily. OTC PRODUCT PROBIOTIC Take one(1) tablet daily. UNSURE OF DOSE cholecalciferol(VITAMIN D 1,000 UNIT CAP) Take 2 po daily = 2,000 FAMILY HISTORY Problem Relation Age of Onset Breast Cancer Mother diagnosed at age 55 still living Diabetes Mother Osteoporosis Mother Stroke Father AT AGE 59 Hypertension Father Cancer Sister lung No Known Problems Brother No Known Problems Maternal Grandmother No Known Problems Maternal Grandfather No Known Problems Paternal Grandmother No Known Problems Paternal Grandfather No Known Problems Son COPD Son other (overdose) Son at age 50 Social History Tobacco Use Smoking status: Former Packs/day: 0.50 Years: 10.00 Pack years: 5.00 Types: Cigarettes Quit date: 05/12/1975 Years since quittin.6 Passive exposure: Never Smokeless tobacco: Never Tobacco comments: 1974 Vaping Use Vaping Use: Never used Substance Use Topics Alcohol use: No Drug use: No BP 132/80 Pulse 75 Temp 36.9 ?C (98.5 ?F (more content not included)... [facility] 12-15-2022 Instructions Brendan Urena APRN.[facility] - 12/15/2022 11:58 AM EST URINARY TRACT INFECTION GENERAL INFORMATION: A urinary tract infection (UTI) is an infection of the bladder or kidneys. A bladder infection, called cystitis, is the more common type. If the infection travels up to the kidneys, it is called pyelonephritis. This can be more serious. UTIs are a common problem in women. Having sexual relations can leave a woman more susceptible to developing a UTI, but it is not sexually transmitted like gonorrhea. Some women have a problem with recurrent UTIs. INSTRUCTIONS: 1. Your doctor prescribed an antibiotic to treat the UTI. Take exactly as directed. Be sure to take all the medication prescribed, even if your symptoms disappear. If you stop treatment early, the infection may not be fully treated and the symptoms could come back again. 2. Get plenty of rest. You may take acetaminophen for fever and aches. 3. Drink 6 to 8 glasses of fluids, especially water, every day. This helps wash out germs from your urinary tract. Cranberry juice or other sources of vitamin C are also good for you. 4. Urinate often, as soon as you feel the urge. Empty your bladder completely. Urinate before and after you have sex. 5. Always wipe from front to back after going to the bathroom. This pushes germs away from your bladder, rather than towards it. 6. Showers are better than baths, and you should wash the genital area daily. Avoid bubble bath or bath oils if you do take a bath. 7. Wear underwear and pantyhose with a cotton crotch. CONTACT YOUR DOCTOR: 1. You have a temperature over 102F (38.8C) after 48 hours on medication. 2. You notice blood in your urine. 3. Your symptoms don't improve in 2 days. 4. You develop nausea, vomiting, diarrhea, or a rash. 5. You develop new or unexplained symptoms. These may be related to the medication you are taking. 6. Your symptoms return after you finish treatment. RETURN TO THE EMERGENCY DEPARTMENT IF: You develop vomiting and can't keep your medication or fluids down. documented in this encounter [facility] 12-15-2022 History of Presen t illness Narrative Subjective HPI Nontoxic-appearing female presents urgent care accompanied by significant other. Chief complaint possible UTI. Patient states having lower back pain dysuria and frequency and urgency. History of UTIs in the past this feels similar. Has not used any OTC medications. Denies any significant pain currently. Denies any fever body aches chills nausea vomiting abdominal pain. Denies any urological abnormalities vaginal discharge or itching. Past medical history prescription medication use allergies reviewed .Patient presents with: Urinary Problem: Painful urination, lower back pain x 2 days PAST MEDICAL HISTORY Diagnosis Date Asthma Backache, unspecified Calculus of kidney on T Diaphragmatic hernia 03/19/2010 Vianey Fundoplication Diverticulosis of colon (without mention of hemorrhage) Esophageal reflux Esophageal reflux remote EGD Family history of malignant neoplasm of breast mother Grade I diastolic dysfunction 12/14/2018 noted on Echo Hypothyroidism Lichen planus sees dermatology in [place] et A 06/2007 RIGHT LABIA, BIOPSY - LICHEN SCLEROSIS first bx in 05/22. OSTEOPENIA 10/2007 [facility] T-SCORE -1.8 Other and unspecified hyperlipidemia 10/2007 292 Personal history of tobacco use, presenting hazards to health Personal history of urinary (tract) infection 08/2007 PMH - PAST MEDICAL HISTORY OF . Solid hepatic masses consistent with a hemangioma. Rheumatoid arthritis(714.0) Symptomatic states associated with artificial menopause Thyroid cancer (HCC) Unspecified asthma, with exacerbation occ prednisone use Unspecified vitamin D deficiency 10/2007 25.5 PAST SURGICAL HISTORY Procedure Laterality Date APPENDECTOMY COLECTOMY PARTIAL W/ANASTOMOSIS Excision, large bowel COLONOSCOPY FLX DX W/COLLJ SPEC WHEN PFRMD 1996 Colonoscopy COLONOSCOPY FLX DX W/COLLJ SPEC WHEN PFRMD 05/22/11 ESOPHAGOGASTRODUODENOSCOPY TRANSORAL DIAGNOSTIC 01/15/2010 EGD LAPS SURG ESOPG/GSTR FUNDOPLASTY 5-3-10 P Ignacio Vianey FUndoplication PAST SURGICAL HISTORY OF right ear drum surgery age 32 REDUCTION OF LARGE BREAST 01/2008 bilaterally RPR 1ST INCAL/VNT HERNIA INCARCERATED 05/23/11 2 defects [facility] [address]. Reynolds TOTAL THYROID LOBECTOMY UNI W/WO ISTHMUSECTOMY Left 03/26/2019 Dr. Rodriguez UNLIS LAPS PX HRNAP HERNIORRHAPHY HERNIOTOMY VAGINAL HYSTERECTOMY UTERUS 250 GM/< mid ovaries are intact ALLERGIES Asa [Salicylates], Aspirin, Cipro [Ciprofloxacin], Hydrocodone Bitartrate, Keflex [Cephalexin], Latex, Motrin [Ibuprofen], Naproxen, Nsaids (Non-Steroidal Anti-Inflammatory Drug), Pneumococcal Vaccine, Rubber, and Salicylic Acid MEDICATIONS oxyCODONE-acetaminophen (PERCOCET 10) 10-325 mg tablet Take 1 tablet by mouth every 8 hours as needed for pain for up to 30 days. Do not start before December 01, 2022. methocarbamol (ROBAXIN) 750 mg tablet Take 1 tablet by mouth three times daily as needed. ciprofloxacin-dexAMETHasone (CIPRODEX) 0.3-0.1 % otic suspension PLACE 5 (FIVE) DROPS INTO AFFECTED EAR TWICE DAILY levothyroxine (LEVOXYL) 112 mcg tablet Take 1 tablet daily except take 1/2 tablet on Friday and Friday. erythromycin (ROMYCIN) 5 mg/gram (0.5 %) ophthalmic ointment instill in both eyes DIRECTED twice a day BREO ELLIPTA 200-25 mcg/dose inhaler 1 Inhalation once daily. pantoprazole DR (PROTONIX) 40 mg tablet Take 1 tablet by mouth daily before breakfast. Take on empty stomach, 1/2 hr before meal. ferrous sulfate 220 mg (44 mg iron)/5 mL elixir Take 5 mL by mouth once daily. albuterol HFA (VENTOLIN HFA) 90 mcg/actuation inhaler Inhale 2 Puffs as instructed every 4 hours as needed for Wheezing/Shortness of Breath. MAGNESIUM GLUCONATE ORAL Take 1 tablet by mouth once daily. OTC PRODUCT PROBIOTIC Take one(1) tablet daily. UNSURE OF DOSE cholecalciferol(VITAMIN D 1,000 UNIT CAP) Take 2 po daily = 2,000 FAMILY HISTORY Problem Relation Age of Onset Breast Cancer Mother diagnosed at age 55 still living Diabetes Mother Osteoporosis Mother Stroke Father AT AGE 59 Hypertension Father Cancer Sister lung No Known Problems Brother No Known Problems Maternal Grandmother No Known Problems Maternal Grandfather No Known Problems Paternal Grandmother No Known Problems Paternal Grandfather No Known Problems Son COPD Son other (overdose) Son at age 50 Social History Tobacco Use Smoking status: Former Packs/day: 0.50 Years: 10.00 Pack years: 5.00 Types: Cigarettes Quit date: 05/12/1975 Years since quittin.6 Passive exposure: Never Smokeless tobacco: Never Tobacco comments: 1974 Vaping Use Vaping Use: Never used Substance Use Topics Alcohol use: No Drug use: No BP 132/80 Pulse 75 Temp 36.9 C (98.5 F) Resp 21 Wt 62.8 kg (138 lb 6.4 oz) SpO2 98% BMI 24.06 kg/m Review of Systems Constitutional: Negative for chills, fever and malaise/fatigue. HENT: Negative for congestion, ear discharge, ear pain, sinus pain and sore throat. Eyes: Negative for blurred vision, pain, discharge and redness. Respiratory: Negative for cough, hemoptysis, sputum production, shortness of breath, wheezing and stridor. Cardiovascular: Negative for chest pain. Gastrointestinal: Negative for abdominal pain, diarrhea, nausea and vomiting. Genitourinary: Positive for dysuria, frequency and urgency. Negative for flank pain and hematuria. Musculoskeletal: Negative for myalgias. Skin: Negative for itching and rash. Neurological: Negative for dizziness and headaches. Objective Physical Exam Constitutional: General: She is not in acute distress. Appearance: She is not diaphoretic. HENT: Head: Normocephalic. Mouth/Throat: Mouth: Mucous membranes are moist. Pharynx: Oropharynx is clear. No oropharyngeal exudate or posterior oropharyngeal erythema. Eyes: Conjunctiva/sclera: Conjunctivae normal. Pupils: Pupils are equal, round, and reactive to light. Cardiovascular: Rate and Rhythm: Normal rate and regular rhythm. Heart sounds: Normal heart sounds. Pulmonary: Effort: Pulmonary effort is normal. No tachypnea, accessory muscle usage or respiratory distress. Breath sounds: Normal breath sounds. No stridor. No wheezing, rhonchi or rales. Abdominal: General: There is no distension. Palpations: Abdomen is soft. Tenderness: There is no abdominal tenderness. There is no right CVA tenderness, left CVA tenderness, guarding or rebound. Musculoskeletal: Cervical back: Normal range of motion and neck supple. No rigidity or tenderness. Lymphadenopathy: Cervical: No cervical adenopathy. Skin: General: Skin is warm and dry. Neurological: Mental Status: She is alert and oriented to person, place, and time. ASSESSMENT/PLAN: 1. Low back pain without sciatica, unspecified back pain laterality, unspecified chronicity - ICD9: 724.2, ICD10: M54.50 - UA DIP, URINE (POC) - URINE CULTURE Urine positive for leukocytes nitrites and blood. Will be placed on Macrobid. Creatinine clearance 64. Previous urine cultures reviewed. Sensitive to Macrobid. Positive for E. coli. Red flags prompt reevaluation discussed. Patient was educated on supportive therapies. Patient will follow up with primary care provider as needed. Patient was instructed to immediately proceed to emergency room for any new, worsening, or symptoms lasting longer than anticipated. The patient's clinical presentation is otherwise unremarkable at this time. Based on exam and clinical finding, the patient is stable for discharge. Plan of care was discussed with patient. Patient verbalizes understanding and agrees to plan of care. This note was generated using [facility] software. It may contain errors in wording, punctuation, or spelling. Brendan Urena APRN.[facility] documented in this encounter [facility] documented as of this encounter (statuses as of 05/06/2023) [facility] History of Past illness Narrative* Problem Noted Date Diagnosed Date Resolved Date Sepsis 11/26/2022 04/25/2023 Thyroid mass 03/26/2019 03/27/2019 Esophagitis 01/15/2010 04/04/2022 Unspecified gastritis and ga stroduodenitis without mention of hemorrhage 01/15/2010 04/04/2022 Acute gastritis without mention of hemorrhage 01/16/20 10 04/04/2022 Painful respiration 01/27/2009 07/25/20 10 Unspecified erythematous condition 12/12/2008 04/04/2022 RASH///NONSPECIF SKIN ERUPT NEC 10/10/2008 04/04/2022 Contact dermatitis and other eczema, due to unspecified cause 07/22/2008 07/25/2010 Contact dermatitis and other eczema, due to unspecified cause 03/23/2007 10/20/2007 Unspecified pruritic disorder 03/23/2007 07/25/2010 Contact dermatitis and other eczema due to other specified agent 03/23/2007 04/04/2022 Other and unspecified superf icial injury of other, multiple, and unspecified sites, without mention of infection 03/23/2007 07/25/2010 Acute bronchitis 09/17/2006 07/25/2010 Open wound(s) (multiple) of unspecified site(s), without mention of complication 06/06/2006 10/20/2007 Asthma 05/12/2006 04/04/2022 Family history of malignant neoplasm of breast 04/04/2022 Disorder of bone and cartilage 04/04/2022 Last Assessment & Plan: Needs A bone density, will order for it to recheck her osteopenia as she had osteo in the past Rheumatoid arthritis(714.0) 03/21/2016 documented as of this encounter (statuses as of 06/27/2023) [facility] History of Past illness Narrative* Problem Noted Date Diagnosed Date Resolved Date Sepsis 11/26/2022 04/25/2023 Thyroid mass 03/26/2019 03/27/2019 Esophagitis 01/15/2010 04/04/2022 Unspecified gastritis and ga stroduodenitis without mention of hemorrhage 01/15/2010 04/04/2022 Acute gastritis without mention of hemorrhage 01/16/20 10 04/04/2022 Painful respiration 01/27/2009 07/25/20 10 Unspecified erythematous condition 12/12/2008 04/04/2022 RASH///NONSPECIF SKIN ERUPT NEC 10/10/2008 04/04/2022 Contact dermatitis and other eczema, due to unspecified cause 07/22/2008 07/25/2010 Contact dermatitis and other eczema, due to unspecified cause 03/23/2007 10/20/2007 Unspecified pruritic disorder 03/23/2007 07/25/2010 Contact dermatitis and other eczema due to other specified agent 03/23/2007 04/04/2022 Other and unspecified superf icial injury of other, multiple, and unspecified sites, without mention of infection 03/23/2007 07/25/2010 Acute bronchitis 09/17/2006 07/25/2010 Open wound(s) (multiple) of unspecified site(s), without mention of complication 06/06/2006 10/20/2007 Asthma 05/12/2006 04/04/2022 Family history of malignant neoplasm of breast 04/04/2022 Disorder of bone and cartilage 04/04/2022 Last Assessment & Plan: Needs A bone density, will order for it to recheck her osteopenia as she had osteo in the past Rheumatoid arthritis(714.0) 03/21/2016 documented as of this encounter (statuses as of 07/01/2023) [facility] History of Past illness Narrative* Problem Noted Date Diagnosed Date Resolved Date Sepsis 11/26/2022 04/25/2023 Thyroid mass 03/26/2019 03/27/2019 Esophagitis 01/15/2010 04/04/2022 Unspecified gastritis and ga stroduodenitis without mention of hemorrhage 01/15/2010 04/04/2022 Acute gastritis without mention of hemorrhage 01/16/20 10 04/04/2022 Painful respiration 01/27/2009 07/25/20 10 Unspecified erythematous condition 12/12/2008 04/04/2022 RASH///NONSPECIF SKIN ERUPT NEC 10/10/2008 04/04/2022 Contact dermatitis and other eczema, due to unspecified cause 07/22/2008 07/25/2010 Contact dermatitis and other eczema, due to unspecified cause 03/23/2007 10/20/2007 Unspecified pruritic disorder 03/23/2007 07/25/2010 Contact dermatitis and other eczema due to other specified agent 03/23/2007 04/04/2022 Other and unspecified superf icial injury of other, multiple, and unspecified sites, without mention of infection 03/23/2007 07/25/2010 Acute bronchitis 09/17/2006 07/25/2010 Open wound(s) (multiple) of unspecified site(s), without mention of complication 06/06/2006 10/20/2007 Asthma 05/12/2006 04/04/2022 Family history of malignant neoplasm of breast 04/04/2022 Disorder of bone and cartilage 04/04/2022 Last Assessment & Plan: Needs A bone density, will order for it to recheck her osteopenia as she had osteo in the past Rheumatoid arthritis(714.0) 03/21/2016 documented as of this encounter (statuses as of 07/10/2023) [facility] History of Past illness Narrative* Problem Noted Date Diagnosed Date Resolved Date Sepsis 11/26/2022 04/25/2023 Thyroid mass 03/26/2019 03/27/2019 Esophagitis 01/15/2010 04/04/2022 Unspecified gastritis and ga stroduodenitis without mention of hemorrhage 01/15/2010 04/04/2022 Acute gastritis without mention of hemorrhage 01/16/20 10 04/04/2022 Painful respiration 01/27/2009 07/25/20 10 Unspecified erythematous condition 12/12/2008 04/04/2022 RASH///NONSPECIF SKIN ERUPT NEC 10/10/2008 04/04/2022 Contact dermatitis and other eczema, due to unspecified cause 07/22/2008 07/25/2010 Contact dermatitis and other eczema, due to unspecified cause 03/23/2007 10/20/2007 Unspecified pruritic disorder 03/23/2007 07/25/2010 Contact dermatitis and other eczema due to other specified agent 03/23/2007 04/04/2022 Other and unspecified superf icial injury of other, multiple, and unspecified sites, without mention of infection 03/23/2007 07/25/2010 Acute bronchitis 09/17/2006 07/25/2010 Open wound(s) (multiple) of unspecified site(s), without mention of complication 06/06/2006 10/20/2007 Asthma 05/12/2006 04/04/2022 Family history of malignant neoplasm of breast 04/04/2022 Disorder of bone and cartilage 04/04/2022 Last Assessment & Plan: Needs A bone density, will order for it to recheck her osteopenia as she had osteo in the past Rheumatoid arthritis(714.0) 03/21/2016 documented as of this encounter (statuses as of 07/30/2023) [facility] of Past illness Narrative* Problem Noted Date Diagnosed Date Resolved Date Sepsis 11/26/2022 04/25/2023 Thyroid mass 03/26/2019 03/27/2019 Esophagitis 01/15/2010 04/04/2022 Unspecified gastritis and ga stroduodenitis without mention of hemorrhage 01/15/2010 04/04/2022 Acute gastritis without mention of hemorrhage 01/16/20 10 04/04/2022 Painful respiration 01/27/2009 07/25/20 10 Unspecified erythematous condition 12/12/2008 04/04/2022 RASH///NONSPECIF SKIN ERUPT NEC 10/10/2008 04/04/2022 Contact dermatitis and other eczema, due to unspecified cause 07/22/2008 07/25/2010 Contact dermatitis and other eczema, due to unspecified cause 03/23/2007 10/20/2007 Unspecified pruritic disorder 03/23/2007 07/25/2010 Contact dermatitis and other eczema due to other specified agent 03/23/2007 04/04/2022 Other and unspecified superf icial injury of other, multiple, and unspecified sites, without mention of infection 03/23/2007 07/25/2010 Acute bronchitis 09/17/2006 07/25/2010 Open wound(s) (multiple) of unspecified site(s), without mention of complication 06/06/2006 10/20/2007 Asthma 05/12/2006 04/04/2022 Family history of malignant neoplasm of breast 04/04/2022 Disorder of bone and cartilage 04/04/2022 Last Assessment & Plan: Needs A bone density, will order for it to recheck her osteopenia as she had osteo in the past Rheumatoid arthritis(714.0) 03/21/2016 documented as of this encounter (statuses as of 07/30/2023) [facility] of Past illness Narrative* Problem Noted Date Diagnosed Date Resolved Date Sepsis 11/26/2022 04/25/2023 Thyroid mass 03/26/2019 03/27/2019 Esophagitis 01/15/2010 04/04/2022 Unspecified gastritis and ga stroduodenitis without mention of hemorrhage 01/15/2010 04/04/2022 Acute gastritis without mention of hemorrhage 01/16/20 10 04/04/2022 Painful respiration 01/27/2009 07/25/20 10 Unspecified erythematous condition 12/12/2008 04/04/2022 RASH///NONSPECIF SKIN ERUPT NEC 10/10/2008 04/04/2022 Contact dermatitis and other eczema, due to unspecified cause 07/22/2008 07/25/2010 Contact dermatitis and other eczema, due to unspecified cause 03/23/2007 10/20/2007 Unspecified pruritic disorder 03/23/2007 07/25/2010 Contact dermatitis and other eczema due to other specified agent 03/23/2007 04/04/2022 Other and unspecified superf icial injury of other, multiple, and unspecified sites, without mention of infection 03/23/2007 07/25/2010 Acute bronchitis 09/17/2006 07/25/2010 Open wound(s) (multiple) of unspecified site(s), without mention of complication 06/06/2006 10/20/2007 Asthma 05/12/2006 04/04/2022 Family history of malignant neoplasm of breast 04/04/2022 Disorder of bone and cartilage 04/04/2022 Last Assessment & Plan: Needs A bone density, will order for it to recheck her osteopenia as she had osteo in the past Rheumatoid arthritis(714.0) 03/21/2016 documented as of this encounter (statuses as of 09/01/2023) [facility] of Past illness Narrative* Problem Noted Date Diagnosed Date Resolved Date Sepsis 11/26/2022 04/25/2023 Thyroid mass 03/26/2019 03/27/2019 Esophagitis 01/15/2010 04/04/2022 Unspecified gastritis and ga stroduodenitis without mention of hemorrhage 01/15/2010 04/04/2022 Acute gastritis without mention of hemorrhage 01/16/20 10 04/04/2022 Painful respiration 01/27/2009 07/25/20 10 Unspecified erythematous condition 12/12/2008 04/04/2022 RASH///NONSPECIF SKIN ERUPT NEC 10/10/2008 04/04/2022 Contact dermatitis and other eczema, due to unspecified cause 07/22/2008 07/25/2010 Contact dermatitis and other eczema, due to unspecified cause 03/23/2007 10/20/2007 Unspecified pruritic disorder 03/23/2007 07/25/2010 Contact dermatitis and other eczema due to other specified agent 03/23/2007 04/04/2022 Other and unspecified superf icial injury of other, multiple, and unspecified sites, without mention of infection 03/23/2007 07/25/2010 Acute bronchitis 09/17/2006 07/25/2010 Open wound(s) (multiple) of unspecified site(s), without mention of complication 06/06/2006 10/20/2007 Asthma 05/12/2006 04/04/2022 Family history of malignant neoplasm of breast 04/04/2022 Disorder of bone and cartilage 04/04/2022 Last Assessment & Plan: Needs A bone density, will order for it to recheck her osteopenia as she had osteo in the past Rheumatoid arthritis(714.0) 03/21/2016 documented as of this encounter (statuses as of 09/04/2023) [facility] History of Past illness Narrative* Problem Noted Date Diagnosed Date Resolved Date Sepsis 11/26/2022 04/25/2023 Thyroid mass 03/26/2019 03/27/2019 Esophagitis 01/15/2010 04/04/2022 Unspecified gastritis and ga stroduodenitis without mention of hemorrhage 01/15/2010 04/04/2022 Acute gastritis without mention of hemorrhage 01/16/20 10 04/04/2022 Painful respiration 01/27/2009 07/25/20 10 Unspecified erythematous condition 12/12/2008 04/04/2022 RASH///NONSPECIF SKIN ERUPT NEC 10/10/2008 04/04/2022 Contact dermatitis and other eczema, due to unspecified cause 07/22/2008 07/25/2010 Contact dermatitis and other eczema, due to unspecified cause 03/23/2007 10/20/2007 Unspecified pruritic disorder 03/23/2007 07/25/2010 Contact dermatitis and other eczema due to other specified agent 03/23/2007 04/04/2022 Other and unspecified superf icial injury of other, multiple, and unspecified sites, without mention of infection 03/23/2007 07/25/2010 Acute bronchitis 09/17/2006 07/25/2010 Open wound(s) (multiple) of unspecified site(s), without mention of complication 06/06/2006 10/20/2007 Asthma 05/12/2006 04/04/2022 Family history of malignant neoplasm of breast 04/04/2022 Disorder of bone and cartilage 04/04/2022 Last Assessment & Plan: Needs A bone density, will order for it to recheck her osteopenia as she had osteo in the past Rheumatoid arthritis(714.0) 03/21/2016 documented as of this encounter (statuses as of 09/04/2023) [facility] History of Past illness Narrative* Problem Noted Date Diagnosed Date Resolved Date Sepsis 11/26/2022 04/25/2023 Thyroid mass 03/26/2019 03/27/2019 Esophagitis 01/15/2010 04/04/2022 Unspecified gastritis and ga stroduodenitis without mention of hemorrhage 01/15/2010 04/04/2022 Acute gastritis without mention of hemorrhage 01/16/20 10 04/04/2022 Painful respiration 01/27/2009 07/25/20 10 Unspecified erythematous condition 12/12/2008 04/04/2022 RASH///NONSPECIF SKIN ERUPT NEC 10/10/2008 04/04/2022 Contact dermatitis and other eczema, due to unspecified cause 07/22/2008 07/25/2010 Contact dermatitis and other eczema, due to unspecified cause 03/23/2007 10/20/2007 Unspecified pruritic disorder 03/23/2007 07/25/2010 Contact dermatitis and other eczema due to other specified agent 03/23/2007 04/04/2022 Other and unspecified superf icial injury of other, multiple, and unspecified sites, without mention of infection 03/23/2007 07/25/2010 Acute bronchitis 09/17/2006 07/25/2010 Open wound(s) (multiple) of unspecified site(s), without mention of complication 06/06/2006 10/20/2007 Asthma 05/12/2006 04/04/2022 Family history of malignant neoplasm of breast 04/04/2022 Disorder of bone and cartilage 04/04/2022 Last Assessment & Plan: Needs A bone density, will order for it to recheck her osteopenia as she had osteo in the past Rheumatoid arthritis(714.0) 03/21/2016 documented as of this encounter (statuses as of 09/24/2023) [facility] History of Past illness Narrative* Problem Noted Date Diagnosed Date Resolved Date Sepsis 11/26/2022 04/25/2023 Thyroid mass 03/26/2019 03/27/2019 Esophagitis 01/15/2010 04/04/2022 Unspecified gastritis and ga stroduodenitis without mention of hemorrhage 01/15/2010 04/04/2022 Acute gastritis without mention of hemorrhage 01/16/20 10 04/04/2022 Painful respiration 01/27/2009 07/25/20 10 Unspecified erythematous condition 12/12/2008 04/04/2022 RASH///NONSPECIF SKIN ERUPT NEC 10/10/2008 04/04/2022 Contact dermatitis and other eczema, due to unspecified cause 07/22/2008 07/25/2010 Contact dermatitis and other eczema, due to unspecified cause 03/23/2007 10/20/2007 Unspecified pruritic disorder 03/23/2007 07/25/2010 Contact dermatitis and other eczema due to other specified agent 03/23/2007 04/04/2022 Other and unspecified superf icial injury of other, multiple, and unspecified sites, without mention of infection 03/23/2007 07/25/2010 Acute bronchitis 09/17/2006 07/25/2010 Open wound(s) (multiple) of unspecified site(s), without mention of complication 06/06/2006 10/20/2007 Asthma 05/12/2006 04/04/2022 Family history of malignant neoplasm of breast 04/04/2022 Disorder of bone and cartilage 04/04/2022 Last Assessment & Plan: Needs A bone density, will order for it to recheck her osteopenia as she had osteo in the past Rheumatoid arthritis(714.0) 03/21/2016 documented as of this encounter (statuses as of 10/01/2023) [facility] History of Past illness Narrative* Problem Noted Date Diagnosed Date Resolved Date Sepsis 11/26/2022 04/25/2023 Thyroid mass 03/26/2019 03/27/2019 Esophagitis 01/15/2010 04/04/2022 Unspecified gastritis and ga stroduodenitis without mention of hemorrhage 01/15/2010 04/04/2022 Acute gastritis without mention of hemorrhage 01/16/2004/04/2022 Painful respiration 01/27/2009 07/25/20 Unspecified erythematous condition 12/12/2008 04/04/2022 RASH///NONSPECIF SKIN ERUPT NEC 10/10/2008 04/04/2022 Contact dermatitis and other eczema, due to unspecified cause 07/22/2008 07/25/2010 Contact dermatitis and other eczema, due to unspecified cause 03/23/2007 10/20/2007 Unspecified pruritic disorder 03/23/2007 07/25/2010 Contact dermatitis and other eczema due to other specified agent 03/23/2007 04/04/2022 Other and unspecified superf icial injury of other, multiple, and unspecified sites, without mention of infection 03/23/2007 07/25/2010 Acute bronchitis 09/17/2006 07/25/2010 Open wound(s) (multiple) of unspecified site(s), without mention of complication 06/06/2006 10/20/2007 Asthma 05/12/2006 04/04/2022 Family history of malignant neoplasm of breast 04/04/2022 Disorder of bone and cartilage 04/04/2022 Last Assessment & Plan: Needs A bone density, will order for it to recheck her osteopenia as she had osteo in the past Rheumatoid arthritis(714.0) 03/21/2016 documented as of this encounter (statuses as of 10/01/2023) [facility] History of Past illness Narrative* Problem Noted Date Diagnosed Date Resolved Date Sepsis 11/26/2022 04/25/2023 Thyroid mass 03/26/2019 03/27/2019 Esophagitis 01/15/2010 04/04/2022 Unspecified gastritis and ga stroduodenitis without mention of hemorrhage 01/15/2010 04/04/2022 Acute gastritis without mention of hemorrhage 01/16/20 10 04/04/2022 Painful respiration 01/27/2009 07/25/20 10 Unspecified erythematous condition 12/12/2008 04/04/2022 RASH///NONSPECIF SKIN ERUPT NEC 10/10/2008 04/04/2022 Contact dermatitis and other eczema, due to unspecified cause 07/22/2008 07/25/2010 Contact dermatitis and other eczema, due to unspecified cause 03/23/2007 10/20/2007 Unspecified pruritic disorder 03/23/2007 07/25/2010 Contact dermatitis and other eczema due to other specified agent 03/23/2007 04/04/2022 Other and unspecified superf icial injury of other, multiple, and unspecified sites, without mention of infection 03/23/2007 07/25/2010 Acute bronchitis 09/17/2006 07/25/2010 Open wound(s) (multiple) of unspecified site(s), without mention of complication 06/06/2006 10/20/2007 Asthma 05/12/2006 04/04/2022 Family history of malignant neoplasm of breast 04/04/2022 Disorder of bone and cartilage 04/04/2022 Last Assessment & Plan: Needs A bone density, will order for it to recheck her osteopenia as she had osteo in the past Rheumatoid arthritis(714.0) 03/21/2016 documented as of this encounter (statuses as of 10/08/2023) [facility] of Past illness Narrative* Problem Noted Date Diagnosed Date Resolved Date Sepsis 11/26/2022 04/25/2023 Thyroid mass 03/26/2019 03/27/2019 Esophagitis 01/15/2010 04/04/2022 Unspecified gastritis and ga stroduodenitis without mention of hemorrhage 01/15/2010 04/04/2022 Acute gastritis without mention of hemorrhage 01/16/20 10 04/04/2022 Painful respiration 01/27/2009 07/25/20 10 Unspecified erythematous condition 12/12/2008 04/04/2022 RASH///NONSPECIF SKIN ERUPT NEC 10/10/2008 04/04/2022 Contact dermatitis and other eczema, due to unspecified cause 07/22/2008 07/25/2010 Contact dermatitis and other eczema, due to unspecified cause 03/23/2007 10/20/2007 Unspecified pruritic disorder 03/23/2007 07/25/2010 Contact dermatitis and other eczema due to other specified agent 03/23/2007 04/04/2022 Other and unspecified superf icial injury of other, multiple, and unspecified sites, without mention of infection 03/23/2007 07/25/2010 Acute bronchitis 09/17/2006 07/25/2010 Open wound(s) (multiple) of unspecified site(s), without mention of complication 06/06/2006 10/20/2007 Asthma 05/12/2006 04/04/2022 Family history of malignant neoplasm of breast 04/04/2022 Disorder of bone and cartilage 04/04/2022 Last Assessment & Plan: Needs A bone density, will order for it to recheck her osteopenia as she had osteo in the past Rheumatoid arthritis(714.0) 03/21/2016 documented as of this encounter (statuses as of 10/08/2023) [facility] of Past illness Narrative* Problem Noted Date Diagnosed Date Resolved Date Sepsis 11/26/2022 04/25/2023 Thyroid mass 03/26/2019 03/27/2019 Esophagitis 01/15/2010 04/04/2022 Unspecified gastritis and ga stroduodenitis without mention of hemorrhage 01/15/2010 04/04/2022 Acute gastritis without mention of hemorrhage 01/16/20 10 04/04/2022 Painful respiration 01/27/2009 07/25/20 10 Unspecified erythematous condition 12/12/2008 04/04/2022 RASH///NONSPECIF SKIN ERUPT NEC 10/10/2008 04/04/2022 Contact dermatitis and other eczema, due to unspecified cause 07/22/2008 07/25/2010 Contact dermatitis and other eczema, due to unspecified cause 03/23/2007 10/20/2007 Unspecified pruritic disorder 03/23/2007 07/25/2010 Contact dermatitis and other eczema due to other specified agent 03/23/2007 04/04/2022 Other and unspecified superf icial injury of other, multiple, and unspecified sites, without mention of infection 03/23/2007 07/25/2010 Acute bronchitis 09/17/2006 07/25/2010 Open wound(s) (multiple) of unspecified site(s), without mention of complication 06/06/2006 10/20/2007 Asthma 05/12/2006 04/04/2022 Family history of malignant neoplasm of breast 04/04/2022 Disorder of bone and cartilage 04/04/2022 Last Assessment & Plan: Needs A bone density, will order for it to recheck her osteopenia as she had osteo in the past Rheumatoid arthritis(714.0) 03/21/2016 documented as of this encounter (statuses as of 10/17/2023) [facility] of Past illness Narrative* Problem Noted Date Diagnosed Date Resolved Date Sepsis 11/26/2022 04/25/2023 Thyroid mass 03/26/2019 03/27/2019 Esophagitis 01/15/2010 04/04/2022 Unspecified gastritis and ga stroduodenitis without mention of hemorrhage 01/15/2010 04/04/2022 Acute gastritis without mention of hemorrhage 01/16/20 10 04/04/2022 Painful respiration 01/27/2009 07/25/20 10 Unspecified erythematous condition 12/12/2008 04/04/2022 RASH///NONSPECIF SKIN ERUPT NEC 10/10/2008 04/04/2022 Contact dermatitis and other eczema, due to unspecified cause 07/22/2008 07/25/2010 Contact dermatitis and other eczema, due to unspecified cause 03/23/2007 10/20/2007 Unspecified pruritic disorder 03/23/2007 07/25/2010 Contact dermatitis and other eczema due to other specified agent 03/23/2007 04/04/2022 Other and unspecified superf icial injury of other, multiple, and unspecified sites, without mention of infection 03/23/2007 07/25/2010 Acute bronchitis 09/17/2006 07/25/2010 Open wound(s) (multiple) of unspecified site(s), without mention of complication 06/06/2006 10/20/2007 Asthma 05/12/2006 04/04/2022 Family history of malignant neoplasm of breast 04/04/2022 Disorder of bone and cartilage 04/04/2022 Last Assessment & Plan: Needs A bone density, will order for it to recheck her osteopenia as she had osteo in the past Rheumatoid arthritis(714.0) 03/21/2016 documented as of this encounter (statuses as of 10/17/2023) [facility] of Past illness Narrative* Problem Noted Date Diagnosed Date Resolved Date Sepsis 11/26/2022 04/25/2023 Thyroid mass 03/26/2019 03/27/2019 Esophagitis 01/15/2010 04/04/2022 Unspecified gastritis and ga stroduodenitis without mention of hemorrhage 01/15/2010 04/04/2022 Acute gastritis without mention of hemorrhage 01/16/20 10 04/04/2022 Painful respiration 01/27/2009 07/25/20 10 Unspecified erythematous condition 12/12/2008 04/04/2022 RASH///NONSPECIF SKIN ERUPT NEC 10/10/2008 04/04/2022 Contact dermatitis and other eczema, due to unspecified cause 07/22/2008 07/25/2010 Contact dermatitis and other eczema, due to unspecified cause 03/23/2007 10/20/2007 Unspecified pruritic disorder 03/23/2007 07/25/2010 Contact dermatitis and other eczema due to other specified agent 03/23/2007 04/04/2022 Other and unspecified superf icial injury of other, multiple, and unspecified sites, without mention of infection 03/23/2007 07/25/2010 Acute bronchitis 09/17/2006 07/25/2010 Open wound(s) (multiple) of unspecified site(s), without mention of complication 06/06/2006 10/20/2007 Asthma 05/12/2006 04/04/2022 Family history of malignant neoplasm of breast 04/04/2022 Disorder of bone and cartilage 04/04/2022 Last Assessment & Plan: Needs A bone density, will order for it to recheck her osteopenia as she had osteo in the past Rheumatoid arthritis(714.0) 03/21/2016 documented as of this encounter (statuses as of 10/22/2023) [facility] of Past illness Narrative* Problem Noted Date Diagnosed Date Resolved Date Sepsis 11/26/2022 04/25/2023 Thyroid mass 03/26/2019 03/27/2019 Esophagitis 01/15/2010 04/04/2022 Unspecified gastritis and ga stroduodenitis without mention of hemorrhage 01/15/2010 04/04/2022 Acute gastritis without mention of hemorrhage 01/16/20 10 04/04/2022 Painful respiration 01/27/2009 07/25/20 10 Unspecified erythematous condition 12/12/2008 04/04/2022 RASH///NONSPECIF SKIN ERUPT NEC 10/10/2008 04/04/2022 Contact dermatitis and other eczema, due to unspecified cause 07/22/2008 07/25/2010 Contact dermatitis and other eczema, due to unspecified cause 03/23/2007 10/20/2007 Unspecified pruritic disorder 03/23/2007 07/25/2010 Contact dermatitis and other eczema due to other specified agent 03/23/2007 04/04/2022 Other and unspecified superf icial injury of other, multiple, and unspecified sites, without mention of infection 03/23/2007 07/25/2010 Acute bronchitis 09/17/2006 07/25/2010 Open wound(s) (multiple) of unspecified site(s), without mention of complication 06/06/2006 10/20/2007 Asthma 05/12/2006 04/04/2022 Family history of malignant neoplasm of breast 04/04/2022 Disorder of bone and cartilage 04/04/2022 Last Assessment & Plan: Needs A bone density, will order for it to recheck her osteopenia as she had osteo in the past Rheumatoid arthritis(714.0) 03/21/2016 documented as of this encounter (statuses as of 10/28/2023) [facility] of Past illness Narrative* Problem Noted Date Diagnosed Date Resolved Date Sepsis 11/26/2022 04/25/2023 Thyroid mass 03/26/2019 03/27/2019 Esophagitis 01/15/2010 04/04/2022 Unspecified gastritis and ga stroduodenitis without mention of hemorrhage 01/15/2010 04/04/2022 Acute gastritis without mention of hemorrhage 01/16/20 10 04/04/2022 Painful respiration 01/27/2009 07/25/20 10 Unspecified erythematous condition 12/12/2008 04/04/2022 RASH///NONSPECIF SKIN ERUPT NEC 10/10/2008 04/04/2022 Contact dermatitis and other eczema, due to unspecified cause 07/22/2008 07/25/2010 Contact dermatitis and other eczema, due to unspecified cause 03/23/2007 10/20/2007 Unspecified pruritic disorder 03/23/2007 07/25/2010 Contact dermatitis and other eczema due to other specified agent 03/23/2007 04/04/2022 Other and unspecified superf icial injury of other, multiple, and unspecified sites, without mention of infection 03/23/2007 07/25/2010 Acute bronchitis 09/17/2006 07/25/2010 Open wound(s) (multiple) of unspecified site(s), without mention of complication 06/06/2006 10/20/2007 Asthma 05/12/2006 04/04/2022 Family history of malignant neoplasm of breast 04/04/2022 Disorder of bone and cartilage 04/04/2022 Last Assessment & Plan: Needs A bone density, will order for it to recheck her osteopenia as she had osteo in the past Rheumatoid arthritis(714.0) 03/21/2016 documented as of this encounter (statuses as of 11/01/2023) [facility] of Past illness Narrative* Problem Noted Date Diagnosed Date Resolved Date Sepsis 11/26/2022 04/25/2023 Thyroid mass 03/26/2019 03/27/2019 Esophagitis 01/15/2010 04/04/2022 Unspecified gastritis and ga stroduodenitis without mention of hemorrhage 01/15/2010 04/04/2022 Acute gastritis without mention of hemorrhage 01/16/20 10 04/04/2022 Painful respiration 01/27/2009 07/25/20 10 Unspecified erythematous condition 12/12/2008 04/04/2022 RASH///NONSPECIF SKIN ERUPT NEC 10/10/2008 04/04/2022 Contact dermatitis and other eczema, due to unspecified cause 07/22/2008 07/25/2010 Contact dermatitis and other eczema, due to unspecified cause 03/23/2007 10/20/2007 Unspecified pruritic disorder 03/23/2007 07/25/2010 Contact dermatitis and other eczema due to other specified agent 03/23/2007 04/04/2022 Other and unspecified superf icial injury of other, multiple, and unspecified sites, without mention of infection 03/23/2007 07/25/2010 Acute bronchitis 09/17/2006 07/25/2010 Open wound(s) (multiple) of unspecified site(s), without mention of complication 06/06/2006 10/20/2007 Asthma 05/12/2006 04/04/2022 Family history of malignant neoplasm of breast 04/04/2022 Disorder of bone and cartilage 04/04/2022 Last Assessment & Plan: Needs A bone density, will order for it to recheck her osteopenia as she had osteo in the past Rheumatoid arthritis(714.0) 03/21/2016 documented as of this encounter (statuses as of 12/25/2023) [facility] Inst[facility]* Patient Instructions* Sandor Haley DO - 11/26/2022 10:29 AM EST Continue Percocet. (mmeq=45.00) Continue robaxin Continue Dulcolax, stool softeners, and probiotics for OIC symptoms. Obtain UDS Referral to [facility] For mental health assessment and treatment for depression. Follow-up in 1 month with READING PROFESSOR Patient was encouraged to participate in more social activities. [facility] History of Present illness Narrative* Sandor Haley DO - 11/26/2022 10:26 AM ESTSummary: Pain Management Follow Up DATE: November 26, 2022 Chief Complaint: low back pain History of Present Illness: Mika Ascencio [facility] a 82 year [facility]. She was last seen on 10/02/22 and the plan of care was as follows: Continue Percocet. (mmeq=45.00) Continue robaxin Continue Dulcolax, stool softeners, and probiotics for OIC symptoms. Follow-up in 1 month (next appt is with Marissa-in the office then Dr. Haley-last seen on 04/09/21) She is doing well today. Most of her pain is located on the right side of her lower back. Her daughter notes she has little motivation and seems depressed. Mika is not interested in any form of counseling at this time. She is willing to accept a referral to [facility] For a mental health evaluation. She denies any new medical diagnoses, emergency room visits, or recent hospitalizations. She doesnot make eye contact during questioning today. She appears to be very withdrawn during the evaluation. VAS: 4/10 Chief complaint: low back pain Location: low back pain Timing: constant Severity: moderate Quality: aching Radiation: denies Numbness: denies Burning: denies Tingling: denies Weakness: denies Falls:denies Alleviating Factors: rest and meds uses heat Aggravating Factors: physical activity The pt denies any bowel or bladder dysfunction. The patient is currently prescribed Percocet and Robaxin from our office. The last dose of percocetwas taken last night at bedtime. The medications are effective. The pt reports constipation relieved by dulcolax, stool softeners, fish oil and a probiotic. The pt denies nausea, vomiting drowsiness,weight gain, weight loss,dizziness,and fatigue. The [facility] report has been reviewed and is consistent with the pts medical history and medication intake. Last Urine Drug Screen (UDS):03/21/22. The UDS has been reviewed and is consistent with medications prescribed. REVIEW OF SYSTEMS GENERAL: No weight loss, malaise or fevers HEENT: Negative for frequent or significant headaches, No changes in hearing or vision, no nose bleeds or other nasal problems RESPIRATORY: Negative for cough, hemoptysis, wheezing, COPD, dyspnea or shortness of breath CARDIOVASCULAR: Negative for chest pain, leg swelling, hypertension, CHF or palpitations GI: No nausea, vomiting, or diarrhea MUSCULOSKELETAL: positive back pain PAST MEDICAL HISTORY Diagnosis Date Asthma Backache, unspecified Calculus of kidney on T Diaphragmatic hernia 03/19/2010 Vianey Fundoplication Diverticulosis of colon (without mention of hemorrhage) Esophageal reflux Esophageal reflux remote EGD Family history of malignant neoplasm of breast mother Grade I diastolic dysfunction 12/14/2018 noted on Echo Hypothyroidism Lichen planus sees dermatology in [place] et A 06/2007 RIGHT LABIA, BIOPSY - LICHEN SCLEROSIS first bx in 05/22. OSTEOPENIA 10/2007 [facility] T-SCORE -1.8 Other and unspecified hyperlipidemia 10/2007 292 Personal history of tobacco use, presenting hazards to health Personal history of urinary (tract) infection 08/2007 [facility] - PAST MEDICAL HISTORY OF . Solid hepatic masses consistent with a hemangioma. Rheumatoid arthritis(714.0) Symptomatic states associated with artificial menopause Thyroid cancer (HCC) Unspecified asthma, with exacerbation occ prednisone use Unspecified vitamin D deficiency 10/2007 25.5 PAST SURGICAL HISTORY Procedure Laterality Date APPENDECTOMY COLECTOMY PARTIAL W/ANASTOMOSIS Excision, large bowel COLONOSCOPY FLX DX W/COLLJ SPEC WHEN PFRMD 1996 Colonoscopy COLONOSCOPY FLX DX W/COLLJ SPEC WHEN PFRMD 05/22/11 ESOPHAGOGASTRODUODENOSCOPY TRANSORAL DIAGNOSTIC 01/15/2010 EGD LAPS SURG ESOPG/GSTR FUNDOPLASTY 5-3-10 P Ignacio Vianey FUndoplication PAST SURGICAL HISTORY OF right ear drum surgery age 32 REDUCTION OF LARGE BREAST 01/2008 bilaterally RPR 1ST INCAL/VNT HERNIA INCARCERATED 05/23/11 2 defects [facility] Dr. Reynolds TOTAL THYROID LOBECTOMY UNI W/WO ISTHMUSECTOMY Left 03/26/2019 Dr. Michael RENE LAPS PX HRNAP HERNIORRHAPHY HERNIOTOMY VAGINAL HYSTERECTOMY UTERUS 250 GM/< mid 1989' ovaries are intact FAMILY HISTORY Problem Relation Age of Onset Breast Cancer Mother diagnosed at age 55 still living Diabetes Mother Osteoporosis Mother Stroke Father AT AGE 59 Hypertension Father Cancer Sister lung No Known Problems Brother No Known Problems Maternal Grandmother No Known Problems Maternal Grandfather No Known Problems Paternal Grandmother No Known Problems Paternal Grandfather No Known Problems Son COPD Son other (overdose) Son at age 50 Social History Tobacco Use Smoking status: Former Packs/day: 0.50 Years: 10.00 Pack years: 5.00 Types: Cigarettes Quit date: 05/12/1975 Years since quittin.5 Passive exposure: Never Smokeless tobacco: Never Tobacco comments: 1974 Vaping Use Vaping Use: Never used Substance Use Topics Alcohol use: No Drug use: No Allergies: Asa [Salicylates] Shortness of Breath Comment:Gets very wheezey, like asthma attack. Aspirin Shortness of Breath Comment:wheezing Cipro [Ciprofloxaci* GI Upset Comment:levaquin tolerated 12/2011 Hydrocodone Bitartr* Rash Keflex [Cephalexin] Latex Rash Motrin [Ibuprofen] Naproxen Unknown Nsaids (Non-Steroid* Shortness of Breath Pneumococcal Vaccine Swelling Comment:Redness/inflammation at injection site Rubber Comment:Discoloration of skin Salicylic Acid Unknown Current Outpatient Medications Medication Sig oxyCODONE-acetaminophen (PERCOCET 10) 10-325 mg tablet Take 1 tablet by mouth every 8 hours as needed for pain for up to 30 days. methocarbamol (ROBAXIN) 750 mg tablet Take 1 tablet by mouth three times daily as needed. ciprofloxacin-dexAMETHasone (CIPRODEX) 0.3-0.1 % otic suspension PLACE 5 (FIVE) DROPS INTO AFFECTEDEAR TWICE DAILY levothyroxine (LEVOXYL) 112 mcg tablet Take 1 tablet daily except take 1/2 tablet on Friday and Friday. erythromycin (ROMYCIN) 5 mg/gram (0.5 %) ophthalmic ointment instill in both eyes DIRECTED twicea day BREO ELLIPTA 200-25 mcg/dose inhaler 1 Inhalation once daily. pantoprazole DR (PROTONIX) 40 mg tablet Take 1 tablet by mouth daily before breakfast. Take on empty stomach, 1/2 hr before meal. ferrous sulfate 220 mg (44 mg iron)/5 mL elixir Take 5 mL by mouth once daily. albuterol HFA (VENTOLIN HFA) 90 mcg/actuation inhaler Inhale 2 Puffs as instructed every 4 hours asneeded for Wheezing/Shortness of Breath. MAGNESIUM GLUCONATE ORAL Take 1 tablet by mouth once daily. OTC PRODUCT PROBIOTIC Take one(1) tablet daily. UNSURE OF DOSE cholecalciferol(VITAMIN D 1,000 UNIT CAP) Take 2 po daily = 2,000 No current facility-administered medications for this visit. I have reviewed the nurses notes and I am aware of the family/social history. Since the last evaluation the medical history has not changed. PHYSICAL EXAMINATION: Vitals: BP 126/65 Pulse 78 Resp 19 Ht 5' 3.6 (1.62m) Wt 133 lb (60.3kg) SpO2 97% BMI 23.13 kg/(m^2). GENERAL: healthy, alert, no distress, cooperative, smiling, she is in a wheelchair SKIN: Skin color, texture, turgor normal. No rashes or lesions. HEENT: PERRL, EOMI, and normal dentition CARDIAC: normal S1 and S2; no rubs, murmurs, or gallops LUNGS: Lungs clear to auscultation. Good diaphragmatic excursion. Musculoskeletal: Examination of the cervical spine is largely unremarkable. Inspection of the spinereveals no scars, curvature or abnormalities. Cervical range of motion is mildly restricted in all planes throughout. There is mild tenderness upon palpation of the cervical spine. Spurling's test ispositive on the left. There are muscle spasms or trigger points noted in the paraspinal musculature/trapezius. Muscle strength of the upper extemities is +5/5 bilaterally. Hand grasp bilaterally is equal. Upper extremity reflexes are intact bilaterally, 2+. Sensation in the upper extremities is intact. Empy can test is negative. Pt. had thryroid removed-scar is well healed. ASSESSMENT: Chronic pain syndrome Cervical spondylolysis Lumbar spine pain Degeneration of cervical intervertebral disc Myofascial pain syndrome Patient is stable. Chronic pain is persistent. Medications are helping Mika Ascencio to have an improved quality of life. Patient compliance with Opioid Contract: patient is compliant PDMP website checked and validated. All prescriptions have been APPROPRIATELY filled. No suspiciousactivity was identified. 11/26/2022 by MERRILL Rodrigues Student PLAN: The patient understands the goal of our treatment is a reduction in pain and/or an improved level of functioning with activities of daily living. If at any time the patient does not feel the medications are helping them to achieve these goals, the medications may be discontinued. The patient reports a reduction in pain and/or an improved level of functioning with activities of daily living, denies any significant adverse effects, is compliant with the pain management agreement and there are no signs of medication misuse, abuse or diversion; therefore, the medications will be continued. The documentation for this encounter was entered by Claudia Shen medical collector, for Dr. Sandor Haley on November 26, 2022 I, Dr. Sandor Haley, personally performed the services described in this documentation. All medical record entries made by the scribe were at my direction and in my presence. I have reviewed the chart and discharge instructions and agree that the record reflects my personal performance and is accurate and complete. Electronically Signed: Dr. Haley. November 26, 2022 documented in this encounterRegional [facility] Center12-16-2022 Miscellaneous Notes* Telephone Encounter - Jonathon Hamilton APRN.CNP - 11/01/2022 4:35 PM EST The following approved medication requests have been transmitted electronically. Requested Prescriptions Signed Prescriptions Disp Refills oxyCODONE-acetaminophen (PERCOCET 10) 10-325 mg tablet 90 tablet 0 Sig: Take 1 tablet by mouth every 8 hours as needed for pain for up to 30 days. Authorizing Provider: JONATHON HAMILTON methocarbamol (ROBAXIN) 750 mg tablet 90 tablet 0 Sig: Take 1 tablet by mouth three times daily as needed. Authorizing Provider: JONATHON HAMILTON APRN.CNP * Telephone Encounter - Apurva Pike RN - 11/01/2022 11:14 AM EST Patient phones requesting refills as follows: Requested Prescriptions Pending Prescriptions Disp Refills oxyCODONE-acetaminophen (PERCOCET 10) 10-325 mg tablet 90 tablet 0 Sig: Take 1 tablet by mouth every 8 hours as needed for pain for up to 30 days. methocarbamol (ROBAXIN) 750 mg tablet 90 tablet 0 Sig: Take 1 tablet by mouth three times daily as needed. Please review and advise. Apurva Pike RN documented in this encounterRegional Medical Center12-15-2022 Miscellaneous Notes* Telephone Encounter - Savita Velasquez Ma - 10/31/2022 4:17 PM EST Left message for return call. * Telephone Encounter - Savita Velasquez Ma - 10/31/2022 4:14 PM EST ----- Message from Nell Sims MD sent at 10/31/2022 1:22 PM EST ----- Thyroid is normal. documented in this encounterRegional Medical Center12-13-2022 History of Present illness Narrative* Nell Sims MD - 10/29/2022 12:28 PM EST Reason for Visit Patient presents with: Follow Up: 3 month follow up- thyroid, questions.. not seeing [facility] doctor for thyroid, c/o having nightmares Mika Ascencio is a 82 year old female who presents here today for Above Complaints.. Health Maintenance SPIROMETRY SHINGRIX VACCINE(1 of 2) DTAP,TDAP,TD(1 - Tdap) PNEUMOCOCCAL: 65+(2 - PCV) COVID-19 VACCINE(3 - Booster for Pfizer series) ADVANCE DIRECTIVE DISCUSSION DEPRESSION ASSESSMENT INFLUENZA(1) HPI Here with and I talked with Rafiq who is the one who knows about her care and arranges for apt. She has been sleeping a lot lately, and has vivid dreams that are not pleasant and she would like to do something about it. She has been on keflex daily for preventing recurrent uti. I think that is the cause for it. She has not been compliant with the eye ointment till recently and RAFIQ is encouraging her to be ocmpliant HTN: Compliant with medications. Denies any chest pain, palpitations, or edema. No SOB. Doesn't check BP at home generally. Careful with diet to avoid salt, trying to eat more fruits and vegetables, exercises regularly. Hypothyroidism. She is doing well on her current dose of Synthroid. Denies fatigue, cold intolerance and swelling in feet. TSH recently checked and normal. Patient takes the stomach pill in the morning. Along with the carafate She had 2 donuts for bf with coffee and had bread with eggs and coffee, and dinner is usually chad beaver. Patients DIL stated today that patient is seeing things and talking non reality things, the biggestproblem right now is that she is having a lot of nightmares. On further questioning who is with her Notes that she is not acting out neither is she violent, but she remembers her dreams a lot, there are a lot of snakes in the back yard. She is not sleeping well For ex today she thought she was coming to a drama that has her , kids etc She always sees things and talk to imaginary people Patient was seen recently by Dr Jarett Schofield , who noted her lung issues are stable. No problem-specific Assessment & Plan notes found for this encounter. PAST MEDICAL HISTORY Diagnosis Date Asthma Backache, unspecified Calculus of kidney on T Diaphragmatic hernia 03/19/2010 [facility] Fundoplication Diverticulosis of colon (without mention of hemorrhage) Esophageal reflux Esophageal reflux remote EGD Family history of malignant neoplasm of breast mother Grade I diastolic dysfunction 12/14/2018 noted on Echo Hypothyroidism Lichen planus sees dermatology in [place] et A 06/2007 RIGHT LABIA, BIOPSY - LICHEN SCLEROSIS first bx in 05/22. OSTEOPENIA 10/2007 [facility] T-SCORE -1.8 Other and unspecified hyperlipidemia 10/2007 292 Personal history of tobacco use, presenting hazards to health Personal history of urinary (tract) infection 08/2007 PMH - PAST MEDICAL HISTORY OF . Solid hepatic masses consistent with a hemangioma. Rheumatoid arthritis(714.0) Symptomatic states associated with artificial menopause Thyroid cancer (HCC) Unspecified asthma, with exacerbation occ prednisone use Unspecified vitamin D deficiency 10/2007 25.5 PAST SURGICAL HISTORY Procedure Laterality Date APPENDECTOMY COLECTOMY PARTIAL W/ANASTOMOSIS Excision, large bowel COLONOSCOPY FLX DX W/COLLJ SPEC WHEN PFRMD 1996 Colonoscopy COLONOSCOPY FLX DX W/COLLJ SPEC WHEN PFRMD 05/22/11 ESOPHAGOGASTRODUODENOSCOPY TRANSORAL DIAGNOSTIC 01/15/2010 EGD LAPS SURG ESOPG/GSTR FUNDOPLASTY 5-3-10 P Ignacio Vianey FUndoplication PAST SURGICAL HISTORY OF right ear drum surgery age 32 REDUCTION OF LARGE BREAST 01/2008 bilaterally RPR 1ST INCAL/VNT HERNIA INCARCERATED 05/23/11 2 defects [facility] [address]. Reynolds TOTAL THYROID LOBECTOMY UNI W/WO ISTHMUSECTOMY Left 03/26/2019 Dr. Michael LEHMANIS LAPS PX HRNAP HERNIORRHAPHY HERNIOTOMY VAGINAL HYSTERECTOMY UTERUS 250 GM/< mid 1989's ovaries are intact FAMILY HISTORY Problem Relation Age of Onset Breast Cancer Mother diagnosed at age 55 still living Diabetes Mother Osteoporosis Mother Stroke Father AT AGE 59 Hypertension Father Cancer Sister lung No Known Problems Brother No Known Problems Maternal Grandmother No Known Problems Maternal Grandfather No Known Problems Paternal Grandmother No Known Problems Paternal Grandfather No Known Problems Son COPD Son other (overdose) Son at age 50 Social History Tobacco Use Smoking status: Former Packs/day: 0.50 Years: 10.00 Pack years: 5.00 Types: Cigarettes Quit date: 05/12/1975 Years since quittin.4 Smokeless tobacco: Never Tobacco comments: 1974 Vaping Use Vaping Use: Never used Substance Use Topics Alcohol use: No Drug use: No Past medical history, appointments, medications, allergies reviewed. Pertinent Lab/Diagnostic Studies are reviewed and discussed today Current Outpatient Medications: methocarbamol (ROBAXIN) 750 mg tablet oxyCODONE-acetaminophen (PERCOCET 10) 10-325 mg tablet cefdinir (OMNICEF) 300 mg capsule ciprofloxacin-dexAMETHasone (CIPRODEX) 0.3-0.1 % otic suspension levothyroxine (LEVOXYL) 112 mcg tablet erythromycin (ROMYCIN) 5 mg/gram (0.5 %) ophthalmic ointment nitrofurantoin monohydrate and macrocrystal (MACROBID) 100 mg capsule BREO ELLIPTA 200-25 mcg/dose inhaler pantoprazole DR (PROTONIX) 40 mg tablet ferrous sulfate 220 mg (44 mg iron)/5 mL elixir sucralfate (CARAFATE) 1 gram tablet albuterol HFA (VENTOLIN HFA) 90 mcg/actuation inhaler MAGNESIUM GLUCONATE ORAL OTC PRODUCT cholecalciferol(VITAMIN D 1,000 UNIT CAP) Review of Systems CONSTITUTIONAL: No fevers, chills night sweats, unintended weight loss CARDIOVASCULAR: No chest pain, dyspnea, palpitations, orthopnea, PND, ankle edema. PULM: No dyspnea, unexplained cough. GI: No dysphagia/odynophagia, problematic reflux, constipation, diarrhea, changes in stool habits, hematochezia, melena. : No new urinary complaints, including dysuria, gross hematuria or pyuria. NEURO: No new balance problems, peripheral weakness/paresthesias or numbness of concern. Physical Exam BP 104/52 (BP Site: Left Arm, BP Position: Sitting, BP Cuff Size: Large Adult) Pulse 74 Temp 37.1 C (98.7 F) Resp 12 Ht 157.5 cm (5' 2 ) Wt 60.8 kg (134 lb) SpO2 99% BMI 24.51 kg/m General appearance: Well appearing, alert, in no acute distress, well nourished. Skin: Skin color, texture, turgor normal, no suspicious rashes or lesions Head: Normocephalic, no masses, lesions, tenderness or abnormalities Eyes: Anicteric sclera. Pupils are equally round and reactive to light. Extraocular movements are intact. Lungs: Lungs clear to auscultation. No wheezing, rhonchi, rales Heart: RRR without murmur, gallop, or rubs. Extremities: No deformities, edema, skin discoloration, clubbing or cyanosis. Good capillary refill. ASSESSMENT/PLAN: 1. Hypothyroidism, unspecified type - ICD9: 244.9, ICD10: E03.9 (primary diagnosis) - Instructed patient on importance of taking on an empty stomach either first thing in the morning or at bedtime. Stable - TSH BLD - T4 FREE/FREE THYROX - T3 FREE BLD 2. Anemia, unspecified type - ICD9: 285.9, ICD10: D64.9 - CBC + DIFF 3. Gastroesophageal reflux disease without esophagitis - ICD9: 530.81, ICD10: K21.9 - Discussed lifestyle modifications including losing weight, limiting caffeine, no meals three hours before sleep, and head of bed elevation 4. Memory change - ICD9: 780.93, ICD10: R41.3 She has short term memory issues, picks at clotes, sometimes smacks her self and occasionally has hallucinations - CONSULT TO GERIATRICS 5. Picking at clothes - ICD9: 307.9, ICD10: F63.89 - CONSULT TO GERIATRICS 6. Hallucinations - ICD9: 780.1, ICD10: R44.3 Nell Sims MD documented in this encounterRegional Medical Center11-25-2022 Miscellaneous Notes* Telephone Encounter - Jose Manuel Pearce LPN - 10/11/2022 3:33 PM EST Pt returns call to office. She states she has been taking levothyroxine consistently as advised. Ptwill stop Friday's dose and recheck in 4-6 weeks. Jose Manuel Pearce LPN * Telephone Encounter - Savita Velasquez Ma - 10/09/2022 1:48 PM EST Left message for return call. * Telephone Encounter - Dorina Lew APRN.CNP - 10/09/2022 1:41 PM EST Please let patient know her thyroid level indicates she is still getting too much supplement. Has she been taking daily except half a tablet on Friday and Sundays? Has she been doing this consistently for the last 6 weeks? If so, she should skip sundays dose completely and we will recheck all thyroid levels in 4- 6 weeks. Thank you Dorina Lew APRN.CNP documented in this encounterRegional Medical Center11-16-2022 Instructions* Patient Instructions* Jonathon Hamilton APRN.CNP - 10/02/2022 8:10 AM EST Continue Percocet. (mmeq=45.00) Continue robaxin Continue Dulcolax, stool softeners, and probiotics for OIC symptoms. Follow-up in 1 month (next appt is with Marissa-in the office then Dr. Haley-last seen on 04/09/21) Jonathon Hamilton APRN.CNP documented in this encounterRegional Medical Center11-16-2022 History of Present illness Narrative* Jonathon Castañeda ROJAS Hamilton.EMPLOYEE HEALTH NURSE - 10/02/2022 7:47 AM EST This video visit was performed via fluid Operations video visit. Patient consented to receive health care services via virtual visit for this encounter Provider [facility] Patient Location: Patient Home or Place of Residence Risks, benefits, and limitations of receiving care virtually were discussed with the patient. The patient expressed understanding and is willing to proceed. Chief Complaint: Pain History of Present Illness: Mika Ascencio is a 82 year old year old female being seen at [facility] for a evaluation and/or management of her chronic pain. She states that since the last visit symptoms have been stable. Mika Ascencio last had an office visit on 04/09/21(Dr. Haley) virtual visit on 05/03/22. She is scheduled for a virtual visit today. VAS: 4/10 Chief complaint: Neck & Shoulder pain Location: Neck & Shoulder Timing: constant Severity: moderate Quality: aching Radiation: yes,down b/l arms to hands Numbness: rupesh hands Burning: denies Tingling: rupesh. hands Weakness: yes, right arm Falls:denies Alleviating Factors: rest and meds uses heat Aggravating Factors: physical activity The pt denies any bowel or bladder dysfunction. Since the last office visit the patients medical history has not changed. The patient denies any new diagnoses, hospital visits or ER visits. The patient is currently prescribed Percocet and Robaxin from our office. The last dose of percocetwas taken last night at bedtime. The medications are effective. The pt reports constipation relieved by dulcolax, stool softeners, fish oil and a probiotic. The pt denies nausea, vomiting drowsiness,weight gain, weight loss,dizziness,and fatigue. The OARRS report has been reviewed and is consistent with the pts medical history and medication intake. Last Urine Drug Screen (UDS):03/21/22. The UDS has been reviewed and is consistent with medications prescribed. REVIEW OF SYSTEMS: GENERAL: No weight loss or fevers RESPIRATORY: Negative for cough CARDIOVASCULAR: Negative for chest pain GI: No nausea, vomiting, or diarrhea. MUSCULOSKELETAL: + for joint pain or swelling, back pain and muscle pain @lastpdiallquestions@ PAST MEDICAL HISTORY Diagnosis Date Asthma Backache, unspecified Calculus of kidney on T Diaphragmatic hernia 03/19/2010 [facility] Fundoplication Diverticulosis of colon (without mention of hemorrhage) Esophageal reflux Esophageal reflux remote EGD Family history of malignant neoplasm of breast mother Grade I diastolic dysfunction 12/14/2018 noted on Echo Hypothyroidism Lichen planus sees dermatology in [place] et A 06/2007 RIGHT LABIA, BIOPSY - LICHEN SCLEROSIS first bx in 05/22. OSTEOPENIA 10/2007 [facility] T-SCORE -1.8 Other and unspecified hyperlipidemia 10/2007 292 Personal history of tobacco use, presenting hazards to health Personal history of urinary (tract) infection 08/2007 PMH - PAST MEDICAL HISTORY OF . Solid hepatic masses consistent with a hemangioma. Rheumatoid arthritis(714.0) Symptomatic states associated with artificial menopause Thyroid cancer (HCC) Unspecified asthma, with exacerbation occ prednisone use Unspecified vitamin D deficiency 10/2007 25.5 PAST SURGICAL HISTORY Procedure Laterality Date APPENDECTOMY COLECTOMY PARTIAL W/ANASTOMOSIS Excision, large bowel COLONOSCOPY FLX DX W/COLLJ SPEC WHEN PFRMD 1996 Colonoscopy COLONOSCOPY FLX DX W/COLLJ SPEC WHEN PFRMD 05/22/11 ESOPHAGOGASTRODUODENOSCOPY TRANSORAL DIAGNOSTIC 01/15/2010 EGD LAPS SURG ESOPG/GSTR FUNDOPLASTY 5-3-10 P Ignacio Vianey FUndoplication PAST SURGICAL HISTORY OF right ear drum surgery age 32 REDUCTION OF LARGE BREAST 01/2008 bilaterally RPR 1ST INCAL/VNT HERNIA INCARCERATED 05/23/11 2 defects [facility] [address] Reynolds TOTAL THYROID LOBECTOMY UNI W/WO ISTHMUSECTOMY Left 03/26/2019 Dr. Michael LEHMANIS LAPS PX HRNAP HERNIORRHAPHY HERNIOTOMY VAGINAL HYSTERECTOMY UTERUS 250 GM/< mid 1989's ovaries are intact FAMILY HISTORY Problem Relation Age of Onset Breast Cancer Mother diagnosed at age 55 still living Diabetes Mother Osteoporosis Mother Stroke Father AT AGE 59 Hypertension Father Cancer Sister lung No Known Problems Brother No Known Problems Maternal Grandmother No Known Problems Maternal Grandfather No Known Problems Paternal Grandmother No Known Problems Paternal Grandfather No Known Problems Son COPD Son other (overdose) Son at age 50 Social History Tobacco Use Smoking status: Former Packs/day: 0.50 Years: 10.00 Pack years: 5.00 Types: Cigarettes Quit date: 05/12/1975 Years since quittin.4 Smokeless tobacco: Never Tobacco comments: 1974 Vaping Use Vaping Use: Never used Substance Use Topics Alcohol use: No Drug use: No Allergies: Asa [Salicylates] Shortness of Breath Comment:Gets very wheezey, like asthma attack. Aspirin Shortness of Breath Comment:wheezing Cipro [Ciprofloxaci* GI Upset Comment:levaquin tolerated 12/2011 Hydrocodone Bitartr* Rash Keflex [Cephalexin] Latex Rash Motrin [Ibuprofen] Naproxen Unknown Nsaids (Non-Steroid* Shortness of Breath Pneumococcal Vaccine Swelling Comment:Redness/inflammation at injection site Rubber Comment:Discoloration of skin Current Outpatient Medications Medication Sig cefdinir (OMNICEF) 300 mg capsule ciprofloxacin-dexAMETHasone (CIPRODEX) 0.3-0.1 % otic suspension PLACE 5 (FIVE) DROPS INTO AFFECTEDEAR TWICE DAILY levothyroxine (LEVOXYL) 112 mcg tablet Take 1 tablet daily except take 1/2 tablet on Friday and Friday. erythromycin (ROMYCIN) 5 mg/gram (0.5 %) ophthalmic ointment instill in both eyes DIRECTED twicea day nitrofurantoin monohydrate and macrocrystal (MACROBID) 100 mg capsule Take 100 mg by mouth twice daily. oxyCODONE-acetaminophen (PERCOCET 10) 10-325 mg tablet Take 1 tablet by mouth every 8 hours as needed for pain for up to 30 days. BREO ELLIPTA 200-25 mcg/dose inhaler 1 Inhalation once daily. pantoprazole DR (PROTONIX) 40 mg tablet Take 1 tablet by mouth daily before breakfast. Take on empty stomach, 1/2 hr before meal. ferrous sulfate 220 mg (44 mg iron)/5 mL elixir Take 5 mL by mouth once daily. sucralfate (CARAFATE) 1 gram tablet Take 1 tablet by mouth four times daily. albuterol HFA (VENTOLIN HFA) 90 mcg/actuation inhaler Inhale 2 Puffs as instructed every 4 hours asneeded for Wheezing/Shortness of Breath. MAGNESIUM GLUCONATE ORAL Take 1 tablet by mouth once daily. OTC PRODUCT PROBIOTIC Take one(1) tablet daily. UNSURE OF DOSE cholecalciferol(VITAMIN D 1,000 UNIT CAP) Take 2 po daily = 2,000 No current facility-administered medications for this visit. PHYSICAL EXAMINATION: VIDEO EXAM: (performed via video enabled technology) GENERAL: alert and appropriate, in no distress, well-hydrated, well nourished, and happy, smiling, interactive HEAD: normocephalic, no abnormality or lesion noted RESPIRATORY: breathing non-labored NEUROLOGIC: no obvious deficit ASSESSMENT: Patient is stable. Chronic pain is persistent. Medications are helping Mika Ascencio to have an improved quality of life. Patient compliance with Opioid Contract: patient is compliant Encounter Diagnosis ICD-10-CM 1. Chronic pain syndrome G89.4 2. Cervical spondylolysis M43.02 3. Lumbar spine pain M54.50 4. Degeneration of cervical intervertebral disc M50.30 5. Myofascial pain syndrome M79.18 PLAN: The patient understands the goal of our treatment is a reduction in pain and/or an improved level of functioning with activities of daily living. If at any time the patient does not feel the medications are helping them to achieve these goals, the medications may be discontinued. The patient reports a reduction in pain and/or an improved level of functioning with activities of daily living, denies any significant adverse effects, is compliant with the pain management agreement and there are no signs of medication misuse, abuse or diversion; therefore, the medications will be continued. Continue Percocet. (mmeq=45.00) Continue robaxin Continue Dulcolax, stool softeners, and probiotics for OIC symptoms. Follow-up in 1 month (next appt is with Marissa-in the office then Dr. Haley-last seen on 04/09/21) Jonathon Hamilton APRN.CNP documented in this encounterRegional Medical Center10-18-2022 Miscellaneous Notes* Telephone Encounter - Jonathon Hamilton APRN.CNP - 09/03/2022 10:14 AM EDT Pt can reschedule and get an ealier appt if able or wait until her 09/18/22 to be prescribed narcotics. * Telephone Encounter - Apurva Pike RN - 09/03/2022 10:02 AM EDT Attempted to call patient to schedule with Jonathon rivera and no answer * Telephone Encounter - Jyoti Pacheco RN - 09/03/2022 8:08 AM EDT Left message on machine informing patient to call the office. Informed Penny J. To reach out to the patient. Jyoti Pacheco RN * Telephone Encounter - Jonathon Hamilton APRN.CNP - 09/02/2022 10:31 PM EDT Pt has to be seen within 3 months to receive narcotics. She will need an earlier visit. She can be added to my schedule on 09/03/22 if she is able to do a virtual visit. * Telephone Encounter - Pratima Morin RN - 09/02/2022 3:06 PM EDT Pt is requesting RF on robaxin and percocet. She was last seen on 05/03/22 to follow up in 2 months.She no showed apt on 07/10/22 and then we cancelled apt on 08/06/22. She is rescheduled on 09/20/22. Please advise on RF. Pratima Morin RN September 02, 2022 3:07 PM documented in this encounterRegional Medical Center09-16-2022 Miscellaneous Notes* Telephone Encounter - Jonathon Hamilton APRN.CNP - 08/02/2022 4:33 PM EDT The following approved medication requests have been transmitted electronically. Requested Prescriptions Signed Prescriptions Disp Refills methocarbamol (ROBAXIN) 750 mg tablet 90 tablet 0 Sig: Take 1 tablet by mouth three times daily as needed. Authorizing Provider: JONATHON HAMILTON oxyCODONE-acetaminophen (PERCOCET 10) 10-325 mg tablet 90 tablet 0 Sig: Take 1 tablet by mouth every 8 hours as needed for pain for up to 30 days. Authorizing Provider: JONATHON HAMILTON APRN.CNP * Telephone Encounter - Pratima Morin RN - 08/02/2022 2:50 PM EDT Patient phones requesting refills as follows: Requested Prescriptions Pending Prescriptions Disp Refills methocarbamol (ROBAXIN) 750 mg tablet 90 tablet 0 Sig: Take 1 tablet by mouth three times daily as needed. oxyCODONE-acetaminophen (PERCOCET 10) 10-325 mg tablet 90 tablet 0 Sig: Take 1 tablet by mouth every 8 hours as needed for pain for up to 30 days. Please review and advise. Pratima Morin RN documented in this encounterReg[facility]09-16-2022 History of Present illness Narrative* Nell Sims MD - 08/02/2022 12:28 PM EDT Reason for Visit No chief complaint on file. Mika Ascencio is a 82 year old female who presents here today for Above Complaints. Health Maintenance SPIROMETRY SHINGRIX VACCINE(1 of 2) DTAP,TDAP,TD(1 - Tdap) PNEUMOCOCCAL: 65+(2 - PCV) COVID-19 VACCINE(3 - Booster for Pfizer series) ADVANCE DIRECTIVE DISCUSSION INFLUENZA(1) HPI She has been sleeping a lot lately HTN: Compliant with medications. Denies any chest pain, palpitations, or edema. No SOB. Doesn't check BP at home generally. Careful with diet to avoid salt, trying to eat more fruits and vegetables, exercises regularly. Hypothyroidism. She is doing well on her current dose of Synthroid. Denies fatigue, cold intolerance and swelling in feet. TSH recently checked and normal. Patient takes the stomach pill in the morning. Along with the carafate She had 2 donuts for bf with coffee and had bread with eggs and coffee, and dinner is usually chad beaver. Patients DIL stated today that patient is seeing things and talking non reality things For ex today she thought she was coming to a drama that has her , kids etc She always sees things and talk to imaginary people Patient was seen recently by Dr Jarett Schofield , who noted her lung issues are stable No problem-specific Assessment & Plan notes found for this encounter. PAST MEDICAL HISTORY Diagnosis Date Asthma Backache, unspecified Calculus of kidney on T Diaphragmatic hernia 03/19/2010 Vianey Fundoplication Diverticulosis of colon (without mention of hemorrhage) Esophageal reflux Esophageal reflux remote EGD Family history of malignant neoplasm of breast mother Grade I diastolic dysfunction 12/14/2018 noted on Echo Hypothyroidism Lichen planus sees dermatology in [place] et A 06/2007 RIGHT LABIA, BIOPSY - LICHEN SCLEROSIS first bx in 05/22. OSTEOPENIA 10/2007 [facility] T-SCORE -1.8 Other and unspecified hyperlipidemia 10/2007 292 Personal history of tobacco use, presenting hazards to health Personal history of urinary (tract) infection 08/2007 PMH - PAST MEDICAL HISTORY OF . Solid hepatic masses consistent with a hemangioma. Rheumatoid arthritis(714.0) Symptomatic states associated with artificial menopause Thyroid cancer (HCC) Unspecified asthma, with exacerbation occ prednisone use Unspecified vitamin D deficiency 10/2007 25.5 PAST SURGICAL HISTORY Procedure Laterality Date APPENDECTOMY COLECTOMY PARTIAL W/ANASTOMOSIS Excision, large bowel COLONOSCOPY FLX DX W/COLLJ SPEC WHEN PFRMD 1996 Colonoscopy COLONOSCOPY FLX DX W/COLLJ SPEC WHEN PFRMD 05/22/11 ESOPHAGOGASTRODUODENOSCOPY TRANSORAL DIAGNOSTIC 01/15/2010 EGD LAPS SURG ESOPG/GSTR FUNDOPLASTY 5-3-10 P Ignacio Vianey FUndoplication PAST SURGICAL HISTORY OF right ear drum surgery age 32 REDUCTION OF LARGE BREAST 01/2008 bilaterally RPR 1ST INCAL/VNT HERNIA INCARCERATED 05/23/11 2 defects [facility]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 10/2007 292 Personal history of tobacco use, presenting hazards to health Personal history of urinary (tract) infection 08/2007 PMH - PAST MEDICAL HISTORY OF . Solid hepatic masses consistent with a hemangioma. Rheumatoid arthritis(714.0) Symptomatic states associated with artificial menopause Thyroid cancer (HCC) Unspecified asthma, with exacerbation occ prednisone use Unspecified vitamin D deficiency 10/2007 25.5 PAST SURGICAL HISTORY Procedure Laterality Date APPENDECTOMY COLECTOMY PARTIAL W/ANASTOMOSIS Excision, large bowel COLONOSCOPY FLX DX W/COLLJ SPEC WHEN PFRMD 1996 Colonoscopy COLONOSCOPY FLX DX W/COLLJ SPEC WHEN PFRMD 05/22/11 ESOPHAGOGASTRODUODENOSCOPY TRANSORAL DIAGNOSTIC 01/15/2010 EGD LAPS SURG ESOPG/GSTR FUNDOPLASTY 5-3-10 P Ignacio Vianey FUndoplication PAST SURGICAL HISTORY OF right ear drum surgery age 32 REDUCTION OF LARGE BREAST 01/2008 bilaterally RPR 1ST INCAL/VNT HERNIA INCARCERATED 05/23/11 2 defects [facility] [address]. Reynolds TOTAL THYROID LOBECTOMY UNI W/WO ISTHMUSECTOMY Left 03/26/2019 Dr. Michael LEHMANIS LAPS PX HRNAP HERNIORRHAPHY HERNIOTOMY VAGINAL HYSTERECTOMY UTERUS 250 GM/< mid 1989's ovaries are intact FAMILY HISTORY Problem Relation Age of Onset Breast Cancer Mother diagnosed at age 55 still living Diabetes Mother Osteoporosis Mother Stroke Father AT AGE 59 Hypertension Father Cancer Sister lung No Known Problems Brother No Known Problems Maternal Grandmother No Known Problems Maternal Grandfather No Known Problems Paternal Grandmother No Known Problems Paternal Grandfather No Known Problems Son COPD Son other (overdose) Son at age 50 Social History Tobacco Use Smoking status: Former Smoker Packs/day: 0.50 Years: 10.00 Pack years: 5.00 Types: Cigarettes Quit date: 05/12/1975 Years since quittin.9 Smokeless tobacco: Never Used Tobacco comment: 1974 Vaping Use Vaping Use: Never used Substance Use Topics Alcohol use: No Drug use: No Outpatient Medications as of 04/19/2022 Medication Sig levothyroxine (LEVOXYL) 112 mcg tablet Take 1 tablet by mouth once daily. BREO ELLIPTA 200-25 mcg/dose inhaler 1 Inhalation as needed. methocarbamol (ROBAXIN) 750 mg tablet Take 1 tablet by mouth twice daily. albuterol HFA (VENTOLIN HFA) 90 mcg/actuation inhaler Inhale 2 Puffs as instructed every 4 hours asneeded for Wheezing/Shortness of Breath. oxyCODONE-acetaminophen (PERCOCET 10) 10-325 mg tablet Take 1 tablet by mouth as needed. MAGNESIUM GLUCONATE ORAL Take 1 tablet by mouth once daily. OTC PRODUCT PROBIOTIC Take one(1) tablet daily. UNSURE OF DOSE cholecalciferol(VITAMIN D 1,000 UNIT CAP) Take 2 po daily = 2,000 pregabalin (LYRICA) 25 mg capsule Take 25 mg by mouth twice daily. (Patient not taking: Reported on04/19/2022) pantoprazole DR (PROTONIX) 40 mg tablet Take 1 tablet by mouth daily before breakfast. Take on empty stomach, 1/2 hr before meal. (Patient not taking: Reported on 04/19/2022 ) No current facility-administered medications on file as of 04/19/2022. Review of Systems Constitutional: Positive for fatigue. Negative for activity change, appetite change and unexpected weight change. Gradual 9 lb wt los x 10 months. HENT: Negative for sore throat, trouble swallowing and voice change. Eyes: Positive for redness and itching. Negative for visual disturbance. Allergies, dry eyes. Respiratory: Negative for cough, choking, chest tightness and shortness of breath. Cardiovascular: Negative for chest pain, palpitations and leg swelling. Gastrointestinal: Negative for abdominal pain, constipation, diarrhea, nausea and vomiting. Has heartburn frequently. Endocrine: Negative for cold intolerance, heat intolerance and polyphagia. Genitourinary: Negative for difficulty urinating and dysuria. Hx UTI's, recently had UTI in February,. Musculoskeletal: Positive for arthralgias. Negative for back pain, gait problem and myalgias. Skin: Negative for color change and rash. No dry skin. No nail bed changes. Neurological: Negative for dizziness, tremors, weakness, light-headedness, numbness and headaches. Hematological: Negative for adenopathy. Does not bruise/bleed easily. Psychiatric/Behavioral: Negative for confusion, dysphoric mood and sleep disturbance. The patient is not nervous/anxious. Physical Exam Constitutional: General: She is not in acute distress. Appearance: She is normal weight. Comments: Appears fatigued. HENT: Head: Normocephalic and atraumatic. Eyes: General: No scleral icterus. Extraocular Movements: Extraocular movements intact. Pupils: Pupils are equal, round, and reactive to light. Neck: Vascular: No carotid bruit. Comments: Scar present, no thyroid tissue palpable. Cardiovascular: Rate and Rhythm: Normal rate and regular rhythm. Pulses: Normal pulses. Heart sounds: Normal heart sounds. No murmur heard. Pulmonary: Effort: Pulmonary effort is normal. Breath sounds: Normal breath sounds. Abdominal: General: Bowel sounds are normal. Palpations: Abdomen is soft. Musculoskeletal: General: No deformity. Normal range of motion. Cervical back: Normal range of motion and neck supple. Right lower leg: No edema. Left lower leg: No edema. Skin: General: Skin is warm and dry. Findings: No bruising, lesion or rash. Neurological: General: No focal deficit present. Mental Status: She is alert and oriented to person, place, and time. Cranial Nerves: No cranial nerve deficit. Motor: No weakness. Comments: No tremor. Psychiatric: Mood and Affect: Mood normal. Judgment: Judgment normal. BP 150/80 Pulse 63 Ht 157.5 cm (5' 2 ) Wt 60.1 kg (132 lb 6.4 oz) SpO2 99% BMI 24.22 kg/mBody mass index is 24.22 kg/m . LABORATORY RESULTS: Hemoglobin (g/dL) Date Value 03/25/2022 10.0 11/08/2019 11.4 Hematocrit (%) Date Value 03/25/2022 36.4 11/08/2019 39.5 WBC (k/uL) Date Value 03/25/2022 5.91 11/08/2019 6.98 Platelet Count (k/uL) Date Value 03/25/2022 392 11/08/2019 382 Potassium (mmol/L) Date Value 03/25/2022 4.0 07/10/2021 4.2 Sodium (mmol/L) Date Value 03/25/2022 142 07/10/2021 141 Creatinine (mg/dL) Date Value 03/25/2022 0.69 07/10/2021 0.79 BUN (mg/dL) Date Value 03/25/2022 17 07/10/2021 12 Glucose (mg/dL) Date Value 03/25/2022 84 07/10/2021 70 TSH Date Value 03/25/2022 0.109 mIU/L 07/10/2021 0.615 uU/mL Lipids: Cholesterol, Total (mg/dL) Date Value 03/25/2022 246 07/10/2021 229 HDL Cholesterol (mg/dL) Date Value 03/25/2022 59 07/10/2021 59 LDL Cholesterol (mg/dL) Date Value 03/25/2022 170 07/10/2021 147 Triglyceride (mg/dL) Date Value 03/25/2022 85 07/10/2021 117 Albumin (g/dL) Date Value 03/25/2022 3.9 Bilirubin, Total (mg/dL) Date Value 03/25/2022 0.2 Alkaline Phosphatase (U/L) Date Value 03/25/2022 62 AST (U/L) Date Value 03/25/2022 13 ALT (U/L) Date Value 03/25/2022 <5 (L) Protein, Total (g/dL) Date Value 03/25/2022 6.5 No results found for: LVEF No results found for: HBA1C ASSESSMENT/PLAN: 1. Postoperative hypothyroidism - ICD9: 244.0, ICD10: E89.0 (primary diagnosis) - On levothyroxine 112 mcg daily. TSH is 0.109 on March 25, 2022. Patient has lost about 9 pounds weight in the last 10 months and may have lower dose requirement. We will aim for TSH to be close to 1.0to avoid any risks and side effects of excessive replacement since patient is elderly. - Instructed patient on importance of taking on an empty stomach first thing in the morning, alone with water 30 minutes AC. Per patient's daughter, patient's has a pillbox and gives her the medication in the morning. Compliance with treatment discussed with patient. - Decrease levothyroxine to 112 mcg Friday through Friday and take half tablet on Sundays. LEVOTHYROXINE 112 MCG TABLET, Rx sent 90 days + 1RF - TSH BLD 2. Thyroid cancer (HCC) - ICD9: 193, ICD10: C73 -Papillary thyroid cancer, patient had a 4.5 cm left lobe tumor and 1.9 mm right lobe tumor. She did not have any evidence of lymph node or any distant metastasis. She had I-131 treatment 150 mCi in July 2019. Follow-up scan in August 2020 did not show any uptake and her thyroglobulin was 0.5upon withdrawal from thyroid hormone with a corresponding TSH of 73. -Patient is in remission clinically and biochemically - LEVOTHYROXINE 112 MCG TABLET - THYROID CANCER (THYROGLOBULIN) MONITOR 3. S/P thyroidectomy - ICD9: 246.8, ICD10: E89.0 -Left thyroid lobectomy in March 2019 and right completion thyroidectomy in June 2019. - LEVOTHYROXINE 112 MCG TABLET 4. Vitamin D deficiency - ICD9: 268.9, ICD10: E55.9 - Stable on vitamin D3 2000 IUs daily, vitamin D level is 33. 5. Malaise and fatigue - ICD9: 780.79, ICD10: R53.81, R53.83 -Not likely due to thyroid or vitamin D deficiency. Patient is anemic and has low ferritin, which could be contributing to her fatigue. She is due to follow- up with her PCP. Vanessa Garza MD Follow up: 6 months Lab/tests orders placed for TSH, TG before next visit. April 19, 2022 10:05 AM Please note, the time of this note does not reflect the time I saw this patient today, but the timeof this documentation. documented in this encounterReg[facility]05-18-[facility]22 Miscellaneous Notes* Telephone Encounter - Manuela Ball RN - 04/03/2022 11:44 AM EDT Pt called and is notified of providers message. Pt voices understanding. She states she will be at her appointment. Manuela Ball RN * Telephone Encounter - Jefferson Geronimo Ma - 04/02/2022 2:47 PM EDT Left message to call office. 04/02/2022 2:47 PM Jefferson Geronimo Ma * Telephone Encounter - Savita Velasquez Ma - 04/01/2022 2:23 PM EDT Left message for return call. * Telephone Encounter - Dorina Lew APRN.CNP - 03/27/2022 4:54 PM EDT Please let patient know her lab work will be reviewed at her upcoming appointment with Dr. Sims. If she is unable to make that appointment for any reason then please let us know so we can address. Thank you Dorina Lew APRN.ALEXX documented in this encounterRegional [facility] Center05-12-2022 History of Present illness Narrative* Ivanna Monroy RRT - 03/28/2022 2:34 PM EDT PULM FUNCTION SMARTBLOCK: Provider: Nell Sims MD Assisting Tech: Ivanna Monroy RRT Spirometry w/BD: 1 LV - Box: 1 System: [id number] documented in this encounterRegional [facility] Center05-04-2022 Miscellaneous Notes* Telephone Encounter - Manuela Ball RN - 03/20/2022 1:26 PM EDT Pt called in and asked to have urine culture results faxed over to Dr Addison's office. Faxed to # [phone]. documented in this encounterRegional [facility] Center04-21-2022 History of Present illness Narrative* Dorina Lew APRN.CNP - 03/07/2022 12:52 PM EDT CC: Patient presents with: Recheck HPI Mika Ascencio is a 82 year old female who presents today. Originally visit was to discuss lab work, spirometry, and CXR results ordered at last visit but none of these were completed. Patient is accompanied by DIL and DIL states she will make sure these get completed as previously ordered. Patient does report increased urination. Patient's states that he thinks it is foul smelling and darker than usual. Has a history of recurrent UTIs with one resulting in sepsis. Last UTI, per DIL, was 1-2 months ago and she is unsure what antibiotic was used. Patient reports increased urination for the past week and even has had to get up in the middle of the night to urinate. States it takes a few minutes to start the stream of urine but that is typical for her. Denies back pain. Urinary pain, blood in urine, abdominal pain, fever, or chills. REVIEW OF SYSTEMS General: no fevers, no chills, no night sweats, no change in appetite, no change in energy and no significant changes in weight Respiratory: no cough, no wheezing, no shortness of breath, no hemoptysis Cardiovascular: no chest pain, no chest pressure, no palpitations and no swelling GI: No nausea, vomiting, or diarrhea : See HPI PAST MEDICAL HISTORY Diagnosis Date Asthma Backache, unspecified Calculus of kidney on T Diaphragmatic hernia 03-19-10 Vianey Fundoplication Diverticulosis of colon (without mention of hemorrhage) Esophageal reflux Esophageal reflux remote EGD Family history of malignant neoplasm of breast mother Grade I diastolic dysfunction 12/14/2018 noted on Echo Lichen planus sees dermatology in [place] et A 06/2007 RIGHT LABIA, BIOPSY - LICHEN SCLEROSIS first bx in 05/22. OSTEOPENIA 10/2007 [facility] T-SCORE -1.8 Other and unspecified hyperlipidemia 10/2007 292 Personal history of tobacco use, presenting hazards to health Personal history of urinary (tract) infection 08/2007 PMH - PAST MEDICAL HISTORY OF . Solid hepatic masses consistent with a hemangioma. Rheumatoid arthritis(714.0) Symptomatic states associated with artificial menopause Unspecified asthma, with exacerbation occ prednisone use Unspecified vitamin D deficiency 10/2007 25.5 PAST SURGICAL HISTORY Procedure Laterality Date APPENDECTOMY COLECTOMY PARTIAL W/ANASTOMOSIS Excision, large bowel COLONOSCOPY FLX DX W/COLLJ SPEC WHEN PFRMD 1996 Colonoscopy COLONOSCOPY FLX DX W/COLLJ SPEC WHEN PFRMD 05/22/11 ESOPHAGOGASTRODUODENOSCOPY TRANSORAL DIAGNOSTIC 01/15/2010 EGD LAPS SURG ESOPG/GSTR FUNDOPLASTY 5-3-10 P Ignacio Vianey FUndoplication PAST SURGICAL HISTORY OF right ear drum surgery age 32 REDUCTION OF LARGE BREAST 01/2008 bilaterally RPR 1ST INCAL/VNT HERNIA INCARCERATED 05/23/11 2 defects [facility] [address] Reynolds TOTAL THYROID LOBECTOMY UNI W/WO ISTHMUSECTOMY Left 03/26/2019 Dr. Rodriguez UNLIS LAPS PX HRNAP HERNIORRHAPHY HERNIOTOMY VAGINAL HYSTERECTOMY UTERUS 250 GM/< mid 1989' ovaries are intact ALLERGIES Asa [Salicylates], Aspirin, Cipro [Ciprofloxacin], Hydrocodone Bitartrate, Keflex [Cephalexin], Latex, Motrin [Ibuprofen], Naproxen, Pneumococcal Vaccine, and Rubber MEDICATIONS levothyroxine (LEVOXYL) 112 mcg tablet Take 1 tablet by mouth once daily. Take on empty stomach. For thyroid. methocarbamol (ROBAXIN) 750 mg tablet Take 1 tablet by mouth three times daily. pantoprazole DR (PROTONIX) 40 mg tablet Take 1 tablet by mouth daily before breakfast. Take on empty stomach, 1/2 hr before meal. albuterol HFA (VENTOLIN HFA) 90 mcg/actuation inhaler Inhale 2 Puffs as instructed every 4 hours asneeded for Wheezing/Shortness of Breath. hydrocortisone 2.5 % cream Apply 1 application to affected area twice daily. Apply to affected areasparingly. LYRICA 75 mg capsule Take 75 mg by mouth twice daily. oxyCODONE-acetaminophen (PERCOCET 10) 10-325 mg tablet Take 1 tablet by mouth as needed. albuterol (PROVENTIL) 2.5 mg/0.5 mL nebulizer solution Use 0.5 mL via nebulizer every 4 hours as needed. Use via nebulizer three times daily as needed. OVER 5- 15 MINUTES. FOR WHEEZING AND SHORTNESS OF BREATH. MAGNESIUM GLUCONATE ORAL Take 1 tablet by mouth as needed. OTC PRODUCT PROBIOTIC Take one(1) tablet daily. UNSURE OF DOSE cholecalciferol(VITAMIN D 1,000 UNIT CAP) Take 2 po daily = 2,000 FAMILY HISTORY Problem Relation Age of Onset Stroke Father AT AGE 59 Hypertension Father Breast Cancer Mother diagnosed at age 55 still living Diabetes Mother Osteoporosis Mother Cancer Sister lung other ( in MVA) Sister Social History Tobacco Use Smoking status: Former Smoker Packs/day: 0.50 Years: 10.00 Pack years: 5.00 Types: Cigarettes Quit date: 05/12/1975 Years since quittin.8 Smokeless tobacco: Never Used Tobacco comment: 1974 Vaping Use Vaping Use: Never used Substance Use Topics Alcohol use: No Drug use: No PHYSICAL EXAM There were no vitals taken for this visit. General Appearance: well appearing, in no acute distress, alert Eyes: conjunctiva pink and moist, no icterus, sclera white, non-injected Lungs: Lungs clear to auscultation. No wheezing, rhonchi, rales. Heart: RRR without murmur, gallop, or rubs. No ectopy Abdomen: Abdomen soft, non-tender. Bowel sounds normal. No masses, organomegaly, Negative CVA tenderness Health maintenance reviewed with patient: SPIROMETRY Never done SHINGRIX VACCINE(1 of 2) Never done DTAP,TDAP,TD(1 - Tdap) due on 10/21/2007 DEPRESSION SCREENING due on 08/19/2020 COVID-19 VACCINE(3 - Booster for Pfizer series) due on 08/08/2021 ADVANCE DIRECTIVE DISCUSSION Never done INFLUENZA(Season Ended) due on 07/18/2022 ANNUAL PCP TEAM CHRONIC DISEASE VISIT due on 01/01/2023 DIABETES SCREEN due on 07/10/2024 BONE DENSITY Completed PNEUMOVAX AGE 65 AND OVER WITH 5YR LOOKBACK Completed MENINGOCOCCAL CONJUGATE Aged Out DATA REVIEWED: No new labs ASSESSMENT/PLAN: 1. Frequent urination - ICD9: 788.41, ICD10: R35.0 recurrent - UA positive for arnaud esterase, nitrates and trace hematuria - Send urine for culture - Patient education for prevention given - UA DIP, URINE (POC) - URINE CULTURE - patient and patient's daughter unsure on last antibiotic that she was on. Last Culture we have onfile was 5 months ago and was susceptible to Bactrim DS - - Take Bactrim as prescribed - Follow up for no improvement - Go to ER for lethargy, confusion, chest pain, back pain, shortness of breath, or any other concerning symptoms. Needs to get labs, xray, and spirometry as previously ordered and then follow up to review. Prescription instructions reviewed with patient as applicable. Potential red flag symptoms discussed with the patient. Reviewed appropriate action plan to take if red flag symptoms occur. Patient agreeable to treatment plan. Dorina Lew APRN.CNP documented in this encounterRegional [facility] Center05-10-2019 History of Past illness Narrative* Problem Noted Date Resolved Date Thyroid mass 03/26/2019 03/27/2019 Painful respiration 01/27/2009 07/25/2010 Contact dermatitis and other eczema, due to unspecified cause 07/22/2008 07/25/2010 Contact dermatitis and other eczema, due to unspecified cause 03/23/2007 10/20/2007 Unspecified pruritic disorder 03/23/2007 Other and unspecified superf icial injury of other, multiple, and unspecified sites, without mention of infection 03/23/2007 Acute bronchitis 09/17/2006 07/25/2010 Open wound(s) (multiple) of unspecified site(s), without mention of complication 06/06/2006 10/20/2007 Rheumatoid arthritis(714.0) 03/2016 documented as of this encounter (statuses as of 03/07/2022) [facility] Narrative* Problem Noted Date Resolved Date Thyroid mass 03/26/2019 03/27/2019 Painful respiration 01/27/2009 07/25/2010 Contact dermatitis and other eczema, due to unspecified cause 07/22/2008 07/25/2010 Contact dermatitis and other eczema, due to unspecified cause 03/23/2007 10/20/2007 Unspecified pruritic disorder 03/23/2007 Other and unspecified superf icial injury of other, multiple, and unspecified sites, without mention of infection 03/23/2007 Acute bronchitis 09/17/2006 07/25/2010 Open wound(s) (multiple) of unspecified site(s), without mention of complication 06/06/2006 10/20/2007 Rheumatoid arthritis(714.0) 03/2016 documented as of this encounter (statuses as of 03/20/2022) [facility] Narrative* Problem Noted Date Resolved Date Thyroid mass 03/26/2019 03/27/2019 Painful respiration 01/27/2009 07/25/2010 Contact dermatitis and other eczema, due to unspecified cause 07/22/2008 07/25/2010 Contact dermatitis and other eczema, due to unspecified cause 03/23/2007 10/20/2007 Unspecified pruritic disorder 03/23/2007 Other and unspecified superf icial injury of other, multiple, and unspecified sites, without mention of infection 03/23/2007 Acute bronchitis 09/17/2006 07/25/2010 Open wound(s) (multiple) of unspecified site(s), without mention of complication 06/06/2006 10/20/2007 Rheumatoid arthritis(714.0) 03/2016 documented as of this encounter (statuses as of 03/20/2022) [facility] Narrative* Problem Noted Date Resolved Date Thyroid mass 03/26/2019 03/27/2019 Painful respiration 01/27/2009 07/25/2010 Contact dermatitis and other eczema, due to unspecified cause 07/22/2008 07/25/2010 Contact dermatitis and other eczema, due to unspecified cause 03/23/2007 10/20/2007 Unspecified pruritic disorder 03/23/2007 Other and unspecified superf icial injury of other, multiple, and unspecified sites, without mention of infection 03/23/2007 Acute bronchitis 09/17/2006 07/25/2010 Open wound(s) (multiple) of unspecified site(s), without mention of complication 06/06/2006 10/20/2007 Rheumatoid arthritis(714.0) 03/2016 documented as of this encounter (statuses as of 03/28/2022) [facility] Narrative* Problem Noted Date Resolved Date Thyroid mass 03/26/2019 03/27/2019 Painful respiration 01/27/2009 07/25/2010 Contact dermatitis and other eczema, due to unspecified cause 07/22/2008 07/25/2010 Contact dermatitis and other eczema, due to unspecified cause 03/23/2007 10/20/2007 Unspecified pruritic disorder 03/23/2007 Other and unspecified superf icial injury of other, multiple, and unspecified sites, without mention of infection 03/23/2007 Acute bronchitis 09/17/2006 07/25/2010 Open wound(s) (multiple) of unspecified site(s), without mention of complication 06/06/2006 10/20/2007 Rheumatoid arthritis(714.0) 03/2016 documented as of this encounter (statuses as of 04/03/2022) [facility] History of Past illness Narrative* Problem Noted Date Resolved Date Thyroid mass 03/26/2019 03/27/2019 Esophagitis 01/15/2010 04/04/2022 Unspecified gastritis and ga stroduodenitis without mention of hemorrhage 01/15/2010 04/04/2022 Acute gastritis without mention of hemorrhage 04/04/2022 Painful respiration 01/27/2009 07/25/2010 Unspecified erythematous condition 12/12/2008 04/04/2022 RASH///NONSPECIF SKIN ERUPT NEC 10/10/2008 04/04/2022 Contact dermatitis and other eczema, due to unspecified cause 07/22/2008 07/25/2010 Contact dermatitis and other eczema, due to unspecified cause 03/23/2007 10/20/2007 Unspecified pruritic disorder 03/23/2007 Contact dermatitis and other eczema due to other specified agent 03/23/2007 04/04/2022 Other and unspecified superf icial injury of other, multiple, and unspecified sites, without mention of infection 03/23/2007 Acute bronchitis 09/17/2006 07/25/2010 Open wound(s) (multiple) of unspecified site(s), without mention of complication 06/06/2006 10/20/2007 Asthma 05/12/2006 04/04/2022 Family history of malignant neoplasm of breast 04/04/2022 Disorder of bone and cartilage 0 04/04/2022 Last Assessment & Plan: Needs A bone density, will order for it to recheck her osteopenia as she had osteo in the past Rheumatoid arthritis(714.0) 03/2016 documented as of this encounter (statuses as of 04/19/2022) [facility] History of Past illness Narrative* Problem Noted Date Resolved Date Thyroid mass 03/26/2019 03/27/2019 Esophagitis 01/15/2010 04/04/2022 Unspecified gastritis and ga stroduodenitis without mention of hemorrhage 01/15/2010 04/04/2022 Acute gastritis without mention of hemorrhage 04/04/2022 Painful respiration 01/27/2009 07/25/2010 Unspecified erythematous condition 12/12/2008 04/04/2022 RASH///NONSPECIF SKIN ERUPT NEC 10/10/2008 04/04/2022 Contact dermatitis and other eczema, due to unspecified cause 07/22/2008 07/25/2010 Contact dermatitis and other eczema, due to unspecified cause 03/23/2007 10/20/2007 Unspecified pruritic disorder 03/23/2007 Contact dermatitis and other eczema due to other specified agent 03/23/2007 04/04/2022 Other and unspecified superf icial injury of other, multiple, and unspecified sites, without mention of infection 03/23/2007 Acute bronchitis 09/17/2006 07/25/2010 Open wound(s) (multiple) of unspecified site(s), without mention of complication 06/06/2006 10/20/2007 Asthma 05/12/2006 04/04/2022 Family history of malignant neoplasm of breast 04/04/2022 Disorder of bone and cartilage 0 04/04/2022 Last Assessment & Plan: Needs A bone density, will order for it to recheck her osteopenia as she had osteo in the past Rheumatoid arthritis(714.0) 03/2016 documented as of this encounter (statuses as of 04/29/2022) [facility] History of Past illness Narrative* Problem Noted Date Resolved Date Thyroid mass 03/26/2019 03/27/2019 Esophagitis 01/15/2010 04/04/2022 Unspecified gastritis and ga stroduodenitis without mention of hemorrhage 01/15/2010 04/04/2022 Acute gastritis without mention of hemorrhage 04/04/2022 Painful respiration 01/27/2009 07/25/2010 Unspecified erythematous condition 12/12/2008 04/04/2022 RASH///NONSPECIF SKIN ERUPT NEC 10/10/2008 04/04/2022 Contact dermatitis and other eczema, due to unspecified cause 07/22/2008 07/25/2010 Contact dermatitis and other eczema, due to unspecified cause 03/23/2007 10/20/2007 Unspecified pruritic disorder 03/23/2007 Contact dermatitis and other eczema due to other specified agent 03/23/2007 04/04/2022 Other and unspecified superf icial injury of other, multiple, and unspecified sites, without mention of infection 03/23/2007 Acute bronchitis 09/17/2006 07/25/2010 Open wound(s) (multiple) of unspecified site(s), without mention of complication 06/06/2006 10/20/2007 Asthma 05/12/2006 04/04/2022 Family history of malignant neoplasm of breast 04/04/2022 Disorder of bone and cartilage 0 04/04/2022 Last Assessment & Plan: Needs A bone density, will order for it to recheck her osteopenia as she had osteo in the past Rheumatoid arthritis(714.0) 03/2016 documented as of this encounter (statuses as of 05/03/2022) [facility] of Past illness Narrative* Problem Noted Date Resolved Date Thyroid mass 03/26/2019 03/27/2019 Esophagitis 01/15/2010 04/04/2022 Unspecified gastritis and ga stroduodenitis without mention of hemorrhage 01/15/2010 04/04/2022 Acute gastritis without mention of hemorrhage 04/04/2022 Painful respiration 01/27/2009 07/25/2010 Unspecified erythematous condition 12/12/2008 04/04/2022 RASH///NONSPECIF SKIN ERUPT NEC 10/10/2008 04/04/2022 Contact dermatitis and other eczema, due to unspecified cause 07/22/2008 07/25/2010 Contact dermatitis and other eczema, due to unspecified cause 03/23/2007 10/20/2007 Unspecified pruritic disorder 03/23/2007 Contact dermatitis and other eczema due to other specified agent 03/23/2007 04/04/2022 Other and unspecified superf icial injury of other, multiple, and unspecified sites, without mention of infection 03/23/2007 Acute bronchitis 09/17/2006 07/25/2010 Open wound(s) (multiple) of unspecified site(s), without mention of complication 06/06/2006 10/20/2007 Asthma 05/12/2006 04/04/2022 Family history of malignant neoplasm of breast 04/04/2022 Disorder of bone and cartilage 0 04/04/2022 Last Assessment & Plan: Needs A bone density, will order for it to recheck her osteopenia as she had osteo in the past Rheumatoid arthritis(714.0) 03/2016 documented as of this encounter (statuses as of 05/04/2022) [facility] of Past illness Narrative* Problem Noted Date Resolved Date Thyroid mass 03/26/2019 03/27/2019 Esophagitis 01/15/2010 04/04/2022 Unspecified gastritis and ga stroduodenitis without mention of hemorrhage 01/15/2010 04/04/2022 Acute gastritis without mention of hemorrhage 04/04/2022 Painful respiration 01/27/2009 07/25/2010 Unspecified erythematous condition 12/12/2008 04/04/2022 RASH///NONSPECIF SKIN ERUPT NEC 10/10/2008 04/04/2022 Contact dermatitis and other eczema, due to unspecified cause 07/22/2008 07/25/2010 Contact dermatitis and other eczema, due to unspecified cause 03/23/2007 10/20/2007 Unspecified pruritic disorder 03/23/2007 Contact dermatitis and other eczema due to other specified agent 03/23/2007 04/04/2022 Other and unspecified superf icial injury of other, multiple, and unspecified sites, without mention of infection 03/23/2007 Acute bronchitis 09/17/2006 07/25/2010 Open wound(s) (multiple) of unspecified site(s), without mention of complication 06/06/2006 10/20/2007 Asthma 05/12/2006 04/04/2022 Family history of malignant neoplasm of breast 04/04/2022 Disorder of bone and cartilage 0 04/04/2022 Last Assessment & Plan: Needs A bone density, will order for it to recheck her osteopenia as she had osteo in the past Rheumatoid arthritis(714.0) 03/2016 documented as of this encounter (statuses as of 05/12/2022) [facility] of Past illness Narrative* Problem Noted Date Resolved Date Thyroid mass 03/26/2019 03/27/2019 Esophagitis 01/15/2010 04/04/2022 Unspecified gastritis and ga stroduodenitis without mention of hemorrhage 01/15/2010 04/04/2022 Acute gastritis without mention of hemorrhage 04/04/2022 Painful respiration 01/27/2009 07/25/2010 Unspecified erythematous condition 12/12/2008 04/04/2022 RASH///NONSPECIF SKIN ERUPT NEC 10/10/2008 04/04/2022 Contact dermatitis and other eczema, due to unspecified cause 07/22/2008 07/25/2010 Contact dermatitis and other eczema, due to unspecified cause 03/23/2007 10/20/2007 Unspecified pruritic disorder 03/23/2007 Contact dermatitis and other eczema due to other specified agent 03/23/2007 04/04/2022 Other and unspecified superf icial injury of other, multiple, and unspecified sites, without mention of infection 03/23/2007 Acute bronchitis 09/17/2006 07/25/2010 Open wound(s) (multiple) of unspecified site(s), without mention of complication 06/06/2006 10/20/2007 Asthma 05/12/2006 04/04/2022 Family history of malignant neoplasm of breast 04/04/2022 Disorder of bone and cartilage 0 04/04/2022 Last Assessment & Plan: Needs A bone density, will order for it to recheck her osteopenia as she had osteo in the past Rheumatoid arthritis(714.0) 03/2016 documented as of this encounter (statuses as of 05/28/2022) [facility] of Past illness Narrative* Problem Noted Date Resolved Date Thyroid mass 03/26/2019 03/27/2019 Esophagitis 01/15/2010 04/04/2022 Unspecified gastritis and ga stroduodenitis without mention of hemorrhage 01/15/2010 04/04/2022 Acute gastritis without mention of hemorrhage 04/04/2022 Painful respiration 01/27/2009 07/25/2010 Unspecified erythematous condition 12/12/2008 04/04/2022 RASH///NONSPECIF SKIN ERUPT NEC 10/10/2008 04/04/2022 Contact dermatitis and other eczema, due to unspecified cause 07/22/2008 07/25/2010 Contact dermatitis and other eczema, due to unspecified cause 03/23/2007 10/20/2007 Unspecified pruritic disorder 03/23/2007 Contact dermatitis and other eczema due to other specified agent 03/23/2007 04/04/2022 Other and unspecified superf icial injury of other, multiple, and unspecified sites, without mention of infection 03/23/2007 Acute bronchitis 09/17/2006 07/25/2010 Open wound(s) (multiple) of unspecified site(s), without mention of complication 06/06/2006 10/20/2007 Asthma 05/12/2006 04/04/2022 Family history of malignant neoplasm of breast 04/04/2022 Disorder of bone and cartilage 0 04/04/2022 Last Assessment & Plan: Needs A bone density, will order for it to recheck her osteopenia as she had osteo in the past Rheumatoid arthritis(714.0) 03/2016 documented as of this encounter (statuses as of 08/02/2022) [facility] of Past illness Narrative* Problem Noted Date Resolved Date Thyroid mass 03/26/2019 03/27/2019 Esophagitis 01/15/2010 04/04/2022 Unspecified gastritis and ga stroduodenitis without mention of hemorrhage 01/15/2010 04/04/2022 Acute gastritis without mention of hemorrhage 04/04/2022 Painful respiration 01/27/2009 07/25/2010 Unspecified erythematous condition 12/12/2008 04/04/2022 RASH///NONSPECIF SKIN ERUPT NEC 10/10/2008 04/04/2022 Contact dermatitis and other eczema, due to unspecified cause 07/22/2008 07/25/2010 Contact dermatitis and other eczema, due to unspecified cause 03/23/2007 10/20/2007 Unspecified pruritic disorder 03/23/2007 Contact dermatitis and other eczema due to other specified agent 03/23/2007 04/04/2022 Other and unspecified superf icial injury of other, multiple, and unspecified sites, without mention of infection 03/23/2007 Acute bronchitis 09/17/2006 07/25/2010 Open wound(s) (multiple) of unspecified site(s), without mention of complication 06/06/2006 10/20/2007 Asthma 05/12/2006 04/04/2022 Family history of malignant neoplasm of breast 04/04/2022 Disorder of bone and cartilage 0 04/04/2022 Last Assessment & Plan: Needs A bone density, will order for it to recheck her osteopenia as she had osteo in the past Rheumatoid arthritis(714.0) 03/2016 documented as of this encounter (statuses as of 08/02/2022) [facility] of Past illness Narrative* Problem Noted Date Resolved Date Thyroid mass 03/26/2019 03/27/2019 Esophagitis 01/15/2010 04/04/2022 Unspecified gastritis and ga stroduodenitis without mention of hemorrhage 01/15/2010 04/04/2022 Acute gastritis without mention of hemorrhage 04/04/2022 Painful respiration 01/27/2009 07/25/2010 Unspecified erythematous condition 12/12/2008 04/04/2022 RASH///NONSPECIF SKIN ERUPT NEC 10/10/2008 04/04/2022 Contact dermatitis and other eczema, due to unspecified cause 07/22/2008 07/25/2010 Contact dermatitis and other eczema, due to unspecified cause 03/23/2007 10/20/2007 Unspecified pruritic disorder 03/23/2007 Contact dermatitis and other eczema due to other specified agent 03/23/2007 04/04/2022 Other and unspecified superf icial injury of other, multiple, and unspecified sites, without mention of infection 03/23/2007 Acute bronchitis 09/17/2006 07/25/2010 Open wound(s) (multiple) of unspecified site(s), without mention of complication 06/06/2006 10/20/2007 Asthma 05/12/2006 04/04/2022 Family history of malignant neoplasm of breast 04/04/2022 Disorder of bone and cartilage 0 04/04/2022 Last Assessment & Plan: Needs A bone density, will order for it to recheck her osteopenia as she had osteo in the past Rheumatoid arthritis(714.0) 03/2016 documented as of this encounter (statuses as of 08/02/2022) [facility] of Past illness Narrative* Problem Noted Date Resolved Date Thyroid mass 03/26/2019 03/27/2019 Esophagitis 01/15/2010 04/04/2022 Unspecified gastritis and ga stroduodenitis without mention of hemorrhage 01/15/2010 04/04/2022 Acute gastritis without mention of hemorrhage 04/04/2022 Painful respiration 01/27/2009 07/25/2010 Unspecified erythematous condition 12/12/2008 04/04/2022 RASH///NONSPECIF SKIN ERUPT NEC 10/10/2008 04/04/2022 Contact dermatitis and other eczema, due to unspecified cause 07/22/2008 07/25/2010 Contact dermatitis and other eczema, due to unspecified cause 03/23/2007 10/20/2007 Unspecified pruritic disorder 03/23/2007 Contact dermatitis and other eczema due to other specified agent 03/23/2007 04/04/2022 Other and unspecified superf icial injury of other, multiple, and unspecified sites, without mention of infection 03/23/2007 Acute bronchitis 09/17/2006 07/25/2010 Open wound(s) (multiple) of unspecified site(s), without mention of complication 06/06/2006 10/20/2007 Asthma 05/12/2006 04/04/2022 Family history of malignant neoplasm of breast 04/04/2022 Disorder of bone and cartilage 0 04/04/2022 Last Assessment & Plan: Needs A bone density, will order for it to recheck her osteopenia as she had osteo in the past Rheumatoid arthritis(714.0) 03/2016 documented as of this encounter (statuses as of 09/03/2022) [facility] of Past illness Narrative* Problem Noted Date Resolved Date Thyroid mass 03/26/2019 03/27/2019 Esophagitis 01/15/2010 04/04/2022 Unspecified gastritis and ga stroduodenitis without mention of hemorrhage 01/15/2010 04/04/2022 Acute gastritis without mention of hemorrhage 04/04/2022 Painful respiration 01/27/2009 07/25/2010 Unspecified erythematous condition 12/12/2008 04/04/2022 RASH///NONSPECIF SKIN ERUPT NEC 10/10/2008 04/04/2022 Contact dermatitis and other eczema, due to unspecified cause 07/22/2008 07/25/2010 Contact dermatitis and other eczema, due to unspecified cause 03/23/2007 10/20/2007 Unspecified pruritic disorder 03/23/2007 Contact dermatitis and other eczema due to other specified agent 03/23/2007 04/04/2022 Other and unspecified superf icial injury of other, multiple, and unspecified sites, without mention of infection 03/23/2007 Acute bronchitis 09/17/2006 07/25/2010 Open wound(s) (multiple) of unspecified site(s), without mention of complication 06/06/2006 10/20/2007 Asthma 05/12/2006 04/04/2022 Family history of malignant neoplasm of breast 04/04/2022 Disorder of bone and cartilage 0 04/04/2022 Last Assessment & Plan: Needs A bone density, will order for it to recheck her osteopenia as she had osteo in the past Rheumatoid arthritis(714.0) 03/2016 documented as of this encounter (statuses as of 10/02/2022) [facility] Past illness Narrative* Problem Noted Date Resolved Date Thyroid mass 03/26/2019 03/27/2019 Esophagitis 01/15/2010 04/04/2022 Unspecified gastritis and ga stroduodenitis without mention of hemorrhage 01/15/2010 04/04/2022 Acute gastritis without mention of hemorrhage 04/04/2022 Painful respiration 01/27/2009 07/25/2010 Unspecified erythematous condition 12/12/2008 04/04/2022 RASH///NONSPECIF SKIN ERUPT NEC 10/10/2008 04/04/2022 Contact dermatitis and other eczema, due to unspecified cause 07/22/2008 07/25/2010 Contact dermatitis and other eczema, due to unspecified cause 03/23/2007 10/20/2007 Unspecified pruritic disorder 03/23/2007 Contact dermatitis and other eczema due to other specified agent 03/23/2007 04/04/2022 Other and unspecified superf icial injury of other, multiple, and unspecified sites, without mention of infection 03/23/2007 Acute bronchitis 09/17/2006 07/25/2010 Open wound(s) (multiple) of unspecified site(s), without mention of complication 06/06/2006 10/20/2007 Asthma 05/12/2006 04/04/2022 Family history of malignant neoplasm of breast 04/04/2022 Disorder of bone and cartilage 0 04/04/2022 Last Assessment & Plan: Needs A bone density, will order for it to recheck her osteopenia as she had osteo in the past Rheumatoid arthritis(714.0) 03/2016 documented as of this encounter (statuses as of 10/11/2022) [facility] Narrative* Problem Noted Date Resolved Date Thyroid mass 03/26/2019 03/27/2019 Esophagitis 01/15/2010 04/04/2022 Unspecified gastritis and ga stroduodenitis without mention of hemorrhage 01/15/2010 04/04/2022 Acute gastritis without mention of hemorrhage 04/04/2022 Painful respiration 01/27/2009 07/25/2010 Unspecified erythematous condition 12/12/2008 04/04/2022 RASH///NONSPECIF SKIN ERUPT NEC 10/10/2008 04/04/2022 Contact dermatitis and other eczema, due to unspecified cause 07/22/2008 07/25/2010 Contact dermatitis and other eczema, due to unspecified cause 03/23/2007 10/20/2007 Unspecified pruritic disorder 03/23/2007 Contact dermatitis and other eczema due to other specified agent 03/23/2007 04/04/2022 Other and unspecified superf icial injury of other, multiple, and unspecified sites, without mention of infection 03/23/2007 Acute bronchitis 09/17/2006 07/25/2010 Open wound(s) (multiple) of unspecified site(s), without mention of complication 06/06/2006 10/20/2007 Asthma 05/12/2006 04/04/2022 Family history of malignant neoplasm of breast 04/04/2022 Disorder of bone and cartilage 0 04/04/2022 Last Assessment & Plan: Needs A bone density, will order for it to recheck her osteopenia as she had osteo in the past Rheumatoid arthritis(714.0) 03/2016 documented as of this encounter (statuses as of 10/29/2022) [facility] Narrative* Problem Noted Date Resolved Date Thyroid mass 03/26/2019 03/27/2019 Esophagitis 01/15/2010 04/04/2022 Unspecified gastritis and ga stroduodenitis without mention of hemorrhage 01/15/2010 04/04/2022 Acute gastritis without mention of hemorrhage 04/04/2022 Painful respiration 01/27/2009 07/25/2010 Unspecified erythematous condition 12/12/2008 04/04/2022 RASH///NONSPECIF SKIN ERUPT NEC 10/10/2008 04/04/2022 Contact dermatitis and other eczema, due to unspecified cause 07/22/2008 07/25/2010 Contact dermatitis and other eczema, due to unspecified cause 03/23/2007 10/20/2007 Unspecified pruritic disorder 03/23/2007 Contact dermatitis and other eczema due to other specified agent 03/23/2007 04/04/2022 Other and unspecified superf icial injury of other, multiple, and unspecified sites, without mention of infection 03/23/2007 Acute bronchitis 09/17/2006 07/25/2010 Open wound(s) (multiple) of unspecified site(s), without mention of complication 06/06/2006 10/20/2007 Asthma 05/12/2006 04/04/2022 Family history of malignant neoplasm of breast 04/04/2022 Disorder of bone and cartilage 0 04/04/2022 Last Assessment & Plan: Needs A bone density, will order for it to recheck her osteopenia as she had osteo in the past Rheumatoid arthritis(714.0) 03/2016 documented as of this encounter (statuses as of 11/01/2022) [facility] Narrative* Problem Noted Date Resolved Date Thyroid mass 03/26/2019 03/27/2019 Esophagitis 01/15/2010 04/04/2022 Unspecified gastritis and ga stroduodenitis without mention of hemorrhage 01/15/2010 04/04/2022 Acute gastritis without mention of hemorrhage 04/04/2022 Painful respiration 01/27/2009 07/25/2010 Unspecified erythematous condition 12/12/2008 04/04/2022 RASH///NONSPECIF SKIN ERUPT NEC 10/10/2008 04/04/2022 Contact dermatitis and other eczema, due to unspecified cause 07/22/2008 07/25/2010 Contact dermatitis and other eczema, due to unspecified cause 03/23/2007 10/20/2007 Unspecified pruritic disorder 03/23/2007 Contact dermatitis and other eczema due to other specified agent 03/23/2007 04/04/2022 Other and unspecified superf icial injury of other, multiple, and unspecified sites, without mention of infection 03/23/2007 Acute bronchitis 09/17/2006 07/25/2010 Open wound(s) (multiple) of unspecified site(s), without mention of complication 06/06/2006 10/20/2007 Asthma 05/12/2006 04/04/2022 Family history of malignant neoplasm of breast 04/04/2022 Disorder of bone and cartilage 0 04/04/2022 Last Assessment & Plan: Needs A bone density, will order for it to recheck her osteopenia as she had osteo in the past Rheumatoid arthritis(714.0) 03/2016 documented as of this encounter (statuses as of 11/26/2022) [facility]arrative* Problem Noted Date Resolved Date Thyroid mass 03/26/2019 03/27/2019 Esophagitis 01/15/2010 04/04/2022 Unspecified gastritis and ga stroduodenitis without mention of hemorrhage 01/15/2010 04/04/2022 Acute gastritis without mention of hemorrhage 04/04/2022 Painful respiration 01/27/2009 07/25/2010 Unspecified erythematous condition 12/12/2008 04/04/2022 RASH///NONSPECIF SKIN ERUPT NEC 10/10/2008 04/04/2022 Contact dermatitis and other eczema, due to unspecified cause 07/22/2008 07/25/2010 Contact dermatitis and other eczema, due to unspecified cause 03/23/2007 10/20/2007 Unspecified pruritic disorder 03/23/2007 Contact dermatitis and other eczema due to other specified agent 03/23/2007 04/04/2022 Other and unspecified superf icial injury of other, multiple, and unspecified sites, without mention of infection 03/23/2007 Acute bronchitis 09/17/2006 07/25/2010 Open wound(s) (multiple) of unspecified site(s), without mention of complication 06/06/2006 10/20/2007 Asthma 05/12/2006 04/04/2022 Family history of malignant neoplasm of breast 04/04/2022 Disorder of bone and cartilage 0 04/04/2022 Last Assessment & Plan: Needs A bone density, will order for it to recheck her osteopenia as she had osteo in the past Rheumatoid arthritis(714.0) 03/2016 documented as of this encounter (statuses as of 12/15/2022) [facility] Past [facility] Narrative* Problem Noted Date Resolved Date Thyroid mass 03/26/2019 03/27/2019 Esophagitis 01/15/2010 04/04/2022 Unspecified gastritis and ga stroduodenitis without mention of hemorrhage 01/15/2010 04/04/2022 Acute gastritis without mention of hemorrhage 04/04/2022 Painful respiration 01/27/2009 07/25/2010 Unspecified erythematous condition 12/12/2008 04/04/2022 RASH///NONSPECIF SKIN ERUPT NEC 10/10/2008 04/04/2022 Contact dermatitis and other eczema, due to unspecified cause 07/22/2008 07/25/2010 Contact dermatitis and other eczema, due to unspecified cause 03/23/2007 10/20/2007 Unspecified pruritic disorder 03/23/2007 Contact dermatitis and other eczema due to other specified agent 03/23/2007 04/04/2022 Other and unspecified superf icial injury of other, multiple, and unspecified sites, without mention of infection 03/23/2007 Acute bronchitis 09/17/2006 07/25/2010 Open wound(s) (multiple) of unspecified site(s), without mention of complication 06/06/2006 10/20/2007 Asthma 05/12/2006 04/04/2022 Family history of malignant neoplasm of breast 04/04/2022 Disorder of bone and cartilage 0 04/04/2022 Last Assessment & Plan: Needs A bone density, will order for it to recheck her osteopenia as she had osteo in the past Rheumatoid arthritis(714.0) 03/2016 documented as of this encounter (statuses as of 12/17/2022) [facility]arrative* Problem Noted Date Resolved Date Thyroid mass 03/26/2019 03/27/2019 Esophagitis 01/15/2010 04/04/2022 Unspecified gastritis and ga stroduodenitis without mention of hemorrhage 01/15/2010 04/04/2022 Acute gastritis without mention of hemorrhage 04/04/2022 Painful respiration 01/27/2009 07/25/2010 Unspecified erythematous condition 12/12/2008 04/04/2022 RASH///NONSPECIF SKIN ERUPT NEC 10/10/2008 04/04/2022 Contact dermatitis and other eczema, due to unspecified cause 07/22/2008 07/25/2010 Contact dermatitis and other eczema, due to unspecified cause 03/23/2007 10/20/2007 Unspecified pruritic disorder 03/23/2007 Contact dermatitis and other eczema due to other specified agent 03/23/2007 04/04/2022 Other and unspecified superf icial injury of other, multiple, and unspecified sites, without mention of infection 03/23/2007 Acute bronchitis 09/17/2006 07/25/2010 Open wound(s) (multiple) of unspecified site(s), without mention of complication 06/06/2006 10/20/2007 Asthma 05/12/2006 04/04/2022 Family history of malignant neoplasm of breast 04/04/2022 Disorder of bone and cartilage 0 04/04/2022 Last Assessment & Plan: Needs A bone density, will order for it to recheck her osteopenia as she had osteo in the past Rheumatoid arthritis(714.0) 03/2016 documented as of this encounter (statuses as of 12/26/2022) [facility] of Past illness Narrative* Problem Noted Date Resolved Date Thyroid mass 03/26/2019 03/27/2019 Esophagitis 01/15/2010 04/04/2022 Unspecified gastritis and ga stroduodenitis without mention of hemorrhage 01/15/2010 04/04/2022 Acute gastritis without mention of hemorrhage 04/04/2022 Painful respiration 01/27/2009 07/25/2010 Unspecified erythematous condition 12/12/2008 04/04/2022 RASH///NONSPECIF SKIN ERUPT NEC 10/10/2008 04/04/2022 Contact dermatitis and other eczema, due to unspecified cause 07/22/2008 07/25/2010 Contact dermatitis and other eczema, due to unspecified cause 03/23/2007 10/20/2007 Unspecified pruritic disorder 03/23/2007 Contact dermatitis and other eczema due to other specified agent 03/23/2007 04/04/2022 Other and unspecified superf icial injury of other, multiple, and unspecified sites, without mention of infection 03/23/2007 Acute bronchitis 09/17/2006 07/25/2010 Open wound(s) (multiple) of unspecified site(s), without mention of complication 06/06/2006 10/20/2007 Asthma 05/12/2006 04/04/2022 Family history of malignant neoplasm of breast 04/04/2022 Disorder of bone and cartilage 0 04/04/2022 Last Assessment & Plan: Needs A bone density, will order for it to recheck her osteopenia as she had osteo in the past Rheumatoid arthritis(714.0) 03/2016 documented as of this encounter (statuses as of 01/07/2023) [facility] of Past illness Narrative* Problem Noted Date Resolved Date Thyroid mass 03/26/2019 03/27/2019 Esophagitis 01/15/2010 04/04/2022 Unspecified gastritis and ga stroduodenitis without mention of hemorrhage 01/15/2010 04/04/2022 Acute gastritis without mention of hemorrhage 04/04/2022 Painful respiration 01/27/2009 07/25/2010 Unspecified erythematous condition 12/12/2008 04/04/2022 RASH///NONSPECIF SKIN ERUPT NEC 10/10/2008 04/04/2022 Contact dermatitis and other eczema, due to unspecified cause 07/22/2008 07/25/2010 Contact dermatitis and other eczema, due to unspecified cause 03/23/2007 10/20/2007 Unspecified pruritic disorder 03/23/2007 Contact dermatitis and other eczema due to other specified agent 03/23/2007 04/04/2022 Other and unspecified superf icial injury of other, multiple, and unspecified sites, without mention of infection 03/23/2007 Acute bronchitis 09/17/2006 07/25/2010 Open wound(s) (multiple) of unspecified site(s), without mention of complication 06/06/2006 10/20/2007 Asthma 05/12/2006 04/04/2022 Family history of malignant neoplasm of breast 04/04/2022 Disorder of bone and cartilage 0 04/04/2022 Last Assessment & Plan: Needs A bone density, will order for it to recheck her osteopenia as she had osteo in the past Rheumatoid arthritis(714.0) 03/2016 documented as of this encounter (statuses as of 02/02/2023) [facility] illness Narrative* Problem Noted Date Resolved Date Thyroid mass 03/26/2019 03/27/2019 Esophagitis 01/15/2010 04/04/2022 Unspecified gastritis and ga stroduodenitis without mention of hemorrhage 01/15/2010 04/04/2022 Acute gastritis without mention of hemorrhage 04/04/2022 Painful respiration 01/27/2009 07/25/2010 Unspecified erythematous condition 12/12/2008 04/04/2022 RASH///NONSPECIF SKIN ERUPT NEC 10/10/2008 04/04/2022 Contact dermatitis and other eczema, due to unspecified cause 07/22/2008 07/25/2010 Contact dermatitis and other eczema, due to unspecified cause 03/23/2007 10/20/2007 Unspecified pruritic disorder 03/23/2007 Contact dermatitis and other eczema due to other specified agent 03/23/2007 04/04/2022 Other and unspecified superf icial injury of other, multiple, and unspecified sites, without mention of infection 03/23/2007 Acute bronchitis 09/17/2006 07/25/2010 Open wound(s) (multiple) of unspecified site(s), without mention of complication 06/06/2006 10/20/2007 Asthma 05/12/2006 04/04/2022 Family history of malignant neoplasm of breast 04/04/2022 Disorder of bone and cartilage 0 04/04/2022 Last Assessment & Plan: Needs A bone density, will order for it to recheck her osteopenia as she had osteo in the past Rheumatoid arthritis(714.0) 03/2016 documented as of this encounter (statuses as of 02/11/2023) [facility] Narrative* Problem Noted Date Resolved Date Thyroid mass 03/26/2019 03/27/2019 Esophagitis 01/15/2010 04/04/2022 Unspecified gastritis and ga stroduodenitis without mention of hemorrhage 01/15/2010 04/04/2022 Acute gastritis without mention of hemorrhage 04/04/2022 Painful respiration 01/27/2009 07/25/2010 Unspecified erythematous condition 12/12/2008 04/04/2022 RASH///NONSPECIF SKIN ERUPT NEC 10/10/2008 04/04/2022 Contact dermatitis and other eczema, due to unspecified cause 07/22/2008 07/25/2010 Contact dermatitis and other eczema, due to unspecified cause 03/23/2007 10/20/2007 Unspecified pruritic disorder 03/23/2007 Contact dermatitis and other eczema due to other specified agent 03/23/2007 04/04/2022 Other and unspecified superf icial injury of other, multiple, and unspecified sites, without mention of infection 03/23/2007 Acute bronchitis 09/17/2006 07/25/2010 Open wound(s) (multiple) of unspecified site(s), without mention of complication 06/06/2006 10/20/2007 Asthma 05/12/2006 04/04/2022 Family history of malignant neoplasm of breast 04/04/2022 Disorder of bone and cartilage 0 04/04/2022 Last Assessment & Plan: Needs A bone density, will order for it to recheck her osteopenia as she had osteo in the past Rheumatoid arthritis(714.0) 03/2016 documented as of this encounter (statuses as of 03/06/2023) [facility] Narrative* Problem Noted Date Resolved Date Thyroid mass 03/26/2019 03/27/2019 Esophagitis 01/15/2010 04/04/2022 Unspecified gastritis and ga stroduodenitis without mention of hemorrhage 01/15/2010 04/04/2022 Acute gastritis without mention of hemorrhage 04/04/2022 Painful respiration 01/27/2009 07/25/2010 Unspecified erythematous condition 12/12/2008 04/04/2022 RASH///NONSPECIF SKIN ERUPT NEC 10/10/2008 04/04/2022 Contact dermatitis and other eczema, due to unspecified cause 07/22/2008 07/25/2010 Contact dermatitis and other eczema, due to unspecified cause 03/23/2007 10/20/2007 Unspecified pruritic disorder 03/23/2007 Contact dermatitis and other eczema due to other specified agent 03/23/2007 04/04/2022 Other and unspecified superf icial injury of other, multiple, and unspecified sites, without mention of infection 03/23/2007 Acute bronchitis 09/17/2006 07/25/2010 Open wound(s) (multiple) of unspecified site(s), without mention of complication 06/06/2006 10/20/2007 Asthma 05/12/2006 04/04/2022 Family history of malignant neoplasm of breast 04/04/2022 Disorder of bone and cartilage 0 04/04/2022 Last Assessment & Plan: Needs A bone density, will order for it to recheck her osteopenia as she had osteo in the past Rheumatoid arthritis(714.0) 03/2016 documented as of this encounter (statuses as of 03/11/2023) [facility] Narrative* Problem Noted Date Resolved Date Thyroid mass 03/26/2019 03/27/2019 Esophagitis 01/15/2010 04/04/2022 Unspecified gastritis and ga stroduodenitis without mention of hemorrhage 01/15/2010 04/04/2022 Acute gastritis without mention of hemorrhage 04/04/2022 Painful respiration 01/27/2009 07/25/2010 Unspecified erythematous condition 12/12/2008 04/04/2022 RASH///NONSPECIF SKIN ERUPT NEC 10/10/2008 04/04/2022 Contact dermatitis and other eczema, due to unspecified cause 07/22/2008 07/25/2010 Contact dermatitis and other eczema, due to unspecified cause 03/23/2007 10/20/2007 Unspecified pruritic disorder 03/23/2007 Contact dermatitis and other eczema due to other specified agent 03/23/2007 04/04/2022 Other and unspecified superf icial injury of other, multiple, and unspecified sites, without mention of infection 03/23/2007 Acute bronchitis 09/17/2006 07/25/2010 Open wound(s) (multiple) of unspecified site(s), without mention of complication 06/06/2006 10/20/2007 Asthma 05/12/2006 04/04/2022 Family history of malignant neoplasm of breast 04/04/2022 Disorder of bone and cartilage 0 04/04/2022 Last Assessment & Plan: Needs A bone density, will order for it to recheck her osteopenia as she had osteo in the past Rheumatoid arthritis(714.0) 03/2016 documented as of this encounter (statuses as of 03/15/2023) [facility] Narrative* Problem Noted Date Resolved Date Thyroid mass 03/26/2019 03/27/2019 Esophagitis 01/15/2010 04/04/2022 Unspecified gastritis and ga stroduodenitis without mention of hemorrhage 01/15/2010 04/04/2022 Acute gastritis without mention of hemorrhage 04/04/2022 Painful respiration 01/27/2009 07/25/2010 Unspecified erythematous condition 12/12/2008 04/04/2022 RASH///NONSPECIF SKIN ERUPT NEC 10/10/2008 04/04/2022 Contact dermatitis and other eczema, due to unspecified cause 07/22/2008 07/25/2010 Contact dermatitis and other eczema, due to unspecified cause 03/23/2007 10/20/2007 Unspecified pruritic disorder 03/23/2007 Contact dermatitis and other eczema due to other specified agent 03/23/2007 04/04/2022 Other and unspecified superf icial injury of other, multiple, and unspecified sites, without mention of infection 03/23/2007 Acute bronchitis 09/17/2006 07/25/2010 Open wound(s) (multiple) of unspecified site(s), without mention of complication 06/06/2006 10/20/2007 Asthma 05/12/2006 04/04/2022 Family history of malignant neoplasm of breast 04/04/2022 Disorder of bone and cartilage 0 04/04/2022 Last Assessment & Plan: Needs A bone density, will order for it to recheck her osteopenia as she had osteo in the past Rheumatoid arthritis(714.0) 03/2016 documented as of this encounter (statuses as of 03/19/2023) [facility] Frequent [facility]ination- Primary [facility]inary [facility] Mild intermittent asthma without complication Unspecified asthma [facility] Diagnosis Mild intermittent asthma without complication Unspecified asthma [facility]* Diagnosis Postoperative hypothyroidism- Primary Postsurgical hypothyroidism Thyroid cancer (HCC) Malignant neoplasm of thyroid gland S/P thyroidectomy Other postprocedural status Vitamin D deficiency Unspecified vitamin D deficiency Malaise and fatigue Other malaise and fatigue documented in this encounter [facility] note* Diagnosis Anemia, unspecified type- Primary Gastroesophageal reflux disease with esophagitis, unspecified whether hemorrhage Hypothyroidism, unspecified type Moderate persistent asthma without complication Unspecified asthma [facility]* Diagnosis Burning with urination- Primary Dysuria [facility] Diagnosis Chronic pain syndrome- Primary [facility]* Diagnosis Anemia, unspecified type- Primary Hypothyroidism, unspecified type Vitamin B12 deficiency Other B-complex deficiencies Iron deficiency anemia, unspecified iron deficiency anemia type Elevated glucose Other abnormal glucose Vitamin D deficiency Unspecified vitamin D deficiency Psychosis, unspecified psychosis type (HCC) documented in this encounter [facility] note* Diagnosis Chronic pain syndrome [facility] Diagnosis Chronic pain syndrome- Primary Cervical spondylolysis Other congenital anomaly of spine Lumbar spine pain Lumbago Degeneration of cervical intervertebral disc Myofascial pain syndrome Mylagia and myositis, unspecified documented in this encounter [facility] note* Diagnosis Postoperative hypothyroidism- Primary Postsurgical hypothyroidism Medication management Encounter for long-term (current) use of other medications documented in this encounter [facility] note* Diagnosis Hypothyroidism, unspecified type- Primary Anemia, unspecified type Gastroesophageal reflux disease without esophagitis Esophageal reflux Memory change Memory loss Picking at clothes Other and unspecified special symptom or syndrome, not elsewhere classified Hallucinations [facility]* Diagnosis Chronic pain syndrome documented in this encounter [facility] note* Diagnosis Chronic pain syndrome [G89.4 (ICD-10-CM)]- Primary Chronic pain syndrome Spondylolysis of cervical region [M43.02 (ICD-10-CM)] Other congenital anomaly of spine Lumbar spine pain [M54.50 (ICD-10-CM)] Lumbago Degeneration of intervertebral disc of mid-cervical region, unspecified spinal level [M50.320 (ICD-10-CM)] Myofascial pain syndrome [M79.18 (ICD-10-CM)] Mylagia and myositis, unspecified documented in this encounter [facility] note* Diagnosis Low back pain without sciatica, unspecified back pain laterality, unspecified chronicity- Primary documented in this encounter [facility] note* Diagnosis Chronic pain syndrome documented in this encounter [facility] note* Diagnosis Gastroesophageal reflux disease with esophagitis, unspecified whether hemorrhage documented in this encounter [facility] note* Diagnosis Chronic pain syndrome documented in this encounter [facility] note* Diagnosis Chronic pain syndrome documented in this encounter [facility] note* Diagnosis Chronic pain syndrome documented in this encounter [facility] note* Diagnosis Chronic pain syndrome documented in this encounter [facility] note* Diagnosis intermediate frame tender (current) use of opiate analgesic- Primary Chronic pain syndrome documented in this encounter [facility] note* Diagnosis Other chronic pain- Primary correction (current) use of opiate analgesic Degeneration of cervical intervertebral disc DDD (degenerative disc disease), lumbar Degeneration of lumbar or lumbosacral intervertebral disc Myofascial pain syndrome [M79.18 (ICD-10-CM)] Mylagia and myositis, unspecified Rheumatoid arthritis involving both hands, unspecified whether rheumatoid factor present (HCC) Thyroid cancer (HCC) Malignant neoplasm of thyroid gland Chronic pain syndrome documented in this encounter [facility] note* Diagnosis Thyroid cancer (HCC) Malignant neoplasm of thyroid gland S/P thyroidectomy Other postprocedural status Postoperative hypothyroidism Postsurgical hypothyroidism documented in this encounter [facility] note* Diagnosis Thyroid cancer (HCC) Malignant neoplasm of thyroid gland S/P thyroidectomy Other postprocedural status Postoperative hypothyroidism Postsurgical hypothyroidism documented in this encounter [facility] note* Diagnosis intermediate frame tender (current) use of opiate analgesic- Primary documented in this encounter [facility] note* Diagnosis Chronic pain syndrome documented in [facility] encounter [facility] Summary Purpose Family History No Family History Records FoundNo Family History Records FoundNo Family History Records FoundNo Family History Records FoundNo Family History Records Found Advance Directives Documents on File Type Date Recorded Patient Occup Ther Expl anation Advance Directive(s) 06/25/2019 9:20 AM has , not on file Documents on File Type Date Recorded Patient Occup Ther Expl anation Advance Directive(s) 06/25/2019 9:20 AM has , not on file Reason for Referral Specialty Diagnoses / Procedures Referred By Contac t Referred To Contact Gastroenterology Diagnoses Gastroesophageal reflux disease with esophagitis, unspecified whether hemorrhage Procedures CONSULT TO GASTROENTEROLOGY OFFICE/OUTPATIENT [facility] [place] 60-74 MINUTES Nell Sims MD [address] [place] [address] Referral ID Status Reason Start Date Expiration Date Visits Requested Visits Authorized [id number] Pending Review PCP Requested Referral 04/29/2022 04/29/2023 1 1 Specialty Diagnoses / Procedures Referred By Contac t Referred To Contact Gerontology Diagnoses Memory change Picking at clothes Procedures CONSULT TO GERIATRICS OFFICE/OUTPATIENT [facility] [place] 60-74 MINUTES Nell Sims MD [address] [place] [address] Referral ID Status Reason Start Date Expiration Date Visits Requested Visits Authorized [id number] Pending Review PCP Requested Referral 10/29/2023 1 1 Specialty Diagnoses / Procedures Referred By Contac t Referred To Contact Diagnoses Chronic pain syndrome Spondylolysis of cervical region Lumbar spine pain Degeneration of intervertebral disc of mid-cervical region, unspecified spinal level Myofascial pain syndrome Chronic pain syndrome Procedures CONSULT TO PSYCHIATRY OFFICE/OUTPATIENT [facility] [place] 60-74 MINUTES Sandor Haley, DO [address] [place] [address] Sharan Mark, COMMUNITY MENTAL HEALTH WORKER.EMPLOYEE HEALTH NURSE [address] [facility] [address] [place] [address] Referral ID Status Reason Start Date Expiration Date Visits Requested Visits Authorized [id number] Pending Review PCP Requested Referral 11/26/2022 11/26/2023 1 1 Specialty Diagnoses / Procedures Referred By Contac t Referred To Contact Diagnoses Chronic pain syndrome Marissa Lynn, COMMUNITY MENTAL HEALTH WORKER.CASINO CASHIER [address] [place] [address] Referral ID Status Reason Start Date Expiration Date V isits Requested Visits Authorized [id number] Pending Review 1 1 Additional Source Comments INFORMATION SOURCE (unrecogn ized section and content) DATE CREATED AUTHOR AUTHOR'S ORGANIZ ATION 05/04/2021 [facility] DATE CREATED AUTHOR AUTHOR'S ORGANIZ ATION 04/20/2022 [facility] DATE CREATED AUTHOR AUTHOR'S ORGANIZ ATION 12/01/2023 [facility] DATE CREATED AUTHOR AUTHOR'S ORGANIZ ATION 12/09/2023 [facility] nter Source Comments (unrecognize d section and content) In the event this informatio n is protected by the Federal Confidentiality of Alcohol and Drug Abuse Patient Records regulations: The Federal rules restrict any use of the information to criminally investigate or prosecute any alcohol or drug abuse patient.[facility] the event this information is protected by the Federal Confidentiality of Alcohol and Drug Abuse Patient Records regulations: The Federal rules restrict any use of the information to criminally investigate or prosecute any alcohol or drug abuse patient.[facility] the event this information is protected by the Federal Confidentiality of Alcohol and Drug Abuse Patient Records regulations: The Federal rules restrict any use of the information to criminally investigate or prosecute any alcohol or drug abuse patient.[facility] the event this information is protected by the Federal Confidentiality of Alcohol and Drug Abuse Patient Records regulations: The Federal rules restrict any use of the information to criminally investigate or prosecute any alcohol or drug abuse patient.[facility] the event this information is protected by the Federal Confidentiality of Alcohol and Drug Abuse Patient Records regulations: The Federal rules restrict any use of the information to criminally investigate or prosecute any alcohol or drug abuse patient.[facility] the event this information is protected by the Federal Confidentiality of Alcohol and Drug Abuse Patient Records regulations: The Federal rules restrict any use of the information to criminally investigate or prosecute any alcohol or drug abuse patient.[facility] the event this information is protected by the Federal Confidentiality of Alcohol and Drug Abuse Patient Records regulations: The Federal rules restrict any use of the information to criminally investigate or prosecute any alcohol or drug abuse patient.[facility] the event this information is protected by the Federal Confidentiality of Alcohol and Drug Abuse Patient Records regulations: The Federal rules restrict any use of the information to criminally investigate or prosecute any alcohol or drug abuse patient.[facility] the event this information is protected by the Federal Confidentiality of Alcohol and Drug Abuse Patient Records regulations: The Federal rules restrict any use of the information to criminally investigate or prosecute any alcohol or drug abuse patient.[facility] the event this information is protected by the Federal Confidentiality of Alcohol and Drug Abuse Patient Records regulations: The Federal rules restrict any use of the information to criminally investigate or prosecute any alcohol or drug abuse patient.[facility] the event this information is protected by the Federal Confidentiality of Alcohol and Drug Abuse Patient Records regulations: The Federal rules restrict any use of the information to criminally investigate or prosecute any alcohol or drug abuse patient.[facility] the event this information is protected by the Federal Confidentiality of Alcohol and Drug Abuse Patient Records regulations: The Federal rules restrict any use of the information to criminally investigate or prosecute any alcohol or drug abuse patient.[facility] the event this information is protected by the Federal Confidentiality of Alcohol and Drug Abuse Patient Records regulations: The Federal rules restrict any use of the information to criminally investigate or prosecute any alcohol or drug abuse patient.[facility] the event this information is protected by the Federal Confidentiality of Alcohol and Drug Abuse Patient Records regulations: The Federal rules restrict any use of the information to criminally investigate or prosecute any alcohol or drug abuse patient.[facility] the event this information is protected by the Federal Confidentiality of Alcohol and Drug Abuse Patient Records regulations: The Federal rules restrict any use of the information to criminally investigate or prosecute any alcohol or drug abuse patient.[facility] Center[facility] the event this information is protected by the Federal Confidentiality of Alcohol and Drug Abuse Patient Records regulations: The Federal rules restrict any use of the information to criminally investigate or prosecute any alcohol or drug abuse patient.[facility] CenterIn the event this information is protected by the Federal Confidentiality of Alcohol and Drug Abuse Patient Records regulations: The Federal rules restrict any use of the information to criminally investigate or prosecute any alcohol or drug abuse patient.[facility] CenterIn the event this information is protected by the Federal Confidentiality of Alcohol and Drug Abuse Patient Records regulations: The Federal rules restrict any use of the information to criminally investigate or prosecute any alcohol or drug abuse patient.[facility] CenterIn the event this information is protected by the Federal Confidentiality of Alcohol and Drug Abuse Patient Records regulations: The Federal rules restrict any use of the information to criminally investigate or prosecute any alcohol or drug abuse patient.[facility] CenterIn the event this information is protected by the Federal Confidentiality of Alcohol and Drug Abuse Patient Records regulations: The Federal rules restrict any use of the information to criminally investigate or prosecute any alcohol or drug abuse patient.[facility] CenterIn the event this information is protected by the Federal Confidentiality of Alcohol and Drug Abuse Patient Records regulations: The Federal rules restrict any use of the information to criminally investigate or prosecute any alcohol or drug abuse patient.[facility] CenterIn the event this information is protected by the Federal Confidentiality of Alcohol and Drug Abuse Patient Records regulations: The Federal rules restrict any use of the information to criminally investigate or prosecute any alcohol or drug abuse patient.[facility] CenterIn the event this information is protected by the Federal Confidentiality of Alcohol and Drug Abuse Patient Records regulations: The Federal rules restrict any use of the information to criminally investigate or prosecute any alcohol or drug abuse patient.[facility] CenterIn the event this information is protected by the Federal Confidentiality of Alcohol and Drug Abuse Patient Records regulations: The Federal rules restrict any use of the information to criminally investigate or prosecute any alcohol or drug abuse patient.[facility] CenterIn the event this information is protected by the Federal Confidentiality of Alcohol and Drug Abuse Patient Records regulations: The Federal rules restrict any use of the information to criminally investigate or prosecute any alcohol or drug abuse patient.[facility] CenterIn the event this information is protected by the Federal Confidentiality of Alcohol and Drug Abuse Patient Records regulations: The Federal rules restrict any use of the information to criminally investigate or prosecute any alcohol or drug abuse patient.[facility] CenterIn the event this information is protected by the Federal Confidentiality of Alcohol and Drug Abuse Patient Records regulations: The Federal rules restrict any use of the information to criminally investigate or prosecute any alcohol or drug abuse patient.[facility] CenterIn the event this information is protected by the Federal Confidentiality of Alcohol and Drug Abuse Patient Records regulations: The Federal rules restrict any use of the information to criminally investigate or prosecute any alcohol or drug abuse patient.[facility] CenterIn the event this information is protected by the Federal Confidentiality of Alcohol and Drug Abuse Patient Records regulations: The Federal rules restrict any use of the information to criminally investigate or prosecute any alcohol or drug abuse patient.[facility] CenterIn the event this information is protected by the Federal Confidentiality of Alcohol and Drug Abuse Patient Records regulations: The Federal rules restrict any use of the information to criminally investigate or prosecute any alcohol or drug abuse patient.[facility] CenterIn the event this information is protected by the Federal Confidentiality of Alcohol and Drug Abuse Patient Records regulations: The Federal rules restrict any use of the information to criminally investigate or prosecute any alcohol or drug abuse patient.[facility] CenterIn the event this information is protected by the Federal Confidentiality of Alcohol and Drug Abuse Patient Records regulations: The Federal rules restrict any use of the information to criminally investigate or prosecute any alcohol or drug abuse patient.[facility] CenterIn the event this information is protected by the Federal Confidentiality of Alcohol and Drug Abuse Patient Records regulations: The Federal rules restrict any use of the information to criminally investigate or prosecute any alcohol or drug abuse patient.[facility] CenterIn the event this information is protected by the Federal Confidentiality of Alcohol and Drug Abuse Patient Records regulations: The Federal rules restrict any use of the information to criminally investigate or prosecute any alcohol or drug abuse patient.[facility] CenterIn the event this information is protected by the Federal Confidentiality of Alcohol and Drug Abuse Patient Records regulations: The Federal rules restrict any use of the information to criminally investigate or prosecute any alcohol or drug abuse patient.[facility] CenterIn the event this information is protected by the Federal Confidentiality of Alcohol and Drug Abuse Patient Records regulations: The Federal rules restrict any use of the information to criminally investigate or prosecute any alcohol or drug abuse patient.[facility] CenterIn the event this information is protected by the Federal Confidentiality of Alcohol and Drug Abuse Patient Records regulations: The Federal rules restrict any use of the information to criminally investigate or prosecute any alcohol or drug abuse patient.[facility] CenterIn the event this information is protected by the Federal Confidentiality of Alcohol and Drug Abuse Patient Records regulations: The Federal rules restrict any use of the information to criminally investigate or prosecute any alcohol or drug abuse patient.[facility] CenterIn the event this information is protected by the Federal Confidentiality of Alcohol and Drug Abuse Patient Records regulations: The Federal rules restrict any use of the information to criminally investigate or prosecute any alcohol or drug abuse patient.[facility] CenterIn the event this information is protected by the Federal Confidentiality of Alcohol and Drug Abuse Patient Records regulations: The Federal rules restrict any use of the information to criminally investigate or prosecute any alcohol or drug abuse patient.[facility] CenterIn the event this information is protected by the Federal Confidentiality of Alcohol and Drug Abuse Patient Records regulations: The Federal rules restrict any use of the information to criminally investigate or prosecute any alcohol or drug abuse patient.[facility] CenterIn the event this information is protected by the Federal Confidentiality of Alcohol and Drug Abuse Patient Records regulations: The Federal rules restrict any use of the information to criminally investigate or prosecute any alcohol or drug abuse patient.[facility] CenterIn the event this information is protected by the Federal Confidentiality of Alcohol and Drug Abuse Patient Records regulations: The Federal rules restrict any use of the information to criminally investigate or prosecute any alcohol or drug abuse patient.[facility] CenterIn the event this information is protected by the Federal Confidentiality of Alcohol and Drug Abuse Patient Records regulations: The Federal rules restrict any use of the information to criminally investigate or prosecute any alcohol or drug abuse patient.[facility] CenterIn the event this information is protected by the Federal Confidentiality of Alcohol and Drug Abuse Patient Records regulations: The Federal rules restrict any use of the information to criminally investigate or prosecute any alcohol or drug abuse patient.[facility] CenterIn the event this information is protected by the Federal Confidentiality of Alcohol and Drug Abuse Patient Records regulations: The Federal rules restrict any use of the information to criminally investigate or prosecute any alcohol or drug abuse patient.[facility] CenterIn the event this information is protected by the Federal Confidentiality of Alcohol and Drug Abuse Patient Records regulations: The Federal rules restrict any use of the information to criminally investigate or prosecute any alcohol or drug abuse patient.[facility] CenterIn the event this information is protected by the Federal Confidentiality of Alcohol and Drug Abuse Patient Records regulations: The Federal rules restrict any use of the information to criminally investigate or prosecute any alcohol or drug abuse patient.[facility] CenterIn the event this information is protected by the Federal Confidentiality of Alcohol and Drug Abuse Patient Records regulations: The Federal rules restrict any use of the information to criminally investigate or prosecute any alcohol or drug abuse patient.[facility] CenterIn the event this information is protected by the Federal Confidentiality of Alcohol and Drug Abuse Patient Records regulations: The Federal rules restrict any use of the information to criminally investigate or prosecute any alcohol or drug abuse patient.[facility] CenterIn the event this information is protected by the Federal Confidentiality of Alcohol and Drug Abuse Patient Records regulations: The Federal rules restrict any use of the information to criminally investigate or prosecute any alcohol or drug abuse patient.[facility] Reason for Visit (unrecogniz ed section and content) Reason Comments Fax Urine Culture results Reason Comments Spirometry Specialty Diagnoses / Procedures Referred By Pete patel Referred To [facility] Diagnoses Mild intermittent asthma without complication Procedures SPIROMETRY - BASELINE AND POST DILATOR BRNCDILAT RSPSE SPMTRY PRE&POST-BRNCDILAT ADMN Nell Sims MD [address] [place] [address] Respiratory [place] [address] [address] Referral ID Status Reason Start Date Expiration Date V isits Requested Visits Authorized [id number] Closed Auto-Generate d Referral 01/01/2022 01/31/2023 1 1 Specialty Diagnoses / Procedures Referred By Pete patel Referred To [facility] Diagnoses Mild intermittent asthma without complication Procedures LUNG VOLUMES PLETHYSMOGRAPHY LUNG VOLUMES W/WO AIRWAY RESIST Nell Sims MD [address] [place] [address] Respiratory [place] [address] [place] [address] Referral ID Status Reason Start Date Expiration Date V isits Requested Visits Authorized [id number] Closed Auto-Generate d Referral 01/09/2022 11/16/2022 1 1 Reason Comments Results Reason Comments Hypothyroidism Reason Comments Established Patient ER follow up stomach issues Reason Comments Question Reason Comments Urinary Problem burning with urinati on x 2 days Reason Onset Date Comments Refill Request 05/28/2022 Reason Onset Date Comments Refill Request 08/02/2022 Reason Onset Date Comments Refill Request 09/02/2022 Reason Comments Pain Reason Comments Follow Up 3 month follow up- t hyroid, questions.. not seeing [facility] doctor for thyroid, c/o having nightmares Reason Onset Date Comments Refill Request 11/01/2022 Reason Comments Back Pain Reason Comments Urinary Problem Painful urination, l ower back pain x 2 days Reason Onset Date Comments Refill Request 12/26/2022 Reason Onset Date Comments Refill Request 01/06/2023 Reason Onset Date Comments Refill Request 01/31/2023 Reason Comments Patient Update Reason Comments Appointment Reason Onset Date Comments Refill Request 03/14/2023 Reason Onset Date Comments Population Health Navigation Outreach 05/06/2023 [facility] Reason Onset Date Comments Refill Request 06/26/2023 Reason Comments [place] for Percocet Reason Onset Date Comments [facility] Navigation Outreach 07/10/2023 [facility] Reason Onset Date Comments Refill Request 07/29/2023 Reason Onset Date Comments Refill Request 08/29/2023 Reason Comments Other Virtual Visit Pre Ch tanvir In Reason Comments Other UDS update Reason Onset Date Comments Refill Request 10/07/2023 Reason Comments Refill Request Reason Comments Other LVM about appt cance llation Reason Comments Orders Reason Onset Date Comments Refill Request 10/27/2023 Reason Onset Date Comments Refill Request 12/24/2023 Care Teams (unrecognized sec tion and content) Oyster Unloader Relationship Specialty Start Date End Date Nell Sims MD [address] [place], [place] [id number] PCP - General Internal Medicine 06/21/16 Lyudmila Suarez MD [address] [place] [address] General Surgery 01/18/19 Vanessa Garza MD Endocrinology 04/08/19 Ebonie Addison [address] [place] [address] Physician Urology 06/05/20 Oyster Unloader Relationship Specialty Start Date End Date Nell Sims MD [address] [place] [address] PCP - General Internal Medicine 06/21/16 Lyudmila Suarez MD [address] [place] [address] General Surgery 01/18/19 Vanessa Garza MD Endocrinology 04/08/19 Ebonie Addison [address] [place] [address] Physician Urology 06/05/20 Oyster Unloader Relationship Specialty Start Date End Date Nell Sims MD [address] [place] [address] PCP - General Internal Medicine 06/21/16 Lyudmila Suarez MD [address] [place] [address] General Surgery 01/18/19 Vanessa Garza MD Endocrinology 04/08/19 Ebonie Addison [address] [place] [address] Physician Urology 06/05/20 Oyster Unloader Relationship Specialty Start Date End Date Nell Sims MD [address] [place] [address] PCP - General Internal Medicine 06/21/16 Lyudmila Suarez MD [address] [place] [address] General Surgery 01/18/19 Vanessa Garza MD Endocrinology 04/08/19 Ebonie Addison [address] [place] [address] Physician Urology 06/05/20 Oyster Unloader Relationship Specialty Start Date End Date Nell Sims MD [address] [place] [address] PCP - General Internal Medicine 06/21/16 Lyudmila Suarez MD [address] [place] [address] General Surgery 01/18/19 Vanessa Garza MD Endocrinology 04/08/19 Ebonie Addison [address] [place] [address] Physician Urology 06/05/20 Oyster Unloader Relationship Specialty Start Date End Date Nell Sims MD [address] [place] [address] PCP - General Internal Medicine 06/21/16 Lyudmila Suarez MD [address] [place] [address] General Surgery 01/18/19 Vanessa Garza MD Endocrinology 04/08/19 Ebonie Addison [address] [facility] [address] [place] [address] Physician Urology 06/05/20 Oyster Unloader Relationship Specialty Start Date End Date Nell Sims MD [address] [place] [address] PCP - General Internal Medicine 06/21/16 Lyudmila Suarez MD [address] [facility] [place] [address] General Surgery 01/18/19 Vanessa Garza MD Endocrinology 04/08/19 Ebonie Addison [address] [facility] [address] [place] [address] Physician Urology 06/05/20 Oyster Unloader Relationship Specialty Start Date End Date Nell Sims MD [address] [place] [address] PCP - General Internal Medicine 06/21/16 Lyudmila Suarez MD [address] [facility] [place] [address] General Surgery 01/18/19 Vanessa Garza MD Endocrinology 04/08/19 Ebonie Addison [address] [facility] [address] [place] [address] Physician Urology 06/05/20 Oyster Unloader Relationship Specialty Start Date End Date Nell Sims MD [address] [place] [address] PCP - General Internal Medicine 06/21/16 Lyudmila Suarez MD [address] [place] [address] General Surgery 01/18/19 Vanessa Garza MD Endocrinology 04/08/19 Ebonie Addison [address] [facility] [address] [place] [address] Physician Urology 06/05/20 Oyster Unloader Relationship Specialty Start Date End Date Nell Sims MD [address] [place] [address] PCP - General Internal Medicine 06/21/16 Lyudmila Suarez MD [address] [facility] [place] [address] General Surgery 01/18/19 Vanessa Garza MD Endocrinology 04/08/19 Ebonie Addison [address] [facility] [address] [place] [address] Physician Urology 06/05/20 Oyster Unloader Relationship Specialty Start Date End Date Nell Sims MD [address] [place] [address] PCP - General Internal Medicine 06/21/16 Lyudmila Suarez MD [address] [place] [address] General Surgery 01/18/19 Vanessa Garza MD Endocrinology 04/08/19 Ebonie Addison [address] [place] [address] Physician Urology 06/05/20 Oyster Unloader Relationship Specialty Start Date End Date Nell Sims MD [address] [place] [address] PCP - General Internal Medicine 06/21/16 Lyudmila Suarez MD [address] [place] [address] General Surgery 01/18/19 Vanessa Garza MD [address] [place] [address] Endocrinology 04/08/19 Ebonie Addison [address] [facility] [address] [place] [address] Physician Urology 06/05/20 Oyster Unloader Relationship Specialty Start Date End Date Nell Sims MD [address] [place] [address] PCP - General Internal Medicine 06/21/16 Lyudmila Suarez MD [address] [place] [address] General Surgery 01/18/19 Vanessa Garza MD [address] [place] [address] Endocrinology 04/08/19 Ebonie Addison [address] [place] [address] Physician Urology 06/05/20 Oyster Unloader Relationship Specialty Start Date End Date Nell Sims MD [address] [place] [address] PCP - General Internal Medicine 06/21/16 Lyudmila Suarez MD [address] [place] [address] General Surgery 01/18/19 Vanessa Garza MD [address] [place] [address] Endocrinology 04/08/19 Ebonie Addison [address] [place] [address] Physician Urology 06/05/20 Oyster Unloader Relationship Specialty Start Date End Date Nell Sims MD [address] [place] [address] PCP - General Internal Medicine 06/21/16 Lyudmila Suarez MD [address] [place] [address] General Surgery 01/18/19 Vanessa Garza MD [address] [place] [address] Endocrinology 04/08/19 Ebonie Addison [address] [place] [address] Physician Urology 06/05/20 Oyster Unloader Relationship Specialty Start Date End Date Nell Sims MD [address] [place] [address] PCP - General Internal Medicine 06/21/16 Lyudmila Suarez MD [address] [place] [address] General Surgery 01/18/19 Vanessa Garza MD [address] [place] [address] Endocrinology 04/08/19 Ebonie Addison [address] [place] [address] Physician Urology 06/05/20 Oyster Unloader Relationship Specialty Start Date End Date Nell Sims MD [address] [place] [address] PCP - General Internal Medicine 06/21/16 Lyudmila Suarez MD [address] [place] [address] General Surgery 01/18/19 Vanessa Garza MD [address] [place] [address] Endocrinology 04/08/19 Ebonie Addison [address] [place] [address] Physician Urology 06/05/20 Oyster Unloader Relationship Specialty Start Date End Date Nell Sims MD [address] [place] [address] PCP - General Internal Medicine 06/21/16 Lyudmila Suarez MD [address] [place] [address] General Surgery 01/18/19 Vanessa Garza MD [address] [place] [address] Endocrinology 04/08/19 Ebonie Addison [address] [place] [address] Physician Urology 06/05/20 Oyster Unloader Relationship Specialty Start Date End Date Nell Sims MD [address] [place] [address] PCP - General Internal Medicine 06/21/16 Lyudmila Suarez MD [address] [place] [address] General Surgery 01/18/19 Vanessa Garza MD [address] [place] [address] Endocrinology 04/08/19 Ebonie Addison [address] [place] [address] Physician Urology 06/05/20 Oyster Unloader Relationship Specialty Start Date End Date Nell Sims MD [address] [place] [address] PCP - General Internal Medicine 06/21/16 Lyudmila Suarez MD [address] [place] [address] General Surgery 01/18/19 Vanessa Garza MD [address] [place] [address] Endocrinology 04/08/19 Ebonie Addison [address] [place] [address] Physician Urology 06/05/20 Oyster Unloader Relationship Specialty Start Date End Date Nell Sims MD [address] [place] [address] PCP - General Internal Medicine 06/21/16 Lyudmila Suarez MD [address] [place] [address] General Surgery 01/18/19 Vanessa Garza MD [address] [place] [address] Endocrinology 04/08/19 Ebonie Addison [address] [place] [address] Physician Urology 06/05/20 Oyster Unloader Relationship Specialty Start Date End Date Nell Sims MD [address] [place] [address] PCP - General Internal Medicine 06/21/16 Lyudmila Suarez MD [address] [place] [address] General Surgery 01/18/19 Vanessa Garza MD [address] [place] [address] Endocrinology 04/08/19 Ebonie dAdison [address] [place] [address] Physician Urology 06/05/20 Oyster Unloader Relationship Specialty Start Date End Date Nell Sims MD [address] [place] [address] PCP - General Internal Medicine 06/21/16 Lyudmila Suarez MD [address] [place] [address] General Surgery 01/18/19 Vanessa Garza MD [address] [place] [address] Endocrinology 04/08/19 Ebonie Addison [address] [facility] [address] [place], [place] [address] Physician Urology 06/05/20 Oyster Unloader Relationship Specialty Start Date End Date Nell Sims MD [address] [place] [address] PCP - General Internal Medicine 06/21/16 Lyudmila Suaerz MD [address] [place] [address] General Surgery 01/18/19 Vanessa Garza MD [address] [place] [address] Endocrinology 04/08/19 Ebonie Addison [address] [facility] [place] [address] Physician Urology 06/05/20 Oyster Unloader Relationship Specialty Start Date End Date Nell Sims MD [address] [place] [address] PCP - General Internal Medicine 06/21/16 Lyudmila Suarez MD [address] [place] [address] General Surgery 01/18/19 Vanessa Garza MD [address] [place] [address] Endocrinology 04/08/19 Ebonie Addison [address] [facility] [address] [place], [place] [address] Physician Urology 06/05/20 Oyster Unloader Relationship Specialty Start Date End Date Nell Sims MD [address] [place] [address] PCP - General Internal Medicine 06/21/16 Lyudmila Suarez MD [address] [place] [address] General Surgery 01/18/19 Vanessa Garza MD [address] [place] [address] Endocrinology 04/08/19 Ebonie Addison [address] [place] [facility] [address] [place], [place] [address] Physician Urology 06/05/20 Oyster Unloader Relationship Specialty Start Date End Date Nell Sims MD [address] [place] [address] PCP - General Internal Medicine 06/21/16 Lyudmila Suarez MD [address] [place] [address] General Surgery 01/18/19 Vanessa Garza MD [address] [place] [address] Endocrinology 04/08/19 Ebonie Addison [address] [place] [facility] [address] [place] [address] Physician Urology 06/05/20 Oyster Unloader Relationship Specialty Start Date End Date Nell Sims MD [address] [place] [address] PCP - General Internal Medicine 06/21/16 Lyudmila Suarez MD [address] [place] [address] General Surgery 01/18/19 Vanessa Garza MD [address] [place] [address] Endocrinology 04/08/19 Ebonie Addison [address] [facility] [address] [place] [address] Physician Urology 06/05/20 Oyster Unloader Relationship Specialty Start Date End Date Nell Sims MD [address] [place] [address] PCP - General Internal Medicine 06/21/16 Lyudmila Suarez MD [address] [place] [address] General Surgery 01/18/19 Vanessa Garza MD [address] [place] [address] Endocrinology 04/08/19 Ebonie Addison [address] [facility] [address] [place] [address] Physician Urology 06/05/20 Oyster Unloader Relationship Specialty Start Date End Date Nell Sims MD [address] [place] [address] PCP - General Internal Medicine 06/21/16 Lyudmila Suarez MD [address] [place] [address] General Surgery 01/18/19 Vanessa Garza MD [address] [place] [address] Endocrinology 04/08/19 Ebonie Addison [address] [facility] [facility] [address] Physician Urology 06/05/20 Oyster Unloader Relationship Specialty Start Date End Date Nell Sims MD [address] [place] [address] PCP - General Internal Medicine 06/21/16 Lyudmila Suarez MD [address] [place] [address] General Surgery 01/18/19 Vanessa Garza MD [address] [place] [address] Endocrinology 04/08/19 Ebonie Addison [address] [facility] [address] [place] [address] Physician Urology 06/05/20 Oyster Unloader Relationship Specialty Start Date End Date Nell Sims MD [address] [place] [address] PCP - General Internal Medicine 06/21/16 Lyudmila Suarez MD [address] [place] [address] General Surgery 01/18/19 Vanessa Garza MD [address] [place] [address] Endocrinology 04/08/19 Ebnoie Addison [address] [facility] [address] [place] [address] Physician Urology 06/05/20 Oyster Unloader Relationship Specialty Start Date End Date Nell Sims MD [address] [place] [address] PCP - General Internal Medicine 06/21/16 Lyudmila Suarez MD [address] [place] [address] General Surgery 01/18/19 Vanessa Garza MD [address] [place] [address] Endocrinology 04/08/19 Ebonie Addison [address] [facility] [address] [place] [address] Physician Urology 06/05/20 Oyster Unloader Relationship Specialty Start Date End Date Nell Sims MD [address] [place], [place] [address] PCP - General Internal Medicine 06/21/16 Lyudmila Suarez MD [address] [facility] [place] [phone] General Surgery 01/18/19 Vanessa Garza MD [address] [facility] [place] [phone] Endocrinology 04/08/19 Ebonie Addison [address] [facility] [address] [place], [place] [address] Physician Urology 06/05/20 FOR RECORDS PERTAINING TO PATIENTS WHO ARE OR HAVE BEEN ENROLLED IN A CHEMICAL DEPENDENCY/SUBSTANCEABUSE PROGRAM, SOME INFORMATION MAY BE OMITTED. This clinical summary was aggregated from multiple sources. Caution should be exercised in using it in the provision of clinical care. This summary normalizes information from multiple sources, and as a consequence, information in this document may materially change the coding, format and clinical context of patient data. In addition, data may be omitted in some cases. CLINICAL DECISIONS SHOULD BE BASED ON THE PRIMARY CLINICAL RECORDS. [employer] provides no warranty or guarantee of the accuracy or completeness of information in this document.
[2023-12-26] MEDS: Smz/Tmp Ds Tablet 1 TABLET PO (21:53)
== END 2023-12-26 21:55 | disposition home or self-care (01) ==
PROVIDERS: Physician Assistant; Emergency Provider Emergency Medicine; PCP Internal Medicine; Visit Provider Emergency Medicine
DX: N39.0 Urinary tract infection, site not specified (principal); S05.01XA Injury of conjunctiva and corneal abrasion without foreign body, right eye, initial encounter; X58.XXXA Exposure to other specified factors, initial encounter; R41.82 Altered mental status, unspecified; Z79.899 Other long term (current) drug therapy; Z87.891 Personal history of nicotine dependence
CPT/HCPCS: 71045; 80048; 81001; 85025; 87086; 99283

== ENCOUNTER 2024-11-25 16:39 | Emergency (ER) | payer MEDICARE, SELFPAY ==
[2024-11-25 16:39] VITALS: BP 132/96; PULSE 78; RESP 16; TEMP 36.6; O2SAT 95
--- NOTE | 2024-11-25 16:54 | EX.ED.VIS.EY ---
HPI History of Present Illness Chief Complaint: Eye Problem Informant: patient and spouse/S.O. Onset/Context/Timing Location: Right Eye Onset: Today Context: Sudden Onset Timing: Continuous Worsened by: Nothing Relieved by: Nothing Associated Symptoms Associated Symptoms - Eyes: Crusting, Matting and - (Bleeding); Negative for Drainage, Itching, Pain, Photophobia or Redness History of injury: Uncertain Narrative Narrative: Patient presents with bleeding from her right eye that began today. Patient woke up from her nap and noted some bleeding from her right eye. Patient states this began rather suddenly. Patient is unsure if she scratched her eye while she was sleeping. Patient denies any visual changes. Patient denies any discharge or drainage. Patient went to urgent care and was referred to the emergency department for possible laceration repair. [facility] Medical History (Updated 11/25/24 @ 17:[address] Hansel Mccrary, DO) History of thyroid cancer Thyroid nodule Osteopenia Lichen planus GERD (gastroesophageal reflux disease) Diverticulosis of colon (without mention of hemorrhage) Diaphragmatic hernia Calculus of kidney Rheumatoid arthritis Chronic pain Depression Asthma Home Medications ?Medication ?Instructions ?Recorded ?Last Taken ?Type albuterol sulfate 2.5 mg/3 mL 2.5 mg inhalation Q6H PRN PRN COPD 06/25/18 01/08/19 History (0.083 %) solution for nebulization cholecalciferol (vitamin D3) 50 50 mcg PO DAILY 03/08/21 Unknown History mcg (2,000 unit) capsule levothyroxine 112 mcg tablet 112 mcg PO DAILY 03/08/21 Unknown History (Levoxyl) methocarbamol 750 mg tablet 750 mg PO TID 07/20/21 Unknown History dicyclomine 10 mg capsule 10 mg PO TID PRN abdominal 04/22/22 Unknown Rx discomfort #20 CAPSULES sucralfate 1 gram tablet (Carafate) 1 g PO .qid #40 tabs 04/22/22 Unknown Rx nitrofurantoin 100 mg PO BID 06/13/22 Unknown History monohydrate/macrocrystals 100 mg capsule sulfamethoxazole 800 1 tab PO DAILY 06/13/22 Unknown History mg-trimethoprim 160 mg tablet albuterol sulfate 90 mcg/actuation 2 puff inhalation 4X/DAY PRN PRN 07/01/23 Unknown Rx aerosol inhaler Bronchodialation #18 grams fluticasone furoate 200 1 inh inhalation DAILY #3 ea 07/01/23 Unknown Rx mcg-vilanterol 25 mcg/dose inhalation powder (Breo Ellipta) erythromycin 5 mg/gram (0.5 %) eye 1 applic RIGHT EYE Q6H 5 days #3.5 12/26/23 Unknown Rx ointment grams sulfamethoxazole 800 1 tab PO BID 7 days #14 tabs 12/26/23 Unknown Rx mg-trimethoprim 160 mg tablet (Bactrim DS) Allergy/AdvReac Type Severity Reaction Status Date / Time aspirin Allergy Shortness Verified 11/25/24 16:43 of breath hydrocodone bitartrate (From Allergy Rash Verified 11/25/24 16:43 Vicodin) NSAIDS (Non-Steroidal Allergy Shortness Verified 11/25/24 16:43 Anti-Inflamma of breath Family History Mother Breast cancer Diabetes Osteoporosis Father CVA (cerebral vascular accident) Hypertension Surgical History History of thyroidectomy, total H/O: hysterectomy History of incisional hernia repair H/O bilateral breast reduction surgery Right ear drum surgery History of partial colectomy P Ignacio Silvana Fundoplication H/O laparoscopy H/O colonoscopy History of appendectomy Social History Smoking Status: Former smoker quit date: 05/12/75 pack-years: 5 alcohol intake: current alcohol intake frequency: holidays/special occasions only substance use type: does not use ROS ROS ED Constitutional Constitutional ED: Denies chills or fever(s) Eyes Eyes: Denies blurry vision or change in vision ENT ENT ED: Denies rhinorrhea or sore throat Cardiovascular Cardiovascular: Denies chest pain or palpitations Respiratory/Chest Respiratory/Chest: Denies cough or dyspnea Gastrointestinal Gastrointestinal: Denies nausea or vomiting Genitourinary Genitourinary ED: Denies dysuria or hematuria Musculoskeletal Musculoskeletal: Denies back pain or neck pain Integumentary Denies abscess or rash Neurologic Neurologic: Denies headache(s) or weakness Allergic/Immunologic Allergic/Immunologic ED: Denies mouth swelling or urticaria EXAM Physical Exam Const Vital Signs: 11/25/24 16:39 Temperature 98 F Temperature Source Oral Pulse Rate 78 Respiratory Rate 16 Blood Pressure 132/96 H Blood Pressure Mean 108 Pulse Ox 95 Oxygen Delivery Method Room Air Positive well nourished and well developed General Appearance ED: well developed and NAD HEENT atraumatic Eyes Eyes Narrative: Pupils are equal, round, and reactive to light bilaterally. Extraocular muscles are intact. Conjunctiva is clear. There is some dried blood noted on the upper eyelashes of the right eye. There are no lacerations noted. There is some mild edema of the upper and lower lids on the right. There is no purulent discharge or drainage noted. Anterior chamber is clear. There is no hyphema. Neck supple and no JVD Neuro CN's II-XII intact bilaterally, moves all extremities and no sensory deficits noted Sensorium / Orientation: alert Motor Exam: strength 5/5 throughout MDM MDM MDM Narrative Medical decision making narrative: Differential diagnosis includes eyelid abrasion, conjunctival laceration, and corneal abrasion. Visual acuity will be obtained to assess for visual loss and blurriness. Treatment and Re-Evaluation Narrative: Visual acuity was 20/200 in the right eye, 20/200 in the left eye, and 20/100 with both eyes. Patient did not have her glasses. I do not see any lacerations that required laceration repair. Patient and spouse were advised of the findings. Patient and spouse were instructed to follow-up with the patient's primary care physician in 3 to 5 days. Patient and spouse understood and were agreeable with the plan. All questions were answered. Discharge Plan Triage Chief Complaint: Eye Problem ED Provider: Hansel Mccrary Dx/Rx/DC Orders Clinical Impression: Abrasion of eyelid, right Instructions: ED Abrasion Prescriptions: No Action levothyroxine [Levoxyl] 112 mcg tablet 112 mcg PO DAILY cholecalciferol (vitamin D3) 50 mcg (2,000 unit) capsule 50 mcg PO DAILY nitrofurantoin monohyd/m-cryst 100 mg capsule 100 mg PO BID sulfamethoxazole-trimethoprim 800-160 mg tablet 1 tab PO DAILY albuterol sulfate 2.5 MG/3 ML solution for nebulization 2.5 mg Inhalation Q6H PRN PRN (Reason: COPD) methocarbamol [Robaxin] 750 mg Tablet 750 mg PO TID dicyclomine 10 MG capsule 10 mg PO TID PRN (Reason: abdominal discomfort) Qty: 20 0RF sucralfate [Carafate] 1 gram tablet 1 g PO .qid Qty: 40 0RF sulfamethoxazole-trimethoprim [Bactrim DS] 800-160 mg tablet 1 tab PO BID 7 Days Qty: 14 0RF erythromycin 5 mg/gram (0.5 %) ointment 1 applic RIGHT EYE Q6H 5 Days Qty: 3.5 0RF albuterol sulfate 90 mcg/actuation HFA aerosol inhaler 2 puff Inhalation 4X/DAY PRN PRN (Reason: Bronchodialation) Qty: 18 6RF Breo Ellipta 200-25 mcg/dose blister with device 1 inh INHALATION DAILY Qty: 3 3RF Primary Care Provider: Umm Rehman Referrals: Umm Rehman MD [Primary Care Provider] - Print Language: [place]gu[place] Disposition Disposition: Home, Self Care
== END 2024-11-25 18:08 | disposition home or self-care (01) ==
LOC: ED 17:02
PROVIDERS: Emergency Provider Emergency Medicine; PCP Internal Medicine; Visit Provider Emergency Medicine
DX: S00.211A Abrasion of right eyelid and periocular area, initial encounter (principal); X58.XXXA Exposure to other specified factors, initial encounter; Z87.891 Personal history of nicotine dependence
CPT/HCPCS: 99283